=== PATIENT | female | born 1950 | race Caucasian/White ===

== ENCOUNTER 2022-04-09 07:47 | Outpatient (CLI) | payer MEDICARE, SELFPAY | END 2022-04-09 07:48 | disposition home or self-care (01) | LOC: INJ CL 07:48 | PROVIDERS: PCP Physician Assistant; Visit Provider Family Medicine | DX: M51.36 Other intervertebral disc degeneration, lumbar region (principal); M54.16 Radiculopathy, lumbar region | CPT/HCPCS: 62323; J0702; Q9966 ==

== ENCOUNTER 2022-07-03 13:45 | Outpatient (RCR) | payer MEDICARE, SELFPAY | END 2023-01-23 23:59 | disposition home or self-care (01) | PROVIDERS: Visit Provider Family Medicine | DX: M54.50 Low back pain, unspecified (principal); Z51.89 Encounter for other specified aftercare | CPT/HCPCS: 97110; 97162 ==

== ENCOUNTER 2022-10-31 14:45 | Inpatient (IN) | payer MEDICARE, SELFPAY ==
[2022-10-31] VITALS (22 sets, daily range): BP systolic 100–136; BP diastolic 47–78; PULSE 76–90; RESP 14–20; TEMP 36.6–37.2; O2SAT 83–99; BMI 25.8
--- NOTE | 2022-10-31 14:54 | CRLHL7_ITS ---
For Patients: As a result of the Cures Act, medical imaging exams and procedure reports are released immediately into your electronic medical record. You may view this report before your referring provider. If you have questions, please contact your health care provider. INDICATION: Right lower crackles, fever. TECHNIQUE: Chest 2 view(s) COMPARISON: Chest radiograph dated 04/20/2021. FINDINGS: Cardiomediastinal silhouette is within normal limits. Mild prominence of the central interstitial markings, may reflect mild pulmonary edema. No focal consolidation. No layering pleural effusion, no pneumothorax. Multilevel degenerative changes of the visualized spine. IMPRESSION: Mild prominence of the central interstitial markings, may reflect mild pulmonary edema. No focal consolidation. Dictated by Maico Huynh MD @ 10/31/2022 5:07:00 PM (Electronically Signed)
--- NOTE | 2022-10-31 14:57 | ED_ITS ---
HPI - General Adult General Time Seen by Provider: 14:57 Date Seen: 10/31/22 Chief complaint: Shortness of Breath/Dyspnea Stated complaint: Shortness of breath Time Seen by Provider: 10/31/22 14:54 Source: patient and EMS Mode of arrival: EMS Limitations: no limitations History of Present Illness HPI narrative: Sarai is a 72-year-old female past medical history includes COPD not on home oxygen, chronic pain syndrome presents emerged department via EMS with shortness of breath. Patient was recently started on Belbuca for her chronic pain syndrome, she was originally started on 75 mg twice daily, just recently they increased the dose to 150 mg twice daily, the last time she took a dose like that was yesterday morning, she refused to take her medicine this morning and last night, she did go for a walk early in the morning with a walker. Staff noticed her to be more groggy and less responsive this morning, when EMS arrived her O2 sats were in the 80s, even on 2 L, she was given a DuoNeb prior to arrival. She denies any fevers or chills, she does get bronchitis often, she denies any chest pain, orthopnea, she denies any nausea vomiting or diarrhea. No sick contacts. She thinks that she is feeling this way due to the new medication. Related Data Home Medications Medication Instructions Recorded Confirmed acetaminophen 500 mg tablet 1,000 mg PO TID 10/31/22 10/31/22 amlodipine 10 mg tablet 10 mg PO DAILY 10/31/22 10/31/22 atorvastatin 20 mg tablet 20 mg PO DAILY 10/31/22 10/31/22 beclomethasone dipropionate 80 1 inh inhalation BID 10/31/22 10/31/22 mcg/actuation HFA breath activated aerosol (Qvar RediHaler) benzonatate 100 mg capsule 100 mg PO TID 10/31/22 10/31/22 blood sugar diagnostic (OneTouch 10/31/22 10/31/22 Ultra Test strips) blood-glucose meter (OneTouch 10/31/22 10/31/22 Verio Reflect Meter) buprenorphine HCl 150 mcg buccal 150 mcg buccal BID 10/31/22 10/31/22 film (Belbuca) cetirizine 10 mg tablet 10 mg PO HS 10/31/22 10/31/22 cholecalciferol (vitamin D3) 50 50 mcg PO DAILY 10/31/22 10/31/22 mcg (2,000 unit) tablet cyanocobalamin (vitamin B-12) 1,000 mcg PO DAILY 10/31/22 10/31/22 1,000 mcg tablet diclofenac sodium 1 % topical gel 2 g topical BID PRN 10/31/22 10/31/22 docusate sodium 100 mg capsule 100 mg PO BID 10/31/22 10/31/22 ferrous sulfate 325 mg (65 mg 325 mg PO DAILY 10/31/22 10/31/22 iron) tablet,delayed release food supplemt, lactose-reduced ea PO 10/31/22 0.06 gram-1 kcal/mL oral liquid (Boost High Protein) gabapentin 300 mg capsule PO 10/31/22 ibuprofen 800 mg tablet 800 mg PO BID PRN 10/31/22 10/31/22 ipratropium 0.5 mg-albuterol 3 mg 3 ml inhalation Q6H 10/31/22 10/31/22 (2.5 mg base)/3 mL nebulization soln magnesium oxide 400 mg (241.3 mg 400 mg PO DAILY 10/31/22 10/31/22 magnesium) tablet metoprolol tartrate 50 mg tablet 50 mg PO BID 10/31/22 10/31/22 multivitamin with folic acid 400 1 tab PO DAILY 10/31/22 10/31/22 mcg tablet (Tab-A-Myles) naloxone 4 mg/actuation nasal spray spray intranasal 10/31/22 omeprazole 40 mg capsule,delayed 40 mg PO DAILY 10/31/22 10/31/22 release pramipexole 0.75 mg tablet 0.75 mg PO QPM 10/31/22 10/31/22 sertraline 50 mg tablet 50 mg PO DAILY 10/31/22 10/31/22 tizanidine 2 mg tablet 2 mg PO BID 10/31/22 10/31/22 tizanidine 4 mg tablet 4 mg PO 3XD 10/31/22 10/31/22 Allergies Allergy/AdvReac Type Severity Reaction Status Date / Time codeine Allergy Verified 04/09/22 08:21 lactose Allergy Verified 04/09/22 08:21 meperidine Allergy Verified 04/09/22 08:21 Review of Systems Status of ROS: Reports: 10 or more systems reviewed and unremarkable except as noted in History and below [facility] Medical History Chronic obstructive pulmonary disease ?J44.9 - Chronic obstructive pulmonary disease, unspecified (ICD-10) Chronic pain syndrome ?G89.4 - Chronic pain syndrome (ICD-10) Dorsalgia ?M54.9 - Dorsalgia, unspecified (ICD-10) Edentulous ?K08.109 - Complete loss of teeth, unspecified cause, unspecified class (ICD- 10) Essential hypertension ?I10 - Essential (primary) hypertension (ICD-10) Generalized anxiety disorder ?F41.1 - Generalized anxiety disorder (ICD-10) Hyperglycemia ?R73.9 - Hyperglycemia, unspecified (ICD-10) Osteoporosis ?M81.0 - Age-related osteoporosis without current pathological fracture (ICD- 10) Other muscle spasm ?M62.838 - Other muscle spasm (ICD-10) Pure hypercholesterolemia ?E78.00 - Pure hypercholesterolemia, unspecified (ICD-10) Recurrent major depressive disorder ?F33.9 - Major depressive disorder, recurrent, unspecified (ICD-10) Restless leg syndrome ?G25.81 - Restless legs syndrome (ICD-10) Tobacco dependence ?F17.200 - Nicotine dependence, unspecified, uncomplicated (ICD-10) Unsteady gait ?R26.81 - Unsteadiness on feet (ICD-10) Social History Smoking Status: Current every day smoker What tobacco products do you use: ciga rettes Smoking packs per day: 1 Smoking cigarettes per day: 20.0 Do you use any of these nicotine containing products: None Second hand tobacco smoke exposure: No How often do you have a drink containing alcohol: never How many standard drinks containing alcohol do you have on a typical day: 1 or 2 How often do you have six or more drinks on one occasion: Never AUDIT-C Alcohol total score: 0 Non-prescribed substance use: denies use Caffeine: Yes (coffee) service: No Exam Narrative: Exam Narrative: General: No obvious distress, sitting comfortably, normal mentation, nontoxic in appearance HEENT: Pupils equal round reactive to light, extraocular muscles intact Neck: Lungs: diminished breath sounds throughout, crackles in the right lower lobe Heart normal sinus rhythm S1-S2 Abdomen: Soft nontender Muscle skeletal: no lower extremity edema Neuro: Alert awake and oriented x3 Const: Vital Signs, click to edit/add: Vital Signs - 24 hr 10/31/22 14:45 10/31/22 15:54 10/31/22 15:54 Temperature 99.0 F Pulse Rate Pulse Rate [Right Pulse Oximeter] 81 Respiratory Rate 20 Blood Pressure Blood Pressure [Le ft Upper Arm] 107/47 L Pulse Oximetry 99 91 91 Oxygen Delivery Me thod Room Air Nasal Cannula Oxygen Flow Rate 2.5 Fraction of Inspir ed Oxygen 10/31/22 17:24 10/31/22 17:30 10/31/22 15:51 Temperature Pulse Rate 81 Pulse Rate [Right Pulse Oximeter] Respiratory Rate Blood Pressure Blood Pressure [Le ft Upper Arm] Pulse Oximetry 92 84 L 94 Oxygen Delivery Me thod BiPAP BiPAP Oxygen Flow Rate Fraction of Inspir ed Oxygen 25 30 10/31/22 15:53 10/31/22 16:00 10/31/22 16:02 Temperature Pulse Rate 79 84 84 Pulse Rate [Right Pulse Oximeter] Respiratory Rate Blood Pressure 114/53 L 100/78 Blood Pressure [Le ft Upper Arm] Pulse Oximetry 94 93 92 Oxygen Delivery Me thod Oxygen Flow Rate Fraction of Inspir ed Oxygen 10/31/22 16:15 10/31/22 16:30 10/31/22 16:31 Temperature Pulse Rate 86 82 84 Pulse Rate [Right Pulse Oximeter] Respiratory Rate Blood Pressure 117/54 L Blood Pressure [Le ft Upper Arm] Pulse Oximetry 94 93 85 L Oxygen Delivery Me thod Oxygen Flow Rate Fraction of Inspir ed Oxygen 10/31/22 16:45 10/31/22 17:00 10/31/22 17:01 Temperature Pulse Rate 81 79 81 Pulse Rate [Right Pulse Oximeter] Respiratory Rate Blood Pressure 114/54 L Blood Pressure [Le ft Upper Arm] Pulse Oximetry 92 85 L 83 L Oxygen Delivery Me thod Oxygen Flow Rate Fraction of Inspir ed Oxygen 10/31/22 17:15 10/31/22 17:30 10/31/22 17:32 Temperature Pulse Rate 79 82 82 Pulse Rate [Right Pulse Oximeter] Respiratory Rate Blood Pressure 125/58 L Blood Pressure [Le ft Upper Arm] Pulse Oximetry 84 L 84 L 89 Oxygen Delivery Me thod Oxygen Flow Rate Fraction of Inspir ed Oxygen 10/31/22 17:45 10/31/22 18:00 10/31/22 18:01 Temperature Pulse Rate 84 83 85 Pulse Rate [Right Pulse Oximeter] Respiratory Rate Blood Pressure 136/63 Blood Pressure [Le ft Upper Arm] Pulse Oximetry 96 96 96 Oxygen Delivery Me thod Oxygen Flow Rate Fraction of Inspir ed Oxygen Course Course Hospital Course: 3:00 PM: AIDET performed. Vitals show O2 sats greater than 90% on 4 L, temperature 99.0?, blood pressure stable, workup will include IV peripheral, 10 mg IV Decadron, DuoNeb breathing treatment, will obtain COVID/influenza/RSV nasopharyngeal swab, EKG, point of care troponin, BNP, CBC and CMP, XR chest PA and lateral. Patient's last dose of medication was yesterday morning half life is about 28 hours. Differential diagnosis include COPD exasperation, heart failure, medication reaction, viral upper respiratory tract infection, pneumonia, sepsis, metabolic abnormalities, CVA hypoxia, hypoglycemia, as well as other etiologies Reevaluation(s) Reevaluation #1: Patient was updated on her EKG lab results, EKG showed normal sinus rhythm, cannot rule out anterior infarct age indeterminate seen on previous, bpm 82, imaging showed bilateral interstitial opacities, no consolidation or pleural effusion, VBG showed respiratory acidosis, pH is 7.2 5 4, with hypercapnia pCO2 of 69, likely explaining her altered mental status, patient to be placed on BiPAP, will give a dose of Narcan 0.4 see if any improvement, CBC showed no leukocytosis, metabolic panel stable from previous, NT proBNP within normal limits, COVID/influenza/RSV were negative, likely plan to admit to the CCU continuous BiPAP and improvement of her venous blood gas. No changes with giving the Narcan, symptoms possibly related to medication effects, altered mentation due to hypercarbia. spoke with Dr.Guimaraes THOMAS, hospitalist and he accepts care of the patient to CCU. Time: 17:40 Vital Signs Vital signs: Initial Vital Signs Temperature 99.0 F 10/31/22 14:45 Temperature Source Temporal Artery Scan 10/31/22 14:45 Pulse Rate 81 10/31/22 14:45 Respiratory Rate 20 10/31/22 14:45 Blood Pressure 107/47 L 10/31/22 14:45 Blood Pressure Mean 67 L 10/31/22 14:45 Blood Pressure Position Sitting 10/31/22 14:45 Pulse Oximetry 99 10/31/22 14:45 Oxygen Delivery Method Room Air 10/31/22 14:45 Vital Signs Temperature 99.0 F 10/31/22 14:45 Pulse Rate 81 10/31/22 14:45 Respiratory Rate 20 10/31/22 14:45 Blood Pressure 107/47 L 10/31/22 14:45 Pulse Oximetry 99 10/31/22 14:45 Oxygen Delivery Method Room Air 10/31/22 14:45 Temperature 99.0 F 10/31/22 14:45 Pulse Rate 90 10/31/22 18:18 Respiratory Rate 20 10/31/22 18:14 Blood Pressure 118/59 L 10/31/22 18:14 Pulse Oximetry 92 10/31/22 18:14 Oxygen Delivery Method BiPAP 10/31/22 18:14 Oxygen Flow Rate 2.5 10/31/22 15:54 Fraction of Inspired Oxygen 25 10/31/22 18:14 Medical Decision Making Lab Data Labs: Lab Results 10/31/22 10/31/22 10/31/22 Range/Units 15:20 15:20 15:20 WBC 9.89 (4.50-11.00) K/uL RBC 3.54 L (4.00-5.20) m/uL Hgb 11.2 L (12.0-16.0) gm/dL Hct 35.3 (33.0-51.0) % MCV 100 (80-100) fL MCH 32 (26-34) pg MCHC 32 (32-36) gm/dL RDW Coeff of Leanna 12.6 (11.5-15.5) % Plt Count 241 (140-440) K/uL Neut % (Auto) 79.8 H (42.0-72.0) % Lymph % (Auto) 12.0 L (20-44) % [place] % (Auto) 7.2 (0.0-11.0) % Eos % (Auto) 0.7 (0.0-7.0) % Baso % (Auto) 0.1 (0.0-3.0) % Neut # (Auto) 7.90 H (1.7-7.0) K/uL Lymph # (Auto) 1.20 (0.90-2.90) K/uL [place] # (Auto) 0.70 (0.00-0.90) K/UL Eos # (Auto) 0.07 (0.00-0.50) K/uL Baso # (Auto) 0.01 (0.00-0.30) K/uL VBG pH 7.254 L (7.32-7.43) VBG pCO2 69 H* (40-50) mmHG VBG pO2 40.4 (25-47) mmHG VBG HCO3 31 H (21-28) mmol/L Sodium Cancelled 135 Potassium Cancelled 4.8 Chloride Cancelled Carbon Dioxide BUN Creatinine Estimated Creat Clear Estimated GFR Glucose Calcium Total Bilirubin AST ALT Alkaline Phosphatase NT-Pro-B Natriuret Pep pg/mL Total Protein Albumin SARS-CoV-2 (PCR) (Negative) Influenza Type A (PCR) (Negative) Influenza Type B (PCR) (Negative) RSV (PCR) (Negative) POC Troponin I (0.01-0.04) ng/ml 10/31/22 10/31/22 10/31/22 Range/Units 15:20 15:20 15:20 WBC (4.50-11.00) K/uL RBC (4.00-5.20) m/uL Hgb (12.0-16.0) gm/dL Hct (33.0-51.0) % MCV (80-100) fL MCH (26-34) pg MCHC (32-36) gm/dL RDW Coeff of Leanna (11.5-15.5) % Plt Count (140-440) K/uL Neut % (Auto) (42.0-72.0) % Lymph % (Auto) (20-44) % [place] % (Auto) (0.0-11.0) % Eos % (Auto) (0.0-7.0) % Baso % (Auto) (0.0-3.0) % Neut # (Auto) (1.7-7.0) K/uL Lymph # (Auto) (0.90-2.90) K/uL [place] # (Auto) (0.00-0.90) K/UL Eos # (Auto) (0.00-0.50) K/uL Baso # (Auto) (0.00-0.30) K/uL VBG pH (7.32-7.43) VBG pCO2 (40-50) mmHG VBG pO2 (25-47) mmHG VBG HCO3 (21-28) mmol/L Sodium Potassium Chloride 97 Carbon Dioxide Cancelled 29 BUN Cancelled 42 H Creatinine Cancelled Estimated Creat Clear Estimated GFR Glucose Calcium Total Bilirubin AST ALT Alkaline Phosphatase NT-Pro-B Natriuret Pep pg/mL Total Protein Albumin SARS-CoV-2 (PCR) (Negative) Influenza Type A (PCR) (Negative) Influenza Type B (PCR) (Negative) RSV (PCR) (Negative) POC Troponin I (0.01-0.04) ng/ml 10/31/22 10/31/22 10/31/22 Range/Units 15:20 15:20 15:20 WBC (4.50-11.00) K/uL RBC (4.00-5.20) m/uL Hgb (12.0-16.0) gm/dL Hct (33.0-51.0) % MCV (80-100) fL MCH (26-34) pg MCHC (32-36) gm/dL RDW Coeff of Leanna (11.5-15.5) % Plt Count (140-440) K/uL Neut % (Auto) (42.0-72.0) % Lymph % (Auto) (20-44) % [place] % (Auto) (0.0-11.0) % Eos % (Auto) (0.0-7.0) % Baso % (Auto) (0.0-3.0) % Neut # (Auto) (1.7-7.0) K/uL Lymph # (Auto) (0.90-2.90) K/uL [place] # (Auto) (0.00-0.90) K/UL Eos # (Auto) (0.00-0.50) K/uL Baso # (Auto) (0.00-0.30) K/uL VBG pH (7.32-7.43) VBG pCO2 (40-50) mmHG VBG pO2 (25-47) mmHG VBG HCO3 (21-28) mmol/L Sodium Potassium Chloride Carbon Dioxide BUN Creatinine 1.1 Estimated Creat Clear Cancelled Estimated GFR Cancelled 54 Glucose Cancelled 88 Calcium Cancelled Total Bilirubin AST ALT Alkaline Phosphatase NT-Pro-B Natriuret Pep pg/mL Total Protein Albumin SARS-CoV-2 (PCR) (Negative) Influenza Type A (PCR) (Negative) Influenza Type B (PCR) (Negative) RSV (PCR) (Negative) POC Troponin I (0.01-0.04) ng/ml 10/31/22 10/31/22 10/31/22 Range/Units 15:20 15:20 15:20 WBC (4.50-11.00) K/uL RBC (4.00-5.20) m/uL Hgb (12.0-16.0) gm/dL Hct (33.0-51.0) % MCV (80-100) fL MCH (26-34) pg MCHC (32-36) gm/dL RDW Coeff of Leanna (11.5-15.5) % Plt Count (140-440) K/uL Neut % (Auto) (42.0-72.0) % Lymph % (Auto) (20-44) % [place] % (Auto) (0.0-11.0) % Eos % (Auto) (0.0-7.0) % Baso % (Auto) (0.0-3.0) % Neut # (Auto) (1.7-7.0) K/uL Lymph # (Auto) (0.90-2.90) K/uL [place] # (Auto) (0.00-0.90) K/UL Eos # (Auto) (0.00-0.50) K/uL Baso # (Auto) (0.00-0.30) K/uL VBG pH (7.32-7.43) VBG pCO2 (40-50) mmHG VBG pO2 (25-47) mmHG VBG HCO3 (21-28) mmol/L Sodium Potassium Chloride Carbon Dioxide BUN Creatinine Estimated Creat Clear Estimated GFR Glucose Calcium 9.2 Total Bilirubin Cancelled 0.3 AST Cancelled 53 H ALT Cancelled Alkaline Phosphatase NT-Pro-B Natriuret Pep pg/mL Total Protein Albumin SARS-CoV-2 (PCR) (Negative) Influenza Type A (PCR) (Negative) Influenza Type B (PCR) (Negative) RSV (PCR) (Negative) POC Troponin I (0.01-0.04) ng/ml 10/31/22 10/31/22 10/31/22 Range/Units 15:20 15:20 15:20 WBC (4.50-11.00) K/uL RBC (4.00-5.20) m/uL Hgb (12.0-16.0) gm/dL Hct (33.0-51.0) % MCV (80-100) fL MCH (26-34) pg MCHC (32-36) gm/dL RDW Coeff of Leanna (11.5-15.5) % Plt Count (140-440) K/uL Neut % (Auto) (42.0-72.0) % Lymph % (Auto) (20-44) % [place] % (Auto) (0.0-11.0) % Eos % (Auto) (0.0-7.0) % Baso % (Auto) (0.0-3.0) % Neut # (Auto) (1.7-7.0) K/uL Lymph # (Auto) (0.90-2.90) K/uL [place] # (Auto) (0.00-0.90) K/UL Eos # (Auto) (0.00-0.50) K/uL Baso # (Auto) (0.00-0.30) K/uL VBG pH (7.32-7.43) VBG pCO2 (40-50) mmHG VBG pO2 (25-47) mmHG VBG HCO3 (21-28) mmol/L Sodium Potassium Chloride Carbon Dioxide BUN Creatinine Estimated Creat Clear Estimated GFR Glucose Calcium Total Bilirubin AST ALT 28 Alkaline Phosphatase Cancelled 38 L NT-Pro-B Natriuret Pep 1190 pg/mL Total Protein Cancelled 7.1 Albumin Cancelled SARS-CoV-2 (PCR) (Negative) Influenza Type A (PCR) (Negative) Influenza Type B (PCR) (Negative) RSV (PCR) (Negative) POC Troponin I (0.01-0.04) ng/ml 10/31/22 Range/Units 15:20 WBC (4.50-11.00) K/uL RBC (4.00-5.20) m/uL Hgb (12.0-16.0) gm/dL Hct (33.0-51.0) % MCV (80-100) fL MCH (26-34) pg MCHC (32-36) gm/dL RDW Coeff of Leanna (11.5-15.5) % Plt Count (140-440) K/uL Neut % (Auto) (42.0-72.0) % Lymph % (Auto) (20-44) % [place] % (Auto) (0.0-11.0) % Eos % (Auto) (0.0-7.0) % Baso % (Auto) (0.0-3.0) % Neut # (Auto) (1.7-7.0) K/uL Lymph # (Auto) (0.90-2.90) K/uL [place] # (Auto) (0.00-0.90) K/UL Eos # (Auto) (0.00-0.50) K/uL Baso # (Auto) (0.00-0.30) K/uL VBG pH (7.32-7.43) VBG pCO2 (40-50) mmHG VBG pO2 (25-47) mmHG VBG HCO3 (21-28) mmol/L Sodium Potassium Chloride Carbon Dioxide BUN Creatinine Estimated Creat Clear Estimated GFR Glucose Calcium Total Bilirubin AST ALT Alkaline Phosphatase NT-Pro-B Natriuret Pep pg/mL Total Protein Albumin 4.3 SARS-CoV-2 (PCR) Negative SARS-CoV-2 (Negative) Influenza Type A (PCR) Negative PCR FLU A (Negative) Influenza Type B (PCR) Negative PCR FLU B (Negative) RSV (PCR) Negative PCR RSV (Negative) POC Troponin I 0.01 (0.01-0.04) ng/ml Discharge Plan Discharge Clinical Impression: Acute respiratory failure with hypoxia and hypercarbia, Chronic pain syndrome Patient Disposition: Admitted As Inpatient
[2022-10-31 15:27] LABS: HCO3 VBG 31 mmol/L (21-28); PO2 VBG 40.4 mmHG (25-47); pH VBG 7.254 (7.32-7.43)
[2022-10-31 15:31] LABS: PCO2 VBG 69 mmHG (40-50)
[2022-10-31 15:33] LABS: Basophils Absolute Auto 0.01 K/uL (0.00-0.30); Basophils Percent Auto 0.1 % (0.0-3.0); Eosinophils Absolute Auto 0.07 K/uL (0.00-0.50); Eosinophils Percent Auto 0.7 % (0.0-7.0); Hematocrit 35.3 % (33.0-51.0); Hemoglobin* 11.2 gm/dL (12.0-16.0); Immature Granulocytes Abs Auto 0.02 K/uL (0.00-0.30); Immature Granulocytes Pct Auto 0.2 %; Mean Corpuscular HGB Conc 32 gm/dL (32-36); Mean Corpuscular Hemoglobin 32 pg (26-34); Mean Corpuscular Volume 100 fL (80-100); Monocytes Percent Auto 7.2 % (0.0-11.0); Neutrophils Percent Auto 79.8 % (42.0-72.0); Platelet Count* 241 K/uL (140-440); RDW Coefficient of Variation % 12.6 % (11.5-15.5); Red Blood Count 3.54 m/uL (4.00-5.20); White Blood Count* 9.89 K/uL (4.50-11.00)
[2022-10-31 15:40] LABS: Slide Review Reflex No
[2022-10-31 15:41] LABS: Troponin, Point-of-Care* 0.01 ng/ml (0.01-0.04)
[2022-10-31] MEDS: IPRAT-ALBUT 0.5-2.5 MG/3 ML NEB 1 NEB IH ×2 (15:42→20:40)
[2022-10-31] MEDS: dexAMETHasone 10 MG/ML inj IV (15:42)
[2022-10-31 15:47] LABS: Albumin* 4.3 g/dL (3.3-5.0); Chloride* 97 mmol/L (96-114); Potassium* 4.8 mmol/L (3.6-5.1); Sodium* 135 mmol/L (135-149)
[2022-10-31 15:49] LABS: Creatinine* 1.1 mg/dL (0.5-1.5); Estimated Glomerular Filt Rate 54 ml/min
[2022-10-31 15:50] LABS: Alanine Aminotransferase* 28 U/L (4-35); Alkaline Phosphatase* 38 U/L (40-150); Aspartate Amino Transferase* 53 U/L (12-35); Bilirubin Total* 0.3 mg/dL (0.1-1.5); Blood Urea Nitrogen* 42 mg/dL (7-30); Carbon Dioxide* 29 mmol/L (20-32); Glucose* 88 mg/dL (60-115); Total Protein* 7.1 g/dL (6.0-8.3)
[2022-10-31 15:51] LABS: Calcium* 9.2 mg/dL (8.4-10.6)
[2022-10-31 16:03] LABS: NT Pro B Type NatriureticPept* 1190 pg/mL
[2022-10-31 16:26] LABS: PCR FLU A Negative PCR FLU A (Negative); PCR FLU B Negative PCR FLU B (Negative); SARS PCR* Negative SARS-CoV-2 (Negative)
[2022-10-31 16:27] LABS: PCR RSV Negative PCR RSV (Negative)
[2022-10-31] MEDS: NALOXONE 1 MG/ML SYRINGE 0.4 MG IV (17:22)
--- NOTE | 2022-10-31 17:57 | ED.NURSE ---
Report given to med/surg, pt going into room CC3. Pt continues to be lethargic, denies pain. Main compliant is dry mouth with Bipap. Requiring 30% FiO2
--- NOTE | 2022-10-31 18:18 | ED.NURSE ---
Was not able to get jatin of assisted living facility to let know pt was admitted, passed this information onto Med/dermatological surgeon
--- NOTE | 2022-10-31 18:49 | PM.IMHP1 ---
Hospitalist- H&P: HPI History of Present Illness Time Seen by Provider: 17:30 Date Seen: 10/31/22 Chief complaint: Shortness of breath Narrative: Sarai Buckley is a 72 year old woman presents to the emergency department via EMS for further assessment and stabilization hypoxia and grogginess. Patient has longstanding history chronic pain. In the recent past she was started on belbuca (buprenorphine bucal film) sent 5 mg twice daily to help treat her pain. Two days ago on 10/29/2022 the dose was increased to 150 mg twice daily. According to the patient's close friend, Lena Curiel, who visits with Sarai regularly via the telephone, the patient complained of nausea and upset stomach when on lower dose. After the dose was increased, Lena indicates that Sarai was concerned that her balance was off. Evidently yesterday evening the 2 of them decided to stop the medicine until they can talk to healthcare provider about her concerns. Thus the patient did not take a dose today. I also spoke with Sarai ZAMORA, nurse at [facility] who helps Sarai. Sarai ZAMORA notes that since starting the higher dose of the Belbuca she noticed that the patient was slower to move slower to respond. Still able to carry out conversations. Early in the morning today the patient was still able to walk outside to smoker cigarette. However later in the morning today she noticed the patient to be rather groggy falling asleep even during conversation. The patient's lips were blue. She had extremely low saturations which they measured at 35%. Her heart rate was elevated at greater than 100. Sarai RN then summon for EMS who brought her into the emergency department for further assessment. Patient has not had anything like this previously. This is all new. There has been no recent fevers, rigors, diaphoresis. No recent cough, trauma, injury, travel. Patient has not had any unilateral or bilateral lower extremity edema. Has not had any syncope or near-syncope. No palpitations or fluttering. No recent cough or dyspnea at rest. Review of Systems Status of ROS: Reports: 10 or more systems reviewed and unremarkable except as noted in History and below Narrative: Patient lives in a assisted living setting called [facility]. Usually the patient is fairly independent with most of her ADLs and IADLs. Today this rapidly, suddenly changed. Ordinarily the patient is able to walk about. Around noon today this all changed. She can hardly move she so weak and lethargic compared to usual. Does not use oxygen at this time. Historically at 1 time in the past she did use oxygen for short period of time in association with her chronic obstructive pulmonary disease and complications associated there with. Has not been on oxygen for some time. With her transfer medical records we have information indicating that she has a son, Lawrence Lindo,, from [place], [place], with telephone [phone]. We do not have information regarding the patient's resuscitation status. I am unable to reach the patient's son to discuss this with him. The patient is too groggy to be able to have a discussion with me about this. The staff at [facility] do not know the patient's resuscitation status. [facility] Medical History Chronic obstructive pulmonary disease ?J44.9 - Chronic obstructive pulmonary disease, unspecified (ICD-10) Chronic pain syndrome ?G89.4 - Chronic pain syndrome (ICD-10) Dorsalgia ?M54.9 - Dorsalgia, unspecified (ICD-10) Edentulous ?K08.109 - Complete loss of teeth, unspecified cause, unspecified class (ICD-10) Essential hypertension ?I10 - Essential (primary) hypertension (ICD-10) Generalized anxiety disorder ?F41.1 - Generalized anxiety disorder (ICD-10) Hyperglycemia ?R73.9 - Hyperglycemia, unspecified (ICD-10) Osteoporosis ?M81.0 - Age-related osteoporosis without current pathological fracture (ICD-10) Other muscle spasm ?M62.838 - Other muscle spasm (ICD-10) Pure hypercholesterolemia ?E78.00 - Pure hypercholesterolemia, unspecified (ICD-10) Recurrent major depressive disorder ?F33.9 - Major depressive disorder, recurrent, unspecified (ICD-10) Restless leg syndrome ?G25.81 - Restless legs syndrome (ICD-10) Tobacco dependence ?F17.200 - Nicotine dependence, unspecified, uncomplicated (ICD-10) Unsteady gait ?R26.81 - Unsteadiness on feet (ICD-10) Social History Smoking Status: Current every day smoker What tobacco products do you use: cigarettes Smoking packs per day: 1 Smoking cigarettes per day: 20.0 Do you use any of these nicotine containing products: None Second hand tobacco smoke exposure: No How often do you have a drink containing alcohol: never How many standard drinks containing alcohol do you have on a typical day: 1 or 2 How often do you have six or more drinks on one occasion: Never AUDIT-C Alcohol total score: 0 Non-prescribed substance use: denies use Caffeine: Yes (coffee) service: No Meds Home Medications and Allergies Home Medications Medication Instructions Recorded Confirmed Type acetaminophen 500 mg tablet 1,000 mg PO TID 10/31/22 10/31/22 History amlodipine 10 mg tablet 10 mg PO DAILY 10/31/22 10/31/22 History atorvastatin 20 mg tablet 20 mg PO DAILY 10/31/22 10/31/22 History beclomethasone dipropionate 80 1 inh inhalation BID 10/31/22 10/31/22 History mcg/actuation HFA breath activated aerosol (Qvar RediHaler) benzonatate 100 mg capsule 100 mg PO TID 10/31/22 10/31/22 History blood sugar diagnostic (OneTouch 10/31/22 10/31/22 History Ultra Test strips) blood-glucose meter (OneTouch 10/31/22 10/31/22 History Verio Reflect Meter) buprenorphine HCl 150 mcg buccal 150 mcg buccal BID 10/31/22 10/31/22 History film (Belbuca) cetirizine 10 mg tablet 10 mg PO HS 10/31/22 10/31/22 History cholecalciferol (vitamin D3) 50 50 mcg PO DAILY 10/31/22 10/31/22 History mcg (2,000 unit) tablet cyanocobalamin (vitamin B-12) 1,000 mcg PO DAILY 10/31/22 10/31/22 History 1,000 mcg tablet diclofenac sodium 1 % topical gel 2 g topical BID PRN 10/31/22 10/31/22 History docusate sodium 100 mg capsule 100 mg PO BID 10/31/22 10/31/22 History ferrous sulfate 325 mg (65 mg 325 mg PO DAILY 10/31/22 10/31/22 History iron) tablet,delayed release food supplemt, lactose-reduced ea PO 10/31/22 History 0.06 gram-1 kcal/mL oral liquid (Boost High Protein) gabapentin 300 mg capsule PO 10/31/22 History ibuprofen 800 mg tablet 800 mg PO BID PRN 10/31/22 10/31/22 History ipratropium 0.5 mg-albuterol 3 mg 3 ml inhalation Q6H 10/31/22 10/31/22 History (2.5 mg base)/3 mL nebulization soln magnesium oxide 400 mg (241.3 mg 400 mg PO DAILY 10/31/22 10/31/22 History magnesium) tablet metoprolol tartrate 50 mg tablet 50 mg PO BID 10/31/22 10/31/22 History multivitamin with folic acid 400 1 tab PO DAILY 10/31/22 10/31/22 History mcg tablet (Tab-A-Myles) naloxone 4 mg/actuation nasal spray spray intranasal 10/31/22 History omeprazole 40 mg capsule,delayed 40 mg PO DAILY 10/31/22 10/31/22 History release pramipexole 0.75 mg tablet 0.75 mg PO QPM 10/31/22 10/31/22 History sertraline 50 mg tablet 50 mg PO DAILY 10/31/22 10/31/22 History tizanidine 2 mg tablet 2 mg PO BID 10/31/22 10/31/22 History tizanidine 4 mg tablet 4 mg PO 3XD 10/31/22 10/31/22 History Allergies Allergy/AdvReac Type Severity Reaction Status Date / Time codeine Allergy Verified 04/09/22 08:21 lactose Allergy Verified 04/09/22 08:21 meperidine Allergy Verified 04/09/22 08:21 Exam Narrative: Exam Narrative: I examined the patient in the emergency department. She is on BiPAP with IPAP at 16, EPAP at 8, respirations set at 10, FiO2 of 30%, inspiratory time of 1 sec, rise of 2. She has the face mask on. As I examine her she is sleeping the entire time. As I hold her hand and call out her name I am able to arouse her briefly and then she falls asleep again. For the most part she is breathing with the BiPAP machine and not above the respiratory rate set on the BiPAP machine. Is able to move her hands and arms on my command. Tympanic membranes are normal. Seemingly her hearing is preserved. Does open her eyes when I ask her to do so but then falls asleep again readily. Pupils equally round reactive to light and accommodation. Extraocular muscles are intact. Does track my hands when I ask her to do so. Does require lot of prompting. Neck seems supple. Midline trachea. No adenopathy. Lungs seem clear for the most part. No obvious wheezing or rhonchi. Does have end inspiratory rales, minimally on the right and only minimal to moderate on the left, anterior more so than posterior. Heart tones with regular rhythm, normal S1-S2. Abdomen with active bowel sounds, soft, nontender. Trace edema pretibially bilateral lower extremities. Strong pulses upper extremities. Only trace pulses in bilateral lower extremities. Capillary refill less than 3 seconds upper and lower extremities. Hyperpigmentation of bilateral lower extremities seemingly from chronic venous insufficiency. Const: Vital Signs, click to edit/add: Vital Signs - 24 hr 10/31/22 14:45 10/31/22 15:54 10/31/22 15:54 Temperature 99.0 F Pulse Rate Pulse Rate [Pulse Oximeter] Pulse Rate [Right Pulse Oximeter] 81 Respiratory Rate 20 Blood Pressure Blood Pressure [Le ft Upper Arm] 107/47 L Blood Pressure [Ri ght Arm] Pulse Oximetry 99 91 91 Oxygen Delivery Me thod Room Air Nasal Cannula Oxygen [facility] 10/31/22 17:24 10/31/22 17:30 10/31/22 15:51 Temperature Pulse Rate 81 Pulse Rate [Pulse Oximeter] Pulse Rate [Right Pulse Oximeter] Respiratory Rate Blood Pressure Blood Pressure [Le ft Upper Arm] Blood Pressure [Ri ght Arm] Pulse Oximetry 92 84 L 94 Oxygen Delivery Me thod BiPAP BiPAP Oxygen Flow Rate [facility] 30 10/31/22 15:53 10/31/22 16:00 10/31/22 16:02 Temperature Pulse Rate 79 84 84 Pulse Rate [Pulse Oximeter] Pulse Rate [Right Pulse Oximeter] Respiratory Rate Blood Pressure 114/53 L 100/78 Blood Pressure [Le ft Upper Arm] Blood Pressure [Ri ght Arm] Pulse Oximetry 94 93 92 Oxygen Delivery Me thod Oxygen Flow Rate Fraction of Inspir ed Oxygen 10/31/22 16:15 10/31/22 16:30 10/31/22 16:31 Temperature Pulse Rate 86 82 84 Pulse Rate [Pulse Oximeter] Pulse Rate [Right Pulse Oximeter] Respiratory Rate Blood Pressure 117/54 L Blood Pressure [Le ft Upper Arm] Blood Pressure [Ri ght Arm] Pulse Oximetry 94 93 85 L Oxygen Delivery Me thod Oxygen Flow Rate Fraction of Inspir ed Oxygen 10/31/22 16:45 10/31/22 17:00 10/31/22 17:01 Temperature Pulse Rate 81 79 81 Pulse Rate [Pulse Oximeter] Pulse Rate [Right Pulse Oximeter] Respiratory Rate Blood Pressure 114/54 L Blood Pressure [Le ft Upper Arm] Blood Pressure [Ri ght Arm] Pulse Oximetry 92 85 L 83 L Oxygen Delivery Me thod Oxygen Flow Rate Fraction of Inspir ed Oxygen 10/31/22 17:15 10/31/22 17:30 10/31/22 17:32 Temperature Pulse Rate 79 82 82 Pulse Rate [Pulse Oximeter] Pulse Rate [Right Pulse Oximeter] Respiratory Rate Blood Pressure 125/58 L Blood Pressure [Le ft Upper Arm] Blood Pressure [Ri ght Arm] Pulse Oximetry 84 L 84 L 89 Oxygen Delivery Me thod Oxygen Flow Rate Fraction of Inspir ed Oxygen 10/31/22 17:45 10/31/22 18:00 10/31/22 18:01 Temperature Pulse Rate 84 83 85 Pulse Rate [Pulse Oximeter] Pulse Rate [Right Pulse Oximeter] Respiratory Rate Blood Pressure 136/63 Blood Pressure [Le ft Upper Arm] Blood Pressure [Ri ght Arm] Pulse Oximetry 96 96 96 Oxygen Delivery Me thod Oxygen Flow Rate Fraction of Inspir ed Oxygen 10/31/22 18:14 10/31/22 18:14 10/31/22 18:14 Temperature Pulse Rate Pulse Rate [Pulse Oximeter] 88 Pulse Rate [Right Pulse Oximeter] Respiratory Rate 14 20 Blood Pressure Blood Pressure [Le ft Upper Arm] Blood Pressure [Ri ght Arm] 118/59 L Pulse Oximetry 93 92 Oxygen Delivery Me thod BiPAP BiPAP Oxygen Flow Rate Fraction of Inspir ed Oxygen 0.30 25 25 Documenting provider has reviewed patient's vital signs: yes Hospitalist - H&P: Result Labs Labs: Short CBC 10/31/22 Range/Units 15:20 WBC 9.89 (4.50-11.00) K/uL Hgb 11.2 L (12.0-16.0) gm/dL Hct 35.3 (33.0-51.0) % Plt Count 241 (140-440) K/uL BMP 10/31/22 10/31/22 10/31/22 15:20 15:20 15:20 Sodium Cancelled 135 Potassium Cancelled 4.8 Chloride Cancelled Carbon Dioxide BUN Creatinine Glucose Calcium 10/31/22 10/31/22 10/31/22 15:20 15:20 15:20 Sodium Potassium Chloride 97 Carbon Dioxide Cancelled 29 BUN Cancelled 42 H Creatinine Cancelled Glucose Calcium 10/31/22 10/31/22 10/31/22 15:20 15:20 15:20 Sodium Potassium Chloride Carbon Dioxide BUN Creatinine 1.1 Glucose Cancelled 88 Calcium Cancelled 9.2 Liver Function 10/31/22 10/31/22 10/31/22 Range/Units 15:20 15:20 15:20 Total Bilirubin Cancelled 0.3 AST Cancelled 53 H ALT Cancelled Alkaline Phosphatase Albumin 10/31/22 10/31/22 10/31/22 Range/Units 15:20 15:20 15:20 Total Bilirubin AST ALT 28 Alkaline Phosphatase Cancelled 38 L Albumin Cancelled 4.3 Imaging Chest x-ray: Attestation: I have reviewed the pertinent imaging results. Radiologist's impression: Mild prominence of the central interstitial markings, may reflect mild pulmonary edema. No focal consolidation. Assessment and Plan Assessment and plan (1) Lethargy: Status: Acute (2) Acute on chronic respiratory failure with hypoxia and hypercapnia: Status: Acute (3) Adverse effects of medication: Status: Acute (4) Chronic pain syndrome: Status: Acute (5) Acute respiratory acidosis: Status: Acute (6) Tobacco dependence: Status: Acute Plan 1. I was able to speak with Dr. Gillespie, emergency department physician. 2. I was able to speak with Sarai ZAMORA, the nurse at [facility], where the patient resides. 3. I attempted to call the patient's son, Lawrence Lindo, at [phone]. I was not able to reach him. I left a message for him to call back to [facility] so we can speak with him. I asked the health munitions factory worker to try to call him again shortly. We will continue to try to reach him. 4. I attempted to call the patient's director social welfare, case managers, Olga Lidia Heredia, at the number that we have to reach her at, . I am not able to get through to her on this phone number at all, and received a message that I need to try to dial the number again. I try 5 times without success. 5. Patient is in critical condition. In great measure her critical condition is seemingly in consequence of an adverse effect from the Belbuca (buprenorphine) that she has been taking, and the dose of which was doubled from 75 mg twice daily to 150 mg twice daily on the 29 of October. The half life of this medicines extremely long. Patient will warrant continued ventilatory support with the BiPAP until such time as she is more awake and arousable and able to ventilate on her own. Meanwhile I will not be giving her any of this medicine. 6. Will monitor her closely and decide over time whether not she can safely take oral medications. 7. Will add a nicotine patch for her tobacco dependence. 8. Physical therapy, occupational therapy, social media campaign manager support while she is in hospital. 9. We have yet to establish a resuscitation status. This is not clearly delineated in the paperwork that we received from [facility] Pederson. The value staff home I spoke with, Sarai ZAMORA, does not know the patient's resuscitation status. Other staff members home our hospital staff have converse with also are not aware the patient's resuscitation status.
[2022-10-31 18:56] LABS: HCO3 VBG 30 mmol/L (21-28); PO2 VBG 39.8 mmHG (25-47); pH VBG 7.288 (7.32-7.43)
[2022-10-31 19:04] LABS: PCO2 VBG 62 mmHG (40-50)
--- NOTE | 2022-10-31 19:26 | PC.NURSE ---
arrived to unit approx 1814, BiPAP placed, tolerating well. awake and oriented, able to answer admission questions, does fall asleep periodically during admission. BSC used, continent of urine, SBA
[2022-10-31 19:41] LABS: Troponin I* < 0.01 ng/mL (0.01-0.04)
[2022-10-31] MEDS: 0.9 % SODIUM CHLORIDE 1000 ml 1,000 ML 75 ML IV (20:40)
[2022-10-31] MEDS: ENOXAPARIN 30 MG/0.3ML INJ SUBCUT (20:41)
[2022-10-31] MEDS: METOPROLOL TARTRATE 50 MG TABLET PO (20:42)
[2022-10-31] MEDS: TIZANIDINE HCL 4 MG TABLET PO (20:42)
[2022-10-31] MEDS: DOCUSATE SODIUM 100 MG CAPSULE PO (20:42)
[2022-10-31] MEDS: GABAPENTIN 300 MG CAPSULE 900 MG PO (22:20)
[2022-10-31] MEDS: PRAMIPEXOLE 0.25 MG TABLET 0.75 MG PO (22:21)
[2022-10-31] MEDS: ACETAMINOPHEN 325 MG TABLET 650 MG PO (22:22)
[2022-11-01] VITALS (11 sets, daily range): BP systolic 116–133; BP diastolic 50–66; PULSE 70–97; RESP 16–20; TEMP 35.8–37; O2SAT 91–95
[2022-11-01] MEDS: NICOTINE 21 MG PATCH 1 PATCH TRANSDERMA (03:32)
[2022-11-01] MEDS: IPRAT-ALBUT 0.5-2.5 MG/3 ML NEB 1 NEB IH ×2 (03:33→05:56)
[2022-11-01] MEDS: GABAPENTIN 300 MG CAPSULE 600 MG PO ×2 (05:55→12:40)
[2022-11-01] MEDS: ACETAMINOPHEN 325 MG TABLET 650 MG PO ×3 (06:03→21:41)
[2022-11-01 06:56] LABS: HCO3 VBG 30 mmol/L (21-28); Lactate* 1.3 mmol/L (0.5-1.9); PCO2 VBG 50 mmHG (40-50); PO2 VBG 35.7 mmHG (25-47); pH VBG 7.386 (7.32-7.43)
[2022-11-01 07:00] LABS: Basophils Absolute Auto 0.01 K/uL (0.00-0.30); Basophils Percent Auto 0.1 % (0.0-3.0); Hematocrit 33.6 % (33.0-51.0); Hemoglobin* 10.7 gm/dL (12.0-16.0); Immature Granulocytes Abs Auto 0.01 K/uL (0.00-0.30); Immature Granulocytes Pct Auto 0.1 %; Mean Corpuscular HGB Conc 32 gm/dL (32-36); Mean Corpuscular Hemoglobin 32 pg (26-34); Mean Corpuscular Volume 100 fL (80-100); Monocytes Percent Auto 5.4 % (0.0-11.0); Neutrophils Percent Auto 79.4 % (42.0-72.0); Platelet Count* 191 K/uL (140-440); RDW Coefficient of Variation % 12.5 % (11.5-15.5); Red Blood Count 3.37 m/uL (4.00-5.20); White Blood Count* 8.71 K/uL (4.50-11.00)
[2022-11-01 07:03] LABS: Slide Review Reflex No
--- NOTE | 2022-11-01 07:17 | PC.NURSE ---
Pt pleasant and cooperative. VSS afebrile. she was on BIPAP from 19-2300 and then switched to NC at 1.5L . This maintained her at 93% O2 sats. Up with standby assist to BR tolerated this well. Voiding with out difficulty. O2 sats after walking were 70% O2 reapplied at 1.5 L NC. Have weaned her O2 to 1L. Pt states shes going home.
[2022-11-01 07:28] LABS: Chloride* 99 mmol/L (96-114); Sodium* 134 mmol/L (135-149)
[2022-11-01 07:29] LABS: Potassium* 5.4 mmol/L (3.6-5.1)
[2022-11-01 07:31] LABS: Creatinine* 0.6 mg/dL (0.5-1.5); Est. Creatinine Clearance* 45.73; Estimated Glomerular Filt Rate 97 ml/min
[2022-11-01 07:32] LABS: Blood Urea Nitrogen* 26 mg/dL (7-30); Calcium* 8.1 mg/dL (8.4-10.6); Carbon Dioxide* 27 mmol/L (20-32); Glucose* 87 mg/dL (60-115); Phosphorus* 3.4 mg/dL (2.5-4.5)
[2022-11-01 07:35] LABS: C Reactive Protein* 2.1 mg/dL (0.5-1.0)
--- NOTE | 2022-11-01 07:35 | PM.IMPN1 ---
Progress Note: A&P Assessment and plan (1) Acute respiratory failure with hypoxia and hypercarbia: Problem details: - likely iatrogenic from increased dose of Buprenorphine (ddx includes COPD exacerbation, viral URI, EDVIN) - patient is significantly improved on day after BiPAP administration - concern for pulmonary edema on admission chest x-ray - no evidence of pneumonia by exam or imaging - continues to require low-dose supplemental oxygen; would prefer to not go home on this given risk of hypercarbia + smoking status Status: Acute (2) Acute respiratory acidosis: Problem details: - resolved on hospital day 1 after BiPAP administration Status: Acute (3) Tobacco dependence: Problem details: - tolerating patch Status: Acute (4) Chronic pain syndrome: Problem details: - follows with [facility] in [place] - Noted that her somnolence and breathing difficulties began after increasing her Buprenorphine from 75mcg BID --> 150mcg BID - recommend lower dose of respiratory medications given risk of hypercarbia Status: Acute Plan - continue current course of treatment, wean supplemental oxygen as tolerated - appreciate input from respiratory therapy, PT, OT - conservative Rx with sedating medications - back to [place] when medically stable on room air Subjective Date Seen: 11/01/22 Interval history: Sarai is significantly improved today. She tapered from BiPAP to low-dose supplemental oxygen via nasal cannula. No chest pain, no concerns for hospitalist staff. Exam Narrative: Exam Narrative: GEN: Alert and sitting comfortably in bed, wearing supplemental oxygen HEENT: EOMIs bilaterally, no scleral icterus CV: RRR, No concerning murmurs, rubs, or gallops R: No wheezing, decreased breath sounds bilateral bases Ext: wwp, no concerning edema Skin: No concerning skin lesions or rashes on exposed skin Neuro: No focal deficits Psych: Appropriate Const: Vital Signs, click to edit/add: Vital Signs - 24 hr 10/31/22 14:45 10/31/22 15:54 10/31/22 15:54 Temperature 99.0 F Pulse Rate Pulse Rate [Pulse Oximeter] Pulse Rate [Right Pulse Oximeter] 81 Respiratory Rate 20 Blood Pressure Blood Pressure [Le ft Upper Arm] 107/47 L Blood Pressure [Ri ght Arm] Pulse Oximetry 99 91 91 Oxygen Delivery Me thod Room Air Nasal Cannula Oxygen Flow Rate 2.5 Fraction of Inspir ed Oxygen 10/31/22 17:24 10/31/22 17:30 10/31/22 15:51 Temperature Pulse Rate 81 Pulse Rate [Pulse Oximeter] Pulse Rate [Right Pulse Oximeter] Respiratory Rate Blood Pressure Blood Pressure [Le ft Upper Arm] Blood Pressure [Ri ght Arm] Pulse Oximetry 92 84 L 94 Oxygen Delivery Me thod BiPAP BiPAP Oxygen Flow Rate Fraction of Inspir ed Oxygen 25 30 10/31/22 15:53 10/31/22 16:00 10/31/22 16:02 Temperature Pulse Rate 79 84 84 Pulse Rate [Pulse Oximeter] Pulse Rate [Right Pulse Oximeter] Respiratory Rate Blood Pressure 114/53 L 100/78 Blood Pressure [Le ft Upper Arm] Blood Pressure [Ri ght Arm] Pulse Oximetry 94 93 92 Oxygen Delivery Me thod Oxygen Flow Rate Fraction of Inspir ed Oxygen 10/31/22 16:15 10/31/22 16:30 10/31/22 16:31 Temperature Pulse Rate 86 82 84 Pulse Rate [Pulse Oximeter] Pulse Rate [Right Pulse Oximeter] Respiratory Rate Blood Pressure 117/54 L Blood Pressure [Le ft Upper Arm] Blood Pressure [Ri ght Arm] Pulse Oximetry 94 93 85 L Oxygen Delivery Me thod Oxygen Flow Rate Fraction of Inspir ed Oxygen 10/31/22 16:45 10/31/22 17:00 10/31/22 17:01 Temperature Pulse Rate 81 79 81 Pulse Rate [Pulse Oximeter] Pulse Rate [Right Pulse Oximeter] Respiratory Rate Blood Pressure 114/54 L Blood Pressure [Le ft Upper Arm] Blood Pressure [Ri ght Arm] Pulse Oximetry 92 85 L 83 L Oxygen Delivery Me thod Oxygen Flow Rate Fraction of Inspir ed Oxygen 10/31/22 17:15 10/31/22 17:30 10/31/22 17:32 Temperature Pulse Rate 79 82 82 Pulse Rate [Pulse Oximeter] Pulse Rate [Right Pulse Oximeter] Respiratory Rate Blood Pressure 125/58 L Blood Pressure [Le ft Upper Arm] Blood Pressure [Ri ght Arm] Pulse Oximetry 84 L 84 L 89 Oxygen Delivery Me thod Oxygen Flow Rate Fraction of Inspir ed Oxygen 10/31/22 17:45 10/31/22 18:00 10/31/22 18:01 Temperature Pulse Rate 84 83 85 Pulse Rate [Pulse Oximeter] Pulse Rate [Right Pulse Oximeter] Respiratory Rate Blood Pressure 136/63 Blood Pressure [Le ft Upper Arm] Blood Pressure [Ri ght Arm] Pulse Oximetry 96 96 96 Oxygen Delivery Me thod Oxygen Flow Rate Fraction of Inspir ed Oxygen 10/31/22 18:14 10/31/22 18:14 10/31/22 18:14 Temperature Pulse Rate Pulse Rate [Pulse Oximeter] 88 Pulse Rate [Right Pulse Oximeter] Respiratory Rate 14 20 Blood Pressure Blood Pressure [Le ft Upper Arm] Blood Pressure [Ri ght Arm] 118/59 L Pulse Oximetry 93 92 Oxygen Delivery Me thod BiPAP BiPAP Oxygen Flow Rate Fraction of Inspir ed Oxygen 0.30 25 25 10/31/22 18:18 10/31/22 19:00 11/01/22 00:11 Temperature 98 F Pulse Rate 90 70 Pulse Rate [Pulse Oximeter] 76 Pulse Rate [Right Pulse Oximeter] Respiratory Rate 16 Blood Pressure Blood Pressure [Le ft Upper Arm] Blood Pressure [Ri ght Arm] 130/57 L Pulse Oximetry 89 Oxygen Delivery Me thod BiPAP Oxygen Flow Rate Fraction of Inspir ed Oxygen 25 11/01/22 00:13 11/01/22 00:16 11/01/22 00:19 Temperature 98.5 F Pulse Rate Pulse Rate [Pulse Oximeter] 73 73 Pulse Rate [Right Pulse Oximeter] Respiratory Rate 20 16 Blood Pressure Blood Pressure [Le ft Upper Arm] Blood Pressure [Ri ght Arm] 116/51 L Pulse Oximetry 93 92 Oxygen Delivery Me thod Nasal Cannula Nasal Cannula Oxygen Flow Rate 1.5 1.5 Fraction of Inspir ed Oxygen 11/01/22 03:00 Temperature 98.6 F Pulse Rate Pulse Rate [Pulse Oximeter] 72 Pulse Rate [Right Pulse Oximeter] Respiratory Rate 16 Blood Pressure Blood Pressure [Le ft Upper Arm] Blood Pressure [Ri ght Arm] 131/55 L Pulse Oximetry 91 Oxygen Delivery Me thod Nasal Cannula Oxygen Flow Rate 1.5 Fraction of Inspir ed Oxygen Labs Labs: Laboratory Results - last 24 hr 10/31/22 10/31/22 10/31/22 15:20 15:20 15:20 WBC 9.89 RBC 3.54 L Hgb 11.2 L Hct 35.3 MCV 100 MCH 32 MCHC 32 RDW Coeff of Leanna 12.6 Plt Count 241 Neut % (Auto) 79.8 H Lymph % (Auto) 12.0 L [place] % (Auto) 7.2 Eos % (Auto) 0.7 Baso % (Auto) 0.1 Neut # (Auto) 7.90 H Lymph # (Auto) 1.20 [place] # (Auto) 0.70 Eos # (Auto) 0.07 Baso # (Auto) 0.01 VBG pH 7.254 L VBG pCO2 69 H* VBG pO2 40.4 VBG HCO3 31 H Sodium Cancelled 135 Potassium Cancelled 4.8 Chloride Cancelled Carbon Dioxide BUN Creatinine Estimated Creat Clear Estimated GFR Glucose Lactate Calcium Total Bilirubin AST ALT Alkaline Phosphatase Troponin I NT-Pro-B Natriuret Pep Total Protein Albumin SARS-CoV-2 (PCR) Influenza Type A (PCR) Influenza Type B (PCR) RSV (PCR) POC Troponin I 10/31/22 10/31/22 10/31/22 15:20 15:20 15:20 WBC RBC Hgb Hct MCV MCH MCHC RDW Coeff of Leanna Plt Count Neut % (Auto) Lymph % (Auto) [place] % (Auto) Eos % (Auto) Baso % (Auto) Neut # (Auto) Lymph # (Auto) [place] # (Auto) Eos # (Auto) Baso # (Auto) VBG pH VBG pCO2 VBG pO2 VBG HCO3 Sodium Potassium Chloride 97 Carbon Dioxide Cancelled 29 BUN Cancelled 42 H Creatinine Cancelled Estimated Creat Clear Estimated GFR Glucose Lactate Calcium Total Bilirubin AST ALT Alkaline Phosphatase Troponin I NT-Pro-B Natriuret Pep Total Protein Albumin SARS-CoV-2 (PCR) Influenza Type A (PCR) Influenza Type B (PCR) RSV (PCR) POC Troponin I 10/31/22 10/31/22 10/31/22 15:20 15:20 15:20 WBC RBC Hgb Hct MCV MCH MCHC RDW Coeff of Leanna Plt Count Neut % (Auto) Lymph % (Auto) [place] % (Auto) Eos % (Auto) Baso % (Auto) Neut # (Auto) Lymph # (Auto) [place] # (Auto) Eos # (Auto) Baso # (Auto) VBG pH VBG pCO2 VBG pO2 VBG HCO3 Sodium Potassium Chloride Carbon Dioxide BUN Creatinine 1.1 Estimated Creat Clear Cancelled Estimated GFR Cancelled 54 Glucose Cancelled 88 Lactate Calcium Cancelled Total Bilirubin AST ALT Alkaline Phosphatase Troponin I NT-Pro-B Natriuret Pep Total Protein Albumin SARS-CoV-2 (PCR) Influenza Type A (PCR) Influenza Type B (PCR) RSV (PCR) POC Troponin I 10/31/22 10/31/22 10/31/22 15:20 15:20 15:20 WBC RBC Hgb Hct MCV MCH MCHC RDW Coeff of Leanna Plt Count Neut % (Auto) Lymph % (Auto) [place] % (Auto) Eos % (Auto) Baso % (Auto) Neut # (Auto) Lymph # (Auto) [place] # (Auto) Eos # (Auto) Baso # (Auto) VBG pH VBG pCO2 VBG pO2 VBG HCO3 Sodium Potassium Chloride Carbon Dioxide BUN Creatinine Estimated Creat Clear Estimated GFR Glucose Lactate Calcium 9.2 Total Bilirubin Cancelled 0.3 AST Cancelled 53 H ALT Cancelled Alkaline Phosphatase Troponin I NT-Pro-B Natriuret Pep Total Protein Albumin SARS-CoV-2 (PCR) Influenza Type A (PCR) Influenza Type B (PCR) RSV (PCR) POC Troponin I 10/31/22 10/31/22 10/31/22 15:20 15:20 15:20 WBC RBC Hgb Hct MCV MCH MCHC RDW Coeff of Leanna Plt Count Neut % (Auto) Lymph % (Auto) [place] % (Auto) Eos % (Auto) Baso % (Auto) Neut # (Auto) Lymph # (Auto) [place] # (Auto) Eos # (Auto) Baso # (Auto) VBG pH VBG pCO2 VBG pO2 VBG HCO3 Sodium Potassium Chloride Carbon Dioxide BUN Creatinine Estimated Creat Clear Estimated GFR Glucose Lactate Calcium Total Bilirubin AST ALT 28 Alkaline Phosphatase Cancelled 38 L Troponin I NT-Pro-B Natriuret Pep 1190 Total Protein Cancelled 7.1 Albumin Cancelled SARS-CoV-2 (PCR) Influenza Type A (PCR) Influenza Type B (PCR) RSV (PCR) POC Troponin I 10/31/22 10/31/22 11/01/22 15:20 18:51 05:58 WBC 8.71 RBC 3.37 L Hgb 10.7 L Hct 33.6 MCV 100 MCH 32 MCHC 32 RDW Coeff of Leanna 12.5 Plt Count 191 Neut % (Auto) 79.4 H Lymph % (Auto) 15.0 L [place] % (Auto) 5.4 Eos % (Auto) 0.0 Baso % (Auto) 0.1 Neut # (Auto) 6.90 Lymph # (Auto) 1.30 [place] # (Auto) 0.50 Eos # (Auto) 0.00 Baso # (Auto) 0.01 VBG pH 7.288 L 7.386 VBG pCO2 62 H* 50 VBG pO2 39.8 35.7 VBG HCO3 30 H 30 H Sodium Potassium Chloride Carbon Dioxide BUN Creatinine Estimated Creat Clear Estimated GFR Glucose Lactate 1.3 Calcium Total Bilirubin AST ALT Alkaline Phosphatase Troponin I < 0.01 L NT-Pro-B Natriuret Pep Total Protein Albumin 4.3 SARS-CoV-2 (PCR) Negative SARS-CoV-2 Influenza Type A (PCR) Negative PCR FLU A Influenza Type B (PCR) Negative PCR FLU B RSV (PCR) Negative PCR RSV POC Troponin I 0.01
[2022-11-01 07:37] LABS: NT Pro B Type NatriureticPept* 1430 pg/mL
[2022-11-01 07:39] LABS: Troponin I* 0.03 ng/mL (0.01-0.04)
[2022-11-01 07:44] LABS: Procalcitonin* 0.05 ng/mL (<0.50)
--- NOTE | 2022-11-01 08:00 | CRLHL7_ITS ---
For Patients: As a result of the Century Cures Act, medical imaging exams and procedure reports are released immediately into your electronic medical record. You may view this report before your referring provider. If you have questions, please contact your health care provider. INDICATION: Respiratory failure on BiPAP. Followup. TECHNIQUE: AP portable chest x-ray performed with the patient seated. COMPARISON: Two-view chest October 31, 2022. FINDINGS: Both lungs are expanded without pneumothoraces nodules or infiltrates. Normal heart size. The pulmonary vascularity is within normal limits. No definite pleural effusion. IMPRESSION: No convincing evidence for acute cardiopulmonary processes. No evidence for significant pulmonary edema either. Dictated by Johann Wadsworth MD @ 11/01/2022 8:42:11 AM (Electronically Signed)
[2022-11-01] MEDS: TIZANIDINE HCL 4 MG TABLET PO ×3 (08:57→21:41)
[2022-11-01] MEDS: AMLODIPINE 10 MG TABLET PO (08:57)
[2022-11-01] MEDS: SERTRALINE 50 MG TABLET PO (08:57)
[2022-11-01] MEDS: METOPROLOL TARTRATE 50 MG TABLET PO ×2 (08:57→21:41)
[2022-11-01] MEDS: MAGNESIUM OXIDE 400 MG TABLET PO (08:57)
[2022-11-01] MEDS: OMEPRAZOLE 20 MG CAPSULE DR 40 MG PO (08:57)
[2022-11-01] MEDS: DOCUSATE SODIUM 100 MG CAPSULE PO ×2 (08:57→21:40)
[2022-11-01] MEDS: FUROSEMIDE 40 MG TABLET PO (12:40)
[2022-11-01] MEDS: ENOXAPARIN 30 MG/0.3ML INJ SUBCUT (18:46)
[2022-11-01] MEDS: PRAMIPEXOLE 0.25 MG TABLET 0.75 MG PO (18:46)
--- NOTE | 2022-11-01 19:31 | PC.NURSE ---
PATIENT'S O2 SATS ON 1L PER NC THIS AM 93-94%. PATIENT AMBULATED IN ROOM ON RA AND SATS DECREASED TO 83-85%RA. REPLACED O2 AT 1L AND ENCOURAGED TO USE AEROBIKA. O2 WAS REMOVED WHEN PATIENT WAS IN BED BY RT AND SATS 91-94%RA. PATIENT FELL ASLEEP AND O2 DECREASED TO 83%RA. REAPPLIED O2 AT 1L PER NC AND SATS 93-95%. ATTEMPTED TO WALK AFTER SUPPER ON ROOM AIR AND SATS DECREASED TO 85%RA.
[2022-11-01] MEDS: GABAPENTIN 300 MG CAPSULE 900 MG PO (21:40)
[2022-11-02] VITALS (8 sets, daily range): BP systolic 108–157; BP diastolic 47–71; PULSE 64–76; RESP 16–24; TEMP 36.3–37; O2SAT 87–97
[2022-11-02] MEDS: NICOTINE 21 MG PATCH 1 PATCH TRANSDERMA (02:43)
[2022-11-02] MEDS: ACETAMINOPHEN 325 MG TABLET 650 MG PO (03:42)
--- NOTE | 2022-11-02 06:07 | PC.NURSE ---
[id number]: No acute events noted overnight. Patient continues to c/o chronic pain and take prn tylenol for relief. Patient remained on 1 LPM NC. Patient with no distress. Will continue to monitor.
[2022-11-02 06:57] LABS: HCO3 VBG 34 mmol/L (21-28); PCO2 VBG 51 mmHG (40-50); PO2 VBG 57.3 mmHG (25-47); pH VBG 7.433 (7.32-7.43)
[2022-11-02 07:06] LABS: Basophils Absolute Auto 0.02 K/uL (0.00-0.30); Basophils Percent Auto 0.3 % (0.0-3.0); Eosinophils Absolute Auto 0.14 K/uL (0.00-0.50); Eosinophils Percent Auto 1.8 % (0.0-7.0); Hematocrit 33.4 % (33.0-51.0); Hemoglobin* 10.8 gm/dL (12.0-16.0); Immature Granulocytes Abs Auto 0.01 K/uL (0.00-0.30); Immature Granulocytes Pct Auto 0.1 %; Mean Corpuscular HGB Conc 32 gm/dL (32-36); Mean Corpuscular Hemoglobin 32 pg (26-34); Mean Corpuscular Volume 98 fL (80-100); Monocytes Percent Auto 8.9 % (0.0-11.0); Neutrophils Absolute Auto 4.16 K/uL (1.7-7.0); Neutrophils Percent Auto 53.9 % (42.0-72.0); Platelet Count* 213 K/uL (140-440); RDW Coefficient of Variation % 12.6 % (11.5-15.5); Red Blood Count 3.41 m/uL (4.00-5.20); White Blood Count* 7.72 K/uL (4.50-11.00)
[2022-11-02 07:09] LABS: Slide Review Reflex No
[2022-11-02 07:18] LABS: Chloride* 98 mmol/L (96-114); Potassium* 4.4 mmol/L (3.6-5.1); Sodium* 133 mmol/L (135-149)
[2022-11-02 07:21] LABS: Blood Urea Nitrogen* 17 mg/dL (7-30); Calcium* 8.4 mg/dL (8.4-10.6); Carbon Dioxide* 33 mmol/L (20-32); Creatinine* 0.6 mg/dL (0.5-1.5); Est. Creatinine Clearance* 45.84; Estimated Glomerular Filt Rate 97 ml/min; Glucose* 85 mg/dL (60-115); Magnesium* 1.8 mg/dL (1.5-2.6)
[2022-11-02] MEDS: GABAPENTIN 300 MG CAPSULE 600 MG PO ×2 (07:54→13:26)
[2022-11-02] MEDS: SERTRALINE 50 MG TABLET PO (09:29)
[2022-11-02] MEDS: TIZANIDINE HCL 4 MG TABLET PO ×2 (09:29→13:26)
[2022-11-02] MEDS: MAGNESIUM OXIDE 400 MG TABLET PO (09:30)
[2022-11-02] MEDS: DOCUSATE SODIUM 100 MG CAPSULE PO (09:30)
[2022-11-02] MEDS: AMLODIPINE 10 MG TABLET PO (09:30)
[2022-11-02] MEDS: OMEPRAZOLE 20 MG CAPSULE DR 40 MG PO (09:30)
[2022-11-02] MEDS: METOPROLOL TARTRATE 50 MG TABLET PO (09:30)
--- NOTE | 2022-11-02 11:23 | RESP.RT ---
Patient sitting up in chair, resting comfortably, on room air, SaO2 91%. Using Aerobika, has fair-good exhalation effort, with fair to good chest shake. SaO2 increased to 95%. Bilateral breath sounds diminished, with both bases more diminished. Three part walk with patient done; Patient sitting on edge of bed, on 21% SaO2 91-93%, walking 125 feet, with walker, SaO2 decreased 86-89%, Placed on Oxygen, walked back to room 125 feet, at 1 Lpm NC, SaO2 increased to 91% with 2 Lpm SaO2 increased to 93%. Patient stated she feels good no SOB. Patient appears no SOB with walk. Patient has Hx of COPD, and continues to smoke 1 PPD cigarettes. Patient also stated she walks allot in good weather, but has had difficulty this winter finding enough room to walk at a fast pace.
--- NOTE | 2022-11-02 11:45 | P.DS_ITS ---
DS: Providers Provider Time Seen by Provider: 08:01 Date Seen: 11/02/22 Date of admission: 10/31/22 18:03 Primary care physician: LISA Love Admitting Clinician: Aaron Lim MD Consults: 10/31/22 18:41 Consult to Occupational Therapy [CONS] Routine Comment: Reason(s) for OT Consult:: Evaluate and Treat Any Restrictions?:: See Comment Comment: sedate due to medicine Consult to Physical Therapy [CONS] Routine Comment: Reason(s) for PT Consult:: Evaluate and Treat Any Restrictions?:: See Comment Comment: sedate due to medicine Consult to Medical Physics Professor [CONS] Routine Comment: Reason for Consult:: Discharge Planning Needs 11/01/22 07:36 Consult to Respiratory Therapy [CONS] Routine Comment: Reason(s) for RT Consult:: Consult Attending Physician on discharge: Rivka Hicks MD Date of Discharge: 11/02/22 DS: Diagnosis Discharge Diagnosis (1) Chronic obstructive pulmonary disease: Status: Chronic Problem details: Ordinarily does not require oxygen supplementation. There was a brief period of time in the past when she did require oxygen supplementation via nasal cannula. - Ambulatory O2 study done 11/02/22. She is right on the border of needing oxygen at home. I would like to avoid use of home O2 for now for her because I think the risk outweighs the benefit for her at this time. She is at her baseline mental status and functioning and is asymptomatic with mildly low O2. She continues to smoke and does not want to quit, and this would be risky around oxygen. She frequently gets tangled in the O2 cords here and this greatly increases her risk for falls. - Continue vibratory pep use at home which is helpful for her here. - follow-up with primary care provider. (2) Acute respiratory failure with hypoxia and hypercarbia: Status: Acute Problem details: - likely iatrogenic from increased dose of Buprenorphine (ddx includes COPD exacerbation, viral URI, EDVIN) - patient is significantly improved on day after BiPAP administration - concern for pulmonary edema on admission chest x-ray - no evidence of pneumonia by exam or imaging - no longer requiring oxygen at rest and is borderline upon ambulation, see ab ove in COPD. (3) Tobacco dependence: Status: Chronic Problem details: - patient does not want to quit at this time and declines help with it. (4) Acute respiratory acidosis: Status: Acute Problem details: - resolved on hospital day 1 after BiPAP administration (5) Adverse effects of medication: Status: Acute (6) Acute on chronic respiratory failure with hypoxia and hypercapnia: Status: Acute (7) Chronic pain syndrome: Status: Acute Problem details: - follows with [facility] in [place] - Noted that her somnolence and breathing difficulties began after increasing her Buprenorphine from 75mcg BID --> 150mcg BID - recommend lower dose of respiratory medications given risk of hypercarbia DS: Summary Hospital Course Hospital Course: This is a 72-year-old female on buprenorphine for chronic pain who presented to the emergency department via EMS for hypoxia and grogginess. She had been using 75 mg twice a day of the buccal film, but was recently increased to 150 mg twice a day. The patient tells me that her pain was well controlled on the lower dose and she is not sure why they increase the medication, but she thought that since the doctor did so the doctor must have a reason and she started taking the higher dose. She then started having trouble remembering things and felt very sleepy. While at [place], she was noted to have blue lips and oxygen saturations were measured at 35% with a heart rate of greater than 100. She was therefore brought to the emergency room by EMS. She was placed on BiPAP. Medications were held and she improved overnight. She does have chronic COPD and continues to smoke which likely contribute to chronic hypoxia and she has needed oxygen in the past. Please see above in diagnoses for further details. Although she is borderline for requiring oxygen with ambulation, due to the issues I have outlined above, I am holding off for now as I think the risk is greater than the benefit for her. I would like her to follow-up with her primary care provider to discuss this further. I have given her a few doses of buprenorphine 75 mg to get her through until she can be seen in [facility] the pain clinic this week to get it refilled. Time Spent with Patient Time attestation: Total time spent providing and/or coordinating discharge services: Exam Narrative: Exam Narrative: General: No acute distress. Awake, alert, oriented x3. No pallor. No jaundice. Oropharynx: Clear. Mucous membranes moist. Cardiovascular: Regular rate and rhythm. No murmurs, gallops, or rubs. Respiratory: Clear to auscultation bilaterally. No wheezes or crackles. Prolonged expiratory phase present. Abdomen: Bowel sounds present. Soft, nondistended, nontender. Extremities: No pedal edema. Const: Vital Signs, click to edit/add: Vital Signs - 24 hr 11/01/22 15:00 11/01/22 15:00 11/01/22 15:00 Temperature Pulse Rate 97 Pulse Rate [Pulse Oximeter] 82 Respiratory Rate 18 Blood Pressure [Ri ght Arm] Pulse Oximetry 94 Oxygen Delivery Me thod Nasal Cannula Oxygen Flow Rate 1 Fraction of Inspir ed Oxygen 11/01/22 15:00 11/01/22 19:00 11/01/22 23:00 Temperature 96.4 F L 98.1 F Pulse Rate 86 Pulse Rate [Pulse Oximeter] 82 84 Respiratory Rate 18 18 Blood Pressure [Ri ght Arm] 129/55 L 131/55 L Pulse Oximetry 94 95 Oxygen Delivery Me thod Nasal Cannula Nasal Cannula Oxygen Flow Rate 1 1 Fraction of Inspir ed Oxygen 0.25 11/01/22 23:00 11/01/22 23:00 11/01/22 23:00 Temperature 97.7 F Pulse Rate Pulse Rate [Pulse Oximeter] 86 80 Respiratory Rate 18 18 18 Blood Pressure [Ri ght Arm] 133/60 Pulse Oximetry 95 95 Oxygen Delivery Me thod Nasal Cannula Nasal Cannula Oxygen Flow Rate 1 1 Fraction of Inspir ed Oxygen 0.25 0.25 11/02/22 02:45 11/02/22 07:00 11/02/22 07:45 Temperature 98.6 F Pulse Rate 75 Pulse Rate [Pulse Oximeter] 70 76 Respiratory Rate 16 20 Blood Pressure [Ri ght Arm] 128/48 L Pulse Oximetry 94 Oxygen Delivery Me thod Nasal Cannula Oxygen Flow Rate 1 Fraction of Inspir ed Oxygen 11/02/22 07:45 11/02/22 07:45 11/02/22 10:00 Temperature 97.3 F L Pulse Rate Pulse Rate [Pulse Oximeter] 76 Respiratory Rate 20 20 Blood Pressure [Ri ght Arm] 157/71 H Pulse Oximetry 97 97 91 Oxygen Delivery Me thod Nasal Cannula Nasal Cannula Room Air Oxygen Flow Rate 1 1 Fraction of Inspir ed Oxygen Documenting provider has reviewed patient's vital signs: yes DS: Data Data Completed and Pending Completed studies during hospitalization: 10/31/2022 3:11 p.m. EKG: Normal sinus rhythm, 82 beats per minute. Cannot rule out anterior infarct, age undetermined. Ordering Physician: Harrison Gillespie M.D. Date of Service: 10/31/22 Procedure(s): XR chest 2V Accession Number(s): [id number] cc: Harrison Gillespie M.D.; Valeri Butler~ For Patients: As a result of the Cures Act, medical imaging exams and procedure reports are released immediately into your electronic medical record. You may view this report before your referring provider. If you have questions, please contact your health care provider. INDICATION: Right lower crackles, fever. TECHNIQUE: Chest 2 view(s) COMPARISON: Chest radiograph dated 04/20/2021. FINDINGS: Cardiomediastinal silhouette is within normal limits. Mild prominence of the central interstitial markings, may reflect mild pulmonary edema. No focal consolidation. No layering pleural effusion, no pneumothorax. Multilevel degenerative changes of the visualized spine. IMPRESSION: Mild prominence of the central interstitial markings, may reflect mild pulmonary edema. No focal consolidation. Dictated by Maico Huynh MD @ 10/31/2022 5:07:00 PM (Electronically Signed) Ordering Physician: Aaron Lim M.D. Date of Service: 11/01/22 Procedure(s): XR chest 1V portable Accession Number(s): [id number] cc: Aaron Lim M.D.; Valeri Butler~ For Patients: As a result of the Cures Act, medical imaging exams and procedure reports are released immediately into your electronic medical record. You may view this report before your referring provider. If you have questions, please contact your health care provider. INDICATION: Respiratory failure on BiPAP. Followup. TECHNIQUE: AP portable chest x-ray performed with the patient seated. COMPARISON: Two-view chest October 31, 2022. FINDINGS: Both lungs are expanded without pneumothoraces nodules or infiltrates. Normal heart size. The pulmonary vascularity is within normal limits. No definite pleural effusion. IMPRESSION: No convincing evidence for acute cardiopulmonary processes. No evidence for significant pulmonary edema either. Dictated by Johann Wadsworth MD @ 11/01/2022 8:42:11 AM (Electronically Signed) Labs on day of discharge: Labs from last 24 hours 11/02/22 06:13 WBC 7.72 RBC 3.41 L Hgb 10.8 L Hct 33.4 MCV 98 MCH 32 MCHC 32 RDW Coeff of Leanna 12.6 Plt Count 213 Neut % (Auto) 53.9 Lymph % (Auto) 35.0 Reynolds % (Auto) 8.9 Eos % (Auto) 1.8 Baso % (Auto) 0.3 Neut # (Auto) 4.16 Lymph # (Auto) 2.70 Reynolds # (Auto) 0.70 Eos # (Auto) 0.14 Baso # (Auto) 0.02 VBG pH 7.433 H VBG pCO2 51 H VBG pO2 57.3 H VBG HCO3 34 H Sodium 133 L Potassium 4.4 Chloride 98 Carbon Dioxide 33 H BUN 17 Creatinine 0.6 Estimated Creat Clear 45.84 Estimated GFR 97 Glucose 85 Calcium 8.4 Magnesium 1.8 Discharge Plan Discharge Disposition: Home, Self-Care Date of Admission: 10/31/22 18:03 Attending Provider on Discharge: Rivka Hicks Primary Care Provider: Valeri Butler Condition: Improved Anticipated Discharge Date/Time: 11/02/22 11:51 Discharge Medications: New buprenorphine HCl 75 mcg film 75 mcg buccal BID Qty: 10 0RF Continued atorvastatin 20 mg tablet 20 mg PO DAILY ipratropium-albuterol 0.5 mg-3 mg(2.5 mg base)/3 mL solution for nebulization 3 ml INHALATION QID PRN cetirizine 10 mg tablet 10 mg PO HS ibuprofen 800 mg tablet 800 mg PO BID tizanidine 4 mg tablet 4 mg PO TID Patient Comments: 4MG TID AND ONCE DAILY PRN MUSCLE SPASMS cyanocobalamin (vitamin B-12) 1,000 mcg tablet 1,000 mcg PO DAILY omeprazole 40 mg capsule,delayed release(DR/EC) 40 mg PO DAILY acetaminophen 500 mg tablet 1,000 mg PO TID magnesium oxide 400 mg (241.3 mg magnesium) tablet 400 mg PO DAILY amlodipine 10 mg tablet 10 mg PO DAILY benzonatate 100 mg capsule 100 mg PO TID metoprolol tartrate 50 mg tablet 50 mg PO BID docusate sodium 100 mg capsule 100 mg PO BID gabapentin 300 mg capsule 600 mg PO BID Patient Comments: 600MG AT 0500, 1300 AND 900MG HS ferrous sulfate 325 mg (65 mg iron) tablet,delayed release (DR/EC) 325 mg PO DAILY sertraline 50 mg tablet 50 mg PO DAILY pramipexole 0.75 mg tablet 0.75 mg PO QPM diclofenac sodium 1 % gel 2 g topical BID PRN cholecalciferol (vitamin D3) 50 mcg (2,000 unit) tablet 50 mcg PO DAILY multivitamin with folic acid [Tab-A-Myles] 400 mcg tablet 1 tab PO DAILY naloxone 4 mg/actuation spray,non-aerosol 1 spray INTRANASAL .UD PRN Patient Comments: USE DIRECTED FOR ACCIDENTAL OVERDOSE Qvar RediHaler 80 mcg/actuation HFA aerosol breath activated 1 inh inhalation BID gabapentin 300 mg capsule 900 mg PO HS Patient Comments: 600MG AT 0500, 1300 AND 900MG HS albuterol sulfate 90 mcg/actuation HFA aerosol inhaler 2 inh inhalation QID PRN polyethylene glycol 3350 [Gavilax] 17 gram/dose powder 17 g PO DAILY PRN dextromethorphan-guaifenesin [Antitussive DM] 10-100 mg/5 mL syrup 10 ml PO Q4H PRN Patient Comments: UP TO 4 DAYS trazodone 100 mg tablet 100 mg PO QPM Patient Comments: PRN FOR SLEEP No Action (DME) blood-glucose meter [OneTouch Verio Reflect Meter] Misc MISCELLANEOUS DIRECTED (DME) OneTouch Ultra Test Strip MISCELLANEOUS buprenorphine HCl [Belbuca] 150 mcg film 150 mcg BUCCAL BID Discharge Orders: Discharge Order (Routine); Ordered 11/02/22 Ordered By: Rivka Hicks Patient Education: How to Stop Smoking (DC), Cigarette Smoking and Your Health (GEN) Additional Instructions: - Continue previous level of assistance assistance, including for medication management, meals, cleaning and transportation. - Recommend smoking cessation. - See or call pain clinic this week for refills. Activity Level: Activity as Tolerated Discharge Diet: Regular Follow Up Appointments: Provider,Not a Local [Referring] - Valeri Butler PA [Primary Care Provider] - (5-7 days) Forms: [facility] Instructions
--- NOTE | 2022-11-02 13:53 | PC.NURSE ---
Nursing Care Hours: [id number] Pt this shift calm and cooperative, alert and oriented. Stable on RA, VSS. Walking independently in room. No c/o pain. Removed IV for discharge. DC instructions discussed, all questions and concerns addressed. Mason Apprentice spoke with nurse Velez at [facility] for update. Nurse stated she is not comfortable giving the Belbuca d/t short staff issues at [facility] and concerned no one will see any complications if they come about. Discussed concern with charge nurse who relayed that Hospitalist talked to pain clinic directly about the concerns and that the new low dose was safe. Mason Apprentice updated nurse at [facility] with this information, pt states she is comfortable taking it or not taking it at this time and will further discuss with Nurse Velez. Pt also requested information on Advance Directive. Info packet and form provided. Pt wheeled out to [facility] staff vehicle in stable condition
== END 2022-11-02 13:35 | disposition home or self-care (01) | DRG 189 ==
LOC: ED 16:00 → MEDSURG 19:12
PROVIDERS: Family Medicine; Admitting Provider Internal Medicine; Emergency Provider Student in an Organized Health Care Education/Training Program; PCP Physician Assistant; Visit Provider Internal Medicine
DX: J96.21 Acute and chronic respiratory failure with hypoxia (principal); F33.9 Major depressive disorder, recurrent, unspecified; J96.22 Acute and chronic respiratory failure with hypercapnia; J96.02 Acute respiratory failure with hypercapnia; T40.495A Adverse effect of other synthetic narcotics, initial encounter; J44.9 Chronic obstructive pulmonary disease, unspecified; F17.210 Nicotine dependence, cigarettes, uncomplicated; G89.4 Chronic pain syndrome; I10 Essential (primary) hypertension; F41.1 Generalized anxiety disorder; I87.2 Venous insufficiency (chronic) (peripheral); M81.0 Age-related osteoporosis without current pathological fracture; E78.00 Pure hypercholesterolemia, unspecified; G25.81 Restless legs syndrome
CPT/HCPCS: 36415; 71045; 71046; 80048; 80053; 80306; 82803; 83605; 83735; 83880; 84100; 84145; 84484; 85025; 86140; 87631; 93005; 94640; 94660; 94664; 94761; 97110; 97116; 97161; 97165; 97535; 99283; 99285; A9270; J1100; J1650; J2310; J7030; S4990

== ENCOUNTER 2023-01-21 08:24 | Outpatient (CLI) | payer MEDICARE, SELFPAY | END 2023-01-21 08:25 | disposition home or self-care (01) | LOC: INJ CL 08:25 | PROVIDERS: PCP Student in an Organized Health Care Education/Training Program; Visit Provider Family Medicine | DX: M54.16 Radiculopathy, lumbar region (principal); M51.36 Other intervertebral disc degeneration, lumbar region; M48.062 Spinal stenosis, lumbar region with neurogenic claudication | CPT/HCPCS: 62323; J0702; Q9966 ==

== ENCOUNTER 2023-10-01 16:10 | Inpatient (IN) | payer MEDICARE, SELFPAY ==
[2023-10-01] VITALS (29 sets, daily range): BP systolic 140–183; BP diastolic 61–100; PULSE 78–97; RESP 20–28; TEMP 36.5–36.6; O2SAT 63–95; BMI 21.2
--- NOTE | 2023-10-01 16:32 | US_ITS ---
Patient: RUTHIE WICK Facility:?[facility] Patient ID:?[id number] Site Patient ID:?[id number]. Site :?[id number] Study:?US-Extremity LEV LT-10/01/2023 6:02:51 PM Ordering Physician:?BIB COOPER M.D. Final Report: INDICATION: Left lower extremity swelling. TECHNIQUE: Left lower extremity Doppler venous ultrasound examination was performed. Grayscale and color Doppler images were obtained. COMPARISON: None. FINDINGS: RIGHT LOWER EXTREMITY: Common femoral vein: Fully compressible. No deep vein thrombus. Normal flow and response to augmentation on color Doppler imaging. LEFT LOWER EXTREMITY: Common femoral vein: Fully compressible. No deep vein thrombus. Normal flow and response to augmentation on color Doppler imaging. Superficial femoral vein: Fully compressible. No deep vein thrombus. Normal flow on color Doppler imaging. Deep femoral vein: No deep vein thrombus Popliteal femoral vein: Fully compressible. No deep vein thrombus. Normal flow on color Doppler imaging. Lower calf: The visualized posterior tibial and peroneal veins are fully compressible. No deep vein thrombus. Normal flow and response to augmentation on color Doppler imaging. Superficial veins: The superficial veins, including the greater saphenous vein, remain patent and are fully compressible. Soft tissues: No popliteal fossa fluid collection identified. IMPRESSION: No deep vein thrombus. Unremarkable doppler ultrasound examination of the left lower extremity. Dictated by Jose Pabon MD @ 10/01/2023 6:34:17 PM Signed by:?Jose Pabon MD @10/01/2023 6:34:17 PM (Electronic Signature)
[2023-10-01 17:04] LABS: Basophils Percent Auto 0.3 % (0.0-3.0); Eosinophils Absolute Auto 0.23 K/uL (0.00-0.50); Eosinophils Percent Auto 3.1 % (0.0-7.0); Hematocrit 44.4 % (33.0-51.0); Hemoglobin* 14.4 gm/dL (12.0-16.0); Immature Granulocytes Abs Auto 0.02 K/uL (0.00-0.30); Immature Granulocytes Pct Auto 0.3 %; Lymphocytes Percent Auto 17.9 % (20-44); Mean Corpuscular HGB Conc 32 gm/dL (32-36); Mean Corpuscular Hemoglobin 31 pg (26-34); Mean Corpuscular Volume 96 fL (80-100); Monocytes Percent Auto 7.9 % (0.0-11.0); Neutrophils Absolute Auto 5.24 K/uL (1.7-7.0); Neutrophils Percent Auto 70.5 % (42.0-72.0); Platelet Count* 237 K/uL (140-440); RDW Coefficient of Variation % 13.2 % (11.5-15.5); Red Blood Count 4.64 m/uL (4.00-5.20); White Blood Count* 7.43 K/uL (4.50-11.00)
[2023-10-01] MEDS: IPRAT-ALBUT 0.5-2.5 MG/3 ML NEB 1 NEB IH ×3 (17:04→21:25)
[2023-10-01] MEDS: METHYLPREDNISOLONE SOD SUCC 62.5 MG/ML (125) 125 MG IVP (17:04)
[2023-10-01 17:05] LABS: Slide Review Reflex No
--- NOTE | 2023-10-01 17:23 | ED_ITS ---
HPI - SOB/Dyspnea General Chief Complaint: Shortness of Breath/Dyspnea Stated Complaint: Difficulty breathing- 84o2 last taken Time Seen by Provider: 10/01/23 16:15 Source: patient Mode of arrival: ambulatory Limitations: no limitations History of Present Illness HPI Narrative: Patient is a 73-year-old female with history of COPD and is a current smoker presenting to the emergency department for shortness of breath. She states the past few weeks she has been feeling short of breath. States normally her oxygen saturations about 94% but the past few weeks she could not get above 85%. Symptoms were persistent so she was concerned and talked to the nurse at [place] where she lives. For them her oxygen saturation was 84% and she was recommended to come to the emergency department for evaluation. Patient states she has been taking her home inhalers and breathing treatments without improvement in her symptoms. She states she has also noticed she has COPD exasperation about 6 weeks ago. At that time she is put on steroids. She has headache cough now for 3 weeks and up until about 4 days ago she is producing green mucus with it. Has not had any fevers or chills. Does have some chest pressure she notes. This has been going on for over a week now. Has also noticed left lower extremity swelling for the past week also. Is not aware of any previous blood clots. Denies weakness, numbness, headache, vision changes, diarrhea, constipation, abdominal pain. She states this feels like a COPD exacerbation. Related Data Home Medications Medication Instructions Recorded Confirmed acetaminophen 500 mg tablet 1,000 mg PO TID 10/31/22 10/01/23 amlodipine 10 mg tablet 10 mg PO DAILY 10/31/22 10/01/23 atorvastatin 20 mg tablet 20 mg PO DAILY 10/31/22 10/01/23 beclomethasone dipropionate 80 1 inh inhalation BID 10/31/22 10/01/23 mcg/actuation HFA breath activated aerosol (Qvar RediHaler) benzonatate 100 mg capsule 100 mg PO TID PRN 10/31/22 10/01/23 [facility] 10/31/22 10/31/22 Ultra Test strips) blood-glucose meter (OneTouch 10/31/22 10/31/22 Verio Reflect Meter) cetirizine 10 mg tablet 10 mg PO HS 10/31/22 10/01/23 cholecalciferol (vitamin D3) 50 50 mcg PO DAILY 10/31/22 10/01/23 mcg (2,000 unit) tablet cyanocobalamin (vitamin B-12) 1,000 mcg PO DAILY 10/31/22 10/01/23 1,000 mcg tablet diclofenac sodium 1 % topical gel 2 g topical BID PRN 10/31/22 10/01/23 docusate sodium 100 mg capsule 100 mg PO BID 10/31/22 10/01/23 ferrous sulfate 325 mg (65 mg 325 mg PO DAILY 10/31/22 10/01/23 iron) tablet,delayed release ibuprofen 800 mg tablet 800 mg PO BID 10/31/22 10/01/23 ipratropium 0.5 mg-albuterol 3 mg 3 ml inhalation QID PRN 10/31/22 10/01/23 (2.5 mg base)/3 mL nebulization soln magnesium oxide 400 mg (241.3 mg 400 mg PO DAILY 10/31/22 10/01/23 magnesium) tablet metoprolol tartrate 50 mg tablet 50 mg PO BID 10/31/22 10/01/23 multivitamin with folic acid 400 1 tab PO DAILY 10/31/22 10/01/23 mcg tablet (Tab-A-Myles) naloxone 4 mg/actuation nasal spray 1 spray intranasal .UD PRN 10/31/22 10/01/23 omeprazole 40 mg capsule,delayed 40 mg PO DAILY 10/31/22 10/01/23 release pramipexole 0.75 mg tablet 0.75 mg PO QPM 10/31/22 10/01/23 tizanidine 4 mg tablet 4 mg PO TID 10/31/22 10/01/23 albuterol sulfate 90 mcg/actuation 2 inh inhalation QID PRN 11/01/22 10/01/23 aerosol inhaler dextromethorphan-guaifenesin 10 10 ml PO Q4H PRN 11/01/22 10/01/23 mg-100 mg/5 mL oral syrup (Antitussive DM) polyethylene glycol 3350 17 17 g PO DAILY PRN 11/01/22 10/01/23 gram/dose oral powder (Gavilax) trazodone 100 mg tablet 100 mg PO HS PRN 11/01/22 10/01/23 alendronate 10 mg tablet 10 mg PO DAILY 10/01/23 10/01/23 pregabalin 50 mg capsule 100 mg PO TID 10/01/23 10/01/23 sertraline 100 mg tablet 100 mg PO DAILY 10/01/23 10/01/23 umeclidinium 62.5 mcg-vilanterol 1 inh inhalation DAILY 10/01/23 10/01/23 25 mcg/actuation powdr for inhalation (Anoro Ellipta) Previous Rx's Medication Instructions Recorded buprenorphine HCl 75 mcg buccal 75 mcg buccal BID #10 ea 11/02/22 film Allergies Allergy/AdvReac Type Severity Reaction Status Date / Time codeine Allergy Verified 04/09/22 08:21 lactose Allergy Verified 04/09/22 08:21 meperidine Allergy Verified 04/09/22 08:21 Review of Systems Status of ROS: Reports: 10 or more systems reviewed and unremarkable except as noted in History and below [facility] Medical History (Updated 10/01/23 @ 19:20 by Holli Nieves PA-C) Health care directive on file ?Z78.9 - Other specified health status (ICD-10) Hyperglycemia ?R73.9 - Hyperglycemia, unspecified (ICD-10) Generalized anxiety disorder ?F41.1 - Generalized anxiety disorder (ICD-10) Dorsalgia ?M54.9 - Dorsalgia, unspecified (ICD-10) Chronic pain syndrome ?G89.4 - Chronic pain syndrome (ICD-10) Osteoporosis ?M81.0 - Age-related osteoporosis without current pathological fracture (ICD- 10) Pure hypercholesterolemia ?E78.00 - Pure hypercholesterolemia, unspecified (ICD-10) Other muscle spasm ?M62.838 - Other muscle spasm (ICD-10) Tobacco dependence ?F17.200 - Nicotine dependence, unspecified, uncomplicated (ICD-10) Chronic obstructive pulmonary disease ?J44.9 - Chronic obstructive pulmonary disease, unspecified (ICD-10) Recurrent major depressive disorder ?F33.9 - Major depressive disorder, recurrent, unspecified (ICD-10) Restless leg syndrome ?G25.81 - Restless legs syndrome (ICD-10) Unsteady gait ?R26.81 - Unsteadiness on feet (ICD-10) Edentulous ?K08.109 - Complete loss of teeth, unspecified cause, unspecified class (ICD- 10) Essential hypertension ?I10 - Essential (primary) hypertension (ICD-10) Social History Smoking Status: Current every day smoker What tobacco products do you use: cigarettes Smoking packs per day: 1 Smoking cigarettes per day: 20.0 Do you use any of these nicotine containing products: None Second hand tobacco smoke exposure: No How often do you have a drink containing alcohol: never How many standard drinks containing alcohol do you have on a typical day: 1 or 2 How often do you have six or more drinks on one occasion: Never AUDIT-C Alcohol total score: 0 Non-prescribed substance use: denies use Caffeine: Yes (coffee) service: No Exam Narrative: Exam Narrative: Const: Well-nourished, Well-developed, in mild distress Eyes: PERRL, no conjunctival injection, and symmetrical lids HENT: Atraumatic external nose and ears. Moist mucous membranes. Neck: Symmetric, trachea midline, No thyromegaly. CVS: RRR, No murmurs or gallops. Peripheral pulses 2+ and equal in all extremities RESP: Notably decreased breath sounds throughout with a small amount of wheezing also. No increased respiratory effort GI: Nontender/Nondistended, No rebound or guarding. MSK:Extremities w/o deformity, Normal Active ROM Skin: Warm, Dry. No rashes or lesions. Neuro: Normal Muscle tone, No focal neurological deficits. Psych: Awake, Alert, & Oriented x3. Appropriate mood and affect. Const: Vital Signs, click to edit/add: Vital Signs - 24 hr 10/01/23 16:21 10/01/23 16:26 10/01/23 16:30 Temperature 97.9 F Pulse Rate 87 89 Pulse Rate [Pulse Oximeter] 82 Respiratory Rate 28 H Blood Pressure Blood Pressure [Ri ght Upper Arm] 183/80 H Pulse Oximetry 63 L 89 90 Oxygen Delivery Me thod Room Air Nasal Cannula Oxygen Flow Rate 1 10/01/23 16:32 10/01/23 16:33 10/01/23 16:45 Temperature Pulse Rate 84 86 92 Pulse Rate [Pulse Oximeter] Respiratory Rate 20 Blood Pressure 158/86 H Blood Pressure [Ri ght Upper Arm] Pulse Oximetry 90 89 81 L Oxygen Delivery Me thod Nasal Cannula Oxygen Flow Rate 2.5 10/01/23 17:00 10/01/23 17:01 10/01/23 17:15 Temperature Pulse Rate 82 85 85 Pulse Rate [Pulse Oximeter] Respiratory Rate Blood Pressure 154/75 H Blood Pressure [Ri ght Upper Arm] Pulse Oximetry 87 L 83 L 89 Oxygen Delivery Me thod Oxygen Flow Rate 2.5 2.5 2.5 10/01/23 17:30 10/01/23 17:32 10/01/23 17:45 Temperature Pulse Rate 79 78 97 Pulse Rate [Pulse Oximeter] Respiratory Rate Blood Pressure 145/66 H Blood Pressure [Ri ght Upper Arm] Pulse Oximetry 93 93 90 Oxygen Delivery Me thod Nasal Cannula Oxygen Flow Rate 1.5 10/01/23 18:00 10/01/23 18:01 10/01/23 18:26 Temperature Pulse Rate 85 86 90 Pulse Rate [Pulse Oximeter] Respiratory Rate Blood Pressure 153/67 H Blood Pressure [Ri ght Upper Arm] Pulse Oximetry 92 91 89 Oxygen Delivery Me thod Nasal Cannula Oxygen Flow Rate 1.5 10/01/23 18:30 10/01/23 18:35 10/01/23 18:37 Temperature Pulse Rate 88 89 89 Pulse Rate [Pulse Oximeter] Respiratory Rate Blood Pressure 144/61 H Blood Pressure [Ri ght Upper Arm] Pulse Oximetry 95 94 92 Oxygen Delivery Me thod Oxygen Flow Rate 10/01/23 18:38 10/01/23 18:45 10/01/23 19:00 Temperature Pulse Rate 92 86 92 Pulse Rate [Pulse Oximeter] Respiratory Rate Blood Pressure Blood Pressure [Ri ght Upper Arm] Pulse Oximetry 93 94 94 Oxygen Delivery Me thod Oxygen Flow Rate 10/01/23 19:03 10/01/23 19:05 10/01/23 19:08 Temperature Pulse Rate 91 91 Pulse Rate [Pulse Oximeter] Respiratory Rate Blood Pressure 140/100 H Blood Pressure [Ri ght Upper Arm] Pulse Oximetry 82 L 88 89 Oxygen Delivery Me thod Room Air Oxygen Flow Rate 10/01/23 19:15 Temperature Pulse Rate 87 Pulse Rate [Pulse Oximeter] Respiratory Rate Blood Pressure Blood Pressure [Ri ght Upper Arm] Pulse Oximetry 91 Oxygen Delivery Me thod Oxygen Flow Rate Course Vital Signs Vital signs: Initial Vital Signs Temperature 97.9 F 10/01/23 16:21 Temperature Source Temporal Artery Scan 10/01/23 16:21 Pulse Rate 82 10/01/23 16:21 Respiratory Rate 28 H 10/01/23 16:21 Blood Pressure 183/80 H 10/01/23 16:21 Blood Pressure Mean 114 H 10/01/23 16:21 Blood Pressure Position Sitting 10/01/23 16:21 Pulse Oximetry 63 L 10/01/23 16:21 Oxygen Delivery Method Room Air 10/01/23 16:21 Vital Signs Temperature 97.9 F 10/01/23 16:21 Pulse Rate 82 10/01/23 16:21 Respiratory Rate 28 H 10/01/23 16:21 Blood Pressure 183/80 H 10/01/23 16:21 Pulse Oximetry 63 L 10/01/23 16:21 Oxygen Delivery Method Room Air 10/01/23 16:21 Temperature 97.9 F 10/01/23 16:21 Pulse Rate 87 10/01/23 19:15 Respiratory Rate 20 10/01/23 16:45 Blood Pressure 140/100 H 10/01/23 19:08 Pulse Oximetry 91 10/01/23 19:15 Oxygen Delivery Method Room Air 10/01/23 19:03 Oxygen Flow Rate 1.5 10/01/23 18:26 Medications Administered Medications: Discontinued Medications Generic Name Dose Route Start Last Admin Trade Name Freq PRN Reason Stop Dose Admin Albuterol/Ipratropium 1 neb 10/01/23 16:31 10/01/23 17:04 Iprat-Albut 0.5-2.5 Mg/3 Ml [facility] 10/01/23 16:32 1 neb ONCE ONE Administration Albuterol/Ipratropium 1 neb 10/01/23 17:41 10/01/23 18:33 Iprat-Albut 0.5-2.5 Mg/3 Ml [facility] 10/01/23 17:42 1 neb ONCE ONE Administration Methylprednisolone Sodium Succinate 125 mg 10/01/23 16:31 10/01/23 17:04 Methylprednisolone Sod Succ 62.5 Mg/Ml (125) IVP 10/01/23 16:32 125 mg ONCE ONE Administration MDM - SOB/Dyspnea MDM Narrative Medical decision making narrative: Patient is a 73-year-old female presenting for shortness of breath. She has limited air movement so COPD exacerbation seems likely. She was coughing up phlegm earlier but is not currently. We will do chest imaging but muscle concern for PE so I will wait to see if I do a CTA versus a chest CT without contrast to better evaluate her lungs. This will also help look for starts pneumonia or pneumothorax. Will also order troponin, EKG to look for signs of ACS concerned she has have been having chest pressure. Also ordering COVID/flu/RSV, CMP, CBC, magnesium, BNP. Given Solu-Medrol and a DuoNeb treatment. She is satting about 90% on 1 L. since she does have this swollen like I will also do an ultrasound as and elevated D-dimer and a negative CTA still does not rule out the chance of a DVT. Patient's CBC, CMP returned showing no concerning findings. Troponin within normal limits, COVID/flu/RSV is negative. She received a breathing treatment was still symptomatic can another around of the DuoNeb was ordered. D-dimer was elevated at 0.88. Due to this a CTA of the chest was ordered. Ultrasound showed no signs of a DVT. CTA was reviewed and shows no acute concerning abnormalities that need to be addressed at this time. We did do a VBG which shows she is retaining CO2 but is not acidotic. I did trying take her off oxygen she dropped down to about 84%. She was placed back on 1 L of oxygen. Due to the increased oxygen demand we will admit her to the hospitalist. She is agreeable to this plan. Lab Data Labs: Lab Results 10/01/23 10/01/23 10/01/23 Range/Units 16:32 16:54 17:37 WBC 7.43 (4.50-11.00) K/uL RBC 4.64 (4.00-5.20) m/uL Hgb 14.4 (12.0-16.0) gm/dL Hct 44.4 (33.0-51.0) % MCV 96 (80-100) fL MCH 31 (26-34) pg MCHC 32 (32-36) gm/dL RDW Coeff of Leanna 13.2 (11.5-15.5) % Plt Count 237 (140-440) K/uL Neut % (Auto) 70.5 (42.0-72.0) % Lymph % (Auto) 17.9 L (20-44) % Bowie % (Auto) 7.9 (0.0-11.0) % Eos % (Auto) 3.1 (0.0-7.0) % Baso % (Auto) 0.3 (0.0-3.0) % Neut # (Auto) 5.24 (1.7-7.0) K/uL Lymph # (Auto) 1.30 (0.90-2.90) K/uL Bowie # (Auto) 0.60 (0.00-0.90) K/UL Eos # (Auto) 0.23 (0.00-0.50) K/uL Baso # (Auto) 0.00 (0.00-0.30) K/uL Abs Immat Gran (auto) 0.02 (0.00-0.30) K/uL Imm/Tot Granulo (auto) 0.3 % D-Dimer Quant (PE/DVT) 0.88 H (0.00-0.50) ug/ml VBG pH (7.32-7.43) VBG pCO2 (40-50) mmHG VBG pO2 (25-47) mmHG VBG HCO3 (21-28) mmol/L Sodium 134 L (135-149) mmol/L Potassium 4.3 (3.6-5.1) mmol/L Chloride 92 L (96-114) mmol/L Carbon Dioxide 37 H (20-32) mmol/L Anion Gap 5 L (7-15) mEq/L BUN 18 (7-30) mg/dL Creatinine 0.7 (0.5-1.5) mg/dL Estimated GFR 92 ml/min Glucose 92 (60-115) mg/dL Calcium 9.5 (8.4-10.6) mg/dL Magnesium 1.8 (1.5-2.6) mg/dL Total Bilirubin 0.4 (0.1-1.5) mg/dL AST 34 (12-35) U/L ALT 23 (4-35) U/L Alkaline Phosphatase 64 (40-150) U/L NT-Pro-B Natriuret Pep 321 pg/mL Total Protein 8.1 (6.0-8.3) g/dL Albumin 4.6 (3.3-5.0) g/dL SARS-CoV-2 (PCR) Negative SARS-CoV-2 (Negative) Influenza Type A (PCR) Negative PCR FLU A (Negative) Influenza Type B (PCR) Negative PCR FLU B (Negative) RSV (PCR) Negative PCR RSV (Negative) Lab Acknowledgement New Spec Needed POC Troponin I 0.00 L (0.01-0.04) ng/ml 10/01/23 Range/Units 19:04 WBC (4.50-11.00) K/uL RBC (4.00-5.20) m/uL Hgb (12.0-16.0) gm/dL Hct (33.0-51.0) % MCV (80-100) fL MCH (26-34) pg MCHC (32-36) gm/dL RDW Coeff of Leanna (11.5-15.5) % Plt Count (140-440) K/uL Neut % (Auto) (42.0-72.0) % Lymph % (Auto) (20-44) % Bowie % (Auto) (0.0-11.0) % Eos % (Auto) (0.0-7.0) % Baso % (Auto) (0.0-3.0) % Neut # (Auto) (1.7-7.0) K/uL Lymph # (Auto) (0.90-2.90) K/uL Bowie # (Auto) (0.00-0.90) K/UL Eos # (Auto) (0.00-0.50) K/uL Baso # (Auto) (0.00-0.30) K/uL Abs Immat Gran (auto) (0.00-0.30) K/uL Imm/Tot Granulo (auto) % D-Dimer Quant (PE/DVT) (0.00-0.50) ug/ml VBG pH 7.330 (7.32-7.43) VBG pCO2 68 H* (40-50) mmHG VBG pO2 < 30.1 (25-47) mmHG VBG HCO3 36 H (21-28) mmol/L Sodium (135-149) mmol/L Potassium (3.6-5.1) mmol/L Chloride (96-114) mmol/L Carbon Dioxide (20-32) mmol/L Anion Gap (7-15) mEq/L BUN (7-30) mg/dL Creatinine (0.5-1.5) mg/dL Estimated GFR ml/min Glucose (60-115) mg/dL Calcium (8.4-10.6) mg/dL Magnesium (1.5-2.6) mg/dL Total Bilirubin (0.1-1.5) mg/dL AST (12-35) U/L ALT (4-35) U/L Alkaline Phosphatase (40-150) U/L NT-Pro-B Natriuret Pep pg/mL Total Protein (6.0-8.3) g/dL Albumin (3.3-5.0) g/dL SARS-CoV-2 (PCR) (Negative) Influenza Type A (PCR) (Negative) Influenza Type B (PCR) (Negative) RSV (PCR) (Negative) Lab Acknowledgement POC Troponin I (0.01-0.04) ng/ml Imaging Data Venous US: Radiologist's impression: No deep vein thrombus. Unremarkable doppler ultrasound examination of the left lower extremity. Dictated by Jose Pabon MD @ 10/01/2023 6:34:17 PM CTA chest: Radiologist's impression: 1. No pulmonary embolus. No CT evidence of right heart strain. 2. Moderate emphysema. 3. Dense coronary arterial calcifications. Correlation with ASCVD evaluation is advised. 4. Pneumobilia, of uncertain etiology, correlate with procedural history. 5. Ill-defined hypodensity within the interpolar region of left kidney, incompletely characterized on this nondedicated examination. Follow up evaluation with a dedicated, nonemergent, outpatient contrast-enhanced CT abdomen and pelvis is recommended to exclude underlying neoplasm. Please note that all CT scans at this facility use dose modulation, iterative reconstruction, and/or weight-based dosing when appropriate to reduce radiation dose to as low as reasonably achievable. Dictated by Jose Pabon MD @ 10/01/2023 7:03:21 PM ECG Data Attestation: I personally reviewed and interpreted this ECG as follows: Prior ECG tracings: available for review Interpretation: Normal sinus rhythm with a rate of 86 beats per minute, normal intervals, normal axis, no ST or T-wave abnormalities. Appears similar to previous EKG on file Discharge Plan Discharge Clinical Impression: Chronic obstructive pulmonary disease Patient Disposition: Admitted As Observation Condition: Stable
[2023-10-01 17:26] LABS: Albumin* 4.6 g/dL (3.3-5.0); Chloride* 92 mmol/L (96-114); Potassium* 4.3 mmol/L (3.6-5.1); Sodium* 134 mmol/L (135-149)
[2023-10-01 17:28] LABS: Anion Gap 5 mEq/L (7-15); Bilirubin Total* 0.4 mg/dL (0.1-1.5); Carbon Dioxide* 37 mmol/L (20-32); Creatinine* 0.7 mg/dL (0.5-1.5); Estimated Glomerular Filt Rate 92 ml/min
[2023-10-01 17:29] LABS: Alanine Aminotransferase* 23 U/L (4-35); Alkaline Phosphatase* 64 U/L (40-150); Aspartate Amino Transferase* 34 U/L (12-35); Blood Urea Nitrogen* 18 mg/dL (7-30); Calcium* 9.5 mg/dL (8.4-10.6); D Dimer Quantitative* 0.88 ug/ml (0.00-0.50); Glucose* 92 mg/dL (60-115); Magnesium* 1.8 mg/dL (1.5-2.6); Total Protein* 8.1 g/dL (6.0-8.3)
[2023-10-01 17:38] LABS: NT Pro B Type NatriureticPept* 321 pg/mL
[2023-10-01 17:41] LABS: Lab Add On Test New Spec Needed
[2023-10-01 17:41] LABS: PCR FLU A Negative PCR FLU A (Negative); PCR FLU B Negative PCR FLU B (Negative); PCR RSV Negative PCR RSV (Negative); SARS PCR* Negative SARS-CoV-2 (Negative)
--- NOTE | 2023-10-01 17:50 | CT_ITS ---
Patient: RUTHIE WICK Facility:?[facility] Patient ID:?[id number] Site Patient ID:?[id number]. Site :?[id number] Study:?CT-Chest PE W/ISOVUE 370 95CC-10/01/2023 6:21:19 PM Ordering Physician:SAMANTA Final Report: INDICATION: Dyspnea. Chest pain. TECHNIQUE: Multiplanar CT pulmonary angiogram was performed after the administration of 100 mL of Omnipaque 350 intravenous contrast. COMPARISON: None. FINDINGS: Lower neck: The visualized thyroid is unremarkable. Cardiovascular: Contrast opacification of the pulmonary arterial tree is adequate. Heart size is normal. Thoracic aorta and pulmonary artery are normal in caliber. Mild atherosclerotic calcifications of the aortic arch. Coronary arterial calcifications. No pulmonary embolus. Mediastinum and lymph nodes: Unremarkable. No pathologic mediastinal or hilar lymphadenopathy by size criteria. Lungs: [id number] emphysema. Linear bandlike opacification of the lung bases bilaterally, likely subsegmental atelectasis and/or scarring. Airways: The trachea remains patent and midline. Mild diffuse peribronchial wall thickening. Pleura: No pleural effusions or pneumothorax Chest wall: Unremarkable. Bones: No acute osseous abnormalities. Severe degenerative changes of the thoracic spine. Age-indeterminate severe compression fracture of T5, moderate compression fracture of T10 and T11. Upper abdomen: Pneumobilia, correlate with procedural history. Ill-defined left renal hypodensity, incompletely characterized on this examination. No reflux of contrast material into the IVC. Small hiatal hernia. IMPRESSION: 1. No pulmonary embolus. No CT evidence of right heart strain. 2. Moderate emphysema. 3. Dense coronary arterial calcifications. Correlation with ASCVD evaluation is advised. 4. Pneumobilia, of uncertain etiology, correlate with procedural history. 5. Ill-defined hypodensity within the interpolar region of left kidney, incompletely characterized on this nondedicated examination. Follow up evaluation with a dedicated, nonemergent, outpatient contrast-enhanced CT abdomen and pelvis is recommended to exclude underlying neoplasm. Please note that all CT scans at this facility use dose modulation, iterative reconstruction, and/or weight-based dosing when appropriate to reduce radiation dose to as low as reasonably achievable. Dictated by Jose Pabon MD @ 10/01/2023 7:03:21 PM ----- ADDENDUM ----- Findings communicated with Dr. Barron at 19:07 PM on 10/01/2023. Dictated by Jose Pabon MD @ Oct 01 2023 8:05PM Signed by:?Jose Pabon MD @10/01/2023 7:03:21 PM (Electronic Signature)
[2023-10-01 19:09] LABS: HCO3 VBG 36 mmol/L (21-28); PO2 VBG < 30.1 mmHG (25-47)
[2023-10-01 19:13] LABS: PCO2 VBG 68 mmHG (40-50)
--- NOTE | 2023-10-01 19:19 | PM.IMHP1 ---
Hospitalist- H&P: HPI History of Present Illness Date Seen: 10/01/23 Chief complaint: Difficulty breathing- 84o2 last taken Narrative: Sarai Buckley is a 73 year old female past medical history significant for hypertension, hypercholesterolemia, COPD, active current smoker, chronic pain, hyponatremia, GERD is admitted to the medical floor from the ED for further management COPD exacerbation. Patient is a resident at [facility], not oxygen dependent, continues to smoke 10 cigarettes daily. Normally walks 3 miles daily. Has an oximeter at home and reports saturations 85% for the past 2 weeks. Normal for her is 94% on room air. Complains of increasing shortness of breath. Dry cough now, recently productive of green phlegm. Complains of chest tightness. Denies recent fevers or chills. Denies abdominal pain, endorses occasional fleeting nausea, no vomiting. No change in stools or urination. Has been using her inhalers and nebulizers without relief. In the ED, oxygen saturation 84% on room air on arrival. She received methylprednisolone in to DuoNebs. Repeat oxygen saturation 82% on room air. Currently on 1.5 L per nasal cannula. Bilateral lower extremity ultrasound negative for DVT. She had complained of left lower extremity swelling recently, no longer present. CTA chest negative for acute pulmonary emboli. Last hospitalized here for COPD exacerbation October 2022. Review of Systems Narrative: REVIEW OF SYSTEMS: Complete review of systems performed and negative unless otherwise stated in HPI or below. [facility] Medical History Health care directive on file ?Z78.9 - Other specified health status (ICD-10) Hyperglycemia ?R73.9 - Hyperglycemia, unspecified (ICD-10) Generalized anxiety disorder ?F41.1 - Generalized anxiety disorder (ICD-10) Dorsalgia ?M54.9 - Dorsalgia, unspecified (ICD-10) Chronic pain syndrome ?G89.4 - Chronic pain syndrome (ICD-10) Osteoporosis ?M81.0 - Age-related osteoporosis without current pathological fracture (ICD-10) Pure hypercholesterolemia ?E78.00 - Pure hypercholesterolemia, unspecified (ICD-10) Other muscle spasm ?M62.838 - Other muscle spasm (ICD-10) Tobacco dependence ?F17.200 - Nicotine dependence, unspecified, uncomplicated (ICD-10) Chronic obstructive pulmonary disease ?J44.9 - Chronic obstructive pulmonary disease, unspecified (ICD-10) Recurrent major depressive disorder ?F33.9 - Major depressive disorder, recurrent, unspecified (ICD-10) Restless leg syndrome ?G25.81 - Restless legs syndrome (ICD-10) Unsteady gait ?R26.81 - Unsteadiness on feet (ICD-10) Edentulous ?K08.109 - Complete loss of teeth, unspecified cause, unspecified class (ICD-10) Essential hypertension ?I10 - Essential (primary) hypertension (ICD-10) Social History Smoking Status: Current every day smoker What tobacco products do you use: cigarettes Smoking packs per day: 1 Smoking cigarettes per day: 20.0 Do you use any of these nicotine containing products: None Second hand tobacco smoke exposure: No How often do you have a drink containing alcohol: never How many standard drinks containing alcohol do you have on a typical day: 1 or 2 How often do you have six or more drinks on one occasion: Never AUDIT-C Alcohol total score: 0 Non-prescribed substance use: denies use Caffeine: Yes (coffee) service: No Meds Home Medications and Allergies Home Medications Medication Instructions Recorded Confirmed Type acetaminophen 500 mg tablet 1,000 mg PO TID 10/31/22 10/01/23 History amlodipine 10 mg tablet 10 mg PO DAILY 10/31/22 10/01/23 History atorvastatin 20 mg tablet 20 mg PO DAILY 10/31/22 10/01/23 History beclomethasone dipropionate 80 1 inh inhalation BID 10/31/22 10/01/23 History mcg/actuation HFA breath activated aerosol (Qvar RediHaler) benzonatate 100 mg capsule 100 mg PO TID PRN 10/31/22 10/01/23 [facility] 10[facility]31/22 10/31/22 History Ultra Test strips) blood-glucose meter (OneTouch 10/31/22 10/31/22 History Verio Reflect Meter) cetirizine 10 mg tablet 10 mg PO HS 10/31/22 10/01/23 History cholecalciferol (vitamin D3) 50 50 mcg PO DAILY 10/31/22 10/01/23 History mcg (2,000 unit) tablet cyanocobalamin (vitamin B-12) 1,000 mcg PO DAILY 10/31/22 10/01/23 History 1,000 mcg tablet diclofenac sodium 1 % topical gel 2 g topical BID PRN 10/31/22 10/01/23 History docusate sodium 100 mg capsule 100 mg PO BID 10/31/22 10/01/23 History ferrous sulfate 325 mg (65 mg 325 mg PO DAILY 10/31/22 10/01/23 History iron) tablet,delayed release ibuprofen 800 mg tablet 800 mg PO BID 10/31/22 10/01/23 History ipratropium 0.5 mg-albuterol 3 mg 3 ml inhalation QID PRN 10/31/22 10/01/23 History (2.5 mg base)/3 mL nebulization soln magnesium oxide 400 mg (241.3 mg 400 mg PO DAILY 10/31/22 10/01/23 History magnesium) tablet metoprolol tartrate 50 mg tablet 50 mg PO BID 10/31/22 10/01/23 History multivitamin with folic acid 400 1 tab PO DAILY 10/31/22 10/01/23 History mcg tablet (Tab-A-Myles) naloxone 4 mg/actuation nasal spray 1 spray intranasal .UD PRN 10/31/22 10/01/23 History omeprazole 40 mg capsule,delayed 40 mg PO DAILY 10/31/22 10/01/23 History release pramipexole 0.75 mg tablet 0.75 mg PO QPM 10/31/22 10/01/23 History tizanidine 4 mg tablet 4 mg PO TID 10/31/22 10/01/23 History albuterol sulfate 90 mcg/actuation 2 inh inhalation QID PRN 11/01/22 10/01/23 History aerosol inhaler dextromethorphan-guaifenesin 10 10 ml PO Q4H PRN 11/01/22 10/01/23 History mg-100 mg/5 mL oral syrup (Antitussive DM) polyethylene glycol 3350 17 17 g PO DAILY PRN 11/01/22 10/01/23 History gram/dose oral powder (Gavilax) trazodone 100 mg tablet 100 mg PO HS PRN 11/01/22 10/01/23 History alendronate 10 mg tablet 10 mg PO DAILY 10/01/23 10/01/23 History pregabalin 50 mg capsule 100 mg PO TID 10/01/23 10/01/23 History sertraline 100 mg tablet 100 mg PO DAILY 10/01/23 10/01/23 History umeclidinium 62.5 mcg-vilanterol 1 inh inhalation DAILY 10/01/23 10/01/23 History 25 mcg/actuation powdr for inhalation (Anoro Ellipta) Allergies Allergy/AdvReac Type Severity Reaction Status Date / Time codeine Allergy Verified 04/09/22 08:21 lactose Allergy Verified 04/09/22 08:21 meperidine Allergy Verified 04/09/22 08:21 Exam Narrative: Exam Narrative: PHYSICAL EXAM General: Very pleasant, conversant, NAD HEENT: Normocephalic, atraumatic, sclera white, EOMI Cardiovascular: RRR, S1S2. No pitting edema Pulmonary: Diffusely diminished without expiratory wheezes. No dyspnea on 1.5L NC. Conversing normally. Abdominal: Soft, nondistended, NTTP Neurological: Alert, answering questions appropriately, cranial nerves intact, no focal findings Extremities: No gross joint deformity or swelling. AROMI. Neurovascularly intact Skin: Warm, dry. Const: Vital Signs, click to edit/add: Vital Signs - 24 hr 10/01/23 16:21 10/01/23 16:26 10/01/23 16:30 Temperature 97.9 F Pulse Rate 87 89 Pulse Rate [Pulse Oximeter] 82 Respiratory Rate 28 H Blood Pressure Blood Pressure [Ri ght Upper Arm] 183/80 H Pulse Oximetry 63 L 89 90 Oxygen Delivery Me thod Room Air Nasal Cannula Oxygen Flow Rate 1 10/01/23 16:32 10/01/23 16:33 10/01/23 16:45 Temperature Pulse Rate 84 86 92 Pulse Rate [Pulse Oximeter] Respiratory Rate 20 Blood Pressure 158/86 H Blood Pressure [Ri ght Upper Arm] Pulse Oximetry 90 89 81 L Oxygen Delivery Me thod Nasal Cannula Oxygen Flow Rate 2.5 10/01/23 17:00 10/01/23 17:01 10/01/23 17:15 Temperature Pulse Rate 82 85 85 Pulse Rate [Pulse Oximeter] Respiratory Rate Blood Pressure 154/75 H Blood Pressure [Ri ght Upper Arm] Pulse Oximetry 87 L 83 L 89 Oxygen Delivery Me thod Oxygen Flow Rate 2.5 2.5 2.5 10/01/23 17:30 10/01/23 17:32 10/01/23 17:45 Temperature Pulse Rate 79 78 97 Pulse Rate [Pulse Oximeter] Respiratory Rate Blood Pressure 145/66 H Blood Pressure [Ri ght Upper Arm] Pulse Oximetry 93 93 90 Oxygen Delivery Me thod Nasal Cannula Oxygen Flow Rate 1.5 10/01/23 18:00 10/01/23 18:01 10/01/23 18:26 Temperature Pulse Rate 85 86 90 Pulse Rate [Pulse Oximeter] Respiratory Rate Blood Pressure 153/67 H Blood Pressure [Ri ght Upper Arm] Pulse Oximetry 92 91 89 Oxygen Delivery Me thod Nasal Cannula Oxygen Flow Rate 1.5 10/01/23 18:30 10/01/23 18:35 10/01/23 18:37 Temperature Pulse Rate 88 89 89 Pulse Rate [Pulse Oximeter] Respiratory Rate Blood Pressure 144/61 H Blood Pressure [Ri ght Upper Arm] Pulse Oximetry 95 94 92 Oxygen Delivery Me thod Oxygen Flow Rate 10/01/23 18:38 10/01/23 18:45 10/01/23 19:00 Temperature Pulse Rate 92 86 92 Pulse Rate [Pulse Oximeter] Respiratory Rate Blood Pressure Blood Pressure [Ri ght Upper Arm] Pulse Oximetry 93 94 94 Oxygen Delivery Me thod Oxygen Flow Rate 10/01/23 19:03 10/01/23 19:05 10/01/23 19:08 Temperature Pulse Rate 91 91 Pulse Rate [Pulse Oximeter] Respiratory Rate Blood Pressure 140/100 H Blood Pressure [Ri ght Upper Arm] Pulse Oximetry 82 L 88 89 Oxygen Delivery Me thod Room Air Oxygen Flow Rate 10/01/23 19:15 Temperature Pulse Rate 87 Pulse Rate [Pulse Oximeter] Respiratory Rate Blood Pressure Blood Pressure [Ri ght Upper Arm] Pulse Oximetry 91 Oxygen Delivery Me thod Oxygen Flow Rate Hospitalist - H&P: Result Labs Labs: Short CBC 10/01/23 Range/Units 16:54 WBC 7.43 (4.50-11.00) K/uL Hgb 14.4 (12.0-16.0) gm/dL Hct 44.4 (33.0-51.0) % Plt Count 237 (140-440) K/uL BMP 03/27/24 16:54 Sodium 134 L Potassium 4.3 Chloride 92 L Carbon Dioxide 37 H BUN 18 Creatinine 0.7 Glucose 92 Calcium 9.5 Liver Function 10/01/23 Range/Units 16:54 Total Bilirubin 0.4 (0.1-1.5) mg/dL AST 34 (12-35) U/L ALT 23 (4-35) U/L Alkaline Phosphatase 64 (40-150) U/L Albumin 4.6 (3.3-5.0) g/dL Imaging CT scan - chest: Attestation: I have reviewed the pertinent imaging results. Radiologist's impression: Multiplanar CT pulmonary angiogram was performed after the administration of 100 mL of Omnipaque 350 intravenous contrast. COMPARISON: None. FINDINGS: Lower neck: The visualized thyroid is unremarkable. Cardiovascular: Contrast opacification of the pulmonary arterial tree is adequate. Heart size is normal. Thoracic aorta and pulmonary artery are normal in caliber. Mild atherosclerotic calcifications of the aortic arch. Coronary arterial calcifications. No pulmonary embolus. Mediastinum and lymph nodes: Unremarkable. No pathologic mediastinal or hilar lymphadenopathy by size criteria. Lungs: Lxrt-do-wttfhalz emphysema. Linear bandlike opacification of the lung bases bilaterally, likely subsegmental atelectasis and/or scarring. Airways: The trachea remains patent and midline. Mild diffuse peribronchial wall thickening. Pleura: No pleural effusions or pneumothorax Chest wall: Unremarkable. Bones: No acute osseous abnormalities. Severe degenerative changes of the thoracic spine. Age-indeterminate severe compression fracture of T5, moderate compression fracture of T10 and T11. Upper abdomen: Pneumobilia, correlate with procedural history. Ill-defined left renal hypodensity, incompletely characterized on this examination. No reflux of contrast material into the IVC. Small hiatal hernia. IMPRESSION: 1. No pulmonary embolus. No CT evidence of right heart strain. 2. Moderate emphysema. 3. Dense coronary arterial calcifications. Correlation with ASCVD evaluation is advised. 4. Pneumobilia, of uncertain etiology, correlate with procedural history. 5. Ill-defined hypodensity within the interpolar region of left kidney, incompletely characterized on this nondedicated examination. Follow up evaluation with a dedicated, nonemergent, outpatient contrast-enhanced CT abdomen and pelvis is recommended to exclude underlying neoplasm. Venous US: Attestation: I have reviewed the pertinent imaging results. Radiologist's impression: Left lower extremity Doppler venous ultrasound examination was performed. Grayscale and color Doppler images were obtained. COMPARISON: None. FINDINGS: RIGHT LOWER EXTREMITY: Common femoral vein: Fully compressible. No deep vein thrombus. Normal flow and response to augmentation on color Doppler imaging. LEFT LOWER EXTREMITY: Common femoral vein: Fully compressible. No deep vein thrombus. Normal flow and response to augmentation on color Doppler imaging. Superficial femoral vein: Fully compressible. No deep vein thrombus. Normal flow on color Doppler imaging. Deep femoral vein: No deep vein thrombus Popliteal femoral vein: Fully compressible. No deep vein thrombus. Normal flow on color Doppler imaging. Lower calf: The visualized posterior tibial and peroneal veins are fully compressible. No deep vein thrombus. Normal flow and response to augmentation on color Doppler imaging. Superficial veins: The superficial veins, including the greater saphenous vein, remain patent and are fully compressible. Soft tissues: No popliteal fossa fluid collection identified. IMPRESSION: No deep vein thrombus. Unremarkable doppler ultrasound examination of the left lower extremity. Assessment and Plan Assessment and plan (1) Acute respiratory failure with hypoxia and hypercarbia: Problem comment: Acute on chronic, recurrent Most likely COPD exacerbation, active smoker VBG pH 7.33, pCO2 68, PO2 <30, HC03 36 (baseline serum CO2 33-37 in past year) Despite elevated pCO2, patient is not dyspenic, tachypneic. Breathing comfortably on 1.5 L per NC Continue oxygen supplementation, maintaining saturations 88-92%, weaning as able Recheck VBG in a.m.. Could consider CPAP RT for pulmonary support, incentive spirometry I do not see recent echocardiogram, BNP 321, could consider outpatient unless worsening or no resolve Status: Acute (2) Chronic obstructive pulmonary disease: Problem comment: Not oxygen dependent. Normally walks 3 miles daily. Active smoker CTA chest negative for pulmonary embolus. No evidence of right heart strain. Moderate emphysema Doxycycline x5 day course Prednisone x5 day course, received burst dose methylprednisolone in ED DuoNebs q.i.d., albuterol nebs p.r.n., continue home inhalers, Mucinex b.i.d. RT for pulmonary support, incentive spirometry, continue to wean oxygen supplementation as able Status: Chronic (3) Tobacco dependence: Problem comment: Nicotine patch Status: Chronic (4) Pure hypercholesterolemia: Problem comment: Continue statin Status: Chronic (5) Essential hypertension: Problem comment: Continue home medications, monitor Status: Chronic (6) Abnormal finding on diagnostic imaging of left kidney: Problem comment: Per Radiology, Ill-defined hypodensity within the interpolar region of left kidney, incompletely characterized on this nondedicated examination. Follow up evaluation with a dedicated, nonemergent, outpatient contrast-enhanced CT abdomen and pelvis is recommended to exclude underlying neoplasm Status: Acute Total Time Spent Total Time Spent: Total time spent caring for the patient today was 60 minutes. This includes time spent for the visit reviewing the chart, time spent during the visit, time spent after the visit and documentation and planning in coordination of care.
[2023-10-01] MEDS: NICOTINE 21 MG PATCH 1 PATCH TRANSDERMA (21:22)
[2023-10-01] MEDS: ENOXAPARIN 30 MG/0.3ML INJ SUBCUT (21:22)
[2023-10-01] MEDS: TIZANIDINE HCL 4 MG TABLET PO (21:23)
[2023-10-01] MEDS: ACETAMINOPHEN 500 MG TABLET 1000 MG PO (21:23)
[2023-10-01] MEDS: PREGABALIN 50 MG CAPSULE 100 MG PO (21:23)
[2023-10-01] MEDS: DOXYCYCLINE HYCLATE 100 MG PO (21:24)
[2023-10-01] MEDS: METOPROLOL TARTRATE 50 MG TABLET PO (21:24)
[2023-10-01] MEDS: CETIRIZINE HCL 10 MG TABLET PO (21:24)
[2023-10-01] MEDS: DOCUSATE SODIUM 100 MG CAPSULE PO (21:24)
[2023-10-01] MEDS: BENZONATATE 100 MG CAPSULE PO (21:24)
[2023-10-01] MEDS: guaiFENesin 600 MG TAB.ER.12H PO (21:24)
[2023-10-01] MEDS: SODIUM CHLORIDE 0.9 % (FLUSH) 10 ML SYRINGE 5 ML IVF (21:26)
[2023-10-01] MEDS: PRAMIPEXOLE 0.25 MG TABLET 0.75 MG PO (21:32)
[2023-10-02] VITALS (17 sets, daily range): BP systolic 110–146; BP diastolic 51–91; PULSE 64–81; RESP 16–20; TEMP 36.3–36.9; O2SAT 82–93
[2023-10-02] MEDS: ACETAMINOPHEN 325 MG TABLET 650 MG PO (03:57)
[2023-10-02 06:23] LABS: HCO3 VBG 34 mmol/L (21-28); PCO2 VBG 56 mmHG (40-50); PO2 VBG 43.7 mmHG (25-47); pH VBG 7.391 (7.32-7.43)
[2023-10-02 06:32] LABS: Hematocrit 38.6 % (33.0-51.0); Hemoglobin* 12.8 gm/dL (12.0-16.0); Mean Corpuscular HGB Conc 33 gm/dL (32-36); Mean Corpuscular Hemoglobin 31 pg (26-34); Mean Corpuscular Volume 93 fL (80-100); Platelet Count* 236 K/uL (140-440); Red Blood Count 4.14 m/uL (4.00-5.20); White Blood Count* 4.97 K/uL (4.50-11.00)
[2023-10-02 06:41] LABS: Slide Review Reflex No
--- NOTE | 2023-10-02 06:42 | PC.NURSE ---
End of shift [id number]: A&O pleasant and cooperative. On 1L of oxygen w/ sats maintaining in the low 90s. VS otherwise stable. Denies SOB. PRN Tylenol given to help manage back pain. Nicotine patch on right shoulder. SBA w/ walker. Pt was awake most of the night, reading. Pt reports this is normal for her and she doesn't sleep much at home. Uses call light appropriately.?
[2023-10-02 06:47] LABS: Chloride* 93 mmol/L (96-114); Sodium* 131 mmol/L (135-149)
[2023-10-02 06:48] LABS: Potassium* 4.6 mmol/L (3.6-5.1)
[2023-10-02 06:50] LABS: Creatinine* 0.5 mg/dL (0.5-1.5); Est. Creatinine Clearance* 38.13; Estimated Glomerular Filt Rate 100 ml/min
[2023-10-02 06:51] LABS: Anion Gap 4 mEq/L (7-15); Blood Urea Nitrogen* 19 mg/dL (7-30); Calcium* 9.2 mg/dL (8.4-10.6); Carbon Dioxide* 34 mmol/L (20-32); Glucose* 115 mg/dL (60-115)
[2023-10-02] MEDS: OMEPRAZOLE 20 MG CAPSULE DR 40 MG PO (08:57)
[2023-10-02] MEDS: ACETAMINOPHEN 500 MG TABLET 1000 MG PO ×3 (08:58→22:06)
[2023-10-02] MEDS: METOPROLOL TARTRATE 50 MG TABLET PO ×2 (08:59→20:47)
[2023-10-02] MEDS: DOXYCYCLINE HYCLATE 100 MG PO ×2 (08:59→20:50)
[2023-10-02] MEDS: PREGABALIN 50 MG CAPSULE 100 MG PO ×3 (09:00→20:46)
[2023-10-02] MEDS: BENZONATATE 100 MG CAPSULE PO ×3 (09:00→20:46)
[2023-10-02] MEDS: MAGNESIUM OXIDE 400 MG TABLET PO (09:01)
[2023-10-02] MEDS: ATORVASTATIN 10 MG TABLET 20 MG PO (09:02)
[2023-10-02] MEDS: predniSONE 20 MG TABLET 40 MG PO (09:02)
[2023-10-02] MEDS: TIZANIDINE HCL 4 MG TABLET PO ×3 (09:03→20:52)
[2023-10-02] MEDS: guaiFENesin 600 MG TAB.ER.12H PO ×2 (09:04→20:50)
[2023-10-02] MEDS: AMLODIPINE 10 MG TABLET PO (09:04)
[2023-10-02] MEDS: SERTRALINE 100 MG TABLET PO (09:04)
[2023-10-02] MEDS: DOCUSATE SODIUM 100 MG CAPSULE PO ×2 (09:05→20:49)
[2023-10-02] MEDS: IPRAT-ALBUT 0.5-2.5 MG/3 ML NEB 1 NEB IH ×4 (09:05→22:10)
[2023-10-02] MEDS: SODIUM CHLORIDE 0.9 % (FLUSH) 10 ML SYRINGE 5 ML IVF ×2 (09:06→20:53)
--- NOTE | 2023-10-02 11:07 | PC.SOCIAL ---
Discharge planning: structural steel worker helper spoke with Margaret #[phone] ext. [phone], nurse from [facility], and updated her on pt's status. structural steel worker helper explained that pt will not be on oxygen when she discharges and may be able discharge later today or tomorrow with no increased needs. Margaret stated that that was fine and she would just need a nurse to nurse consult before the pt returns. Margaret said that [facility] also has a vehicle that they can come and pick the pt up with. structural steel worker helper relayed all of this information to the charge nurse on duty. Social work to follow-up as needed.
--- NOTE | 2023-10-02 11:36 | PM.IMPN1 ---
Progress Note: A&P Assessment and plan (1) Acute respiratory failure with hypoxia and hypercarbia: Problem details: Acute on chronic, recurrent Most likely COPD exacerbation, active smoker Continue doxycycline, oral prednisone, oxygen support Likely will qualify for home O2. RT to evaluate. I do not see recent echocardiogram, BNP 321, could consider outpatient unless worsening or no resolve Status: Acute (2) Chronic obstructive pulmonary disease: Problem details: Not oxygen dependent. Normally walks 3 miles daily. Active smoker CTA chest negative for pulmonary embolus. No evidence of right heart strain. Moderate emphysema Doxycycline x5 day course Prednisone x5 day course, received burst dose methylprednisolone in ED DuoNebs q.i.d., albuterol nebs p.r.n., continue home inhalers, Mucinex b.i.d. RT for pulmonary support, incentive spirometry, continue to wean oxygen supplementation as able Status: Chronic (3) Tobacco dependence: Problem details: Nicotine patch Status: Chronic (4) Pure hypercholesterolemia: Problem details: Continue statin Status: Chronic (5) Essential hypertension: Problem details: Continue home medications, monitor Status: Chronic (6) Abnormal finding on diagnostic imaging of left kidney: Problem details: Per Radiology, Ill-defined hypodensity within the interpolar region of left kidney, incompletely characterized on this nondedicated examination. Follow up evaluation with a dedicated, nonemergent, outpatient contrast-enhanced CT abdomen and pelvis is recommended to exclude underlying neoplasm Status: Acute Subjective Date Seen: 10/02/23 Interval history: Daily Progress Note - Hospital Medicine Day #: 2 CC: COPD exacerbation OVERNIGHT UPDATES FROM STAFF & MED, LAB, IMAGING UPDATES Feels much better than yesterday. Still short of breath with exertion. oxygen sats drop to 82% on RA with ambulation and sleep. better if sitting up. CBC is unremarkable Her CO2 came down nicely from 60-56 this morning. Normal pH. Sodium dipped to 131. Serum bicarb 34 otherwise normal labs Objective: Small frame. Standing comfortably without assistance. She can speak full sentences without dyspnea. Vitals: see above Lungs: Scattered expiratory wheeze Cardiac: S1S2. Disposition/Potential discharge - Likely to return to previous living situation. Today I spent 50minutes seeing the patient, reviewing Expanse and EPIC notes/diagnostics, discussing the care plan with our care time that includes social work, PT/OT, pharmacy, RT, fci and documenting my impressions and plan in the medical record. Smoking/Tobacco [id number] >10 mins. I went over the clinical stigmata of chronic tobacco use on the body. I explained the effect on the vasculature, lungs, heart, skin. I recommended complete abstinence from tobacco products and instructed on programs available at discharge from acute care. Exam Const: Vital Signs, click to edit/add: Vital Signs - 24 hr 10/01/23 16:15 10/01/23 16:21 10/01/23 16:26 Temperature 97.9 F Pulse Rate 87 Pulse Rate [Pulse Oximeter] 82 Respiratory Rate 28 H Blood Pressure Blood Pressure [Ri ght Arm] Blood Pressure [Ri ght Upper Arm] 183/80 H Pulse Oximetry 63 L 89 Oxygen Delivery Me thod Nasal Cannula Room Air Nasal Cannula Oxygen Flow Rate 2 1 10/01/23 16:30 10/01/23 16:32 10/01/23 16:33 Temperature Pulse Rate 89 84 86 Pulse Rate [Pulse Oximeter] Respiratory Rate Blood Pressure 158/86 H Blood Pressure [Ri ght Arm] Blood Pressure [Ri ght Upper Arm] Pulse Oximetry 90 90 89 Oxygen Delivery Me thod Oxygen Flow Rate 10/01/23 16:45 10/01/23 17:00 10/01/23 17:01 Temperature Pulse Rate 92 82 85 Pulse Rate [Pulse Oximeter] Respiratory Rate 20 Blood Pressure 154/75 H Blood Pressure [Ri ght Arm] Blood Pressure [Ri ght Upper Arm] Pulse Oximetry 81 L 87 L 83 L Oxygen Delivery Me thod Nasal Cannula Oxygen Flow Rate 2.5 2.5 2.5 10/01/23 17:15 10/01/23 17:30 10/01/23 17:32 Temperature Pulse Rate 85 79 78 Pulse Rate [Pulse Oximeter] Respiratory Rate Blood Pressure 145/66 H Blood Pressure [Ri ght Arm] Blood Pressure [Ri ght Upper Arm] Pulse Oximetry 89 93 93 Oxygen Delivery Me thod Nasal Cannula Oxygen Flow Rate 2.5 1.5 10/01/23 17:45 10/01/23 18:00 10/01/23 18:01 Temperature Pulse Rate 97 85 86 Pulse Rate [Pulse Oximeter] Respiratory Rate Blood Pressure 153/67 H Blood Pressure [Ri ght Arm] Blood Pressure [Ri ght Upper Arm] Pulse Oximetry 90 92 91 Oxygen Delivery Me thod Oxygen Flow Rate 10/01/23 18:26 10/01/23 18:30 10/01/23 18:35 Temperature Pulse Rate 90 88 89 Pulse Rate [Pulse Oximeter] Respiratory Rate Blood Pressure Blood Pressure [Ri ght Arm] Blood Pressure [Ri ght Upper Arm] Pulse Oximetry 89 95 94 Oxygen Delivery Me thod Nasal Cannula Oxygen Flow Rate 1.5 10/01/23 18:37 10/01/23 18:38 10/01/23 18:45 Temperature Pulse Rate 89 92 86 Pulse Rate [Pulse Oximeter] Respiratory Rate Blood Pressure 144/61 H Blood Pressure [Ri ght Arm] Blood Pressure [Ri ght Upper Arm] Pulse Oximetry 92 93 94 Oxygen Delivery Me thod Oxygen Flow Rate 10/01/23 19:00 10/01/23 19:03 10/01/23 19:05 Temperature Pulse Rate 92 91 Pulse Rate [Pulse Oximeter] Respiratory Rate Blood Pressure Blood Pressure [Ri ght Arm] Blood Pressure [Ri ght Upper Arm] Pulse Oximetry 94 82 L 88 Oxygen Delivery Me thod Room Air Oxygen Flow Rate 10/01/23 19:08 10/01/23 19:15 10/01/23 19:30 Temperature Pulse Rate 91 87 85 Pulse Rate [Pulse Oximeter] Respiratory Rate Blood Pressure 140/100 H Blood Pressure [Ri ght Arm] Blood Pressure [Ri ght Upper Arm] Pulse Oximetry 89 91 91 Oxygen Delivery Me thod Oxygen Flow Rate 10/01/23 19:31 10/01/23 19:45 10/01/23 21:56 Temperature 97.7 F Pulse Rate 87 89 Pulse Rate [Pulse Oximeter] 86 Respiratory Rate 22 Blood Pressure 146/65 H Blood Pressure [Ri ght Arm] 153/91 H Blood Pressure [Ri ght Upper Arm] Pulse Oximetry 91 93 88 Oxygen Delivery Me thod Nasal Cannula Oxygen Flow Rate 1.5 10/01/23 21:56 10/02/23 00:17 10/02/23 00:29 Temperature 98.0 F Pulse Rate Pulse Rate [Pulse Oximeter] 65 Respiratory Rate 22 18 18 Blood Pressure Blood Pressure [Ri ght Arm] 110/56 L Blood Pressure [Ri ght Upper Arm] Pulse Oximetry 88 91 91 Oxygen Delivery Me thod Nasal Cannula Nasal Cannula Nasal Cannula Oxygen Flow Rate 1.5 1 1 10/02/23 00:49 10/02/23 02:42 10/02/23 08:30 Temperature 97.8 F Pulse Rate 64 Pulse Rate [Pulse Oximeter] 73 77 Respiratory Rate 16 16 Blood Pressure Blood Pressure [Ri ght Arm] 120/51 L Blood Pressure [Ri ght Upper Arm] Pulse Oximetry 93 Oxygen Delivery Me thod Nasal Cannula Oxygen Flow Rate 1 10/02/23 09:09 10/02/23 09:19 10/02/23 10:10 Temperature 97.9 F Pulse Rate Pulse Rate [Pulse Oximeter] 77 Respiratory Rate 16 Blood Pressure Blood Pressure [Ri ght Arm] 113/91 H Blood Pressure [Ri ght Upper Arm] Pulse Oximetry 89 89 86 L Oxygen Delivery Me thod Room Air Room Air Room Air Oxygen Flow Rate 10/02/23 10:16 Temperature Pulse Rate Pulse Rate [Pulse Oximeter] Respiratory Rate Blood Pressure Blood Pressure [Ri ght Arm] Blood Pressure [Ri ght Upper Arm] Pulse Oximetry 88 Oxygen Delivery Me thod Nasal Cannula Oxygen Flow Rate 1 Labs Labs: Laboratory Results - last 24 hr 10/01/23 10/01/23 10/01/23 16:32 16:54 17:37 WBC 7.43 RBC 4.64 Hgb 14.4 Hct 44.4 MCV 96 MCH 31 MCHC 32 RDW Coeff of Leanna 13.2 Plt Count 237 Neut % (Auto) 70.5 Lymph % (Auto) 17.9 L [place] % (Auto) 7.9 Eos % (Auto) 3.1 Baso % (Auto) 0.3 Neut # (Auto) 5.24 Lymph # (Auto) 1.30 [place] # (Auto) 0.60 Eos # (Auto) 0.23 Baso # (Auto) 0.00 Abs Immat Gran (auto) 0.02 Imm/Tot Granulo (auto) 0.3 D-Dimer Quant (PE/DVT) 0.88 H VBG pH VBG pCO2 VBG pO2 VBG HCO3 Sodium 134 L Potassium 4.3 Chloride 92 L Carbon Dioxide 37 H Anion Gap 5 L BUN 18 Creatinine 0.7 Estimated Creat Clear Estimated GFR 92 Glucose 92 Calcium 9.5 Magnesium 1.8 Total Bilirubin 0.4 AST 34 ALT 23 Alkaline Phosphatase 64 NT-Pro-B Natriuret Pep 321 Total Protein 8.1 Albumin 4.6 SARS-CoV-2 (PCR) Negative SARS-CoV-2 Influenza Type A (PCR) Negative PCR FLU A Influenza Type B (PCR) Negative PCR FLU B RSV (PCR) Negative PCR RSV Lab Acknowledgement New Spec Needed POC Troponin I 0.00 L 10/01/23 10/02/23 19:04 05:48 WBC 4.97 RBC 4.14 Hgb 12.8 Hct 38.6 MCV 93 MCH 31 MCHC 33 RDW Coeff of Leanna Plt Count 236 Neut % (Auto) Lymph % (Auto) [place] % (Auto) Eos % (Auto) Baso % (Auto) Neut # (Auto) Lymph # (Auto) [place] # (Auto) Eos # (Auto) Baso # (Auto) Abs Immat Gran (auto) Imm/Tot Granulo (auto) D-Dimer Quant (PE/DVT) VBG pH 7.330 7.391 VBG pCO2 68 H* 56 H VBG pO2 < 30.1 43.7 VBG HCO3 36 H 34 H Sodium 131 L Potassium 4.6 Chloride 93 L Carbon Dioxide 34 H Anion Gap 4 L BUN 19 Creatinine 0.5 Estimated Creat Clear 38.13 Estimated GFR 100 Glucose 115 Calcium 9.2 Magnesium Total Bilirubin AST ALT Alkaline Phosphatase NT-Pro-B Natriuret Pep Total Protein Albumin SARS-CoV-2 (PCR) Influenza Type A (PCR) Influenza Type B (PCR) RSV (PCR) Lab Acknowledgement POC Troponin I
[2023-10-02] MEDS: SODIUM CHLORIDE 1 GM TABLET PO ×2 (12:17→18:19)
[2023-10-02] MEDS: FERROUS SULFATE 325 MG TABLET PO (12:17)
[2023-10-02] MEDS: PRAMIPEXOLE 0.25 MG TABLET 0.75 MG PO (18:19)
--- NOTE | 2023-10-02 19:46 | PC.NURSE ---
1L O2 use with ambulation and while sleeping to maintain sats above 88%. Referral to RT to qualify pt for home O2. See MAR for medication use on pt chronic pain. Aqua-K pad added with success for pt chronic back pain.
[2023-10-02] MEDS: NICOTINE 21 MG PATCH 1 PATCH TRANSDERMA (20:41)
[2023-10-02] MEDS: ENOXAPARIN 30 MG/0.3ML INJ SUBCUT (20:44)
[2023-10-02] MEDS: CETIRIZINE HCL 10 MG TABLET PO (20:50)
[2023-10-03 03:00] VITALS: BP 130/60; PULSE 80; RESP 18; TEMP 36.7; O2SAT 91
--- NOTE | 2023-10-03 05:05 | PC.NURSE ---
Patient pleasant, alert and cooperative. Ambulated with stand by assist. O2 applied at HS. O2 sats were 96% on 1 LPM while sleeping. O2 removed and O2 sats were 88-93% on room air. Patient sleeping on and off during night. Declined Melatonin when offered. Reported back pain rated 5-6/10. Aqua K pad applied and scheduled pain meds given.?
[2023-10-03] MEDS: OMEPRAZOLE 20 MG CAPSULE DR 40 MG PO (06:27)
[2023-10-03 06:44] LABS: Hematocrit 39.6 % (33.0-51.0); Mean Corpuscular HGB Conc 33 gm/dL (32-36); Mean Corpuscular Hemoglobin 31 pg (26-34); Mean Corpuscular Volume 95 fL (80-100); Platelet Count* 216 K/uL (140-440); Red Blood Count 4.18 m/uL (4.00-5.20); White Blood Count* 9.99 K/uL (4.50-11.00)
[2023-10-03 06:51] LABS: Slide Review Reflex No
[2023-10-03 07:00] VITALS: PULSE 80; RESP 16; O2SAT 92
[2023-10-03 07:11] LABS: Chloride* 97 mmol/L (96-114); Potassium* 4.4 mmol/L (3.6-5.1); Sodium* 132 mmol/L (135-149)
[2023-10-03 07:13] LABS: Cholesterol* 138 mg/dL (90-199)
[2023-10-03 07:14] LABS: Anion Gap 7 mEq/L (7-15); Blood Urea Nitrogen* 19 mg/dL (7-30); Carbon Dioxide* 28 mmol/L (20-32); Creatinine* 0.5 mg/dL (0.5-1.5); Est. Creatinine Clearance* 38.54; Estimated Glomerular Filt Rate 100 ml/min; Glucose* 82 mg/dL (60-115); Triglycerides* 77 mg/dL (40-149)
[2023-10-03 07:15] LABS: Calcium* 9.2 mg/dL (8.4-10.6); HDL Cholesterol* 65 mg/dL (>=50); LDL Cholesterol Calculated 58 mg/dL (<100)
[2023-10-03 09:00] VITALS: BP 127/81; PULSE 80; RESP 16; TEMP 36.7; O2SAT 92
[2023-10-03] MEDS: IPRAT-ALBUT 0.5-2.5 MG/3 ML NEB 1 NEB IH (09:01)
[2023-10-03] MEDS: ACETAMINOPHEN 500 MG TABLET 1000 MG PO (09:03)
[2023-10-03] MEDS: ATORVASTATIN 10 MG TABLET 20 MG PO (09:03)
[2023-10-03] MEDS: guaiFENesin 600 MG TAB.ER.12H PO (09:03)
[2023-10-03] MEDS: DOXYCYCLINE HYCLATE 100 MG PO (09:03)
[2023-10-03] MEDS: SERTRALINE 100 MG TABLET PO (09:04)
[2023-10-03] MEDS: predniSONE 20 MG TABLET 40 MG PO (09:04)
[2023-10-03] MEDS: AMLODIPINE 10 MG TABLET PO (09:04)
[2023-10-03] MEDS: SODIUM CHLORIDE 1 GM TABLET PO (09:04)
[2023-10-03] MEDS: MAGNESIUM OXIDE 400 MG TABLET PO (09:04)
[2023-10-03] MEDS: TIZANIDINE HCL 4 MG TABLET PO (09:05)
[2023-10-03] MEDS: DOCUSATE SODIUM 100 MG CAPSULE PO (09:05)
[2023-10-03] MEDS: METOPROLOL TARTRATE 50 MG TABLET PO (09:05)
[2023-10-03] MEDS: BENZONATATE 100 MG CAPSULE PO (09:05)
[2023-10-03] MEDS: PREGABALIN 50 MG CAPSULE 100 MG PO (09:06)
--- NOTE | 2023-10-03 11:31 | PC.NURSE ---
Discharge: Patient pleasant and cooperative. Patient A&O. VSS, O2 maintained >88% on room air. Patient complained of chronic back pain, that appears well managed with tylenol. Per RT, patient to use 2L with activity. Discharged to [facility] via their van at roughly 10:30am. Nurse to nurse report given to Rosie at [facility], all questions answered.
--- NOTE | 2023-10-03 15:01 | P.DS_ITS ---
DS: Providers Provider Date Seen: 10/03/23 Date of admission: 10/01/23 20:23 Primary care physician: Tran Peacock PA-C Admitting Clinician: Holli Nieves PA-C Consults: 10/01/23 20:22 Consult to Respiratory Therapy [CONS] Routine Comment: Reason(s) for RT Consult:: Consult 10/01/23 20:23 Consult to Occupational Therapy [CONS] Routine Comment: Reason(s) for OT Consult:: Evaluate and Treat Any Restrictions?:: No Restrictions Consult to Physical Therapy [CONS] Routine Comment: Reason(s) for PT Consult:: Evaluate and Treat Any Restrictions?:: No Restrictions Consult to [employer] [CONS] Routine Comment: Reason for Consult:: Social Service Consult Attending Physician on discharge: MERE HICKMAN MD [facility] Date of Discharge: 10/03/23 DS: Diagnosis Discharge Diagnosis (1) Acute respiratory failure with hypoxia and hypercarbia: Status: Acute Problem details: Acute on chronic, recurrent Most likely COPD exacerbation, active smoker Continue doxycycline, oral prednisone, oxygen support Discharged on home O2. I do not see recent echocardiogram, BNP 321, could consider outpatient unless worsening or no resolve (2) Abnormal finding on diagnostic imaging of left kidney: Status: Acute Problem details: Per Radiology, Ill-defined hypodensity within the interpolar region of left kidney, incompletely characterized on this nondedicated examination. Follow up evaluation with a dedicated, nonemergent, outpatient contrast-enhanced CT abdomen and pelvis is recommended to exclude underlying neoplasm (3) Chronic obstructive pulmonary disease: Status: Chronic Problem details: Not previous oxygen dependent. Normally walks 3 miles daily. Active smoker CTA chest negative for pulmonary embolus. No evidence of right heart strain. Moderate emphysema Doxycycline x5 day course Prednisone x5 day course, received burst dose methylprednisolone in ED DuoNebs q.i.d., albuterol nebs p.r.n., continue home inhalers, Mucinex b.i.d. RT for pulmonary support, incentive spirometry, continue to wean oxygen supplementation as able (4) Chronic pain syndrome: Status: Acute Problem details: Follows with [facility] in [place] Continue home medications (5) Tobacco dependence: Status: Chronic Problem details: Nicotine patch DS: Summary Hospital Course Hospital Course: FINAL DIAGNOSIS/FOLLOW UP ISSUES: 1. COPD exacerbation - I told patient to stop smoking. I explained that her Anoro Ellipta and her QVAR inhalers were for maintenance and not to be used as rescue. She qualified for home O2. She will be discharged on a few more days of doxycycline and a prednisone taper. 2. Left kidney [id number] hypodensity within the interpolar region of left kidney, incompletely characterized on this nondedicated examination. Follow up evaluation with a dedicated, nonemergent, outpatient contrast-enhanced CT abdomen and pelvis is recommended to exclude underlying neoplasm BRIEF HOSPITAL COURSE: Patient was admitted for two days. Synopsis of acute inpatient issues are outlined above. Chronic medical conditions with notable findings outlined above. Patient did very well. She responded nicely to steroids and nebulizers. She was back to her baseline on the evening of 10/01. When she sleeps hard and or exerts herself we noticed sats would drop below 88%. She qualified for 1 L per nasal cannula oxygen for exertion. I have asked her to stop smoking. She was discharged on doxycycline and prednisone. Incidentally, we noted a left kidney lesion that should have a CT scan as an outpatient. DISCHARGE MEDICATIONS: See Reconciled list - SIGNIFICANT CHANGES: No specific changes other than a short course of doxycycline and a prednisone taper. Specific instructions to the patient and follow-up are outlined below. REVIEW OF SYSTEMS No new chest pain or dyspnea Pain controlled No voiding difficulties Tolerating diet challenge PHYSICAL EXAM: CONSTITUTIONAL: Alert, smiling. Anxious for discharge. VITAL SIGNS: see record. HEENT: Normocephalic, atraumatic. PERRL, EOMI, conjunctivae pink, no scleral icterus. Ears and nose externally normal. Pharynx normal. NECK: No JVD. No carotid bruit, no thyromegaly, no adenopathy. CHEST: Clear to auscultation bilaterally. HEART: S1 and S2 normal. Edema ABDOMEN: Soft, nontender. Normal bowel sounds. MUSCULOSKELETAL: No gross joint deformity or swelling. NEURO: Cranial nerves intact. Grossly intact. No asymmetric findings. SKIN: No rashes, petechiae, concerning changes PSYCHIATRIC: Mood euthymic. DISPOSITION: Assisted living correction Time spent on discharge 37 minutes. Time spent discussing smoking cessation with patient: more than 10 minutes Status at Discharge Functional status at discharge: uses cane/walker Overall status at discharge: patient is progressing back to baseline Time Spent with Patient Time attestation: Total time spent providing and/or coordinating discharge services: Time spent: Greater than 30 minutes Exam Const: Vital Signs, click to edit/add: Vital Signs - 24 hr 10/02/23 15:45 10/02/23 15:45 10/02/23 15:45 Temperature Pulse Rate 75 Pulse Rate [Pulse Oximeter] 81 Respiratory Rate 18 18 Blood Pressure [Ri ght Arm] Pulse Oximetry 88 Oxygen Delivery Me thod Room Air Oxygen Flow Rate 10/02/23 15:45 10/02/23 19:00 10/02/23 22:20 Temperature 97.8 F 98.4 F 97.9 F Pulse Rate Pulse Rate [Pulse Oximeter] 81 78 68 Respiratory Rate 18 19 16 Blood Pressure [Ri ght Arm] 120/55 L 122/54 L 128/53 L Pulse Oximetry 88 89 88 Oxygen Delivery Me thod Room Air Room Air Nasal Cannula Oxygen Flow Rate 1 10/02/23 22:26 10/02/23 23:00 10/03/23 03:00 Temperature 98.0 F Pulse Rate Pulse Rate [Pulse Oximeter] 80 Respiratory Rate 20 20 18 Blood Pressure [Ri ght Arm] 130/60 Pulse Oximetry 90 91 Oxygen Delivery Me thod Nasal Cannula Room Air Oxygen Flow Rate 1 10/03/23 07:00 10/03/23 07:00 10/03/23 09:00 Temperature 98.0 F Pulse Rate Pulse Rate [Pulse Oximeter] 80 80 Respiratory Rate 16 16 Blood Pressure [Ri ght Arm] 127/81 Pulse Oximetry 92 92 Oxygen Delivery Me thod Room Air Room Air Oxygen Flow Rate DS: Data Data Completed and Pending Completed studies during hospitalization: Procedures Assistance with Respiratory Ventilation, 24-96 Consecutive Hours, Continuous Positive Airway Pressure (10/31/22) Labs on day of discharge: Labs from last 24 hours 10/03/23 06:03 WBC 9.99 RBC 4.18 Hgb 13.0 Hct 39.6 MCV 95 MCH 31 MCHC 33 Plt Count 216 Sodium 132 L Potassium 4.4 Chloride 97 Carbon Dioxide 28 Anion Gap 7 BUN 19 Creatinine 0.5 Estimated Creat Clear 38.54 Estimated GFR 100 Glucose 82 Calcium 9.2 Triglycerides 77 Cholesterol 138 LDL Cholesterol, Calc 58 HDL Cholesterol 65 Discharge Plan Discharge Disposition: [facility] Date of Admission: 10/01/23 20:23 Attending Provider on Discharge: Mere Hickman Primary Care Provider: Tran Peacock Condition: Stable Discharge Medications: New prednisone 20 mg Tablet 40 mg PO DAILYWM Qty: 13 0RF Rx Instructions: take three more days of 40mg (2 tabs), then five days of one tab (20mg), then four days of a 1/2 tab (10mg) -then use the other bottle of 5 mg for 4 days of 1 tab. doxycycline hyclate 100 mg Tablet 100 mg PO BID Qty: 10 0RF prednisone 5 mg tablet 5 mg PO DAILY Qty: 4 0RF sodium chloride 1,000 mg tablet,soluble 1,000 mg PO TID PRN (Reason: electrolyte replenishment) Qty: 60 0RF Continued atorvastatin 20 mg tablet 20 mg PO DAILY ipratropium-albuterol 0.5 mg-3 mg(2.5 mg base)/3 mL solution for nebulization 3 ml INHALATION QID PRN (DME) blood-glucose meter [Daixe Verio Reflect Meter] Misc MISCELLANEOUS DIRECTED cetirizine 10 mg tablet 10 mg PO HS ibuprofen 800 mg tablet 800 mg PO BID tizanidine 4 mg tablet 4 mg PO TID Patient Comments: 4MG TID AND ONCE DAILY PRN MUSCLE SPASMS cyanocobalamin (vitamin B-12) 1,000 mcg tablet 1,000 mcg PO DAILY (DME) [employer] GardenTouch Ultra Test Strip MISCELLANEOUS omeprazole 40 mg capsule,delayed release(DR/EC) 40 mg PO DAILY acetaminophen 500 mg tablet 1,000 mg PO TID magnesium oxide 400 mg (241.3 mg magnesium) tablet 400 mg PO DAILY amlodipine 10 mg tablet 10 mg PO DAILY benzonatate 100 mg capsule 100 mg PO TID PRN metoprolol tartrate 50 mg tablet 50 mg PO BID docusate sodium 100 mg capsule 100 mg PO BID ferrous sulfate 325 mg (65 mg iron) tablet,delayed release (DR/EC) 325 mg PO DAILY pramipexole 0.75 mg tablet 0.75 mg PO QPM diclofenac sodium 1 % gel 2 g topical BID PRN cholecalciferol (vitamin D3) 50 mcg (2,000 unit) tablet 50 mcg PO DAILY multivitamin with folic acid [Tab-A-Myles] 400 mcg tablet 1 tab PO DAILY naloxone 4 mg/actuation spray,non-aerosol 1 spray INTRANASAL .UD PRN Patient Comments: USE DIRECTED FOR ACCIDENTAL OVERDOSE Qvar RediHaler 80 mcg/actuation HFA aerosol breath activated 1 inh inhalation BID albuterol sulfate 90 mcg/actuation HFA aerosol inhaler 2 inh inhalation QID PRN polyethylene glycol 3350 [Gavilax] 17 gram/dose powder 17 g PO DAILY PRN dextromethorphan-guaifenesin [Antitussive DM] 10-100 mg/5 mL syrup 10 ml PO Q4H PRN Patient Comments: UP TO 4 DAYS trazodone 100 mg tablet 100 mg PO HS PRN Patient Comments: PRN FOR SLEEP buprenorphine HCl 75 mcg film 75 mcg buccal BID Qty: 10 0RF alendronate 10 mg tablet 10 mg PO DAILY Anoro Ellipta 62.5-25 mcg/actuation blister with device 1 inh inhalation DAILY pregabalin 50 mg capsule 100 mg PO TID sertraline 100 mg tablet 100 mg PO DAILY Discharge Orders: Discharge Order (Routine); Ordered 10/03/23 Ordered By: Mere Hickman Additional Instructions: 1. MOST important medication learning point from this admission: the ANORA ELLIPTA and the QVAR inhalers are used to keep you of the hospital and healthy. They don't make a huge difference day to day. The duonebs, albuterol are your go to when short of breath. 2. Stop smoking. it is never too late. at very least, cut back. 3. Your sodium is a little low, i'm sending sodium tabs. have your blood checked in 2-3 weeks to see if you still need them 4. Don't smoke and use oxygen at the same time. Keep your oxygen levels between 88-93%. Too little oxygen and too much oxygen are harmful to you. Activity Level: Activity as Tolerated Discharge Diet: Regular Follow Up Appointments: Tran Peacock PA-C [Primary Care Provider] - 10/14/23 11:35 am ([facility], [place] for follow-up.) [facility] Admit to: Assisted [facility] Discharge Potential: Fair Length of Stay: >90 days Can use facility standing orders?: Yes Code Status: Full Code Rehab Potential: Fair Oxygen Delivery Method: Nasal Cannula Oxygen Flow Rate: 1-2L as instructed. Sats 88-93%. 98-100% is not better, actually harmful. Orders are good >30 days: Yes
== END 2023-10-03 10:45 | DRG 189 ==
LOC: ED 19:24 → MEDSURG 19:55
PROVIDERS: Family Medicine; Admitting Provider Physician Assistant; Emergency Provider Student in an Organized Health Care Education/Training Program; PCP Student in an Organized Health Care Education/Training Program; Visit Provider Orthopaedic Surgery
DX: J96.21 Acute and chronic respiratory failure with hypoxia (principal); J44.1 Chronic obstructive pulmonary disease with (acute) exacerbation; J96.22 Acute and chronic respiratory failure with hypercapnia; Z72.0 Tobacco use; J44.9 Chronic obstructive pulmonary disease, unspecified; I10 Essential (primary) hypertension; E78.00 Pure hypercholesterolemia, unspecified; F41.1 Generalized anxiety disorder; R93.422 Abnormal radiologic findings on diagnostic imaging of left kidney; G89.4 Chronic pain syndrome; K21.9 Gastro-esophageal reflux disease without esophagitis; R73.9 Hyperglycemia, unspecified; M81.0 Age-related osteoporosis without current pathological fracture
CPT/HCPCS: 36415; 71275; 80048; 80053; 80061; 82803; 83735; 83880; 84484; 85025; 85027; 85379; 87081; 87631; 93005; 93971; 94640; 97162; 97165; 97535; 99283; 99284; 99285; A9270; J1650; J2930; J7512; Q9967; S4990

== ENCOUNTER 2023-11-12 10:26 | Outpatient (CLI) | payer MEDICARE, SELFPAY ==
--- OUTSIDE RECORDS SUMMARY | 2023-11-12 10:34 | XMS_ITS | CCD ---
Author Name Unknown Organization Unknown Care Team Providers Care [facility]p [employer] Development Name Role Phone Wilcox Claudia MARTE Primary Care Provider Yamileth vailable Unavailable Chronic Care Management Unavaila ble Summary Purpose DataExchange Insurance Providers Payer name Policy type / Coverage type Covered green party ID Effective Begin Date Effective End Date [employer] Individual and Family Plans Commercial Insurance [id number] Unknown [place] [id number] Unknown Family history Parents, Siblings, Children Diagnosis Age At Onset No Family Disease Entered N/A Social History Social History Element Codes Description Effec tive Dates Tobacco history SNOMED CT: 53009330 Current every day smoker 08/21/[address]: 670564915 No Alcohol Consum ption 08/21/2023 Allergies, Adverse Reactions, Alerts Substance Reaction Codes Entered Date Inactivated Date Status meperidine RxNorm: 637610 08/20/2023 No Inactive D ate Active codeine Unknown 08/20/2023 No Inactive Date Ac tive Demerol RxNorm: 667180 07/23/2023 No Inactive Da te Active Lactose Unknown 08/20/2023 No Inactive Date Ac tive Other: Unknown 07/23/2023 No Inactive Date Ac tive Tetanus-Diphtheria Toxoids Td Unknown 08/20/2023 No Inactive Date Active Problems Condition Codes Effective Dates Condition St atus Osteoporosis ICD-10: M81.0 ICD-9: 733.00 08/21/2023 Active Chronic bilateral low back p ain without sciatica ICD-10: M54.50 ICD-9: 724.2 08/20/2023 Active COPD (chronic obstructive pu lmonary disease) ICD-10: J44.9 ICD-9: 496 08/20/2023 Active Hypertension ICD-10: I10 ICD-9: 401.9 08/20/2023 Active Other chronic pain ICD-10: G89.29 08/20/2023 Active Medications Medication Codes Instructions Start Date Stop Date Status Fill Instructions Vitamin B-12 1,000 mcg tablet RxNorm: 388402 Take 1 Tablet(s) Oral QD 4 No Stop Date Active Qvar RediHaler 80 mcg/actuation HFA breath activated aerosol RxNorm: 6334089 Inhale 1 Puff(s) Inhalation BID 4 No Stop Date Active loperamide 2 mg tablet RxNorm: 227370 Take 2 Tablet(s) Oral with first loose stool then 1 tab after each additional loose stool. Max 8 tabs in 24 hours 4 No Stop Date Active cetirizine 10 mg tablet RxNorm: 5394073 Take 1 Tablet(s) Oral QHS every night at bedtime 4 No Stop Date Active diclofenac 1 % topical gel RxNorm: 690952 Apply 2 Gram(s) Topical BID as needed 4 No Stop Date Active Tab-A-Myles 400 mcg tablet RxNorm: Take 1 Tablet(s) Oral QD 4 No Stop Date Active naloxone 4 mg/actuation nasal spray RxNorm: 4750247 Use as directed for accidental overdose 4 No Stop Date Active pregabalin 50 mg capsule RxNorm: 914812 Take 2 Capsule(s) Oral TID 4 No Stop Date Active Belbuca 75 mcg buccal film RxNorm: 7302818 Take 1 Unit(s) Buccal BID 4 No Stop Date Active docusate sodium 100 mg capsule RxNorm: 7032780 Take 1 Capsule(s) Oral BID 4 No Stop Date Active omeprazole 40 mg capsule,delayed release RxNorm: 907562 Take 1 Capsule(s) Oral QD 4 No Stop Date Active ipratropium 0.5 mg-albuterol 3 mg (2.5 mg base)/3 mL nebulization soln RxNorm: 4453554 Inhale 1 Vial Inhalation QID as needed 4 No Stop Date Active acetaminophen 500 mg tablet RxNorm: 771249 Take 2 Tablet(s) Oral TID and 2 tabs by mouth daily as needed 4 No Stop Date Active tizanidine 2 mg tablet RxNorm: 732335 Take 2 Tablet(s) Oral QD as needed 4 No Stop Date Active Tums 200 mg calcium (500 mg) chewable tablet RxNorm: 196057 Take 2-4 Tablet(s) Oral between meals and at bed time as needed 4 No Stop Date Active Anoro Ellipta 62.5 mcg-25 mcg/actuation powder for inhalation RxNorm: 6693330 Take 1 Puff(s) Inhalation QD 4 No Stop Date Active albuterol sulfate HFA 90 mcg/actuation aerosol inhaler RxNorm: 7185970 Take 2 Puff(s) Inhalation QID as needed 4 No Stop Date Active alendronate 10 mg tablet RxNorm: 576811 Take 1 Tablet(s) Oral QD 4 09/30/19 24 Inactive tizanidine 4 mg tablet RxNorm: 383588 Take 1 Tablet(s) Oral TID 4 No Stop Date Active amlodipine 10 mg tablet RxNorm: 405490 Take 1 Tablet(s) Oral QD 4 No Stop Date Active atorvastatin 20 mg tablet RxNorm: 768906 Take 1 Tablet(s) Oral QD 4 No Stop Date Active Antacid Anti-Gas 200 mg-200 mg-20 mg/5 mL oral suspension RxNorm: 280508 Take 5-10 Milliliter(s) Oral QD as needed 4 No Stop Date Active Miralax 17 gram/dose oral powder RxNorm: 443590 Take 17 Gram(s) Oral QD as needed 4 No Stop Date Active pramipexole 0.75 mg tablet RxNorm: 228936 Take 1 Tablet(s) Oral QD 4 No Stop Date Active sertraline 100 mg tablet RxNorm: 892081 Take 1 Tablet(s) Oral QAM every morning 4 No Stop Date Active Milk of Magnesia 400 mg/5 mL oral suspension RxNorm: 501964 Take 15-30 Milliliter(s) Oral QD as needed 4 No Stop Date Active magnesium 400 mg (as magnesium oxide) tablet RxNorm: 932519 Take 1 Tablet(s) Oral QD 4 No Stop Date Active ferrous sulfate 325 mg (65 mg iron) tablet RxNorm: 405441 Take 1 Tablet(s) Oral QD 4 No Stop Date Active trazodone 100 mg tablet RxNorm: 668715 Take 1 Tablet(s) Oral QHS every night at bedtime as needed 4 No Stop Date Active alendronate 10 mg tablet RxNorm: 407143 Take 1 Tablet(s) Oral QD 4 08/22/19 24 Inactive metoprolol tartrate 50 mg tablet RxNorm: 053916 Take 1 Tablet(s) Oral BID 4 No Stop Date Active benzonatate 100 mg capsule RxNorm: 690450 Take 1 Capsule(s) Oral TID as needed 4 No Stop Date Active Diphen 25 mg tablet RxNorm: 1112632 Take 1-2 Tablet(s) Oral every 6 hours as needed 4 No Stop Date Active ibuprofen 800 mg tablet RxNorm: 739055 Take 1 Tablet(s) Oral BID 4 No Stop Date Active Vitamin D3 50 mcg (2,000 unit) tablet RxNorm: 254336 Take 1 Tablet(s) Oral QD 4 No Stop Date Active Robafen DM Cough 10 mg-100 mg/5 mL oral liquid RxNorm: 409109 Take 10 Milliliter(s) Oral Q4H every four hours as needed 4 No Stop Date Active Medication Administered No Medication Administered data Reason For Visit No Reason For Visit data Plan of Care Planned Activity Notes Codes Status Date Referral: [facility] WPtel: [address] [place], [place] [id number] [place] Referral Appointment Scheduled 11/12/2023 Referral: Carolyn Lassiter Endo crinology [facility] WPtel: [address] [place], [place] [id number] [place] Referral No Records Received 10/20/2023 Instructions Comment Date 08.20.2023 New [facility] [place] patient visit.??Pet: B ird Baby 10/16/2023
--- OUTSIDE RECORDS SUMMARY | 2023-11-12 10:34 | XMS_ITS | Clinical Summary ---
Author Name Unknown Organization [employer] [facility] Address [place], [place] [address] Care Team Providers Care Industrial Mechanic Name Role Phone Tanna Lindsey CLAIMS EXAMINER Unavailable [phone] Tanna Lindsey CLAIMS EXAMINER Unavailable [phone] Tran Peacock Primary Care Provider [phone] Allergies Active Allergy Reactions Criticality Noted Date Comments Codeine Nausea And Vomiting 03/17/2008 Pill form causes n/v Lactose *Unknown 02/12/2016 Patient has eye issues Meperidine Nausea And Vomiting 11/30/2008 Demerol Tetanus And Diphther. Tox (Pf) Fever,Angioedema 02/11/2008 Medications Medication Sig Dispensed Refills Start Date End Date Status nebulizer accessories kitIndications:C OPD exacerbation (HC) For home use. Length of need: lifelong 1 Kit 9 Active NebulizerIndicat ions:COPD exacerbation (HC) Nebulizer, disposable kit x 4, reuseable kit x 1, mask x 1, filters x 1. To use: daily; Medication: duoneb Length of need: 99 months 1 Device 1 Active Walker - 4 wheelsIndication s:Chronic midline low back pain without sciatica With a seat. For home use. Length of need: 99 1 Each 1 Active Elevated Toilet Seat with ArmsIndications: Chronic midline low back pain without sciatica For home use. 1 Each 1 Active Chair LiftIndications: Chronic midline low back pain without sciatica For home use. 1 Each 1 Active gabapentin (NEURONTIN) 300 mg capsuleIndicatio ns:Restless legs syndrome (RLS),Muscle spasm of both lower legs TAKE 2 CAPSULES BY MOUTH TWICE DAILY;TAKE 3 CAPSULES BY MOUTH AT BEDTIME 630 Capsule 3 2 Active TENS unit and electrodes cmpkIndications: Chronic bilateral low back pain without sciatica As directed. Use TENS unit for 10-20 minutes once to twice daily as needed for back pain. 1 Each 2 Active multivitamin (MVI) tabletIndication s:Age-related osteoporosis without current pathological fracture Take 1 Tablet by mouth once daily. 90 Tablet 3 2 Active Belbuca 150 mcg buccal film 3 Active blood-glucose meterIndications :Hypoglycemia Dispense meter, test strips, lancets covered by pt ins. Pt requests Accu-Check meter 1 Each 3 Active albuterol HFA (PRO-AIR; VENTOLIN; PROVENTIL) 90 mcg/actuation inhalerIndicatio ns:Smoker,COPD exacerbation (HC) INHALE 2 PUFFS BY MOUTH 4 TIMES DAILY IF NEEDED. 54 g 5 3 Active albuterol-ipratr opium (DUONEB) (2.5-0.5 mg) in 3 mL NEBULIZATION solutionIndicati ons:COPD exacerbation (HC) Inhale 3 mL via a nebulizer 4 times daily if needed (wheezing/cough ing/shortness of breath). 270 mL 5 3 Active amLODIPine (NORVASC) 10 mg tabletIndication s:Hypertension Take 1 Tablet (10 mg) by mouth once daily. 90 Tablet 3 3 Active sertraline (ZOLOFT) 100 mg tabletIndication s:Anxiety Take 1 Tablet (100 mg) by mouth every morning. 90 Tablet 3 3 Active atorvastatin (LIPITOR) 20 mg tabletIndication s:Hypercholester olemia Take 1 Tablet (20 mg) by mouth once daily. 90 Tablet 3 3 Active blood sugar diagnostic (Blood Glucose Test) stripIndications :Hypoglycemia Dispense test strips covered by the patient insurance. Test 1 times per day. 100 Each 3 3 Active cetirizine (ZYRTEC) 10 mg tabletIndication s:Seasonal allergies Take 1 Tablet (10 mg) by mouth once daily. 90 Tablet 3 3 Active cholecalciferol, Vitamin D3, 2,000 unit tabletIndication s:Osteoporosis, unspecified osteoporosis type, unspecified pathological fracture presence Take 1 Tablet (2,000 units) by mouth once daily. 90 Tablet 3 3 Active cyanocobalamin (Vitamin B-12) 1,000 mcg tabletIndication s:B12 deficiency Take 1 Tablet (1,000 mcg) by mouth once daily. 90 Tablet 3 3 Active diclofenac topical (Voltaren) 1 % gelIndications:C hronic pain disorder Apply 2 grams topically to affected painful area twice daily as needed for arthritis pain 100 g 2 3 Active docusate (COLACE) 100 mg capsuleIndicatio ns:Chronic constipation Take 1 Capsule (100 mg) by mouth two times daily. 180 Capsule 3 3 Active ferrous sulfate 325 mg delayed release tabletIndication s:Low ferritin,Right foot pain,Foot pain, right Take 1 Tablet (325 mg) by mouth once daily with a meal. 90 Tablet 3 3 Active ibuprofen (ADVIL; MOTRIN) 800 mg tabletIndication s:Neck pain, chronic TAKE 1 TABLET BY MOUTH TWICE DAILY 180 Tablet 3 3 Active metoprolol tartrate (LOPRESSOR) 50 mg tabletIndication s:Hypertension Take 1 Tablet (50 mg) by mouth two times daily. 180 Tablet 3 3 Active omeprazole (PRILOSEC) 40 mg Delayed-Release capsuleIndicatio ns:Chronic GERD Take 1 Capsule (40 mg) by mouth once daily before a meal. 90 Capsule 3 3 Active pramipexole (MIRAPEX) 0.75 mg tabletIndication s:Restless legs syndrome (RLS) TAKE 1 TABLET BY MOUTH DAILY (2-3 HOURS BEFORE BEDTIME) 90 Tablet 3 3 Active traZODone (DESYREL) 100 mg tabletIndication s:Insomnia, idiopathic Take 1 Tablet (100 mg) by mouth at bedtime if needed for Sleep. 90 Tablet 3 3 Active umeclidinium-louis anteroL (Anoro Ellipta) 62.5-25 mcg/actuation inhalerIndicatio ns:COPD exacerbation (HC) Inhale 1 Puff by mouth once daily. 180 Each 3 3 Active lancets (Unistik 3 Comfort Lancet)Indicatio ns:Hypoglycemia USE DIRECTED. 100 Each 3 3 Active Xly-W-KbufIedjnf tions:Nutritiona l deficiency TAKE 1 TABLET BY MOUTH DAILY 90 Tablet 3 3 Active magnesium oxide (MAG-OX 400) 400 mg tabletIndication s:Muscle cramp, nocturnal TAKE 1 TABLET BY MOUTH DAILY 90 Tablet 3 3 Active tiZANidine (ZANAFLEX) 2 mg tabletIndication s:Chronic pain disorder Take 2 Tablets (4 mg) by mouth three times daily. 180 Tablet 11 3 Active tiZANidine (ZANAFLEX) 2 mg tabletIndication s:Chronic pain disorder Take two tablets (4mg) once daily in addition to scheduled doses if needed. 90 Tablet 3 3 Active benzonatate (TESSALON) 100 mg capsuleIndicatio ns:COPD exacerbation (HC),Chronic cough TAKE 1 CAPSULE BY MOUTH 3 TIMES DAILY NEEDED FOR COUGH 30 Capsule 12 3 Active beclomethasone dipropionate (Qvar RediHaler) 80 mcg/actuation HFAb HFA inhalerIndicatio ns:Pulmonary emphysema, unspecified emphysema type (HC) Inhale 1 Puff by mouth two times daily. Doesn't need a spacer or shaking. 3 Each 4 Active Blood Pressure Monitor KitIndications:H ypertension Frequency of testing: daily 1 Each 4 Active pregabalin (LYRICA) 50 mg capsule pregabalin 50 mg capsule 4 Active predniSONE (DELTASONE) 20 mg tablet 4 Active naloxone (NARCAN) 4 mg/actuation nasal spray naloxone 4 mg/actuation nasal spray 4 Active doxycycline (VIBRAMYCIN) 100 mg capsule 4 Active polyethylene glycoL (MIRALAX) 17 gram/scoop powderIndication s:Chronic constipation Mix 1 scoop (17 g) in liquid then take by mouth once daily if needed for Constipation. 1530 g 4 Active acetaminophen (TYLENOL EXTRA STRGTH) 500 mg tabletIndication s:Neck pain, chronic TAKE 2 TABLETS BY MOUTH 3 TIMES DAILY 168 Tablet 12 4 Active acetaminophen (TYLENOL EXTRA STRGTH) 500 mg tabletIndication s:Neck pain, chronic Take 2 Tablets (1,000 mg) by mouth three times daily. 540 Tablet 2 3 11/05/19 24 Discontinued polyethylene glycoL (MIRALAX) 17 gram/scoop powderIndication s:Chronic constipation Mix 1 scoop (17 g) in liquid then take by mouth once daily if needed for Constipation. 510 g 4 10/20/19 24 Discontinued(Reo rder (E-cancel not sent)) Nicoderm CQ 21 mg/24 hr patch Nicoderm CQ 21 mg/24 hr daily transdermal patch 4 11/11/19 24 Hospital, Clinic, or Other Facility Administered Medication Ordered Dose Route Frequency Start Date End Date Status denosumab (PROLIA) injection 60 mgIndications:Age-re lated osteoporosis without current pathological fracture 60 mg SubQ Q 6 MONTHS (24 WEEKS) 01/02/2023 12/04/2023 Active Active Problems Problem Noted Date Diagnosed Date Age-related osteoporosis wit hout current pathological fracture 03/14/2021 Mixed stress and urge urinary incontinence 12/28 Acute hyponatremia 01/12/2020 Hypochloremia 01/12/2020 Constipation 01/12/2020 Systemic inflammatory respon se syndrome (SIRS) due to non-infectious process without acute organ dysfunction 01/12/2020 Pulmonary emphysema 07/13/2018 Moderate major depression 03/21/2016 Anxiety state, unspecified 02/13/2015 Acute hypernatremia 12/12/2014 Acute hypokalemia 12/12/2014 ARF (acute renal failure) 12/09/2014 Rhabdomyolysis 12/09/2014 Smoker 12/09/2014 Left wrist drop 12/09/2014 Hypoglycemia 06/19/2014 Acute nondisplaced intertroc hanteric fracture of right femur 06/13/2014 Orthopedic aftercare 01/25/2014 Low back pain 03/15/2013 Knee pain 12/28/2012 Patella fracture 12/28/2012 Adhesive capsulitis of knee 10/29/2012 Controlled substance agreement signed 01/30/2012 Bipolar affective disorder, depressed, moderate 10/18/2010 PTSD (post-traumatic stress disorder) 10/18/2010 Vitamin D deficiency 08/29/2009 Smoking 02/02/2009 Chronic pain disorder 11/09/2008 Headache(784.0) 09/08/2008 Gastroparesis 11/27/2005 Overview: 05/10 Pure hypercholesterolemia 11/27/2005 Unspecified essential hypertension 11/27/2005 Lumbago 11/27/2005 Overview: Chronic Acute pancreatitis 11/27/2005 Overview: 05/10 Agoraphobia with panic disorder 11/27/2005 Resolved Problems Problem Noted Date Diagnosed Date Resolved Date Fracture of left hip 01/17/2014 020 Encounters Date Type Department Care Team Description 11/04/2023 Refill [facility] [address] [place] [address] Tran Peacock PA Refill Request (Acetaminophen) 10/24/2023 Telephone [facility] [address] [place] [address] Ivan Miller, AuD 10/20/2023 Refill [facility] [address] [place] [address] Tran Peacock PA Refill Request (Polyeth Glyc Pow 3350 nf) 10/10/2023 8:40 AM CDT Office Visit [facility] [address] [place] [address] Italo Carlos MD Musculoskeletal Problem (Follow up bilateral knee pain) 10/10/2023 Travel 10/06/2023 Travel 10/02/2023 Orders Only [facility] Scanner 1 scan: (1-Ord) INCOMING RECORDS-US, [facility], 10/02/2023 10/02/2023 Orders Only [facility] Scanner 1 scan: (1-Ord) INCOMING RECORDS-CT, [facility], 10/02/2023 10/02/2023 Telephone [facility] [address] [place] [address] Italo Carlos MD Error-please disregard 09/28/2023 Travel 08/25/2023 Telephone [facility] [address] [facility] [place] [address] Italo Carlos MD Appointment from Last 3 Months Immunizations Name Administration Dates Next Due COVID-19 vaccine (Moderna 100mcg/0.5mL) RINA MOLINA 12/13/2021,05/14/2021,11/10/2020,2020 Influenza A (H1N1), Inactiva ruba (Age >=3 Years) 08/10/2009 Influenza, IIV3 (Age 6-35 mos) 05/06/2011 Influenza, IIV3 (Age >=3 years) 03/23/20 12,05/06/2011,04/06/2010,2008,04/28/2008,04/12/2004 Influenza, IIV4 04/28/2017, 6,05/01/2015,2013 Influenza, Inactivated AIIV4 (Age 65+ Years) Preserv Free 03/07/2022,03/14/2021 Influenza, Inactivated IIV3 (Age 65+ Years) Preserv Free 03/23/2018 Pneumococcal Poly,23-Valent (Pneumovax) 03/02/2018,07/07/2005 Pneumococcal conj 13-Valent (Prevnar 13) 05/01/2015 Td (Age >=7 Years) 07/07/2001 Zoster (Shingrix-RZV, recombinant) 12/12/2021, Family History Medical History Relation Name Comments Diabetes Brother 1 Rico Heart Disease Brother 2 Lawrence Hypertension Brother 2 Lawrence No Known Problems Brother 3 gisel Aneurysm Daughter thoracic Cancer Father Heart Disease Father Melanoma Father Other Father under age 55 Cancer-breast Maternal Aunt Psychiatric illness Maternal Grandmother Heart Disease Mother Hyperlipidemia Mother Hypertension Mother Psychiatric illness Mother Stroke Mother Psychiatric illness Paternal Grandfather Diabetes Paternal Grandmother Psychiatric illness Paternal Grandmother Aneurysm Son thoracic Cancer-ovarian No Family History Relation Name Status Comments Brother 1 Rico Brother 2 Lawrence Brother 3 gisel Daughter Father Maternal Aunt Maternal Grandmother Mother Paternal Grandfather Paternal Grandmother Son Alive Social History Tobacco Use Types Packs/Day Years Used Date Smoking Tobacco: Every Day Cigarettes 1 50 Smokeless Tobacco: Never Tobacco Cessation:Ready to Q uit: Yes; Counseling Given: Yes Comments:started again 11/30/18 Alcohol Use Standard Drinks/Week Comments No 0 (1 standard drink = 0.6 oz pur e alcohol) PHQ-2 Answer Date Recorded PHQ-2 TOTAL SCORE 2 03/04/2023 Social Connections Answer Date Recorded Frequency of Communication with Friends and Fami ly 4 12/26/2022 Financial Resource Strain Answer Date R ecorded Difficulty of Paying Living Expenses 3 12/26/2022 Difficulty of Paying Living Expenses Not on file 12/26/2022 Food Insecurity Answer Date Recorded Worried About Running Out of Food in the Last Ye ar 1 12/26/2022 Transportation Needs Answer Date Record ed Lack of Transportation (Medical) 2 12/26/2022 Housing Stability Answer Date Recorded Unable to Pay for Housing in the Last Year 1 12/26/2022 Sex and Gender Information Value Date Recorded Sex Assigned at Female 05/29/2021 2:25 AM [employer] Gender Identity Female 05/29/2021 2:25 AM [employer] Sexual Orientation Straight 05/29/2021 2: 25 AM [employer] Obstetrics History Para Term AB IAB SAB Ectopic Multiple Livin g Live Births 5 3 3 0 2 0 2 0 0 2 Date Outcome GA Total Labor Labor/2nd/3rd Weight Sex Delivery Anes PTL Fabi A1 A5 Name Cl in Term Term Term SAB SAB Last Filed Vital Signs Vital Sign Reading Time Taken Comments Blood Pressure 149/68 10/10/2023 8:53 AM CDT Pulse 70 10/10/2023 8:53 AM CDT Temperature 36.4 ??C (97.6 ??F) 10/10/2023 8:53 AM CD T Respiratory Rate 16 01/13/2020 12:27 PM CDT Oxygen Saturation 96% 10/10/2023 8:53 AM CDT Inhaled Oxygen Concentration - - Weight 49.4 kg (109 lb) 10/10/2023 8:53 AM CDT s hoes on Height 147.3 cm (4' 10) 10/19/2021 11:06 AM CDT Body Mass Index 22.78 10/19/2021 11:06 AM CDT Plan of Treatment Upcoming Encounters Date Type Department Care Team (Late st Contact Info) Description 11/12/2023 1:00 PM CDT Office Visit [facility] [address] [place] [address] Candi [place], AuD [address] [place] [address] 05/12/2024 1:40 PM [employer] Office Visit [facility] [address] [place] [address] Italo Carlos MD [address] [place] [address] Health Maintenance Due Date Last Done Comments BMI (ht and wt on same day) for age 18+ 10/19/2022 10/19/2021, 06/05/2021, 06/01/2021, Additional history exists Medicare Wellness for age 65+ 10/20/2022, 01/19/2020, 03/02/2018 Mammogram for age 45-75 07/16/2023 07/16/19 23, 03/06/2021, 03/24/[address] (for lung CA) ag e 50-80 01/09/2024 01/08/2023, 11/06/2021 Depression screening for age 12+ 03/04/2024 03/04/2023, 10/23/2021, 10/19/2021, Additional history exists Influenza for age 65+ 03/07/2024 03/07/2022 , 03/14/2021, 03/23/2018, Additional history exists Fecal testing sDNA-FIT (Indore guard) for age 45-75 03/24/2026 03/24/2023 Lipids for age 45-75 03/04/2028 03/04/2023, 10/19/2021, 02/16/2021, Additional history exists Pneumococcal series for age 65+ Completed 03/02/2018, 05/01/2015, 07/07/2005 Hepatitis C screening for ag e 18-79 Completed 01/19/2020 DEXA/DXA scan for age 65+ Completed 03/06/2021, 05/2008 Zoster (shingles) series for age 50+ Completed 12/12/2021, 03/29/2021 COVID-19 vaccine series Completed 04/21/20, 04/16/2022, 12/13/2021, Additional history exists Medical Devices Implanted Type Area Automatic Brine Mixer Operator Device Identifier Shelf Expiration Date Model / Serial / Lot Screw Sm Joint 4.5x38mm Versanail Jeremiah - [id number] Implanted:Qty: 1 on 01/17/2014 by Justen Chavez MD at [facility] Ortho Imp.,Screw s & Plates Left: Hip BIOMET TRAUMA [id number]# / / Plate 4 Holeacemedical - [id number] Implanted:Qty: 1 on 01/17/2014 by Justen Chavez MD at [facility] Ortho Imp.,Screw s & Plates Left: Hip BIOMET TRAUMA [id number].# / / Screw Fem 100mm 135deg Biomet Captured - [id number] Implanted:Qty: 1 on 01/17/2014 by Justen Chavez MD at [facility] Ortho Imp.,Screw s & Plates Left: Hip BIOMET TRAUMA [id number]# / / Screw Sm Joint 4.5x42mm Versanail Jeremiah - [id number] Implanted:Qty: 1 on 06/15/2014 by Justen Chavez MD at [facility] Ortho Imp.,Screw s & Plates Right: Hip BIOMET TRAUMA [id number]# / / Plate 4 Holeacemedical - [id number] Implanted:Qty: 1 on 06/15/2014 by Justen Chavez MD at [facility] Ortho Imp.,Screw s & Plates Right: Hip BIOMET TRAUMA [id number].# / / Screw Fem 100mm 135deg Biomet Captured - [id number] Implanted:Qty: 1 on 06/15/2014 by Justen Chavez MD at [facility] Ortho Imp.,Screw s & Plates Right: Hip BIOMET TRAUMA [id number]# / / Screw Sm Joint 4.5x40mm Versanail Jeremiah - [id number] Implanted:Qty: 3 on 01/17/2014 by Justen Chavez MD at [facility] Left: Hip BIOMET TRAUMA [id number]# / / Screw Sm Joint 4.5x40mm Versanail Jeremiah - [id number] Implanted:Qty: 2 on 06/15/2014 by Justen Chavez MD at [facility] Right: Hip BIOMET TRAUMA [id number]# / / Pin Guide 3.3ugs0cb Threaded - [id number] Implanted:Qty: 2 on 06/15/2014 at [facility] BIOMET TRAUMA [id number]# / / Explanted Type Area Automatic Brine Mixer Operator Device Identifier Shelf Expiration Date Model / Serial / Lot Screw Sm Joint 4.5x44mm Versanail Jeremiah - [id number] Explanted:Qty: 1 on 01/17/2014 by Justen Chavez MD at [facility] Ortho Imp.,Screws & Plates Left: Hip BIOMET TRAUMA [id number]# / / Screw Sm Joint 4.5x36mm Versanail Jeremiah - [id number] Explanted:Qty: 1 on 06/15/2014 by Justen Chavez MD at [facility] Ortho Imp.,Screws & Plates Right: Hip BIOMET TRAUMA [id number]# / / Procedures Procedure Name Priority Date/Time Associated Diagnosis Comments SCAN CORRESP-IMAGING 10/02/2023 12:00 AM CDT SCAN CORRESP-IMAGING 10/02/2023 12:00 AM CDT SDNA-FIT EXTERNAL (COLOGUARD) Routine 03/24/2023 7:30 AM CDT Screening for colon cancer LIPID PANEL W REFLEX MEASURED LDL Routine 03/04/2023 10:49 AM CDT Hypercholesterolemi a CT CHEST SCREENING LOW DOSE WO CONTRAST Routine 01/08/2023 11:25 AM CDT Encounter for screening for lung cancer Smoker XR MAMMO LEATHA BILAT SCREEN Routine 07/16/2022 1:20 PM [employer] Visit for screening mammogram XR DXA BONE DENSITY 1 SITE AXIAL AND 1 SITE PERIPHERAL Routine 03/06/2021 2:15 PM CDT Menopause ANTI HCV Routine 01/19/2020 11:30 AM CDT Encounter for hepatitis C screening test for low risk patient from Last 3 Months or Most Recently Relevant to Health Maintenance Results * SCAN CORRESP-IMAGING (10/02/2023 12:00 AM CDT) Only the most recent of2 resultswithin the time period is included. Anatomical Region Laterality Modality Other Scanner OTHER * SDNA-FIT EXTERNAL (COLOGUARD) (03/24/2023 7:30 AM CDT) NONINV COLON CA DNA+OCC BLD SCRN STL-IMP Negative Negative 03/28/2023 4:38 PM CDT [facility] (CLIA #:[id number]) Comment: NEGATIVE TEST RESULT. A negative Cologuard result indicates a low likelihood that a colorectal cancer (CRC) or advanced adenoma (adenomatous polyps with more advanced pre-malignant features) ??is present. The chance that a person with a negative Cologuard test has a colorectal cancer is less than 1 in 1500 (negative predictive value >99.9%) or has an ??advanced adenoma is less than ??5.3% (negative predictive value 94.7%). These data are based on a prospective cross-sectional study of 10,000 individuals at average risk for colorectal cancer who were screened with both Cologuard and colonoscopy. (Eduin Thomason. et al, N Engl J Med 2014;370(14):1286- 1297) The normal value (reference range) for this assay is negative. COLOGUARD RE-SCREENING RECOMMENDATION: Periodic colorectal cancer screening is an important part of preventive healthcare for asymptomatic individuals at average risk for colorectal cancer. ??Following a negative Cologuard result, the [employer] and U.S. Multi-Society Task Force screening guidelines recommend a Cologuard re-screening interval of 3 years. References: [employer] Guideline for Colorectal Cancer Screening: https://www.cancer.org/cancer/hphye-niqzmh-oumvgv/eyzqwmsqo-ajvhutovn-srhtbiz/ac s-rec ommendations.html.; Angus BALES, Adria SERNA, Joaquim BOWLING, Colorectal Cancer Screening: Recommendations for Physicians and Patients from the U.S. Multi-Society Task Force on Colorectal Cancer Screening , Am J Gastroenterology 2017; 112:2304-6284. TEST DESCRIPTION: Composite algorithmic analysis of stool DNA-biomarkers with hemoglobin immunoassay. ?? Quantitative values of individual biomarkers are not reportable and are not associated with individual biomarker result reference ranges. Cologuard is intended for colorectal cancer screening of adults of either sex, 45 years or older, who are at average-risk for colorectal cancer (CRC). Cologuard has been approved for use by the U.S. FDA. The performance of Cologuard was established in a cross sectional study of average-risk adults aged 50-84. Cologuard performance in patients ages 45 to 49 years was estimated by sub-group analysis of near-age groups. Colonoscopies performed for a positive result may find as the most clinically significant lesion: colorectal cancer [4.0%], advanced adenoma (including sessile serrated polyps greater than or equal to 1cm diameter) [20%] or non- advanced adenoma [31%]; or no colorectal neoplasia [45%]. These estimates are derived from a prospective cross-sectional screening study of 10,000 individuals at average risk for colorectal cancer who were screened with both Cologuard and colonoscopy. (Eduin Concepcion al, N Engl J Med 2014;370(14):1935-1444.) Cologuard may produce a false negative or false positive result (no colorectal cancer or precancerous polyp present at colonoscopy follow up). A negative Cologuard test result does not guarantee the absence of CRC or advanced adenoma (pre-cancer). The current Cologuard screening interval is every 3 years. ([employer] Society and U.S. Multi-Society Task Force). Cologuard performance data in a 10,000 patient pivotal study using colonoscopy as the reference method can be accessed at the following location: www.NONO.Fangcang/results. Additional description of the Cologuard test process, warnings and precautions can be found at www.[facility].[email or web address]. Stool specimen (specimen) (Rectum) 03/24/2023 7:30 AM CDT 03/25/2023 8:43 PM CDT Tran GONZALEZ URINE [facility] (CLIA #:[id number]) [place] [address], * LIPID PANEL W REFLEX MEASURED LDL (03/04/2023 10:49 AM CDT) CHOLESTEROL,TOTAL 115 100 - 199 mg/dL 03/05/2023 2:32 AM CDT [facility] Comment: Cholesterol, Total Reference Ranges Desirable <200 mg/dL Borderline 200-239 mg/dL High >=240 mg/dL TRIGLYCERIDES 72 <150 mg/dL 03/05/2023 2:32 AM CDT [facility] HDL CHOLESTEROL 47 >40 mg/dL 2:32 AM CDT [facility] NON-HDL CHOLESTEROL 68 <145 mg/dl 03/05/2023 2:32 AM CDT [facility] CHOL/HDL RATIO 2.45 <4.50 03/05/2023 2:32 AM CDT [facility] LDL CHOLESTEROL 54 <=130 mg/dL 03/05/2023 2:32 AM CDT [facility] VLDL CHOLESTEROL 14 <=30 mg/dL 03/05/2023 2:32 AM CDT [facility] PROVIDER ORDERED STATUS RANDOM 03/05/2023 2:32 AM CDT [facility] Blood BLOOD SPECIMEN / Unknown Butterfly / Unknown 03/04/2023 10:49 AM CDT 03/04/2023 10:50 AM CDT Tran GONZALEZ CHEMISTRY [facility] [address] [place] [address], [place] * CT CHEST SCREENING LOW DOSE WO CONTRAST (01/08/2023 11:25 AM CDT) Anatomical Region Laterality Modality Computed Tomogra phy Impressions 01/09/2023 9:22 AM CDT Negative for lung cancer screening purposes. LUNG-RADS CATEGORY: 2: Benign. RADIOLOGIST RECOMMENDATION: Continue annual screening with low-dose CT chest in 12 months. Please note that all CT scans at this facility use dose modulation, iterative reconstruction and/or weight-based dosing when appropriate to reduce radiation dose to as low as reasonably achievable. ?? Dictated by: Jared Toledo MD @01/08/2023 11:47:44 AM/jsb Narrative 01/09/2023 9:22 AM CDT For Patients: As a result of the Cures Act, medical imaging exams and procedure reports are released immediately into your electronic medical record. ??You may view this report before your referring provider. ?? If you have questions, please contact your health care provider. CT CHEST SCREENING LOW-DOSE WITHOUT CONTRAST 01/08/2023 INDICATION: Lung cancer screening. History of smoking. TECHNIQUE: Low-dose lung cancer screening non-contrast CT chest. Dose reduction techniques were used. COMPARISON: 11/06/2021 FINDINGS: NODULES: Calcified nodules within the RIGHT lower lobe again noted. LUNGS AND PLEURA: Emphysema. No infiltrate. MEDIASTINUM: No adenopathy. CORONARY ARTERY CALCIFICATION: Present. LIMITED UPPER ABDOMEN: Dense calcifications in the aorta. MUSCULOSKELETAL: Multiple chronic wedge compression deformities. 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 ??Recommend annual mammograms. MAMMOGRAM ASSESSMENT: ??ACR 1 Negative PATIENTS: You will also receive a letter with your examination results in an easy to read format. ??If you have questions about your results, please contact your referring provider. Narrative 07/17/2022 1:58 PM PROFESSOR OF SPECIAL EDUCATION For Patients: As a result of the Cures Act, medical imaging exams and procedure reports are released immediately into your electronic medical record. You may view this report before your referring provider. If you have questions, please contact your health care provider. XR MAMMO LEATHA BILAT SCREEN [[id number]] CLINICAL HISTORY: ??This is an asymptomatic 71 y.o. patient. INDICATION FOR EXAM: Mammogram Screening. TECHNIQUE: CC & MLO views were obtained. ??This study was evaluated with the assistance of Computer-Aided Detection. Breast Tomosynthesis was used in interpretation. COMPARISON FILM: Yes 03/06/21 [facility] ?? FINDINGS: ??The breasts are almost entirely fatty. There are no dominant masses, suspicious micro calcifications or areas of architectural distortion. Valeri GONZALEZ MAMMO * (ABNORMAL) XR DXA BONE DENSITY 1 SITE AXIAL AND 1 SITE PERIPHERAL (03/06/2021 2:15 PM CDT) Anatomical Region Laterality Modality LUMBAR SPINE Other Impressions 03/08/2021 11:04 AM CDT Osteoporosis. RECOMMENDATIONS: The National Osteoporosis Foundation recommends pharmacologic treatment for patients with T-scores of -2.5 or less, patients with prior history of fragility fractures, or patients with 10-year probability of greater than 3% at hips or greater than 20% of suffering major osteoporotic fractures. Recommend continued optimization of calcium and vitamin D intake through dietary means and/or supplementation and regular exercise. Consider pharmacologic therapy for osteoporosis. Follow-up bone density reading in 2 years if therapy initiated to assess therapeutic efficacy. Alize Abdalla PA-C [facility] 03/08/2021 Narrative 03/08/2021 11:04 AM CDT For Patients: Results are automatically released to your [facility] ([employer]) account once available, in compliance with federal regulations. This means that you may see your results before your provider has had a chance to review them. Please allow 2-3 business days for your provider to comment on the results. XR DXA Bone Mineral Density (BMD) EXAM LOCATION: [address] [address] PATIENT NAME: Sarai Carcamo DATE OF : 1950 EXAM DATE: 03/06/2021 REQUESTING PROVIDER: Ashtyn Smith PA GENDER AT : female HEIGHT: 4' 10 (02/16/2021) WEIGHT: ??149 lb (02/28/2021) MENOPAUSAL STATUS: Postmenopausal RACE/ETHNICITY: White RISK FACTORS: Family History of Hip Fracture (parental) and White Race CURRENT MEDICATION FOR BONE LOSS: NONE INDICATION: Initial scan for screening COMPARISON DATE(S): None DXA scans are compared to prior studies for a patient only when the two (or more) studies were performed on the same scanner. It is not possible to compare data generated on one scanner to data from another because there are not standards in DXA equipment. This applies even if the two scanners are made by the same payroll services analyst. PROCEDURE: Dual-energy x-ray absorptiometry performed with routine technique. Reporting is completed in the form of a T-score. The T-score represents the standard deviation from peak bone mass based on young healthy adult. A Z-score is used for diagnosis in premenopausal women, and for men under the age of 50. FINDINGS: RESULT LUMBAR SPINE L1 - L4 BMD: 1.002 g/cm2 T-Score: - 1.6 Z-Score: + 0.0 RESULT FOREARM Left Forearm BMD: 0.266 g/cm2 T-Score: - 7.0 Z-Score: - 5.3 WHO criteria: Normal: T-score at or above -1 SD Osteopenia: T-score between -1.1 and -2.4 SD Osteoporosis: T-score at or below -2.5 SD Ashtyn GONZALEZ DEXA * ANTI HCV (01/19/2020 11:30 AM CDT) HEPATITIS C ANTIBODY Non-React aris Non-React aris 01/19/2020 8:44 PM CDT [facility] Comment:Antibodies to HCV no t detected; does not exclude the possibility of exposure to HCV. Blood BLOOD SPECIMEN / Unknown Butterfly / Unknown 01/19/2020 11:30 AM CDT 01/19/2020 11:30 AM CDT David Sorto MD SEND OUTS [facility] [email or web address] [facility] [address] [place] [address], [place] from Last 3 Months or Most Recently Relevant to Health Maintenance Advance Directives Documents on File Type Date Recorded Patient Blind Hanger Expl anation Healthcare Directive 11/19/2022 023 * Full Code (Latest Code Status on File) Date Activated Date Inactivated Comments 01/12/2020 3:04 AM 01/13/2020 6:29 PM * Full Code Date Activated Date Inactivated Comments 12/09/2014 7:41 PM 12/13/2014 4:10 PM * Full Code Date Activated Date Inactivated Comments 06/15/2014 2:05 PM 06/19/2014 3:57 PM * Full Code Date Activated Date Inactivated Comments 06/15/2014 11:13 AM 06/15/2014 2:05 PM * Full Code Date Activated Date Inactivated Comments 06/13/2014 11:27 PM 06/15/2014 11:13 AM Care Teams Industrial Mechanic Relationship Specialty Start Date End Date Tran Peacock PA [address] [place] [address] PCP - General Physician Barker Peeler 11/19/22 Tanna Lindsey NP Nurse Practitioner Family Practice 01/20/14 Tanna Lindsey NP [address] [place] [address] Nurse Practitioner Nurse Practitioner 12/13/14
--- OUTSIDE RECORDS SUMMARY | 2023-11-12 10:34 | XMS_ITS | CCD ---
Author Name Unknown Organization Unknown Care Team Providers Care Headmaster/Mistress Name Role Phone [place] Claudia MARTE Primary Care Provider Yamileth vailable Unavailable Chronic Care Management Unavaila ble Summary Purpose DataExchange Insurance Providers Payer name Policy type / Coverage type Covered green party ID Effective Begin Date Effective End Date Ucare Individual and Family Plans Commercial Insurance [id number] Unknown Medicaid [place] Commercial Insurance [id number] Unknown Family history Parents, Siblings, Children Diagnosis Age At Onset No Family Disease Entered N/A Social History Social History Element Codes Description Effec tive Dates Tobacco history SNOMED CT: 57655843 Current every day smoker 08/21/[address]: 779141178 No Alcohol Consum ption 08/21/2023 Allergies, Adverse Reactions, Alerts Substance Reaction Codes Entered Date Inactivated Date Status meperidine RxNorm: 924412 08/20/2023 No Inactive D ate Active codeine Unknown 08/20/2023 No Inactive Date Ac tive Demerol RxNorm: 205904 07/23/2023 No Inactive Da te Active Lactose [...] Start Date Stop Date Status Fill Instructions prednisone 20 mg tablet RxNorm: 951922 Take 2 Tablet(s) Oral QD Take 2 tablets (total 40 mg) in the AM preferred and with food. 4 08/25/19 24 Inactive prednisone 20 mg tablet RxNorm: 812385 Take 2 Tablet(s) Oral QD Take 2 tablets (total 40 mg) in the AM preferred and with food. 4 08/29/19 24 Inactive Vitamin B-12 1,000 mcg tablet RxNorm: 598234 Take 1 Tablet(s) Oral QD 4 No Stop Date Active Qvar RediHaler 80 mcg/actuation HFA breath activated aerosol RxNorm: 2027462 Inhale 1 Puff(s) Inhalation BID 4 No Stop Date Active loperamide 2 mg tablet RxNorm: 784764 Take 2 Tablet(s) Oral with first loose stool then 1 tab after each additional loose stool. Max 8 tabs in 24 hours 4 No Stop Date Active cetirizine 10 mg tablet RxNorm: 2999895 Take 1 Tablet(s) Oral QHS every night at bedtime 4 No Stop Date Active diclofenac 1 % topical gel RxNorm: 724754 Apply 2 Gram(s) Topical BID as needed 4 No Stop Date Active Tab-A-Myles 400 mcg tablet RxNorm: Take 1 Tablet(s) Oral QD 4 No Stop Date Active naloxone 4 mg/actuation nasal spray RxNorm: 8835207 Use as directed for accidental overdose 4 No Stop Date Active pregabalin 50 mg capsule RxNorm: 779014 Take 2 Capsule(s) Oral TID 4 No Stop Date Active Belbuca 75 mcg buccal film RxNorm: 4683393 Take 1 Unit(s) Buccal BID 4 No Stop Date Active docusate sodium 100 mg capsule RxNorm: 9469723 Take 1 Capsule(s) Oral BID 4 No Stop Date Active omeprazole 40 mg capsule,delayed release RxNorm: 506428 Take 1 Capsule(s) Oral QD 4 No Stop Date Active ipratropium 0.5 mg-albuterol 3 mg (2.5 mg base)/3 mL nebulization soln RxNorm: 1739865 Inhale 1 Vial Inhalation QID as needed 4 No Stop Date Active acetaminophen 500 mg tablet RxNorm: 939392 Take 2 Tablet(s) Oral TID and 2 tabs by mouth daily as needed 4 No Stop Date Active tizanidine 2 mg tablet RxNorm: 391187 Take 2 Tablet(s) Oral QD as needed 4 No Stop Date Active Tums 200 mg calcium (500 mg) chewable tablet RxNorm: 572147 Take 2-4 Tablet(s) Oral between meals and at bed time as needed 4 No Stop Date Active Anoro Ellipta 62.5 mcg-25 mcg/actuation powder for inhalation RxNorm: 1637235 Take 1 Puff(s) Inhalation QD 4 No Stop Date Active albuterol sulfate HFA 90 mcg/actuation aerosol inhaler RxNorm: 9871422 Take 2 Puff(s) Inhalation QID as needed 4 No Stop Date Active alendronate 10 mg tablet RxNorm: 490789 Take 1 Tablet(s) Oral QD 4 09/30/19 24 Inactive tizanidine 4 mg tablet RxNorm: 436731 Take 1 Tablet(s) Oral TID 4 No Stop Date Active amlodipine 10 mg tablet RxNorm: 225774 Take 1 Tablet(s) Oral QD 4 No Stop Date Active atorvastatin 20 mg tablet RxNorm: 874863 Take 1 Tablet(s) Oral QD 4 No Stop Date Active Antacid Anti-Gas 200 mg-200 mg-20 mg/5 mL oral suspension RxNorm: 968722 Take 5-10 Milliliter(s) Oral QD as needed 4 No Stop Date Active Miralax 17 gram/dose oral powder RxNorm: 968548 Take 17 Gram(s) Oral QD as needed 4 No Stop Date Active pramipexole 0.75 mg tablet RxNorm: 266696 Take 1 Tablet(s) Oral QD 4 No Stop Date Active sertraline 100 mg tablet RxNorm: 310040 Take 1 Tablet(s) Oral QAM every morning 4 No Stop Date Active Milk of Magnesia 400 mg/5 mL oral suspension RxNorm: 008428 Take 15-30 Milliliter(s) Oral QD as needed 4 No Stop Date Active magnesium 400 mg (as magnesium oxide) tablet RxNorm: 687124 Take 1 Tablet(s) Oral QD 4 No Stop Date Active ferrous sulfate 325 mg (65 mg iron) tablet RxNorm: 622097 Take 1 Tablet(s) Oral QD 4 No Stop Date Active trazodone 100 mg tablet RxNorm: 544032 Take 1 Tablet(s) Oral QHS every night at bedtime as needed 4 No Stop Date Active metoprolol tartrate 50 mg tablet RxNorm: 751384 Take 1 Tablet(s) Oral BID 4 No Stop Date Active benzonatate 100 mg capsule RxNorm: 845385 Take 1 Capsule(s) Oral TID as needed 4 No Stop Date Active Diphen 25 mg tablet RxNorm: 8429294 Take 1-2 Tablet(s) Oral every 6 hours as needed 4 No Stop Date Active ibuprofen 800 mg tablet RxNorm: 645517 Take 1 Tablet(s) Oral BID 4 No Stop Date Active Vitamin D3 50 mcg (2,000 unit) tablet RxNorm: 472712 Take 1 Tablet(s) Oral QD 4 No Stop Date Active Robafen DM Cough 10 mg-100 mg/5 mL oral liquid RxNorm: 553371 Take 10 Milliliter(s) Oral Q4H every four hours as needed 4 No Stop Date Active alendronate 10 mg tablet RxNorm: 495378 Take 1 Tablet(s) Oral QD 4 08/22/19 24 Inactive Medication Administered No Medication Administered data Reason For Visit No Reason For Visit data Plan of Care Planned Activity Notes Codes Status Date Referral: [facility] WPtel: [address] [place], [place] [id number] [place] Referral Appointment Scheduled 11/12/2023 Referral: Carolyn Lassiter Endo crinology [facility]el[facility] [phone] [id number] [place] Referral No Records Received 10/20/2023 Instructions Comment Date 08.20.2023 New [facility] patient visit.??Pet: B ird Baby 10/16/2023
--- OUTSIDE RECORDS SUMMARY | 2023-11-12 10:35 | XMS_ITS | CCD ---
Author Name Unknown Organization Unknown Care Team Providers Care Electromechanical Inspector Name Role Phone [place] Claudia MARTE Primary Care Provider Yamileth vailable Unavailable Chronic Care Management Unavaila ble Summary Purpose DataExchange Insurance Providers Payer name Policy type / Coverage type Covered democrat ID Effective Begin Date Effective End Date Ucare Individual and Family Plans Commercial Insurance [id number] Unknown [place] Commercial [place] [id number] Unknown Family history Parents, Siblings, Children Diagnosis Age At Onset No Family Disease Entered N/A Social History Social History Element Codes Description Effec tive Dates Tobacco history SNOMED CT: 31552504 Current every day smoker 08/21/[address]: 297057479 No Alcohol Consum ption 08/21/2023 Allergies, Adverse Reactions, Alerts Substance Reaction Codes Entered Date Inactivated Date Status meperidine RxNorm: 917823 08/20/2023 No Inactive D ate Active codeine Unknown 08/20/2023 No Inactive Date Ac tive Demerol RxNorm: 727466 07/23/2023 No Inactive Da te Active Lactose Unknown 08/20/2023 No Inactive Date Ac tive Other: Unknown 07/23/2023 No Inactive Date Ac tive Tetanus-Diphtheria Toxoids Td Unknown 08/20/2023 No Inactive Date Active Problems Condition Codes Effective Dates Condition St atus COPD (chronic obstructive pu lmonary disease) ICD-10: J44.9 ICD-9: 496 10/01/2023 Active Dependence on nicotine from cigarettes ICD-10: F17.210 ICD-9: 305.1 10/01/2023 Active Osteoporosis ICD-10: M81.0 ICD-9: 733.00 10/01/2023 Active Chronic bilateral low back p ain without sciatica ICD-10: M54.50 ICD-9: 724.2 08/20/2023 Active Hypertension ICD-10: I10 ICD-9: 401.9 08/20/2023 Active Other chronic pain ICD-10: G89.29 08/20/2023 Active Medications Medication Codes Instructions Start Date Stop Date Status Fill Instructions Nicoderm CQ 7 mg/24 hr daily transdermal patch RxNorm: 028305 Apply 1 Patch Transdermal QD 2 weeks (after first 8 weeks) then discontinue. 4 10/14/19 24 Inactive nicotine (polacrilex) 4 mg buccal lozenge RxNorm: 789030 Take 1 Tablet(s) Buccal UD as directed 4 mg- Take 1 piece buccally Q1 hr PRN for craving x 6 weeks then every 2 hr PRN x 3 weeks then every 4 hr PRN x 3 week. Encourage >9 pieces/day for initial 6 week. Avoid food/drink 15 min before and after use. (Dx: smoking cessation) 4 10/01/19 24 Inactive Nicoderm CQ 7 mg/24 hr daily transdermal patch RxNorm: 589175 Apply 1 Patch Transdermal QD 2 weeks (after first 8 weeks) then discontinue. 4 10/01/19 24 Inactive Nicoderm CQ 21 mg/24 hr daily transdermal patch RxNorm: 401156 Apply 1 Patch Transdermal QD 4 11/11/19 24 Inactive Nicoderm CQ 21 mg/24 hr daily transdermal patch RxNorm: 233956 Apply 1 Patch Transdermal QD 4 10/01/19 24 Inactive Nicoderm CQ 14 mg/24 hr daily transdermal patch RxNorm: 740157 Apply 1 Patch Transdermal QD 2 weeks (after first 6 weeks) 4 10/01/19 24 Inactive Nicoderm CQ 14 mg/24 hr daily transdermal patch RxNorm: 998802 Apply 1 Patch Transdermal QD 2 weeks (after first 6 weeks) 4 10/14/19 24 Inactive nicotine (polacrilex) 4 mg buccal lozenge RxNorm: 636733 Take 1 Tablet(s) Buccal UD as directed 4 mg- Take 1 piece?buccally Q1 hr PRN for craving x 6 weeks then every 2 hr PRN x 3 weeks then every 4 hr PRN x 3 week. Encourage >9 pieces/day for initial 6 week. Avoid food/drink 15 min before and after use. (Dx: smoking cessation) 4 02/03/20 24 Active prednisone 20 mg tablet RxNorm: 232716 Take 2 Tablet(s) Oral QD Take 2 tablets (total 40 mg) in the AM preferred and with food. 4 08/25/19 24 Inactive prednisone 20 mg tablet RxNorm: 124858 Take 2 Tablet(s) Oral QD Take 2 tablets (total 40 mg) in the AM preferred and with food. 4 08/29/19 24 Inactive Vitamin B-12 1,000 mcg tablet RxNorm: 654455 Take 1 Tablet(s) Oral QD 4 No Stop Date Active Qvar RediHaler 80 mcg/actuation HFA breath activated aerosol RxNorm: 3291577 Inhale 1 Puff(s) Inhalation BID 4 No Stop Date Active loperamide 2 mg tablet RxNorm: 807696 Take 2 Tablet(s) Oral with first loose stool then 1 tab after each additional loose stool. Max 8 tabs in 24 hours 4 No Stop Date Active cetirizine 10 mg tablet RxNorm: 7712406 Take 1 Tablet(s) Oral QHS every night at bedtime 4 No Stop Date Active diclofenac 1 % topical gel RxNorm: 391021 Apply 2 Gram(s) Topical BID as needed 4 No Stop Date Active Tab-A-Myles 400 mcg tablet RxNorm: Take 1 Tablet(s) Oral QD 4 No Stop Date Active naloxone 4 mg/actuation nasal spray RxNorm: 2159794 Use as directed for accidental overdose 4 No Stop Date Active pregabalin 50 mg capsule RxNorm: 256936 Take 2 Capsule(s) Oral TID 4 No Stop Date Active Belbuca 75 mcg buccal film RxNorm: 0243898 Take 1 Unit(s) Buccal BID 4 No Stop Date Active docusate sodium 100 mg capsule RxNorm: 5987679 Take 1 Capsule(s) Oral BID 4 No Stop Date Active omeprazole 40 mg capsule,delayed release RxNorm: 785634 Take 1 Capsule(s) Oral QD 4 No Stop Date Active ipratropium 0.5 mg-albuterol 3 mg (2.5 mg base)/3 mL nebulization soln RxNorm: 4178172 Inhale 1 Vial Inhalation QID as needed 4 No Stop Date Active acetaminophen 500 mg tablet RxNorm: 129883 Take 2 Tablet(s) Oral TID and 2 tabs by mouth daily as needed 4 No Stop Date Active tizanidine 2 mg tablet RxNorm: 593693 Take 2 Tablet(s) Oral QD as needed 4 No Stop Date Active Tums 200 mg calcium (500 mg) chewable tablet RxNorm: 985052 Take 2-4 Tablet(s) Oral between meals and at bed time as needed 4 No Stop Date Active Anoro Ellipta 62.5 mcg-25 mcg/actuation powder for inhalation RxNorm: 0689014 Take 1 Puff(s) Inhalation QD 4 No Stop Date Active albuterol sulfate HFA 90 mcg/actuation aerosol inhaler RxNorm: 0348689 Take 2 Puff(s) Inhalation QID as needed 4 No Stop Date Active tizanidine 4 mg tablet RxNorm: 164217 Take 1 Tablet(s) Oral TID 4 No Stop Date Active amlodipine 10 mg tablet RxNorm: 319133 Take 1 Tablet(s) Oral QD 4 No Stop Date Active atorvastatin 20 mg tablet RxNorm: 151009 Take 1 Tablet(s) Oral QD 4 No Stop Date Active Antacid Anti-Gas 200 mg-200 mg-20 mg/5 mL oral suspension RxNorm: 753822 Take 5-10 Milliliter(s) Oral QD as needed 4 No Stop Date Active Miralax 17 gram/dose oral powder RxNorm: 808987 Take 17 Gram(s) Oral QD as needed 4 No Stop Date Active pramipexole 0.75 mg tablet RxNorm: 314981 Take 1 Tablet(s) Oral QD 4 No Stop Date Active sertraline 100 mg tablet RxNorm: 863645 Take 1 Tablet(s) Oral QAM every morning 4 No Stop Date Active Milk of Magnesia 400 mg/5 mL oral suspension RxNorm: 652168 Take 15-30 Milliliter(s) Oral QD as needed 4 No Stop Date Active magnesium 400 mg (as magnesium oxide) tablet RxNorm: 478404 Take 1 Tablet(s) Oral QD 4 No Stop Date Active ferrous sulfate 325 mg (65 mg iron) tablet RxNorm: 491068 Take 1 Tablet(s) Oral QD 4 No Stop Date Active trazodone 100 mg tablet RxNorm: 466542 Take 1 Tablet(s) Oral QHS every night at bedtime as needed 4 No Stop Date Active metoprolol tartrate 50 mg tablet RxNorm: 996859 Take 1 Tablet(s) Oral BID 4 No Stop Date Active benzonatate 100 mg capsule RxNorm: 311828 Take 1 Capsule(s) Oral TID as needed 4 No Stop Date Active Diphen 25 mg tablet RxNorm: 2991277 Take 1-2 Tablet(s) Oral every 6 hours as needed 4 No Stop Date Active ibuprofen 800 mg tablet RxNorm: 984248 Take 1 Tablet(s) Oral BID 4 No Stop Date Active Vitamin D3 50 mcg (2,000 unit) tablet RxNorm: 020890 Take 1 Tablet(s) Oral QD 4 No Stop Date Active Robafen DM Cough 10 mg-100 mg/5 mL oral liquid RxNorm: 156549 Take 10 Milliliter(s) Oral Q4H every four hours as needed 4 No Stop Date Active alendronate 10 mg tablet RxNorm: 229393 Take 1 Tablet(s) Oral QD 4 09/30/19 24 Inactive alendronate 10 mg tablet RxNorm: 561869 Take 1 Tablet(s) Oral QD 4 08/22/19 24 Inactive Medication Administered No Medication Administered data Reason For Visit No Reason For Visit data Plan of Care Planned Activity Notes Codes Status Date Referral: [facility] WPtel: [address] [place], [place] [id number] [place] Referral Appointment Scheduled 11/12/2023 Referral: Carolyn Lassiter Endo crinology [facility]Ptel: [address] [id number] [place] Referral No Records Received 10/20/2023 Instructions Comment Date 08.20.2023 New [facility] patient visit.??Pet: B ird Baby 10/16/2023
--- NOTE | 2023-11-12 10:45 | MM_ITS ---
Patient: RUTHIE WICK Facility:?[facility] Patient ID:?[id number] Site Patient ID:?[id number] Site :?1950 Study:?XRay-Breast Bilateral 3D W/CAD-11/12/2023 2:13:26 PM Ordering Physician:Rakel Final Report: BILATERAL SCREENING MAMMOGRAM WITH COMPUTER-AIDED DETECTION AND TOMOSYNTHESIS TECHNIQUE: CC and MLO views were obtained. These mammographic images have been obtained using full-field digital technique. These mammographic images were interpreted with the benefit of computer-aided detection. Breast Tomosynthesis was used in this interpretation. COMPARISON FILM: 07/16/22, 03/06/21. FINDINGS: There are scattered areas of fibroglandular density. IMPRESSION: There is no radiographic evidence for malignancy. ASSESSMENT: BI-RADS Category 1: Negative RECOMMENDATION: Routine screening mammogram in 1 year. A lay language report of this examination will be provided to the patient. Jared Toledo M.D. Diagnostic Radiologist [email or web address] DSM/sp R& Transcribed: 4:01 p.m. SP/Dictated by: Jared Toledo MD @ 11/17/2023 9:36:00 AM Signed by:?Jared Toledo MD @11/17/2023 5:13:41 PM (Electronic Signature)
== END 2023-11-12 10:27 | disposition home or self-care (01) ==
LOC: MAMMO 10:26
PROVIDERS: PCP Student in an Organized Health Care Education/Training Program; Visit Provider Family Medicine
DX: Z12.31 Encounter for screening mammogram for malignant neoplasm of breast (principal)
CPT/HCPCS: 77063; 77067

== ENCOUNTER 2024-11-19 01:48 | Emergency (ER) | payer MEDICARE, SELFPAY ==
--- NOTE | 2024-11-19 01:52 | ED_ITS ---
HPI - General Adult General Chief complaint: Fall/Minor Trauma Stated complaint: fall, collar bone pain Time Seen by Provider: 11/19/24 01:52 History of Present Illness HPI narrative: Patient is a 74-year-old woman with COPD who stumbled tonight and is concerned that she may have broken her left clavicle. Patient is an oxygen dependent COPD patient and comes in with using her walker. She has not noticed any deformities of the left clavicle but does have swelling over the anterior neck superior to the clavicle head medially. She has no airway issues. She did not hit her head and did not lose consciousness. She appears and she just merely stumbled. No syncopal activity. Patient is otherwise in her usual state of health. Neurovascularly she has no complaints. Related Data Home Medications ?Medication ?Instructions ?Recorded ?Confirmed acetaminophen 500 mg tablet 1,000 mg PO TID 10/31/22 10/01/23 amlodipine 10 mg tablet 10 mg PO DAILY 10/31/22 10/01/23 atorvastatin 20 mg tablet 20 mg PO DAILY 10/31/22 10/01/23 beclomethasone dipropionate 80 1 inh inhalation BID 10/31/22 10/01/23 mcg/actuation HFA breath activated aerosol (Qvar RediHaler) benzonatate 100 mg capsule 100 mg PO TID PRN 10/31/22 10/01/23 [facility] 10/31/22 10/31/22 Ultra Test strips) blood-glucose meter ([employer] 10/31/22 10/31/22 Verio Reflect Meter) cetirizine 10 mg tablet 10 mg PO HS 10/31/22 10/01/23 cholecalciferol (vitamin D3) 50 50 mcg PO DAILY 10/31/22 10/01/23 mcg (2,000 unit) tablet cyanocobalamin (vitamin B-12) 1,000 mcg PO DAILY 10/31/22 10/01/23 1,000 mcg tablet diclofenac sodium 1 % topical gel 2 g topical BID PRN 10/31/22 10/01/23 docusate sodium 100 mg capsule 100 mg PO BID 10/31/22 10/01/23 ferrous sulfate 325 mg (65 mg 325 mg PO DAILY 10/31/22 10/01/23 iron) tablet,delayed release ibuprofen 800 mg tablet 800 mg PO BID 10/31/22 10/01/23 ipratropium 0.5 mg-albuterol 3 mg 3 ml inhalation QID PRN 10/31/22 10/01/23 (2.5 mg base)/3 mL nebulization soln magnesium oxide 400 mg (241.3 mg 400 mg PO DAILY 10/31/22 10/01/23 magnesium) tablet metoprolol tartrate 50 mg tablet 50 mg PO BID 10/31/22 10/01/23 multivitamin with folic acid 400 1 tab PO DAILY 10/31/22 10/01/23 mcg tablet (Tab-A-Myles) naloxone 4 mg/actuation nasal spray 1 spray intranasal .UD PRN 10/31/22 10/01/23 omeprazole 40 mg capsule,delayed 40 mg PO DAILY 10/31/22 10/01/23 release pramipexole 0.75 mg tablet 0.75 mg PO QPM 10/31/22 10/01/23 tizanidine 4 mg tablet 4 mg PO TID 10/31/22 10/01/23 albuterol sulfate 90 mcg/actuation 2 inh inhalation QID PRN 11/01/22 10/01/23 aerosol inhaler dextromethorphan-guaifenesin 10 10 ml PO Q4H PRN 11/01/22 10/01/23 mg-100 mg/5 mL oral syrup (Antitussive DM) polyethylene glycol 3350 17 17 g PO DAILY PRN 11/01/22 10/01/23 gram/dose oral powder (Gavilax) trazodone 100 mg tablet 100 mg PO HS PRN 11/01/22 10/01/23 alendronate 10 mg tablet 10 mg PO DAILY 10/01/23 10/01/23 pregabalin 50 mg capsule 100 mg PO TID 10/01/23 10/01/23 sertraline 100 mg tablet 100 mg PO DAILY 10/01/23 10/01/23 umeclidinium 62.5 mcg-vilanterol 1 inh inhalation DAILY 10/01/23 10/01/23 25 mcg/actuation powdr for inhalation (Anoro Ellipta) Previous Rx's ?Medication ?Instructions ?Recorded buprenorphine HCl 75 mcg buccal 75 mcg buccal BID #10 ea 11/02/22 film doxycycline hyclate 100 mg tablet 100 mg PO BID #10 tabs 10/03/23 prednisone 20 mg tablet 40 mg (2 x 20 mg) PO DAILYWM #13 10/03/23 tabs prednisone 5 mg tablet 5 mg PO DAILY #4 tabs 10/03/23 sodium chloride 1,000 mg soluble 1,000 mg PO TID PRN electrolyte 10/03/23 tablet replenishment #60 tabs Allergies Allergy/AdvReac Type Severity Reaction Status Date / Time codeine Allergy Verified 04/09/22 08:21 lactose Allergy Verified 04/09/22 08:21 meperidine Allergy Verified 04/09/22 08:21 Review of Systems Status of ROS: Reports: 10 or more systems reviewed and unremarkable except as noted in History and below [facility] Medical History Health care directive on file ?Z78.9 - Other specified health status (ICD-10) Hyperglycemia ?R73.9 - Hyperglycemia, unspecified (ICD-10) Generalized anxiety disorder ?F41.1 - Generalized anxiety disorder (ICD-10) Dorsalgia ?M54.9 - Dorsalgia, unspecified (ICD-10) Chronic pain syndrome ?G89.4 - Chronic pain syndrome (ICD-10) Osteoporosis ?M81.0 - Age-related osteoporosis without current pathological fracture (ICD- 10) Pure hypercholesterolemia ?E78.00 - Pure hypercholesterolemia, unspecified (ICD-10) Other muscle spasm ?M62.838 - Other muscle spasm (ICD-10) Tobacco dependence ?F17.200 - Nicotine dependence, unspecified, uncomplicated (ICD-10) Chronic obstructive pulmonary disease ?J44.9 - Chronic obstructive pulmonary disease, unspecified (ICD-10) Recurrent major depressive disorder ?F33.9 - Major depressive disorder, recurrent, unspecified (ICD-10) Restless leg syndrome ?G25.81 - Restless legs syndrome (ICD-10) Unsteady gait ?R26.81 - Unsteadiness on feet (ICD-10) Edentulous ?K08.109 - Complete loss of teeth, unspecified cause, unspecified class (ICD- 10) Essential hypertension ?I10 - Essential (primary) hypertension (ICD-10) Social History What is your current living situation?: I presently have a place to live Problems where you live: no known problems Problems where you live details: n/a In the past 12 months, utilities in danger of being shut off: no In past 12 months, lack of transportation kept you from medical appts, meetings, work, or getting things needed for daily living: no In the past 12 mos, have been you worried that your food would run out before you had money to buy more?: never true In the past 12 mos, the food you bought just didn't last and you didn't have money to buy more?: never true Highest level of school completed/degree received: some college, no degree Smoking Status: Current every day smoker What tobacco products do you use: cigarettes Smoking packs per day: 0.5 Smoking cigarettes per day: 10.0 Do you use any of these nicotine containing products: None Second hand tobacco smoke exposure: No How often do you have a drink containing alcohol: never How many standard drinks containing alcohol do you have on a typical day: 1 or 2 How often do you have six or more drinks on one occasion: Never AUDIT-C Alcohol total score: 0 Non-prescribed substance use: denies use Caffeine: Yes How often does anyone, including family, friends and others, physically hurt you : never How often does anyone, including family, friends and others, insult or talk down to you: never How often does anyone, including family, friends and others, threaten you with harm: never How often does anyone, including family, friends and others, scream or curse at you: never service: No Exam Narrative: Exam Narrative: EXAM GENERAL: Patient appears comfortable and well. EYES: No scleral icterus. ENT: Tympanic membranes and oropharynx normal. THYROID: no thyroid nodules or thyromegaly. LYMPH: No supraclavicular or cervical lymphadenopathy. SKIN: Visible skin seen during exam normal or with benign process only. EXT: No dependent lower extremity pedal edema. HEART: Regular rate and rhythm with no murmurs, rubs, or gallops. LUNGS: Clear to auscultation bilaterally with no crackles or wheezes. ABD: Soft, non tender, non distended. PSYCH: Good eye contact, speech is not pressured. Mild swelling noted anterior neck left side of the midline just superior to the clavicle. No obvious deformities. Const: Vital Signs, click to edit/add: Vital Signs - 24 hr 11/19/24 01:53 11/19/24 01:56 11/19/24 01:56 Temperature 98.1 F Pulse Rate [Pulse Oximeter] 70 Respiratory Rate 20 Blood Pressure [Ri ght Upper Arm] 190/89 H Pulse Oximetry 83 L 94 94 Oxygen Delivery Me thod Room Air Nasal Cannula Oxygen Flow Rate 2 Course Course ED Course: Patient seen and examined. X-ray left clavicle pending. Vital Signs Vital signs: Initial Vital Signs Temperature 98.1 F 11/19/24 01:53 Temperature Source Temporal Artery Scan 11/19/24 01:53 Pulse Rate 70 11/19/24 01:53 Respiratory Rate 20 11/19/24 01:53 Blood Pressure 190/89 H 11/19/24 01:53 Blood Pressure Mean 122 H 11/19/24 01:53 Blood Pressure Position Sitting 11/19/24 01:53 Pulse Oximetry 83 L 11/19/24 01:53 Oxygen Delivery Method Room Air 11/19/24 01:53 Vital Signs Temperature 98.1 F 11/19/24 01:53 Pulse Rate 70 11/19/24 01:53 Respiratory Rate 20 11/19/24 01:53 Blood Pressure 190/89 H 11/19/24 01:53 Pulse Oximetry 83 L 11/19/24 01:53 Oxygen Delivery Method Room Air 11/19/24 01:53 Temperature 98.1 F 11/19/24 01:53 Pulse Rate 70 11/19/24 01:53 Respiratory Rate 20 11/19/24 01:53 Blood Pressure 190/89 H 11/19/24 01:53 Pulse Oximetry 94 11/19/24 01:56 Oxygen Delivery Method Nasal Cannula 11/19/24 01:56 Oxygen Flow Rate 2 11/19/24 01:56 Medical Decision Making MDM Narrative Medical decision making narrative: Patient presents after minor fall at home. He did not hit her head on really complain is the concerned that she may have broken her left clavicle. X-ray series of the left clavicle pawn my review is unremarkable. She does have some swelling over the soft tissues superior to the left clavicle medially. The patient is otherwise uninjured. At this time reassurance is offered. She does have significant COPD will continue current management. I would apply ice and follow-up with her primary physician as needed. Discharge Plan Discharge Clinical Impression: Contusion Patient Disposition: Home, Self-Care Condition: Stable Instructions: Contusion in Adults (ED) Additional Instructions: Ice Tylenol Continue current medications Follow-up with your doctor as needed. Activity Level: No Restrictions Discharge Diet: Regular Prescriptions: No Action atorvastatin 20 mg tablet 20 mg PO DAILY ipratropium-albuterol 0.5 mg-3 mg(2.5 mg base)/3 mL solution for nebulization 3 ml INHALATION QID PRN (DME) blood-glucose meter [Sensor Medical TechnologyTouch Verio Reflect Meter] Misc MISCELLANEOUS DIRECTED cetirizine 10 mg tablet 10 mg PO HS ibuprofen 800 mg tablet 800 mg PO BID tizanidine 4 mg tablet 4 mg PO TID Patient Comments: 4MG TID AND ONCE DAILY PRN MUSCLE SPASMS cyanocobalamin (vitamin B-12) 1,000 mcg tablet 1,000 mcg PO DAILY (DME) OneTouch Ultra Test Strip MISCELLANEOUS omeprazole 40 mg capsule,delayed release(DR/EC) 40 mg PO DAILY acetaminophen 500 mg tablet 1,000 mg PO TID magnesium oxide 400 mg (241.3 mg magnesium) tablet 400 mg PO DAILY amlodipine 10 mg tablet 10 mg PO DAILY benzonatate 100 mg capsule 100 mg PO TID PRN metoprolol tartrate 50 mg tablet 50 mg PO BID docusate sodium 100 mg capsule 100 mg PO BID ferrous sulfate 325 mg (65 mg iron) tablet,delayed release (DR/EC) 325 mg PO DAILY pramipexole 0.75 mg tablet 0.75 mg PO QPM diclofenac sodium 1 % gel 2 g topical BID PRN cholecalciferol (vitamin D3) 50 mcg (2,000 unit) tablet 50 mcg PO DAILY multivitamin with folic acid [Tab-A-Myles] 400 mcg tablet 1 tab PO DAILY naloxone 4 mg/actuation spray,non-aerosol 1 spray INTRANASAL .UD PRN Patient Comments: USE DIRECTED FOR ACCIDENTAL OVERDOSE Qvar RediHaler 80 mcg/actuation HFA aerosol breath activated 1 inh inhalation BID albuterol sulfate 90 mcg/actuation HFA aerosol inhaler 2 inh inhalation QID PRN polyethylene glycol 3350 [Gavilax] 17 gram/dose powder 17 g PO DAILY PRN dextromethorphan-guaifenesin [Antitussive DM] 10-100 mg/5 mL syrup 10 ml PO Q4H PRN Patient Comments: UP TO 4 DAYS trazodone 100 mg tablet 100 mg PO HS PRN Patient Comments: PRN FOR SLEEP buprenorphine HCl 75 mcg film 75 mcg buccal BID Qty: 10 0RF alendronate 10 mg tablet 10 mg PO DAILY Anoro Ellipta 62.5-25 mcg/actuation blister with device 1 inh inhalation DAILY pregabalin 50 mg capsule 100 mg PO TID sertraline 100 mg tablet 100 mg PO DAILY prednisone 20 mg Tablet 40 mg PO DAILYWM Qty: 13 0RF Rx Instructions: take three more days of 40mg (2 tabs), then five days of one tab (20mg), then four days of a 1/2 tab (10mg) -then use the other bottle of 5 mg for 4 days of 1 tab. doxycycline hyclate 100 mg Tablet 100 mg PO BID Qty: 10 0RF prednisone 5 mg tablet 5 mg PO DAILY Qty: 4 0RF sodium chloride 1,000 mg tablet,soluble 1,000 mg PO TID PRN (Reason: electrolyte replenishment) Qty: 60 0RF Follow Up/Referrals: Tran Peacock PA-C [Primary Care Provider] - Stand Alone Forms: [facility] Info Instructions
[2024-11-19 01:53] VITALS: BP 190/89; PULSE 70; RESP 20; TEMP 36.7; O2SAT 83; BMI 19.3
--- NOTE | 2024-11-19 01:54 | CRLHL7_ITS ---
For Patients: As a result of the Century Cures Act, medical imaging exams and procedure reports are released immediately into your electronic medical record. You may view this report before your referring provider. If you have questions, please contact your health care provider. INDICATION: Clavicle injury from Fall TECHNIQUE: Clavicle radiograph 2 views left COMPARISON: None FINDINGS: Bone: No acute fractures or aggressive bone lesions are identified. Severe diffuse osteopenia is noted. Joint: The glenohumeral joint is unremarkable. The acromioclavicular joint has mild osteoarthritis. The sternoclavicular joint is unremarkable but can be better assessed by CT if there is a high clinical index of suspicion for traumatic injury. Soft tissue: Unremarkable. The visualized hemithorax is unremarkable in appearance. No radiopaque foreign bodies are seen. IMPRESSION: 1. No acute osseous injuries or abnormalities are noted. Dictated by: Hebert Flowers MD @ 11/19/2024 02:11:58 (Electronically Signed)
[2024-11-19 01:56] VITALS: O2SAT 94
--- OUTSIDE RECORDS SUMMARY | 2024-11-19 02:11 | XMS_ITS | CCD ---
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 Name Role Phone Jose Alfredo Claudia MARTE Primary Care Provider Yamileth vailable Unavailable Chronic Care Management Unavaila ble Summary Purpose DataExchange Insurance Providers Payer name Policy type / Coverage type Covered democrat ID Effective Begin Date Effective End Date [employer] Commercial Insurance [id number] Unkn own Medicaid [place] Commercial Insurance [id number] Unk nown Family history Parents, Siblings, Children Diagnosis Age At Onset No Family Disease Entered N/A Social History Social History Element Codes Description Effec tive Dates Marital status Unknown Single 10/15/2023 Living arrangements Unknown Assisted Living 10/[address]: 22294348 Current ever y day smoker 10/15/[address]: 862476458 No Alcohol Consum ption 10/15/2023 Sexually Active? Unknown No 10/15/2023 Children Unknown Has Children 10/15/2023 Patient Health Status Self Assessment Unknown Good 10/15/2023 Oral health Unknown Has seen Dentist in the last 12 months 10/15/2023 Do you worry about access to food? Unknown No 10/15/2023 Seatbelt safety Unknown Wears seatbelt 10/15/2023 Illicit Drug History Unknown Has never u sed illegal drugs 10/15/2023 Do you feel safe in your home? Unknown Yes 10/15/[address]: 81900209 Current ever y day smoker 08/21/[address]: 410483039 No Alcohol Consum ption 08/21/2023 Allergies, Adverse Reactions, Alerts Substance Reaction Codes Entered Date Inactivated Date Status meperidine RxNorm: 978737 08/20/2023 No Inactive D ate Active codeine Unknown 08/20/2023 No Inactive Date Ac tive Demerol RxNorm: 838073 07/23/2023 No Inactive Da te Active Lactose Unknown 08/20/2023 No Inactive Date Ac tive Other: Unknown 07/23/2023 No Inactive Date Ac tive Tetanus-Diphtheria Toxoids Td Unknown 08/20/2023 No Inactive Date Active Problems Condition Codes Effective Dates Condition St atus Chronic low back pain with sciatica ICD- 10: M54.40 ICD-9: 724.2 12/10/2023 Active Other chronic pain ICD-10: G89.29 12/10/2023 Active 1+ pitting edema ICD-10: R60.9 ICD-9: 782.3 11/12/2023 Active COPD (chronic obstructive pu lmonary disease) ICD-10: J44.9 ICD-9: 496 10/29/2023 Active Dependence on nicotine from cigarettes ICD-10: F17.210 ICD-9: 305.1 10/29/2023 Active Osteoporosis ICD-10: M81.0 ICD-9: 733.00 10/29/2023 Active Advanced care planning - to document end of life discussions Unknown 10/15/2023 Active ACP (advance care planning) ICD-10: Z71. 89 ICD-9: V65.49 10/15/2023 Active Adult general medical exam ICD-10: Z00.0 0 ICD-9: V70.9 10/15/2023 Active Chronic bilateral low back p ain without sciatica ICD-10: M54.50 ICD-9: 724.2 10/15/2023 Active Encounter for screening exam ination for other mental health and behavioral disorders ICD-10: Z13.39 ICD-9: V79.8 10/15/2023 Active Encounter for screening for depression ICD-10: Z13.31 ICD-9: V79.0 10/15/2023 Active Encounter for screening, unspecified ICD -10: Z13.9 ICD-9: V82.9 10/15/2023 Active Hypertension ICD-10: I10 ICD-9: 401.9 10/15/2023 Active Medications Medication Codes Instructions Start Date Stop Date Status Fill Instructions Belbuca 75 mcg buccal film RxNorm: 7434254 Take 1 Unit(s) Buccal BID Take 1 film buccally twice daily for chronic pain. Do not eat/drink/smoke for 30 minutes after taking.? 01/20/20 24 Inactive nicotine (polacrilex) 4 mg buccal lozenge RxNorm: 825325 Take 1 Tablet(s) Buccal UD as directed 4 mg- Take 1 piece?buccally Q1 hr PRN for craving x 6 weeks then every 2 hr PRN x 3 weeks then every 4 hr PRN x 3 week. Encourage >9 pieces/day for initial 6 week. Avoid food/drink 15 min before and after use. (Dx: smoking cessation) 4 02/03/20 24 Inactive Nicoderm CQ 7 mg/24 hr daily transdermal patch RxNorm: 100683 Apply 1 Patch Transdermal QD 2 weeks (after first 8 weeks) then discontinue. 4 10/14/19 24 Inactive nicotine (polacrilex) 4 mg buccal lozenge RxNorm: 501361 Take 1 Tablet(s) Buccal UD as directed [...] 7 mg/24 hr daily transdermal patch RxNorm: 601065 Apply 1 Patch Transdermal QD 2 weeks (after first 8 weeks) then discontinue. 4 10/01/19 24 Inactive Nicoderm CQ 21 mg/24 hr daily transdermal patch RxNorm: 716693 Apply 1 Patch Transdermal QD 4 11/11/19 24 Inactive Nicoderm CQ 21 mg/24 hr daily transdermal patch RxNorm: 836863 Apply 1 Patch Transdermal QD 4 10/01/19 24 Inactive Nicoderm CQ 14 mg/24 hr daily transdermal patch RxNorm: 230353 Apply 1 Patch Transdermal QD 2 weeks (after first 6 weeks) 4 10/01/19 24 Inactive Nicoderm CQ 14 mg/24 hr daily transdermal patch RxNorm: 075247 Apply 1 Patch Transdermal QD 2 weeks (after first 6 weeks) 4 10/14/19 24 Inactive prednisone 20 mg tablet RxNorm: 235793 Take 2 Tablet(s) Oral QD Take 2 tablets (total 40 mg) in the AM preferred and with food. 4 08/25/19 24 Inactive prednisone 20 mg tablet RxNorm: 683316 Take 2 Tablet(s) Oral QD Take 2 tablets (total 40 mg) in the AM preferred and with food. 4 08/29/19 24 Inactive Vitamin B-12 1,000 mcg tablet RxNorm: 637920 Take 1 Tablet(s) Oral QD 4 No Stop Date Active Qvar RediHaler 80 mcg/actuation HFA breath activated aerosol RxNorm: 8406239 Inhale 1 Puff(s) Inhalation BID 4 No Stop Date Active loperamide 2 mg tablet RxNorm: 203196 Take 2 Tablet(s) Oral with first loose stool then 1 tab after each additional loose stool. Max 8 tabs in 24 hours 4 No Stop Date Active cetirizine 10 mg tablet RxNorm: 8990796 Take 1 Tablet(s) Oral QHS every night at bedtime 4 01/27/20 24 Inactive diclofenac 1 % topical gel RxNorm: 876353 Apply 2 Gram(s) Topical BID as needed 4 No Stop Date Active Tab-A-Myles 400 mcg tablet RxNorm: Take 1 Tablet(s) Oral QD 4 05/19/20 24 Inactive naloxone 4 mg/actuation nasal spray RxNorm: 9646409 Use as directed for accidental overdose 4 No Stop Date Active pregabalin 50 mg capsule RxNorm: 802302 Take 2 Capsule(s) Oral TID 4 03/09/20 24 Inactive Belbuca 75 mcg buccal film RxNorm: 0094009 Take 1 Unit(s) Buccal BID 4 12/22/19 24 Inactive docusate sodium 100 mg capsule RxNorm: 0143043 Take 1 Capsule(s) Oral BID 4 01/27/20 24 Inactive omeprazole 40 mg capsule,delayed release RxNorm: 020099 Take 1 Capsule(s) Oral QD 4 01/27/20 24 Inactive ipratropium 0.5 mg-albuterol 3 mg (2.5 mg base)/3 mL nebulization soln RxNorm: 1265380 Inhale 1 Vial Inhalation QID as needed 4 No Stop Date Active acetaminophen 500 mg tablet RxNorm: 330399 Take 2 Tablet(s) Oral TID and 2 tabs by mouth daily as needed 4 No Stop Date Active tizanidine 2 mg tablet RxNorm: 250351 Take 2 Tablet(s) Oral QD as needed 4 No Stop Date Active Tums 200 mg calcium (500 mg) chewable tablet RxNorm: 744734 Take 2-4 Tablet(s) Oral between meals and at bed time as needed 4 No Stop Date Active Anoro Ellipta 62.5 mcg-25 mcg/actuation powder for inhalation RxNorm: 2569621 Take 1 Puff(s) Inhalation QD 4 No Stop Date Active albuterol sulfate HFA 90 mcg/actuation aerosol inhaler RxNorm: 1997170 Take 2 Puff(s) Inhalation QID as needed 4 05/31/20 24 Inactive tizanidine 4 mg tablet RxNorm: 403066 Take 1 Tablet(s) Oral TID 4 05/19/20 24 Inactive amlodipine 10 mg tablet RxNorm: 074327 Take 1 Tablet(s) Oral QD 4 01/27/20 24 Inactive atorvastatin 20 mg tablet RxNorm: 291536 Take 1 Tablet(s) Oral QD 4 01/27/20 24 Inactive Antacid Anti-Gas 200 mg-200 mg-20 mg/5 mL oral suspension RxNorm: 630967 Take 5-10 Milliliter(s) Oral QD as needed 4 No Stop Date Active Miralax 17 gram/dose oral powder RxNorm: 235278 Take 17 Gram(s) Oral QD as needed 4 No Stop Date Active pramipexole 0.75 mg tablet RxNorm: 144591 Take 1 Tablet(s) Oral QD 4 01/27/20 24 Inactive sertraline 100 mg tablet RxNorm: 338564 Take 1 Tablet(s) Oral QAM every morning 4 01/27/20 24 Inactive Milk of Magnesia 400 mg/5 mL oral suspension RxNorm: 560315 Take 15-30 Milliliter(s) Oral QD as needed 4 No Stop Date Active magnesium 400 mg (as magnesium oxide) tablet RxNorm: 636124 Take 1 Tablet(s) Oral QD 4 No Stop Date Active ferrous sulfate 325 mg (65 mg iron) tablet RxNorm: 795427 Take 1 Tablet(s) Oral QD 4 No Stop Date Active trazodone 100 mg tablet RxNorm: 567838 Take 1 Tablet(s) Oral QHS every night at bedtime as needed 4 No Stop Date Active metoprolol tartrate 50 mg tablet RxNorm: 389783 Take 1 Tablet(s) Oral BID 4 01/27/20 24 Inactive benzonatate 100 mg capsule RxNorm: 847942 Take 1 Capsule(s) Oral TID as needed 4 01/21/20 24 Inactive Diphen 25 mg tablet RxNorm: 5279890 Take 1-2 Tablet(s) Oral every 6 hours as needed 4 No Stop Date Active ibuprofen 800 mg tablet RxNorm: 980245 Take 1 Tablet(s) Oral BID 4 01/27/20 24 Inactive Vitamin D3 50 mcg (2,000 unit) tablet RxNorm: 808437 Take 1 Tablet(s) Oral QD 4 01/27/20 24 Inactive Robafen DM Cough 10 mg-100 mg/5 mL oral liquid RxNorm: 671664 Take 10 Milliliter(s) Oral Q4H every four hours as needed 4 No Stop Date Active alendronate 10 mg tablet RxNorm: 792769 Take 1 Tablet(s) Oral QD 4 09/30/19 24 Inactive alendronate 10 mg tablet RxNorm: 845775 Take 1 Tablet(s) Oral QD 4 08/22/19 24 Inactive Medication Administered No Medication Administered data Immunizations Vaccine Codes Dose Date Status Covid-19 (Adult) CVX: 312 1.0 04/21/2023 Influenza CVX: 197 1.0 04/01/2023 Covid-19 (Adult) CVX: 229 1.0 04/16/2022 Covid-19 (Adult) CVX: 207 1.0 12/13/2021 Zostavax CVX: 187 1.0 12/12/2021 Zoster CVX: 187 1.0 12/12/2021 Covid-19 (Adult) CVX: 207 1.0 05/14/2021 Zostavax CVX: 187 1.0 03/29/2021 Zoster CVX: 187 1.0 03/29/2021 Covid-19 (Adult) CVX: 207 1.0 11/10/2020 Covid-19 (Adult) CVX: 207 1.0 10/13/2020 Pneumococcal CVX: 33 1.0 03/02/2018 Pneumococcal CVX: 133 1.0 05/01/2015 Functional Status Functional / Cognitive Codes Status Result Ef fective Dates Functional Assessment Unknown ADL - Dressing Independen t 10/15/2023 Functional Assessment Unknown ADL - Feeding Independent 10/15/2023 Functional Assessment Unknown ADL - Toileting Independe nt 10/15/2023 Functional Assessment Unknown ADL - Bathing Independent 10/15/2023 Functional Assessment Unknown ADL - Grooming Independen t 10/15/2023 Functional Assessment Unknown ADL - Physical Ambulation Independent 10/15/2023 Functional Assessment Unknown iADL - Mod e of Transportation Dependent 10/15/2023 Functional Assessment Unknown iADL - Managing Medicatio n Dependent 10/15/2023 Functional Assessment Unknown Other: Deborah pping, Finances, Housekeeping, Independent 10/15/2023 Reason For Visit No Reason For Visit data Plan of Care Planned Activity Notes Codes Status Date Referral: [facility] WPtel: [address] [place], [place] [id number] [place] Referral No Records Received 11/12/2023 Referral: [facility] WPtel: [address] [place], [place] [id number] [place] Referral No Records Received 10/20/2023 Instructions Comment Date 08.20.2023 New BPS patient vi sit. Pet: Bird BabyAWV: 10.15.2023Labs: (October labs: CMP, CBC, VitD, VitB12, Mg)(April labs: BMP, CBC, lipid panel) 08/16/2024
--- OUTSIDE RECORDS SUMMARY | 2024-11-19 02:11 | XMS_ITS | CCD ---
Author Organization Unknown Care Team Providers Care Internal Sales Engineer Name Role Phone Jose Alfredo Claudia MARTE Primary Care Provider Yamileth vailable Unavailable Chronic Care Management Unavaila ble Summary Purpose DataExchange Insurance Providers Payer name Policy type / Coverage type Covered democrat ID Effective Begin Date Effective End Date [employer] Commercial Insurance [id number] Unkn own [place] [id number] Unk nown Family history Parents, Siblings, Children Diagnosis Age At Onset No Family Disease Entered N/A Social History Social History Element Codes Description Effec tive Dates Marital status Unknown Single 10/15/2023 Living arrangements Unknown Assisted Living 10/[address]: 04981340 Current ever y day smoker 10/15/[address]: 167254099 No Alcohol Consum ption 10/15/2023 Sexually Active? [...] Unknown Yes 10/15/[address]: 50961288 Current ever y day smoker 08/21/[address]: 982340619 No Alcohol Consum ption 08/21/2023 Allergies, Adverse Reactions, Alerts Substance Reaction Codes Entered Date Inactivated Date Status meperidine RxNorm: 941306 08/20/2023 No Inactive D ate Active codeine Unknown 08/20/2023 No Inactive Date Ac tive Demerol RxNorm: 663742 07/23/2023 No Inactive Da te Active Lactose Unknown 08/20/2023 No Inactive Date Ac tive Other: Unknown 07/23/2023 No Inactive Date Ac tive Tetanus-Diphtheria Toxoids Td Unknown 08/20/2023 No Inactive Date Active Problems Condition Codes Effective Dates Condition St atus 1+ pitting edema ICD-10: R60.9 ICD-9: 782.3 06/16/2024 Active Chronic low back pain with sciatica ICD- 10: M54.40 ICD-9: 724.2 06/16/2024 Active Hypertension ICD-10: I10 ICD-9: 401.9 06/16/2024 Active Compression fracture ICD-10: APC7532 ICD-9: 829.0 05/19/2024 Active Rib pain on left side ICD-10: R07.81 ICD-9: 786.50 05/19/2024 Active Back pain ICD-10: M54.9 ICD-9: 724.5 05/12/2024 Active SOB (shortness of breath) ICD-10: R06.02 ICD-9: 786.05 05/12/2024 Active Thoracic back pain ICD-10: M54.6 ICD-9: 724.1 05/12/2024 Active COPD (chronic obstructive pu lmonary disease) ICD-10: J44.9 ICD-9: 496 04/14/2024 Active Dependence on nicotine from cigarettes ICD-10: F17.210 ICD-9: 305.1 04/14/2024 Active Non-recurrent acute suppurat aris otitis media of both ears without spontaneous rupture of tympanic membranes ICD-10: H66.003 ICD-9: 382.00 03/03/2024 Resolved Chest congestion ICD-10: R09.89 ICD-9: 786.9 02/26/2024 Active Hypoxia ICD-10: R09.02 ICD-9: 799.02 02/26/2024 Active COPD with acute exacerbation ICD-10: J44 .1 ICD-9: 491.21 01/21/2024 Active Encounter for screening exam ination for other mental health and behavioral disorders ICD-10: Z13.39 ICD-9: V79.8 12/31/2023 Resolved Encounter for screening for depression ICD-10: Z13.31 ICD-9: V79.0 12/31/2023 Resolved Encounter for screening, unspecified ICD -10: Z13.9 ICD-9: V82.9 12/31/2023 Resolved Other chronic pain ICD-10: G89.29 12/10/2023 Active Osteoporosis ICD-10: M81.0 ICD-9: 733.00 10/29/2023 Active Advanced care planning - to document end of life discussions Unknown 10/15/2023 Active ACP (advance care planning) ICD-10: Z71. 89 ICD-9: V65.49 10/15/2023 Active Adult general medical exam ICD-10: Z00.0 0 ICD-9: V70.9 10/15/2023 Active Chronic bilateral low back p ain without sciatica ICD-10: M54.50 ICD-9: 724.2 10/15/2023 Active Medications Medication Codes Instructions Start Date Stop Date Status Fill Instructions Belbuca 75 mcg buccal film RxNorm: 5976345 Take 1 Unit(s) Buccal BID for chronic pain. Do not eat/drink/smoke for 30 minutes after taking 06/21/20 24 024 Inactive pregabalin 50 mg capsule RxNorm: 221980 Take 2 Capsule(s) Oral TID 06/08/20 24 025 Inactive pregabalin 50 mg capsule RxNorm: 145239 Take 2 Capsule(s) Oral TID 06/08/20 24 024 Inactive albuterol sulfate HFA 90 mcg/actuation aerosol inhaler RxNorm: 7812519 Take 2 Puff(s) Inhalation QID as needed 05/31/20 24 024 Inactive Tab-A-Myles 400 mcg tablet RxNorm: Take 1 Tablet(s) Oral QD 05/19/20 24 025 Active 05/19/2024 PROACTIVE REFILL REQUEST FOR NEXT CYCLE PLEASE THANK YOU RX has/will before cycle date magnesium oxide 400 mg (241.3 mg magnesium) tablet RxNorm: 410626 Take 1 Tablet(s) Oral QD 05/19/20 24 025 Active 05/19/2024 PROACTIVE REFILL REQUEST FOR NEXT CYCLE PLEASE THANK YOU RX has/will before cycle date tizanidine 4 mg tablet RxNorm: 531742 Take 1 Tablet(s) Oral TID 05/19/20 24 025 Active 05/19/2024 PROACTIVE REFILL REQUEST FOR NEXT CYCLE PLEASE THANK YOU Belbuca 75 mcg buccal film RxNorm: 4465672 Take 1 Unit(s) Buccal BID Take 1 film buccally twice daily for chronic pain. Do not eat/drink/smoke for 30 minutes after taking 05/17/20 24 024 Inactive lidocaine 4 % topical patch RxNorm: 4159456 Topical Apply one patch topically to affected area of body Q12H PRN (apply PM/HS for night and early AM pain). Keep patch on for 12 hours and then off for 12 hours. (compression fracture, pain) 05/14/20 24 025 Inactive lidocaine 4 % topical patch RxNorm: 5731077 Topical Apply one patch topically to affected area of body Q12H PRN (apply PM/HS for night and early AM pain). Keep patch on for 12 hours and then off for 12 hours. 05/14/20 24 024 Inactive Icy Hot 30 %-10 % topical cream RxNorm: 864909 Topical Apply a thin layer topically to affected area (left side/ribs) BID PRN.?(compressio n fracture, pain) 05/12/20 24 025 Inactive calcitonin (salmon) 200 unit/actuation nasal spray RxNorm: 678360 [place] Nasal Administer one spray into one nostril once daily for 14 days (alternate nostrils daily) (compression fracture) 05/12/20 24 024 Inactive calcitonin (salmon) 200 unit/actuation nasal spray RxNorm: 579682 [place] Nasal Administer one spray into one nostril once daily for 14 days (alternate nostrils daily) (compression fracture) 05/12/20 24 024 Inactive Icy Hot 30 %-10 % topical cream RxNorm: 947622 Topical Apply a thin layer topically to affected area (left side/ribs) BID PRN. (compression fracture, pain) 05/12/20 24 024 Inactive Belbuca 75 mcg buccal film RxNorm: 3326001 Take 1 Unit(s) Buccal BID Take 1 film buccally twice daily for chronic pain. Do not eat/drink/smoke for 30 minutes after taking 04/14/20 24 024 Inactive Belbuca 75 mcg buccal film RxNorm: 9670385 Take 1 Unit(s) Buccal BID Take 1 film buccally twice daily for chronic pain. Do not eat/drink/smoke for 30 minutes after taking 03/10/20 24 024 Inactive pregabalin 50 mg capsule RxNorm: 124373 Take 2 Capsule(s) Oral TID 03/09/20 24 024 Inactive Mucinex 600 mg tablet, extended release RxNorm: 160034 Take 1 Tablet(s) Oral BID as needed for cough/congestion increase hydration with water when taking 03/03/20 24 024 Inactive Mucinex 600 mg tablet, extended release RxNorm: 115450 Take 1 Tablet(s) Oral BID as needed 03/03/20 24 024 Inactive cetirizine 10 mg tablet RxNorm: 4763570 Take 1 Tablet(s) Oral QHS every night at bedtime 01/27/20 24 025 Active 01/27/2024 PROACTIVE REFILL REQUEST FOR NEXT CYCLE PLEASE THANK YOU sertraline 100 mg tablet RxNorm: 101051 Take 1 Tablet(s) Oral QAM every morning 01/27/20 24 025 Active 01/27/2024 PROACTIVE REFILL REQUEST FOR NEXT CYCLE PLEASE THANK YOU docusate sodium 100 mg capsule RxNorm: 3116131 Take 1 Capsule(s) Oral BID 01/27/20 24 025 Active 01/27/2024 PROACTIVE REFILL REQUEST FOR NEXT CYCLE PLEASE THANK YOU ibuprofen 800 mg tablet RxNorm: 727913 Take 1 Tablet(s) Oral BID 01/27/20 24 025 Active 01/27/2024 PROACTIVE REFILL REQUEST FOR NEXT CYCLE PLEASE THANK YOU amlodipine 10 mg tablet RxNorm: 656341 Take 1 Tablet(s) Oral QD 01/27/20 24 025 Active 01/27/2024 PROACTIVE REFILL REQUEST FOR NEXT CYCLE PLEASE THANK YOU omeprazole 40 mg capsule,delayed release RxNorm: 624449 Take 1 Capsule(s) Oral QD BEFORE A MEAL 01/27/20 24 025 Active 01/27/2024 PROACTIVE REFILL REQUEST FOR NEXT CYCLE PLEASE THANK YOU cholecalciferol (vitamin D3) 50 mcg (2,000 unit) tablet RxNorm: 766320 Take 1 Tablet(s) Oral QD 01/27/20 24 025 Active 01/27/2024 PROACTIVE REFILL REQUEST FOR NEXT CYCLE PLEASE THANK YOU ferrous sulfate 325 mg (65 mg iron) tablet,delayed release RxNorm: 055103 Take 1 Tablet(s) Oral QD WITH A MEAL 01/27/20 24 025 Active 01/27/2024 PROACTIVE REFILL REQUEST FOR NEXT CYCLE PLEASE THANK YOU atorvastatin 20 mg tablet RxNorm: 984483 Take 1 Tablet(s) Oral QD 01/27/20 24 025 Active 01/27/2024 PROACTIVE REFILL REQUEST FOR NEXT CYCLE PLEASE THANK YOU pramipexole 0.75 mg tablet RxNorm: 113575 TAKE 1 TABLET BY MOUTH DAILY (2-3 HOURS BEFORE BEDTIME) 01/27/20 24 025 Active 01/27/2024 PROACTIVE REFILL REQUEST FOR NEXT CYCLE PLEASE THANK YOU metoprolol tartrate 50 mg tablet RxNorm: 865059 Take 1 Tablet(s) Oral BID 01/27/20 24 025 Active 01/27/2024 PROACTIVE REFILL REQUEST FOR NEXT CYCLE PLEASE THANK YOU Belbuca 75 mcg buccal film RxNorm: 2277922 Take 1 Unit(s) Buccal BID Take 1 film buccally twice daily for chronic pain. Do not eat/drink/smoke for 30 minutes after taking 01/26/20 24 Inactive doxycycline hyclate 100 mg capsule RxNorm: 9844882 Take 1 Capsule(s) Oral BID 01/21/20 24 024 Inactive benzonatate 100 mg capsule RxNorm: 739541 Take 1 Capsule(s) Oral TID as needed 01/21/20 24 Inactive prednisone 20 mg tablet RxNorm: 909514 Take 2 Tablet(s) Oral QD 01/21/20 24 024 Inactive doxycycline hyclate 100 mg capsule RxNorm: 0098224 Take 1 Capsule(s) Oral BID 01/14/20 24 024 Inactive doxycycline hyclate 100 mg capsule RxNorm: 3252912 Take 1 Capsule(s) Oral BID 01/14/20 24 024 Inactive prednisone 20 mg tablet RxNorm: 818267 Take 2 Tablet(s) Oral QD 01/14/20 24 024 Inactive prednisone 20 mg tablet RxNorm: 134222 Take 2 Tablet(s) Oral QD 01/14/20 24 024 Inactive amoxicillin 875 mg-potassium clavulanate 125 mg tablet RxNorm: 669469 Take 1 Tablet(s) Oral BID 12/31/19 24 024 Inactive amoxicillin 875 mg-potassium clavulanate 125 mg tablet RxNorm: 101802 Take 1 Tablet(s) Oral BID 12/31/19 24 024 Inactive Belbuca 75 mcg buccal film RxNorm: 4245540 Take 1 Unit(s) Buccal BID Take 1 film buccally twice daily for chronic pain. Do not eat/drink/smoke for 30 minutes after taking.? 12/22/19 24 024 Inactive Nicoderm CQ 7 mg/24 hr daily transdermal patch RxNorm: 340829 Apply 1 Patch Transdermal QD 2 weeks (after first 8 weeks) then discontinue. 10/01/19 024 Inactive nicotine (polacrilex) 4 mg buccal lozenge RxNorm: 156269 Take 1 Tablet(s) Buccal UD as directed 4 mg- Take 1 piece buccally Q1 hr PRN for craving x 6 weeks then every 2 hr PRN x 3 weeks then every 4 hr PRN x 3 week. Encourage >9 pieces/day for initial 6 week. Avoid food/drink 15 min before and after use. (Dx: smoking cessation) 10/01/19 24 024 Inactive Nicoderm CQ 7 mg/24 hr daily transdermal patch RxNorm: 466732 Apply 1 Patch Transdermal QD 2 weeks (after first 8 weeks) then discontinue. 10/01/19 24 024 Inactive Nicoderm CQ 21 mg/24 hr daily transdermal patch RxNorm: 786189 Apply 1 Patch Transdermal QD 10/01/19 24 024 Inactive Nicoderm CQ 21 mg/24 hr daily transdermal patch RxNorm: 046454 Apply 1 Patch Transdermal QD 10/01/19 24 024 Inactive Nicoderm CQ 14 mg/24 hr daily transdermal patch RxNorm: 475141 Apply 1 Patch Transdermal QD 2 weeks (after first 6 weeks) 10/01/19 24 024 Inactive Nicoderm CQ 14 mg/24 hr daily transdermal patch RxNorm: 367903 Apply 1 Patch Transdermal QD 2 weeks (after first 6 weeks) 10/01/19 24 Inactive nicotine (polacrilex) 4 mg buccal lozenge RxNorm: 021527 Take 1 Tablet(s) Buccal UD as directed 4 mg- Take 1 piece?buccally Q1 hr PRN for craving x 6 weeks then every 2 hr PRN x 3 weeks then every 4 hr PRN x 3 week. Encourage >9 pieces/day for initial 6 week. Avoid food/drink 15 min before and after use. (Dx: smoking cessation) 10/01/19 24 Inactive prednisone 20 mg tablet RxNorm: 056983 Take 2 Tablet(s) Oral QD Take 2 tablets (total 40 mg) in the AM preferred and with food. 08/25/19 Inactive prednisone 20 mg tablet RxNorm: 462170 Take 2 Tablet(s) Oral QD Take 2 tablets (total 40 mg) in the AM preferred and with food. 08/25/19 24 024 Inactive Vitamin B-12 1,000 mcg tablet RxNorm: 754770 Take 1 Tablet(s) Oral QD 08/21/19 No Stop Date Active Qvar RediHaler 80 mcg/actuation HFA breath activated aerosol RxNorm: 9048249 Inhale 1 Puff(s) Inhalation BID 08/21/19 No Stop Date Active loperamide 2 mg tablet RxNorm: 657923 Take 2 Tablet(s) Oral with first loose stool then 1 tab after each additional loose stool. Max 8 tabs in 24 hours 08/21/19 No Stop Date Active diclofenac 1 % topical gel RxNorm: 136417 Apply 2 Gram(s) Topical BID as needed 08/21/19 No Stop Date Active naloxone 4 mg/actuation nasal spray RxNorm: 4307961 Use as directed for accidental overdose 02/15/20 24 No Stop Date Active ipratropium 0.5 mg-albuterol 3 mg (2.5 mg base)/3 mL nebulization soln RxNorm: 9944521 Inhale 1 Vial Inhalation QID as needed 08/21/19 24 No Stop Date Active acetaminophen 500 mg tablet RxNorm: 001832 Take 2 Tablet(s) Oral TID and 2 tabs by mouth daily as needed 08/21/19 24 No Stop Date Active tizanidine 2 mg tablet RxNorm: 679681 Take 2 Tablet(s) Oral QD as needed 08/21/19 24 No Stop Date Active Tums 200 mg calcium (500 mg) chewable tablet RxNorm: 696735 Take 2-4 Tablet(s) Oral between meals and at bed time as needed 08/21/19 24 No Stop Date Active Anoro Ellipta 62.5 mcg-25 mcg/actuation powder for inhalation RxNorm: 2962202 Take 1 Puff(s) Inhalation QD 08/21/19 24 No Stop Date Active Antacid Anti-Gas 200 mg-200 mg-20 mg/5 mL oral suspension RxNorm: 108781 Take 5-10 Milliliter(s) Oral QD as needed 08/21/19 24 No Stop Date Active Miralax 17 gram/dose oral powder RxNorm: 524206 Take 17 Gram(s) Oral QD as needed 08/21/19 24 No Stop Date Active Milk of Magnesia 400 mg/5 mL oral suspension RxNorm: 034976 Take 15-30 Milliliter(s) Oral QD as needed 08/21/19 24 No Stop Date Active magnesium 400 mg (as magnesium oxide) tablet RxNorm: 786914 Take 1 Tablet(s) Oral QD 08/21/19 24 No Stop Date Active ferrous sulfate 325 mg (65 mg iron) tablet RxNorm: 524553 Take 1 Tablet(s) Oral QD 08/21/19 24 No Stop Date Active trazodone 100 mg tablet RxNorm: 467107 Take 1 Tablet(s) Oral QHS every night at bedtime as needed 08/21/19 24 No Stop Date Active Diphen 25 mg tablet RxNorm: 7724215 Take 1-2 Tablet(s) Oral every 6 hours as needed 08/21/19 24 No Stop Date Active Robafen DM Cough 10 mg-100 mg/5 mL oral liquid RxNorm: 649141 Take 10 Milliliter(s) Oral Q4H every four hours as needed 08/21/19 No Stop Date Active cetirizine 10 mg tablet RxNorm: 1901464 Take 1 Tablet(s) Oral QHS every night at bedtime 08/21/19 Inactive Tab-A-Myles 400 mcg tablet RxNorm: Take 1 Tablet(s) Oral QD 08/21/19 Inactive pregabalin 50 mg capsule RxNorm: 855397 Take 2 Capsule(s) Oral TID 08/21/19 Inactive Belbuca 75 mcg buccal film RxNorm: 9749715 Take 1 Unit(s) Buccal BID 08/21/19 Inactive docusate sodium 100 mg capsule RxNorm: 3319934 Take 1 Capsule(s) Oral BID 08/21/19 Inactive omeprazole 40 mg capsule,delayed release RxNorm: 436057 Take 1 Capsule(s) Oral QD 08/21/19 Inactive albuterol sulfate HFA 90 mcg/actuation aerosol inhaler RxNorm: 0444773 Take 2 Puff(s) Inhalation QID as needed 08/21/19 Inactive alendronate 10 mg tablet RxNorm: 276235 Take 1 Tablet(s) Oral QD 08/21/19 024 Inactive tizanidine 4 mg tablet RxNorm: 324829 Take 1 Tablet(s) Oral TID 08/21/19 Inactive amlodipine 10 mg tablet RxNorm: 438128 Take 1 Tablet(s) Oral QD 08/21/19 Inactive atorvastatin 20 mg tablet RxNorm: 354405 Take 1 Tablet(s) Oral QD 08/21/19 Inactive pramipexole 0.75 mg tablet RxNorm: 465820 Take 1 Tablet(s) Oral QD 08/21/19 024 Inactive sertraline 100 mg tablet RxNorm: 919001 Take 1 Tablet(s) Oral QAM every morning 08/21/19 Inactive alendronate 10 mg tablet RxNorm: 508590 Take 1 Tablet(s) Oral QD 08/21/19 Inactive metoprolol tartrate 50 mg tablet RxNorm: 763848 Take 1 Tablet(s) Oral BID 08/21/19 24 Inactive benzonatate 100 mg capsule RxNorm: 155019 Take 1 Capsule(s) Oral TID as needed 08/21/19 Inactive ibuprofen 800 mg tablet RxNorm: 981958 Take 1 Tablet(s) Oral BID 08/21/19 Inactive Vitamin D3 50 mcg (2,000 unit) tablet RxNorm: 448833 Take 1 Tablet(s) Oral QD 08/21/19 Inactive Medication Administered No Medication Administered data [...] Planned Activity Notes Codes Status Date Referral: [facility] WPtel: [address] [place], [place] [id number] Referral No Records Received 11/12/2023 Referral: Carolyn Lassiter Endo crinology [facility] WPtel: [address] [place], [place] [id number] Referral No Records Received 10/20/2023 Instructions Comment Date 08.20.2023 New BPS patient vi sit. Pet: Bird BabyAWV: 10.15.2023Labs: (October labs: CMP, CBC, VitD, VitB12, Mg)(April labs: BMP, CBC, lipid panel) 08/16/2024
--- OUTSIDE RECORDS SUMMARY | 2024-11-19 02:12 | XMS_ITS | CCD ---
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 Name Role Phone Jose Alfredo Claudia MARTE Primary Care Provider Yamileth vailable Unavailable Chronic Care Management Unavaila ble Summary Purpose DataExchange Insurance Providers Payer name Policy type / Coverage type Covered democrat ID Effective Begin Date Effective End Date [employer] Commercial Insurance [id number] Unkn own Medicaid [place] Commercial Insurance [id number] Unk nown Family history Parents, Siblings, Children Diagnosis Age At Onset No Family Disease Entered N/A Social History Social History Element Codes Description Effec tive Dates Marital status Unknown Single 10/15/2023 Living arrangements Unknown Assisted Living 10/[address]: 52448720 Current ever y day smoker 10/15/[address]: 688359863 No Alcohol Consum ption 10/15/2023 Sexually Active? [...] Unknown Yes 10/15/[address]: 65182879 Current ever y day smoker 08/21/[address]: 695799408 No Alcohol Consum ption 08/21/2023 Allergies, Adverse Reactions, Alerts Substance Reaction Codes Entered Date Inactivated Date Status meperidine RxNorm: 977135 08/20/2023 No Inactive D ate Active codeine Unknown 08/20/2023 No Inactive Date Ac tive Demerol RxNorm: 444335 07/23/2023 No Inactive Da te Active Lactose Unknown 08/20/2023 No Inactive Date Ac tive Other: Unknown 07/23/2023 No Inactive Date Ac tive Tetanus-Diphtheria Toxoids Td Unknown 08/20/2023 No Inactive Date Active Problems Condition Codes Effective Dates Condition St atus COPD (chronic obstructive pu lmonary disease) ICD-10: J44.9 ICD-9: 496 01/21/2024 Active COPD with acute exacerbation ICD-10: J44 .1 ICD-9: 491.21 01/21/2024 Active Hypoxia ICD-10: R09.02 ICD-9: 799.02 01/14/2024 Active Shortness of breath ICD-10: R06.02 ICD-9: 786.05 01/14/2024 Active Chronic low back pain with sciatica ICD- 10: M54.40 ICD-9: 724.2 12/31/2023 Active Non-recurrent acute suppurat aris otitis media of both ears without spontaneous rupture of tympanic membranes ICD-10: H66.003 ICD-9: 382.00 12/31/2023 Active Encounter for screening exam ination for other mental health and behavioral disorders ICD-10: Z13.39 ICD-9: V79.8 12/31/2023 Resolved Encounter for screening for depression ICD-10: Z13.31 ICD-9: V79.0 12/31/2023 Resolved Encounter for screening, unspecified ICD -10: Z13.9 ICD-9: V82.9 12/31/2023 Resolved Other chronic pain ICD-10: G89.29 12/10/2023 Active 1+ pitting edema ICD-10: R60.9 ICD-9: 782.3 11/12/2023 Active Dependence on nicotine from cigarettes ICD-10: [...] sciatica ICD-10: M54.50 ICD-9: 724.2 10/15/2023 Active Hypertension ICD-10: I10 ICD-9: 401.9 10/15/2023 Active Medications Medication Codes Instructions Start Date Stop Date Status Fill Instructions doxycycline hyclate 100 mg capsule RxNorm: 7379492 Take 1 Capsule(s) Oral BID 4 01/27/20 24 Inactive benzonatate 100 mg capsule RxNorm: 166191 Take 1 Capsule(s) Oral TID as needed 4 01/21/20 24 Inactive prednisone 20 mg tablet RxNorm: 656781 Take 2 Tablet(s) Oral QD 4 01/27/20 24 Inactive doxycycline hyclate 100 mg capsule RxNorm: 8181240 Take 1 Capsule(s) Oral BID 4 01/14/20 24 Inactive doxycycline hyclate 100 mg capsule RxNorm: 6363618 Take 1 Capsule(s) Oral BID 4 01/20/20 24 Inactive prednisone 20 mg tablet RxNorm: 553854 Take 2 Tablet(s) Oral QD 4 01/14/20 24 Inactive prednisone 20 mg tablet RxNorm: 492256 Take 2 Tablet(s) Oral QD 4 01/18/20 24 Inactive amoxicillin 875 mg-potassium clavulanate 125 mg tablet RxNorm: 767286 Take 1 Tablet(s) Oral BID 4 12/31/19 24 Inactive amoxicillin 875 mg-potassium clavulanate 125 mg tablet RxNorm: 494689 Take 1 Tablet(s) Oral BID 4 01/04/20 24 Inactive Belbuca 75 mcg buccal film RxNorm: 0623469 Take 1 Unit(s) Buccal BID Take 1 film buccally twice daily for chronic pain. Do not eat/drink/smoke for 30 minutes after taking.? 4 01/20/20 24 Inactive nicotine (polacrilex) 4 mg buccal lozenge RxNorm: 135527 Take 1 Tablet(s) Buccal UD as directed [...] 7 mg/24 hr daily transdermal patch RxNorm: 209790 Apply 1 Patch Transdermal QD 2 weeks (after first 8 weeks) then discontinue. 4 10/14/19 24 Inactive nicotine (polacrilex) 4 mg buccal lozenge RxNorm: 470815 Take 1 Tablet(s) Buccal UD as directed [...] 7 mg/24 hr daily transdermal patch RxNorm: 124541 Apply 1 Patch Transdermal QD 2 weeks (after first 8 weeks) then discontinue. 4 10/01/19 24 Inactive Nicoderm CQ 21 mg/24 hr daily transdermal patch RxNorm: 714389 Apply 1 Patch Transdermal QD 4 11/11/19 24 Inactive Nicoderm CQ 21 mg/24 hr daily transdermal patch RxNorm: 155506 Apply 1 Patch Transdermal QD 4 10/01/19 24 Inactive Nicoderm CQ 14 mg/24 hr daily transdermal patch RxNorm: 698878 Apply 1 Patch Transdermal QD 2 weeks (after first 6 weeks) 4 10/01/19 24 Inactive Nicoderm CQ 14 mg/24 hr daily transdermal patch RxNorm: 378624 Apply 1 Patch Transdermal QD 2 weeks (after first 6 weeks) 4 10/14/19 24 Inactive prednisone 20 mg tablet RxNorm: 316082 Take 2 Tablet(s) Oral QD Take 2 tablets (total 40 mg) in the AM preferred and with food. 4 08/25/19 24 Inactive prednisone 20 mg tablet RxNorm: 669798 Take 2 Tablet(s) Oral QD Take 2 tablets (total 40 mg) in the AM preferred and with food. 4 08/29/19 24 Inactive Vitamin B-12 1,000 mcg tablet RxNorm: 149078 Take 1 Tablet(s) Oral QD 4 No Stop Date Active Qvar RediHaler 80 mcg/actuation HFA breath activated aerosol RxNorm: 4153532 Inhale 1 Puff(s) Inhalation BID 4 No Stop Date Active loperamide 2 mg tablet RxNorm: 377335 Take 2 Tablet(s) Oral with first loose stool then 1 tab after each additional loose stool. Max 8 tabs in 24 hours 4 No Stop Date Active cetirizine 10 mg tablet RxNorm: 7542700 Take 1 Tablet(s) Oral QHS every night at bedtime 4 01/27/20 24 Inactive diclofenac 1 % topical gel RxNorm: 072899 Apply 2 Gram(s) Topical BID as needed 4 No Stop Date Active Tab-A-Myles 400 mcg tablet RxNorm: Take 1 Tablet(s) Oral QD 4 05/19/20 24 Inactive naloxone 4 mg/actuation nasal spray RxNorm: 8893284 Use as directed for accidental overdose 4 No Stop Date Active pregabalin 50 mg capsule RxNorm: 324587 Take 2 Capsule(s) Oral TID 4 03/09/20 24 Inactive docusate sodium 100 mg capsule RxNorm: 9206157 Take 1 Capsule(s) Oral BID 4 01/27/20 24 Inactive omeprazole 40 mg capsule,delayed release RxNorm: 293254 Take 1 Capsule(s) Oral QD 4 01/27/20 24 Inactive ipratropium 0.5 mg-albuterol 3 mg (2.5 mg base)/3 mL nebulization soln RxNorm: 4979400 Inhale 1 Vial Inhalation QID as needed 4 No Stop Date Active acetaminophen 500 mg tablet RxNorm: 640915 Take 2 Tablet(s) Oral TID and 2 tabs by mouth daily as needed 4 No Stop Date Active tizanidine 2 mg tablet RxNorm: 945506 Take 2 Tablet(s) Oral QD as needed 4 No Stop Date Active Tums 200 mg calcium (500 mg) chewable tablet RxNorm: 244338 Take 2-4 Tablet(s) Oral between meals and at bed time as needed 4 No Stop Date Active Anoro Ellipta 62.5 mcg-25 mcg/actuation powder for inhalation RxNorm: 8043427 Take 1 Puff(s) Inhalation QD 4 No Stop Date Active albuterol sulfate HFA 90 mcg/actuation aerosol inhaler RxNorm: 5275688 Take 2 Puff(s) Inhalation QID as needed 4 05/31/20 24 Inactive tizanidine 4 mg tablet RxNorm: 803817 Take 1 Tablet(s) Oral TID 4 05/19/20 24 Inactive amlodipine 10 mg tablet RxNorm: 263182 Take 1 Tablet(s) Oral QD 4 01/27/20 24 Inactive atorvastatin 20 mg tablet RxNorm: 166905 Take 1 Tablet(s) Oral QD 4 01/27/20 24 Inactive Antacid Anti-Gas 200 mg-200 mg-20 mg/5 mL oral suspension RxNorm: 176682 Take 5-10 Milliliter(s) Oral QD as needed 4 No Stop Date Active Miralax 17 gram/dose oral powder RxNorm: 100119 Take 17 Gram(s) Oral QD as needed 4 No Stop Date Active pramipexole 0.75 mg tablet RxNorm: 411726 Take 1 Tablet(s) Oral QD 4 01/27/20 24 Inactive sertraline 100 mg tablet RxNorm: 451056 Take 1 Tablet(s) Oral QAM every morning 4 01/27/20 24 Inactive Milk of Magnesia 400 mg/5 mL oral suspension RxNorm: 364744 Take 15-30 Milliliter(s) Oral QD as needed 4 No Stop Date Active magnesium 400 mg (as magnesium oxide) tablet RxNorm: 718708 Take 1 Tablet(s) Oral QD 4 No Stop Date Active ferrous sulfate 325 mg (65 mg iron) tablet RxNorm: 170644 Take 1 Tablet(s) Oral QD 4 No Stop Date Active trazodone 100 mg tablet RxNorm: 413631 Take 1 Tablet(s) Oral QHS every night at bedtime as needed 4 No Stop Date Active metoprolol tartrate 50 mg tablet RxNorm: 437536 Take 1 Tablet(s) Oral BID 4 01/27/20 24 Inactive benzonatate 100 mg capsule RxNorm: 795919 Take 1 Capsule(s) Oral TID as needed 4 01/21/20 24 Inactive Diphen 25 mg tablet RxNorm: 8577014 Take 1-2 Tablet(s) Oral every 6 hours as needed 4 No Stop Date Active ibuprofen 800 mg tablet RxNorm: 809471 Take 1 Tablet(s) Oral BID 4 01/27/20 24 Inactive Vitamin D3 50 mcg (2,000 unit) tablet RxNorm: 777496 Take 1 Tablet(s) Oral QD 4 01/27/20 24 Inactive Robafen DM Cough 10 mg-100 mg/5 mL oral liquid RxNorm: 368914 Take 10 Milliliter(s) Oral Q4H every four hours as needed 4 No Stop Date Active Belbuca 75 mcg buccal film RxNorm: 3689651 Take 1 Unit(s) Buccal BID 4 12/22/19 24 Inactive alendronate 10 mg tablet RxNorm: 860759 Take 1 Tablet(s) Oral QD 4 09/30/19 24 Inactive alendronate 10 mg tablet RxNorm: 567768 Take 1 Tablet(s) Oral QD 4 08/22/19 [...] Planned Activity Notes Codes Status Date Referral: [facility] WPtel: [address] [place], [place] [id number] Referral No Records Received 11/12/2023 Referral: Carolyn Lassiter Endo crinology [facility] WPtel: [address] [place], [place] [id number] [place] Referral No Records Received 10/20/2023 Instructions Comment Date 08.20.2023 New BPS patient vi sit. Pet: Bird BabyAWV: 10.15.2023Labs: (October labs: CMP, CBC, VitD, VitB12, Mg)(April labs: BMP, CBC, lipid panel) 08/16/2024
--- OUTSIDE RECORDS SUMMARY | 2024-11-19 02:12 | XMS_ITS | CCD ---
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 Name Role Phone Jose Alfredo Claudia MARTE Primary Care Provider Yamileth vailable Unavailable Chronic Care Management Unavaila ble Summary Purpose DataExchange Insurance Providers Payer name Policy type / Coverage type Covered libertarian ID Effective Begin Date Effective End Date [employer] Commercial Insurance [id number] Unkn own Medicaid [place] Commercial Insurance [id number] Unk nown Family history Parents, Siblings, Children Diagnosis Age At Onset No Family Disease Entered N/A Social History Social History Element Codes Description Effec tive Dates Marital status Unknown Single 10/15/2023 Living arrangements Unknown Assisted Living 10/[address]: 07790126 Current ever y day smoker 10/15/[address]: 578280902 No Alcohol Consum ption 10/15/2023 Sexually Active? [...] Unknown Yes 10/15/[address]: 55903338 Current ever y day smoker 08/21/[address]: 033110672 No Alcohol Consum ption 08/21/2023 Allergies, Adverse Reactions, Alerts Substance Reaction Codes Entered Date Inactivated Date Status meperidine RxNorm: 056306 08/20/2023 No Inactive D ate Active codeine Unknown 08/20/2023 No Inactive Date Ac tive Demerol RxNorm: 642385 07/23/2023 No Inactive Da te Active Lactose Unknown 08/20/2023 No Inactive Date Ac tive Other: Unknown 07/23/2023 No Inactive Date Ac tive Tetanus-Diphtheria Toxoids Td Unknown 08/20/2023 No Inactive Date Active Problems Condition Codes Effective Dates Condition St [facility] Hypoxia ICD-10: R09.02 ICD-9: 799.02 01/14/2024 Active Shortness of breath ICD-10: R06.02 ICD-9: 786.05 01/14/2024 Active Chronic low back pain with sciatica ICD- 10: M54.40 ICD-9: 724.2 12/31/2023 Active COPD (chronic obstructive pu lmonary disease) ICD-10: J44.9 ICD-9: 496 12/31/2023 Active Non-recurrent acute suppurat aris otitis [...] Instructions doxycycline hyclate 100 mg capsule RxNorm: 8682056 Take 1 Capsule(s) Oral BID 4 01/14/20 24 Inactive doxycycline hyclate 100 mg capsule RxNorm: 7335040 Take 1 Capsule(s) Oral BID 4 01/20/20 24 Inactive prednisone 20 mg tablet RxNorm: 179942 Take 2 Tablet(s) Oral QD 4 01/14/20 24 Inactive prednisone 20 mg tablet RxNorm: 631355 Take 2 Tablet(s) Oral QD 4 01/18/20 24 Inactive amoxicillin 875 mg-potassium clavulanate 125 mg tablet RxNorm: 896539 Take 1 Tablet(s) Oral BID 4 12/31/19 24 Inactive amoxicillin 875 mg-potassium clavulanate 125 mg tablet RxNorm: 774232 Take 1 Tablet(s) Oral BID 4 01/04/20 24 Inactive Belbuca 75 mcg buccal film RxNorm: 5747227 Take 1 Unit(s) Buccal BID Take 1 film buccally twice daily for chronic pain. Do not eat/drink/smoke for 30 minutes after taking.? 4 01/20/20 24 Inactive nicotine (polacrilex) 4 mg buccal lozenge RxNorm: 006168 Take 1 Tablet(s) Buccal UD as directed [...] 7 mg/24 hr daily transdermal patch RxNorm: 196132 Apply 1 Patch Transdermal QD 2 weeks (after first 8 weeks) then discontinue. 4 10/14/19 24 Inactive nicotine (polacrilex) 4 mg buccal lozenge RxNorm: 993472 Take 1 Tablet(s) Buccal UD as directed [...] 7 mg/24 hr daily transdermal patch RxNorm: 419861 Apply 1 Patch Transdermal QD 2 weeks (after first 8 weeks) then discontinue. 4 10/01/19 24 Inactive Nicoderm CQ 21 mg/24 hr daily transdermal patch RxNorm: 929095 Apply 1 Patch Transdermal QD 4 11/11/19 24 Inactive Nicoderm CQ 21 mg/24 hr daily transdermal patch RxNorm: 627323 Apply 1 Patch Transdermal QD 4 10/01/19 24 Inactive Nicoderm CQ 14 mg/24 hr daily transdermal patch RxNorm: 614127 Apply 1 Patch Transdermal QD 2 weeks (after first 6 weeks) 4 10/01/19 24 Inactive Nicoderm CQ 14 mg/24 hr daily transdermal patch RxNorm: 752803 Apply 1 Patch Transdermal QD 2 weeks (after first 6 weeks) 4 10/14/19 24 Inactive prednisone 20 mg tablet RxNorm: 025444 Take 2 Tablet(s) Oral QD Take 2 tablets (total 40 mg) in the AM preferred and with food. 4 08/25/19 24 Inactive prednisone 20 mg tablet RxNorm: 702043 Take 2 Tablet(s) Oral QD Take 2 tablets (total 40 mg) in the AM preferred and with food. 4 08/29/19 24 Inactive Vitamin B-12 1,000 mcg tablet RxNorm: 732379 Take 1 Tablet(s) Oral QD 4 No Stop Date Active Qvar RediHaler 80 mcg/actuation HFA breath activated aerosol RxNorm: 1305655 Inhale 1 Puff(s) Inhalation BID 4 No Stop Date Active loperamide 2 mg tablet RxNorm: 292978 Take 2 Tablet(s) Oral with first loose stool then 1 tab after each additional loose stool. Max 8 tabs in 24 hours 4 No Stop Date Active cetirizine 10 mg tablet RxNorm: 7422963 Take 1 Tablet(s) Oral QHS every night at bedtime 4 01/27/20 24 Inactive diclofenac 1 % topical gel RxNorm: 476339 Apply 2 Gram(s) Topical BID as needed 4 No Stop Date Active Tab-A-Myles 400 mcg tablet RxNorm: Take 1 Tablet(s) Oral QD 4 05/19/20 24 Inactive naloxone 4 mg/actuation nasal spray RxNorm: 6715400 Use as directed for accidental overdose 4 No Stop Date Active pregabalin 50 mg capsule RxNorm: 035181 Take 2 Capsule(s) Oral TID 4 03/09/20 24 Inactive docusate sodium 100 mg capsule RxNorm: 6040069 Take 1 Capsule(s) Oral BID 4 01/27/20 24 Inactive omeprazole 40 mg capsule,delayed release RxNorm: 289744 Take 1 Capsule(s) Oral QD 4 01/27/20 24 Inactive ipratropium 0.5 mg-albuterol 3 mg (2.5 mg base)/3 mL nebulization soln RxNorm: 5955458 Inhale 1 Vial Inhalation QID as needed 4 No Stop Date Active acetaminophen 500 mg tablet RxNorm: 645793 Take 2 Tablet(s) Oral TID and 2 tabs by mouth daily as needed 4 No Stop Date Active tizanidine 2 mg tablet RxNorm: 821414 Take 2 Tablet(s) Oral QD as needed 4 No Stop Date Active Tums 200 mg calcium (500 mg) chewable tablet RxNorm: 583813 Take 2-4 Tablet(s) Oral between meals and at bed time as needed 4 No Stop Date Active Anoro Ellipta 62.5 mcg-25 mcg/actuation powder for inhalation RxNorm: 7703425 Take 1 Puff(s) Inhalation QD 4 No Stop Date Active albuterol sulfate HFA 90 mcg/actuation aerosol inhaler RxNorm: 9146033 Take 2 Puff(s) Inhalation QID as needed 4 05/31/20 24 Inactive tizanidine 4 mg tablet RxNorm: 814563 Take 1 Tablet(s) Oral TID 4 05/19/20 24 Inactive amlodipine 10 mg tablet RxNorm: 966807 Take 1 Tablet(s) Oral QD 4 01/27/20 24 Inactive atorvastatin 20 mg tablet RxNorm: 428769 Take 1 Tablet(s) Oral QD 4 01/27/20 24 Inactive Antacid Anti-Gas 200 mg-200 mg-20 mg/5 mL oral suspension RxNorm: 725685 Take 5-10 Milliliter(s) Oral QD as needed 4 No Stop Date Active Miralax 17 gram/dose oral powder RxNorm: 581946 Take 17 Gram(s) Oral QD as needed 4 No Stop Date Active pramipexole 0.75 mg tablet RxNorm: 640947 Take 1 Tablet(s) Oral QD 4 01/27/20 24 Inactive sertraline 100 mg tablet RxNorm: 970937 Take 1 Tablet(s) Oral QAM every morning 4 01/27/20 24 Inactive Milk of Magnesia 400 mg/5 mL oral suspension RxNorm: 495498 Take 15-30 Milliliter(s) Oral QD as needed 4 No Stop Date Active magnesium 400 mg (as magnesium oxide) tablet RxNorm: 548620 Take 1 Tablet(s) Oral QD 4 No Stop Date Active ferrous sulfate 325 mg (65 mg iron) tablet RxNorm: 801181 Take 1 Tablet(s) Oral QD 4 No Stop Date Active trazodone 100 mg tablet RxNorm: 524783 Take 1 Tablet(s) Oral QHS every night at bedtime as needed 4 No Stop Date Active metoprolol tartrate 50 mg tablet RxNorm: 859020 Take 1 Tablet(s) Oral BID 4 01/27/20 24 Inactive benzonatate 100 mg capsule RxNorm: 368000 Take 1 Capsule(s) Oral TID as needed 4 01/21/20 24 Inactive Diphen 25 mg tablet RxNorm: 2109483 Take 1-2 Tablet(s) Oral every 6 hours as needed 4 No Stop Date Active ibuprofen 800 mg tablet RxNorm: 471827 Take 1 Tablet(s) Oral BID 4 01/27/20 24 Inactive Vitamin D3 50 mcg (2,000 unit) tablet RxNorm: 561171 Take 1 Tablet(s) Oral QD 4 01/27/20 24 Inactive Robafen DM Cough 10 mg-100 mg/5 mL oral liquid RxNorm: 418330 Take 10 Milliliter(s) Oral Q4H every four hours as needed 4 No Stop Date Active Belbuca 75 mcg buccal film RxNorm: 2993464 Take 1 Unit(s) Buccal BID 4 12/22/19 24 Inactive alendronate 10 mg tablet RxNorm: 564567 Take 1 Tablet(s) Oral QD 4 09/30/19 24 Inactive alendronate 10 mg tablet RxNorm: 768522 Take 1 Tablet(s) Oral QD 4 08/22/19 [...] Planned Activity Notes Codes Status Date Referral: [facility] WPtel: [address] [place], [place] [id number] [place] Referral No Records Received 11/12/2023 Referral: Carolyn Lassiter Endo crinology [facility] WPtel: [address] [place], [place] [phone] [place] Referral No Records Received 10/20/2023 Instructions Comment Date 08.20.2023 New BPS patient vi sit. Pet: Bird BabyAWV: 10.15.2023Labs: (October labs: CMP, CBC, VitD, VitB12, Mg)(April labs: BMP, CBC, lipid panel) 08/16/2024
--- OUTSIDE RECORDS SUMMARY | 2024-11-19 02:12 | XMS_ITS | CCD ---
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 Name Role Phone Jose Alfredo Claudia MARTE Primary Care Provider Yamileth vailable Unavailable Chronic Care Management Unavaila ble Summary Purpose DataExchange Insurance Providers Payer name Policy type / Coverage type Covered democrat ID Effective Begin Date Effective End Date U[employer] Commercial Insurance [id number] Unkn own Medicaid [place] Commercial Insurance [id number] Unk nown Family history Parents, Siblings, Children Diagnosis Age At Onset No Family Disease Entered N/A Social History Social History Element Codes Description Effec tive Dates Marital status Unknown Single 10/15/2023 Living arrangements Unknown Assisted Living 10/[address]: 68801203 Current ever y day smoker 10/15/[address]: 978337007 No Alcohol Consum ption 10/15/2023 Sexually Active? [...] Unknown Yes 10/15/[address]: 47364786 Current ever y day smoker 08/21/[address]: 013505569 No Alcohol Consum ption 08/21/2023 Allergies, Adverse Reactions, Alerts Substance Reaction Codes Entered Date Inactivated Date Status meperidine RxNorm: 367686 08/20/2023 No Inactive D ate Active codeine Unknown 08/20/2023 No Inactive Date Ac tive Demerol RxNorm: 205219 07/23/2023 No Inactive Da te Active Lactose [...] Instructions doxycycline hyclate 100 mg capsule RxNorm: 9374867 Take 1 Capsule(s) Oral BID 4 01/27/20 24 Inactive benzonatate 100 mg capsule RxNorm: 532210 Take 1 Capsule(s) Oral TID as needed 4 01/21/20 24 Inactive prednisone 20 mg tablet RxNorm: 441204 Take 2 Tablet(s) Oral QD 4 01/27/20 24 Inactive doxycycline hyclate 100 mg capsule RxNorm: 1779459 Take 1 Capsule(s) Oral BID 4 01/14/20 24 Inactive doxycycline hyclate 100 mg capsule RxNorm: 7182010 Take 1 Capsule(s) Oral BID 4 01/20/20 24 Inactive prednisone 20 mg tablet RxNorm: 838126 Take 2 Tablet(s) Oral QD 4 01/14/20 24 Inactive prednisone 20 mg tablet RxNorm: 210570 Take 2 Tablet(s) Oral QD 4 01/18/20 24 Inactive amoxicillin 875 mg-potassium clavulanate 125 mg tablet RxNorm: 303387 Take 1 Tablet(s) Oral BID 4 12/31/19 24 Inactive amoxicillin 875 mg-potassium clavulanate 125 mg tablet RxNorm: 406740 Take 1 Tablet(s) Oral BID 4 01/04/20 24 Inactive Belbuca 75 mcg buccal film RxNorm: 0283340 Take 1 Unit(s) Buccal BID Take 1 film buccally twice daily for chronic pain. Do not eat/drink/smoke for 30 minutes after taking.? 4 01/20/20 24 Inactive nicotine (polacrilex) 4 mg buccal lozenge RxNorm: 750856 Take 1 Tablet(s) Buccal UD as directed [...] 7 mg/24 hr daily transdermal patch RxNorm: 713940 Apply 1 Patch Transdermal QD 2 weeks (after first 8 weeks) then discontinue. 4 10/14/19 24 Inactive nicotine (polacrilex) 4 mg buccal lozenge RxNorm: 739360 Take 1 Tablet(s) Buccal UD as directed [...] 7 mg/24 hr daily transdermal patch RxNorm: 614973 Apply 1 Patch Transdermal QD 2 weeks (after first 8 weeks) then discontinue. 4 10/01/19 24 Inactive Nicoderm CQ 21 mg/24 hr daily transdermal patch RxNorm: 536882 Apply 1 Patch Transdermal QD 4 11/11/19 24 Inactive Nicoderm CQ 21 mg/24 hr daily transdermal patch RxNorm: 791255 Apply 1 Patch Transdermal QD 4 10/01/19 24 Inactive Nicoderm CQ 14 mg/24 hr daily transdermal patch RxNorm: 293898 Apply 1 Patch Transdermal QD 2 weeks (after first 6 weeks) 4 10/01/19 24 Inactive Nicoderm CQ 14 mg/24 hr daily transdermal patch RxNorm: 418050 Apply 1 Patch Transdermal QD 2 weeks (after first 6 weeks) 4 10/14/19 24 Inactive prednisone 20 mg tablet RxNorm: 080863 Take 2 Tablet(s) Oral QD Take 2 tablets (total 40 mg) in the AM preferred and with food. 4 08/25/19 24 Inactive prednisone 20 mg tablet RxNorm: 330405 Take 2 Tablet(s) Oral QD Take 2 tablets (total 40 mg) in the AM preferred and with food. 4 08/29/19 24 Inactive Vitamin B-12 1,000 mcg tablet RxNorm: 956136 Take 1 Tablet(s) Oral QD 4 No Stop Date Active Qvar RediHaler 80 mcg/actuation HFA breath activated aerosol RxNorm: 6084266 Inhale 1 Puff(s) Inhalation BID 4 No Stop Date Active loperamide 2 mg tablet RxNorm: 958411 Take 2 Tablet(s) Oral with first loose stool then 1 tab after each additional loose stool. Max 8 tabs in 24 hours 4 No Stop Date Active cetirizine 10 mg tablet RxNorm: 7022762 Take 1 Tablet(s) Oral QHS every night at bedtime 4 01/27/20 24 Inactive diclofenac 1 % topical gel RxNorm: 598278 Apply 2 Gram(s) Topical BID as needed 4 No Stop Date Active Tab-A-Myles 400 mcg tablet RxNorm: Take 1 Tablet(s) Oral QD 4 05/19/20 24 Inactive naloxone 4 mg/actuation nasal spray RxNorm: 5189718 Use as directed for accidental overdose 4 No Stop Date Active pregabalin 50 mg capsule RxNorm: 100365 Take 2 Capsule(s) Oral TID 4 03/09/20 24 Inactive docusate sodium 100 mg capsule RxNorm: 1029398 Take 1 Capsule(s) Oral BID 4 01/27/20 24 Inactive omeprazole 40 mg capsule,delayed release RxNorm: 865762 Take 1 Capsule(s) Oral QD 4 01/27/20 24 Inactive ipratropium 0.5 mg-albuterol 3 mg (2.5 mg base)/3 mL nebulization soln RxNorm: 9076028 Inhale 1 Vial Inhalation QID as needed 4 No Stop Date Active acetaminophen 500 mg tablet RxNorm: 800287 Take 2 Tablet(s) Oral TID and 2 tabs by mouth daily as needed 4 No Stop Date Active tizanidine 2 mg tablet RxNorm: 740000 Take 2 Tablet(s) Oral QD as needed 4 No Stop Date Active Tums 200 mg calcium (500 mg) chewable tablet RxNorm: 458257 Take 2-4 Tablet(s) Oral between meals and at bed time as needed 4 No Stop Date Active Anoro Ellipta 62.5 mcg-25 mcg/actuation powder for inhalation RxNorm: 0856878 Take 1 Puff(s) Inhalation QD 4 No Stop Date Active albuterol sulfate HFA 90 mcg/actuation aerosol inhaler RxNorm: 5629954 Take 2 Puff(s) Inhalation QID as needed 4 05/31/20 24 Inactive tizanidine 4 mg tablet RxNorm: 468144 Take 1 Tablet(s) Oral TID 4 05/19/20 24 Inactive amlodipine 10 mg tablet RxNorm: 286354 Take 1 Tablet(s) Oral QD 4 01/27/20 24 Inactive atorvastatin 20 mg tablet RxNorm: 917939 Take 1 Tablet(s) Oral QD 4 01/27/20 24 Inactive Antacid Anti-Gas 200 mg-200 mg-20 mg/5 mL oral suspension RxNorm: 667510 Take 5-10 Milliliter(s) Oral QD as needed 4 No Stop Date Active Miralax 17 gram/dose oral powder RxNorm: 185258 Take 17 Gram(s) Oral QD as needed 4 No Stop Date Active pramipexole 0.75 mg tablet RxNorm: 837312 Take 1 Tablet(s) Oral QD 4 01/27/20 24 Inactive sertraline 100 mg tablet RxNorm: 088081 Take 1 Tablet(s) Oral QAM every morning 4 01/27/20 24 Inactive Milk of Magnesia 400 mg/5 mL oral suspension RxNorm: 739975 Take 15-30 Milliliter(s) Oral QD as needed 4 No Stop Date Active magnesium 400 mg (as magnesium oxide) tablet RxNorm: 325053 Take 1 Tablet(s) Oral QD 4 No Stop Date Active ferrous sulfate 325 mg (65 mg iron) tablet RxNorm: 403508 Take 1 Tablet(s) Oral QD 4 No Stop Date Active trazodone 100 mg tablet RxNorm: 295373 Take 1 Tablet(s) Oral QHS every night at bedtime as needed 4 No Stop Date Active metoprolol tartrate 50 mg tablet RxNorm: 901045 Take 1 Tablet(s) Oral BID 4 01/27/20 24 Inactive benzonatate 100 mg capsule RxNorm: 223707 Take 1 Capsule(s) Oral TID as needed 4 01/21/20 24 Inactive Diphen 25 mg tablet RxNorm: 2237317 Take 1-2 Tablet(s) Oral every 6 hours as needed 4 No Stop Date Active ibuprofen 800 mg tablet RxNorm: 537583 Take 1 Tablet(s) Oral BID 4 01/27/20 24 Inactive Vitamin D3 50 mcg (2,000 unit) tablet RxNorm: 206978 Take 1 Tablet(s) Oral QD 4 01/27/20 24 Inactive Robafen DM Cough 10 mg-100 mg/5 mL oral liquid RxNorm: 625725 Take 10 Milliliter(s) Oral Q4H every four hours as needed 4 No Stop Date Active Belbuca 75 mcg buccal film RxNorm: 7435070 Take 1 Unit(s) Buccal BID 4 12/22/19 24 Inactive alendronate 10 mg tablet RxNorm: 942446 Take 1 Tablet(s) Oral QD 4 09/30/19 24 Inactive alendronate 10 mg tablet RxNorm: 897186 Take 1 Tablet(s) Oral QD 4 08/22/19 [...] Planned Activity Notes Codes Status Date Referral: [facility] WPtel: [address] [place], [place] [id number] Referral No Records Received 11/12/2023 Referral: Carolyn Lassiter Endo crinology [facility] WPtel: [address] [place], [place] [id number] [place] Referral No Records Received 10/20/2023 Instructions Comment Date 08.20.2023 New BPS patient vi sit. Pet: Bird BabyAWV: 10.15.2023Labs: (October labs: CMP, CBC, VitD, VitB12, Mg)(April labs: BMP, CBC, lipid panel) 08/16/2024
--- OUTSIDE RECORDS SUMMARY | 2024-11-19 02:13 | XMS_ITS | CCD ---
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 Name Role Phone Jose Alfredo Claudia MARTE Primary Care Provider Yamileth vailable Unavailable Chronic Care Management Unavaila ble Summary Purpose DataExchange Insurance Providers Payer name Policy type / Coverage type Covered republican ID Effective Begin Date Effective End Date Ucare Commercial Insurance [id number] Unkn own Medicaid [place] Commercial Insurance [id number] Unk nown Family history Parents, Siblings, Children Diagnosis Age At Onset No Family Disease Entered N/A Social History Social History Element Codes Description Effec tive Dates Marital status Unknown Single 10/15/2023 Living arrangements Unknown Assisted Living 10/[address]: 62750758 Current ever y day smoker 10/15/[address]: 617559904 No Alcohol Consum ption 10/15/2023 Sexually Active? [...] Unknown Yes 10/15/[address]: 65854177 Current ever y day smoker 08/21/[address]: 917346953 No Alcohol Consum ption 08/21/2023 Allergies, Adverse Reactions, Alerts Substance Reaction Codes Entered Date Inactivated Date Status meperidine RxNorm: 768744 08/20/2023 No Inactive D ate Active codeine Unknown 08/20/2023 No Inactive Date Ac tive Demerol RxNorm: 959333 07/23/2023 No Inactive Da te Active Lactose Unknown 08/20/2023 No Inactive Date Ac tive Other: Unknown 07/23/2023 No Inactive Date Ac tive Tetanus-Diphtheria Toxoids Td Unknown 08/20/2023 No Inactive Date Active Problems Condition Codes Effective Dates Condition St atus Back pain ICD-10: M54.9 ICD-9: 724.5 05/12/2024 Active Rib pain on left side ICD-10: R07.81 ICD-9: 786.50 05/12/2024 Active SOB (shortness of breath) ICD-10: R06.02 ICD-9: 786.05 05/12/2024 Active Thoracic back pain ICD-10: M54.6 ICD-9: 724.1 05/12/2024 Active 1+ pitting edema ICD-10: R60.9 ICD-9: 782.3 04/14/2024 Active Chronic low back pain with sciatica ICD- 10: M54.40 ICD-9: 724.2 04/14/2024 Active COPD (chronic obstructive pu lmonary disease) ICD-10: J44.9 ICD-9: 496 04/14/2024 Active Dependence on nicotine from cigarettes ICD-10: F17.210 ICD-9: 305.1 04/14/2024 Active Hypertension ICD-10: I10 ICD-9: 401.9 04/14/2024 Active Non-recurrent acute suppurat aris otitis [...] Instructions Belbuca 75 mcg buccal film RxNorm: 1417787 Take 1 Unit(s) Buccal BID Take 1 film buccally twice daily for chronic pain. Do not eat/drink/smoke for 30 minutes after taking 05/17/20 024 Inactive lidocaine 4 % topical patch RxNorm: 2651082 Topical Apply one patch topically to affected area of body Q12H PRN (apply PM/HS for night and early AM pain). Keep patch on for 12 hours and then off for 12 hours. (compression fracture, pain) 05/14/20 24 025 Inactive lidocaine 4 % topical patch RxNorm: 2665678 Topical Apply one patch topically to affected area of body Q12H PRN (apply PM/HS for night and early AM pain). Keep patch on for 12 hours and then off for 12 hours. 05/14/20 24 024 Inactive calcitonin (salmon) 200 unit/actuation nasal spray RxNorm: 133938 [place] Nasal Administer one spray into one nostril once daily for 14 days (alternate nostrils daily) (compression fracture) 05/12/20 24 024 Inactive Icy Hot 30 %-10 % topical cream RxNorm: 488131 Topical Apply a thin layer topically to affected area (left side/ribs) BID PRN.?(compressio n fracture, pain) 05/12/20 24 025 Inactive calcitonin (salmon) 200 unit/actuation nasal spray RxNorm: 995577 [place] Nasal Administer one spray into one nostril once daily for 14 days (alternate nostrils daily) (compression fracture) 05/12/20 24 024 Inactive Icy Hot 30 %-10 % topical cream RxNorm: 152813 Topical Apply a thin layer topically to affected area (left side/ribs) BID PRN. (compression fracture, pain) 05/12/20 24 024 Inactive Belbuca 75 mcg buccal film RxNorm: 6194728 Take 1 Unit(s) Buccal BID Take 1 film buccally twice daily for chronic pain. Do not eat/drink/smoke for 30 minutes after taking 04/14/20 24 024 Inactive Belbuca 75 mcg buccal film RxNorm: 1171468 Take 1 Unit(s) Buccal BID Take 1 film buccally twice daily for chronic pain. Do not eat/drink/smoke for 30 minutes after taking 03/10/20 24 024 Inactive pregabalin 50 mg capsule RxNorm: 999419 Take 2 Capsule(s) Oral TID 03/09/20 24 024 Inactive Mucinex 600 mg tablet, extended release RxNorm: 259619 Take 1 Tablet(s) Oral BID as needed for cough/congestion increase hydration with water when taking 03/03/20 24 024 Inactive Mucinex 600 mg tablet, extended release RxNorm: 534334 Take 1 Tablet(s) Oral BID as needed 03/03/20 24 Inactive cetirizine 10 mg tablet RxNorm: 7991307 Take 1 Tablet(s) Oral QHS every night at bedtime 01/27/20 24 025 Active 01/27/2024 PROACTIVE REFILL REQUEST FOR NEXT CYCLE PLEASE THANK YOU sertraline 100 mg tablet RxNorm: 823173 Take 1 Tablet(s) Oral QAM every morning 01/27/20 24 025 Active 01/27/2024 PROACTIVE REFILL REQUEST FOR NEXT CYCLE PLEASE THANK YOU docusate sodium 100 mg capsule RxNorm: 6545006 Take 1 Capsule(s) Oral BID 01/27/20 24 025 Active 01/27/2024 PROACTIVE REFILL REQUEST FOR NEXT CYCLE PLEASE THANK YOU ibuprofen 800 mg tablet RxNorm: 772277 Take 1 Tablet(s) Oral BID 01/27/20 24 025 Active 01/27/2024 PROACTIVE REFILL REQUEST FOR NEXT CYCLE PLEASE THANK YOU amlodipine 10 mg tablet RxNorm: 134338 Take 1 Tablet(s) Oral QD 01/27/20 24 025 Active 01/27/2024 PROACTIVE REFILL REQUEST FOR NEXT CYCLE PLEASE THANK YOU omeprazole 40 mg capsule,delayed release RxNorm: 434595 Take 1 Capsule(s) Oral QD BEFORE A MEAL 01/27/20 24 025 Active 01/27/2024 PROACTIVE REFILL REQUEST FOR NEXT CYCLE PLEASE THANK YOU cholecalciferol (vitamin D3) 50 mcg (2,000 unit) tablet RxNorm: 179414 Take 1 Tablet(s) Oral QD 01/27/20 24 025 Active 01/27/2024 PROACTIVE REFILL REQUEST FOR NEXT CYCLE PLEASE THANK YOU ferrous sulfate 325 mg (65 mg iron) tablet,delayed release RxNorm: 225152 Take 1 Tablet(s) Oral QD WITH A MEAL 01/27/20 24 025 Active 01/27/2024 PROACTIVE REFILL REQUEST FOR NEXT CYCLE PLEASE THANK YOU atorvastatin 20 mg tablet RxNorm: 228229 Take 1 Tablet(s) Oral QD 01/27/20 24 025 Active 01/27/2024 PROACTIVE REFILL REQUEST FOR NEXT CYCLE PLEASE THANK YOU pramipexole 0.75 mg tablet RxNorm: 731060 TAKE 1 TABLET BY MOUTH DAILY (2-3 HOURS BEFORE BEDTIME) 01/27/20 24 025 Active 01/27/2024 PROACTIVE REFILL REQUEST FOR NEXT CYCLE PLEASE THANK YOU metoprolol tartrate 50 mg tablet RxNorm: 177146 Take 1 Tablet(s) Oral BID 01/27/20 24 025 Active 01/27/2024 PROACTIVE REFILL REQUEST FOR NEXT CYCLE PLEASE THANK YOU Belbuca 75 mcg buccal film RxNorm: 2655429 Take 1 Unit(s) Buccal BID Take 1 film buccally twice daily for chronic pain. Do not eat/drink/smoke for 30 minutes after taking 01/26/20 24 024 Inactive doxycycline hyclate 100 mg capsule RxNorm: 0197790 Take 1 Capsule(s) Oral BID 01/21/20 24 Inactive benzonatate 100 mg capsule RxNorm: 505027 Take 1 Capsule(s) Oral TID as needed 01/21/20 24 Inactive prednisone 20 mg tablet RxNorm: 373892 Take 2 Tablet(s) Oral QD 01/21/20 24 Inactive doxycycline hyclate 100 mg capsule RxNorm: 4139918 Take 1 Capsule(s) Oral BID 01/14/20 24 Inactive doxycycline hyclate 100 mg capsule RxNorm: 0959758 Take 1 Capsule(s) Oral BID 01/14/20 24 Inactive prednisone 20 mg tablet RxNorm: 958014 Take 2 Tablet(s) Oral QD 01/14/20 24 Inactive prednisone 20 mg tablet RxNorm: 252514 Take 2 Tablet(s) Oral QD 01/14/20 24 Inactive amoxicillin 875 mg-potassium clavulanate 125 mg tablet RxNorm: 351518 Take 1 Tablet(s) Oral BID 12/31/19 24 024 Inactive amoxicillin 875 mg-potassium clavulanate 125 mg tablet RxNorm: 115863 Take 1 Tablet(s) Oral BID 12/31/19 24 024 Inactive Belbuca 75 mcg buccal film RxNorm: 5560634 Take 1 Unit(s) Buccal BID Take 1 film buccally twice daily for chronic pain. Do not eat/drink/smoke for 30 minutes after taking.? 12/22/19 24 024 Inactive Nicoderm CQ 7 mg/24 hr daily transdermal patch RxNorm: 312962 Apply 1 Patch Transdermal QD 2 weeks (after first 8 weeks) then discontinue. 10/01/19 24 024 Inactive nicotine (polacrilex) 4 mg buccal lozenge RxNorm: 465930 Take 1 Tablet(s) Buccal UD as directed [...] 7 mg/24 hr daily transdermal patch RxNorm: 182975 Apply 1 Patch Transdermal QD 2 weeks (after first 8 weeks) then discontinue. 10/01/19 24 024 Inactive Nicoderm CQ 21 mg/24 hr daily transdermal patch RxNorm: 257299 Apply 1 Patch Transdermal QD 10/01/19 024 Inactive Nicoderm CQ 21 mg/24 hr daily transdermal patch RxNorm: 171973 Apply 1 Patch Transdermal QD 10/01/19 24 024 Inactive Nicoderm CQ 14 mg/24 hr daily transdermal patch RxNorm: 542101 Apply 1 Patch Transdermal QD 2 weeks (after first 6 weeks) 10/01/19 24 024 Inactive Nicoderm CQ 14 mg/24 hr daily transdermal patch RxNorm: 442712 Apply 1 Patch Transdermal QD 2 weeks (after first 6 weeks) 10/01/19 024 Inactive nicotine (polacrilex) 4 mg buccal lozenge RxNorm: 402761 Take 1 Tablet(s) Buccal UD as directed 4 mg- Take 1 piece?buccally Q1 hr PRN for craving x 6 weeks then every 2 hr PRN x 3 weeks then every 4 hr PRN x 3 week. Encourage >9 pieces/day for initial 6 week. Avoid food/drink 15 min before and after use. (Dx: smoking cessation) 10/01/19 024 Inactive prednisone 20 mg tablet RxNorm: 725602 Take 2 Tablet(s) Oral QD Take 2 tablets (total 40 mg) in the AM preferred and with food. 08/25/19 24 024 Inactive prednisone 20 mg tablet RxNorm: 000887 Take 2 Tablet(s) Oral QD Take 2 tablets (total 40 mg) in the AM preferred and with food. 08/25/19 24 024 Inactive Vitamin B-12 1,000 mcg tablet RxNorm: 528354 Take 1 Tablet(s) Oral QD 08/21/19 No Stop Date Active Qvar RediHaler 80 mcg/actuation HFA breath activated aerosol RxNorm: 3027539 Inhale 1 Puff(s) Inhalation BID 08/21/19 No Stop Date Active loperamide 2 mg tablet RxNorm: 477652 Take 2 Tablet(s) Oral with first loose stool then 1 tab after each additional loose stool. Max 8 tabs in 24 hours 08/21/19 No Stop Date Active diclofenac 1 % topical gel RxNorm: 541689 Apply 2 Gram(s) Topical BID as needed 08/21/19 No Stop Date Active Tab-A-Myles 400 mcg tablet RxNorm: Take 1 Tablet(s) Oral QD 08/21/19 Inactive naloxone 4 mg/actuation nasal spray RxNorm: 5812235 Use as directed for accidental overdose 08/21/19 No Stop Date Active ipratropium 0.5 mg-albuterol 3 mg (2.5 mg base)/3 mL nebulization soln RxNorm: 7241262 Inhale 1 Vial Inhalation QID as needed 08/21/19 No Stop Date Active acetaminophen 500 mg tablet RxNorm: 120152 Take 2 Tablet(s) Oral TID and 2 tabs by mouth daily as needed 08/21/19 No Stop Date Active tizanidine 2 mg tablet RxNorm: 642659 Take 2 Tablet(s) Oral QD as needed 08/21/19 No Stop Date Active Tums 200 mg calcium (500 mg) chewable tablet RxNorm: 286060 Take 2-4 Tablet(s) Oral between meals and at bed time as needed 08/21/19 No Stop Date Active Anoro Ellipta 62.5 mcg-25 mcg/actuation powder for inhalation RxNorm: 2143229 Take 1 Puff(s) Inhalation QD 08/21/19 No Stop Date Active albuterol sulfate HFA 90 mcg/actuation aerosol inhaler RxNorm: 6119859 Take 2 Puff(s) Inhalation QID as needed 08/21/19 Inactive tizanidine 4 mg tablet RxNorm: 111490 Take 1 Tablet(s) Oral TID 08/21/19 024 Inactive Antacid Anti-Gas 200 mg-200 mg-20 mg/5 mL oral suspension RxNorm: 056934 Take 5-10 Milliliter(s) Oral QD as needed 08/21/19 24 No Stop Date Active Miralax 17 gram/dose oral powder RxNorm: 792872 Take 17 Gram(s) Oral QD as needed 08/21/19 24 No Stop Date Active Milk of Magnesia 400 mg/5 mL oral suspension RxNorm: 736125 Take 15-30 Milliliter(s) Oral QD as needed 08/21/19 24 No Stop Date Active magnesium 400 mg (as magnesium oxide) tablet RxNorm: 866577 Take 1 Tablet(s) Oral QD 08/21/19 24 No Stop Date Active ferrous sulfate 325 mg (65 mg iron) tablet RxNorm: 153203 Take 1 Tablet(s) Oral QD 08/21/19 24 No Stop Date Active trazodone 100 mg tablet RxNorm: 167389 Take 1 Tablet(s) Oral QHS every night at bedtime as needed 08/21/19 24 No Stop Date Active Diphen 25 mg tablet RxNorm: 2772416 Take 1-2 Tablet(s) Oral every 6 hours as needed 08/21/19 24 No Stop Date Active Robafen DM Cough 10 mg-100 mg/5 mL oral liquid RxNorm: 429110 Take 10 Milliliter(s) Oral Q4H every four hours as needed 08/21/19 24 No Stop Date Active cetirizine 10 mg tablet RxNorm: 4340817 Take 1 Tablet(s) Oral QHS every night at bedtime 08/21/19 24 024 Inactive pregabalin 50 mg capsule RxNorm: 800864 Take 2 Capsule(s) Oral TID 08/21/19 24 024 Inactive Belbuca 75 mcg buccal film RxNorm: 8683380 Take 1 Unit(s) Buccal BID 08/21/19 24 024 Inactive docusate sodium 100 mg capsule RxNorm: 6884414 Take 1 Capsule(s) Oral BID 08/21/19 24 024 Inactive omeprazole 40 mg capsule,delayed release RxNorm: 160398 Take 1 Capsule(s) Oral QD 08/21/19 24 024 Inactive alendronate 10 mg tablet RxNorm: 504257 Take 1 Tablet(s) Oral QD 08/21/19 24 024 Inactive amlodipine 10 mg tablet RxNorm: 327477 Take 1 Tablet(s) Oral QD 08/21/19 24 Inactive atorvastatin 20 mg tablet RxNorm: 498116 Take 1 Tablet(s) Oral QD 08/21/19 Inactive pramipexole 0.75 mg tablet RxNorm: 241849 Take 1 Tablet(s) Oral QD 08/21/19 Inactive sertraline 100 mg tablet RxNorm: 481575 Take 1 Tablet(s) Oral QAM every morning 08/21/19 Inactive alendronate 10 mg tablet RxNorm: 748755 Take 1 Tablet(s) Oral QD 08/21/19 Inactive metoprolol tartrate 50 mg tablet RxNorm: 744379 Take 1 Tablet(s) Oral BID 08/21/19 Inactive benzonatate 100 mg capsule RxNorm: 365210 Take 1 Capsule(s) Oral TID as needed 08/21/19 Inactive ibuprofen 800 mg tablet RxNorm: 201087 Take 1 Tablet(s) Oral BID 08/21/19 Inactive Vitamin D3 50 mcg (2,000 unit) tablet RxNorm: 510223 Take 1 Tablet(s) Oral QD 08/21/19 Inactive [...] Notes Codes Status Date Referral: [facility] WPtel: [address] [place], [place] [id number] Referral No Records Received 11/12/2023 Referral: Carolyn Lassiter Endo crinology [facility] WPtel: [address] [place], [place] [id number] Referral No Records Received 10/20/2023 Instructions Comment Date 08.20.2023 New BPS patient vi sit. Pet: Bird BabyAWV: 10.15.2023Labs: (October labs: CMP, CBC, VitD, VitB12, Mg)(April labs: BMP, CBC, lipid panel) 08/16/2024
--- OUTSIDE RECORDS SUMMARY | 2024-11-19 02:13 | XMS_ITS | CCD ---
Author Organization Unknown Care Team Providers Care Inspector Returned Materials Name Role Phone Jose Alfredo Claudia MARTE Primary Care Provider Yamileth vailable Unavailable Chronic Care Management Unavaila ble Summary Purpose DataExchange Insurance Providers Payer name Policy type / Coverage type Covered libertarian ID Effective Begin Date Effective End Date Ucare Commercial Insurance [id number] Unkn own Medicaid [place] Commercial Insurance [id number] Unk nown Family history Parents, Siblings, Children Diagnosis Age At Onset No Family Disease Entered N/A Social History Social History Element Codes Description Effec tive Dates Marital status Unknown Single 10/15/2023 Living arrangements Unknown Assisted Living 10/[address]: 62365604 Current ever y day smoker 10/15/[address]: 828208524 No Alcohol Consum ption 10/15/2023 Sexually Active? [...] Unknown Yes 10/15/[address]: 86753064 Current ever y day smoker 08/21/[address]: 372296099 No Alcohol Consum ption 08/21/2023 Allergies, Adverse Reactions, Alerts Substance Reaction Codes Entered Date Inactivated Date Status meperidine RxNorm: 583830 08/20/2023 No Inactive D ate Active codeine Unknown 08/20/2023 No Inactive Date Ac tive Demerol RxNorm: 430826 07/23/2023 No Inactive Da te Active Lactose Unknown 08/20/2023 No Inactive Date Ac tive Other: Unknown 07/23/2023 No Inactive Date Ac tive Tetanus-Diphtheria Toxoids Td Unknown 08/20/2023 No Inactive Date Active Problems Condition Codes Effective Dates Condition St atus Cough ICD-10: R05.9 ICD-9: 786.2 07/14/2024 Active SOB (shortness of breath) ICD-10: R06.02 ICD-9: 786.05 07/14/2024 Active 1+ pitting edema ICD-10: R60.9 ICD-9: 782.3 06/16/2024 Active Compression fracture ICD-10: [id number] ICD-9: 829.0 05/19/2024 Active Rib pain on left side ICD-10: R07.81 ICD-9: 786.50 05/19/2024 Active Back pain ICD-10: M54.9 ICD-9: 724.5 05/12/2024 Active Thoracic back pain ICD-10: M54.6 [...] Instructions Belbuca 75 mcg buccal film RxNorm: 1773936 Take 1 Unit(s) Buccal BID for chronic pain. Do not eat/drink/smoke for 30 minutes after taking 07/15/19 25 025 Inactive prednisone 20 mg tablet RxNorm: 771200 Take 2 Tablet(s) Oral QD 07/14/19 25 025 Inactive prednisone 20 mg tablet RxNorm: 299931 Take 2 Tablet(s) Oral QD 07/14/19 25 025 Inactive Belbuca 75 mcg buccal film RxNorm: 6271569 Take 1 Unit(s) Buccal BID for chronic pain. Do not eat/drink/smoke for 30 minutes after taking 06/21/20 24 024 Inactive pregabalin 50 mg capsule RxNorm: 670683 Take 2 Capsule(s) Oral TID 06/08/20 24 025 Inactive pregabalin 50 mg capsule RxNorm: 467078 Take 2 Capsule(s) Oral TID 06/08/20 24 024 Inactive albuterol sulfate HFA 90 mcg/actuation aerosol inhaler RxNorm: 9082974 Take 2 Puff(s) Inhalation QID as needed 05/31/20 24 024 Inactive Tab-A-Myles 400 mcg tablet RxNorm: Take 1 Tablet(s) Oral QD 05/19/20 24 025 Active 05/19/2024 PROACTIVE REFILL REQUEST FOR NEXT CYCLE PLEASE THANK YOU RX has/will before cycle date magnesium oxide 400 mg (241.3 mg magnesium) tablet RxNorm: 742638 Take 1 Tablet(s) Oral QD 05/19/20 24 025 Active 05/19/2024 PROACTIVE REFILL REQUEST FOR NEXT CYCLE PLEASE THANK YOU RX has/will before cycle date tizanidine 4 mg tablet RxNorm: 158518 Take 1 Tablet(s) Oral TID 05/19/20 24 025 Active 05/19/2024 PROACTIVE REFILL REQUEST FOR NEXT CYCLE PLEASE THANK YOU Belbuca 75 mcg buccal film RxNorm: 3825377 Take 1 Unit(s) Buccal BID Take 1 film buccally twice daily for chronic pain. Do not eat/drink/smoke for 30 minutes after taking 05/17/20 24 024 Inactive lidocaine 4 % topical patch RxNorm: 5385113 Topical Apply one patch topically to affected area of body Q12H PRN (apply PM/HS for night and early AM pain). Keep patch on for 12 hours and then off for 12 hours. (compression fracture, pain) 05/14/20 24 025 Inactive lidocaine 4 % topical patch RxNorm: 3858611 Topical Apply one patch topically to affected area of body Q12H PRN (apply PM/HS for night and early AM pain). Keep patch on for 12 hours and then off for 12 hours. 05/14/20 24 024 Inactive Icy Hot 30 %-10 % topical cream RxNorm: 016557 Topical Apply a thin layer topically to affected area (left side/ribs) BID PRN.?(compressio n fracture, pain) 05/12/20 24 025 Inactive calcitonin (salmon) 200 unit/actuation nasal spray RxNorm: 440558 Emerson Nasal Administer one spray into one nostril once daily for 14 days (alternate nostrils daily) (compression fracture) 05/12/20 24 024 Inactive calcitonin (salmon) 200 unit/actuation nasal spray RxNorm: 673480 Emerson Nasal Administer one spray into one nostril once daily for 14 days (alternate nostrils daily) (compression fracture) 05/12/20 24 024 Inactive Icy Hot 30 %-10 % topical cream RxNorm: 258299 Topical Apply a thin layer topically to affected area (left side/ribs) BID PRN. (compression fracture, pain) 05/12/20 24 024 Inactive Belbuca 75 mcg buccal film RxNorm: 7449990 Take 1 Unit(s) Buccal BID Take 1 film buccally twice daily for chronic pain. Do not eat/drink/smoke for 30 minutes after taking 04/14/20 24 024 Inactive Belbuca 75 mcg buccal film RxNorm: 8789006 Take 1 Unit(s) Buccal BID Take 1 film buccally twice daily for chronic pain. Do not eat/drink/smoke for 30 minutes after taking 03/10/20 24 Inactive pregabalin 50 mg capsule RxNorm: 450857 Take 2 Capsule(s) Oral TID 03/09/20 24 024 Inactive Mucinex 600 mg tablet, extended release RxNorm: 426764 Take 1 Tablet(s) Oral BID as needed for cough/congestion increase hydration with water when taking 03/03/20 24 024 Inactive Mucinex 600 mg tablet, extended release RxNorm: 657271 Take 1 Tablet(s) Oral BID as needed 03/03/20 24 024 Inactive cetirizine 10 mg tablet RxNorm: 3984340 Take 1 Tablet(s) Oral QHS every night at bedtime 01/27/20 24 025 Active 01/27/2024 PROACTIVE REFILL REQUEST FOR NEXT CYCLE PLEASE THANK YOU sertraline 100 mg tablet RxNorm: 146330 Take 1 Tablet(s) Oral QAM every morning 01/27/20 24 025 Active 01/27/2024 PROACTIVE REFILL REQUEST FOR NEXT CYCLE PLEASE THANK YOU docusate sodium 100 mg capsule RxNorm: 1783407 Take 1 Capsule(s) Oral BID 01/27/20 24 025 Active 01/27/2024 PROACTIVE REFILL REQUEST FOR NEXT CYCLE PLEASE THANK YOU ibuprofen 800 mg tablet RxNorm: 091511 Take 1 Tablet(s) Oral BID 01/27/20 24 025 Active 01/27/2024 PROACTIVE REFILL REQUEST FOR NEXT CYCLE PLEASE THANK YOU amlodipine 10 mg tablet RxNorm: 384375 Take 1 Tablet(s) Oral QD 01/27/20 24 025 Active 01/27/2024 PROACTIVE REFILL REQUEST FOR NEXT CYCLE PLEASE THANK YOU omeprazole 40 mg capsule,delayed release RxNorm: 374335 Take 1 Capsule(s) Oral QD BEFORE A MEAL 01/27/20 24 025 Active 01/27/2024 PROACTIVE REFILL REQUEST FOR NEXT CYCLE PLEASE THANK YOU cholecalciferol (vitamin D3) 50 mcg (2,000 unit) tablet RxNorm: 129276 Take 1 Tablet(s) Oral QD 01/27/20 24 025 Active 01/27/2024 PROACTIVE REFILL REQUEST FOR NEXT CYCLE PLEASE THANK YOU ferrous sulfate 325 mg (65 mg iron) tablet,delayed release RxNorm: 365982 Take 1 Tablet(s) Oral QD WITH A MEAL 01/27/20 24 025 Active 01/27/2024 PROACTIVE REFILL REQUEST FOR NEXT CYCLE PLEASE THANK YOU atorvastatin 20 mg tablet RxNorm: 114324 Take 1 Tablet(s) Oral QD 01/27/20 24 025 Active 01/27/2024 PROACTIVE REFILL REQUEST FOR NEXT CYCLE PLEASE THANK YOU pramipexole 0.75 mg tablet RxNorm: 267815 TAKE 1 TABLET BY MOUTH DAILY (2-3 HOURS BEFORE BEDTIME) 01/27/20 24 025 Active 01/27/2024 PROACTIVE REFILL REQUEST FOR NEXT CYCLE PLEASE THANK YOU metoprolol tartrate 50 mg tablet RxNorm: 162777 Take 1 Tablet(s) Oral BID 01/27/20 24 025 Active 01/27/2024 PROACTIVE REFILL REQUEST FOR NEXT CYCLE PLEASE THANK YOU Belbuca 75 mcg buccal film RxNorm: 1526939 Take 1 Unit(s) Buccal BID Take 1 film buccally twice daily for chronic pain. Do not eat/drink/smoke for 30 minutes after taking 01/26/20 24 024 Inactive doxycycline hyclate 100 mg capsule RxNorm: 8691547 Take 1 Capsule(s) Oral BID 01/21/20 24 024 Inactive benzonatate 100 mg capsule RxNorm: 225519 Take 1 Capsule(s) Oral TID as needed 01/21/20 24 Inactive prednisone 20 mg tablet RxNorm: 079605 Take 2 Tablet(s) Oral QD 01/21/20 24 Inactive doxycycline hyclate 100 mg capsule RxNorm: 6921386 Take 1 Capsule(s) Oral BID 01/14/20 24 024 Inactive doxycycline hyclate 100 mg capsule RxNorm: 5786295 Take 1 Capsule(s) Oral BID 01/14/20 24 024 Inactive prednisone 20 mg tablet RxNorm: 261192 Take 2 Tablet(s) Oral QD 01/14/20 24 Inactive prednisone 20 mg tablet RxNorm: 590105 Take 2 Tablet(s) Oral QD 01/14/20 24 024 Inactive amoxicillin 875 mg-potassium clavulanate 125 mg tablet RxNorm: 220574 Take 1 Tablet(s) Oral BID 12/31/19 24 024 Inactive amoxicillin 875 mg-potassium clavulanate 125 mg tablet RxNorm: 136491 Take 1 Tablet(s) Oral BID 12/31/19 24 024 Inactive Belbuca 75 mcg buccal film RxNorm: 8525367 Take 1 Unit(s) Buccal BID Take 1 film buccally twice daily for chronic pain. Do not eat/drink/smoke for 30 minutes after taking.? 12/22/19 24 024 Inactive Nicoderm CQ 7 mg/24 hr daily transdermal patch RxNorm: 024253 Apply 1 Patch Transdermal QD 2 weeks (after first 8 weeks) then discontinue. 10/01/19 24 024 Inactive nicotine (polacrilex) 4 mg buccal lozenge RxNorm: 897344 Take 1 Tablet(s) Buccal UD as directed [...] 7 mg/24 hr daily transdermal patch RxNorm: 461497 Apply 1 Patch Transdermal QD 2 weeks (after first 8 weeks) then discontinue. 10/01/19 24 024 Inactive Nicoderm CQ 21 mg/24 hr daily transdermal patch RxNorm: 824090 Apply 1 Patch Transdermal QD 10/01/19 24 024 Inactive Nicoderm CQ 21 mg/24 hr daily transdermal patch RxNorm: 099103 Apply 1 Patch Transdermal QD 10/01/19 24 024 Inactive Nicoderm CQ 14 mg/24 hr daily transdermal patch RxNorm: 778394 Apply 1 Patch Transdermal QD 2 weeks (after first 6 weeks) 10/01/19 24 024 Inactive Nicoderm CQ 14 mg/24 hr daily transdermal patch RxNorm: 556210 Apply 1 Patch Transdermal QD 2 weeks (after first 6 weeks) 10/01/19 24 024 Inactive nicotine (polacrilex) 4 mg buccal lozenge RxNorm: 102981 Take 1 Tablet(s) Buccal UD as directed 4 mg- Take 1 piece?buccally Q1 hr PRN for craving x 6 weeks then every 2 hr PRN x 3 weeks then every 4 hr PRN x 3 week. Encourage >9 pieces/day for initial 6 week. Avoid food/drink 15 min before and after use. (Dx: smoking cessation) 10/01/19 24 024 Inactive prednisone 20 mg tablet RxNorm: 263913 Take 2 Tablet(s) Oral QD Take 2 tablets (total 40 mg) in the AM preferred and with food. 08/25/19 24 024 Inactive prednisone 20 mg tablet RxNorm: 005576 Take 2 Tablet(s) Oral QD Take 2 tablets (total 40 mg) in the AM preferred and with food. 08/25/19 24 024 Inactive Vitamin B-12 1,000 mcg tablet RxNorm: 581181 Take 1 Tablet(s) Oral QD 08/21/19 No Stop Date Active Qvar RediHaler 80 mcg/actuation HFA breath activated aerosol RxNorm: 5928220 Inhale 1 Puff(s) Inhalation BID 08/21/19 No Stop Date Active loperamide 2 mg tablet RxNorm: 519755 Take 2 Tablet(s) Oral with first loose stool then 1 tab after each additional loose stool. Max 8 tabs in 24 hours 08/21/19 24 No Stop Date Active diclofenac 1 % topical gel RxNorm: 765140 Apply 2 Gram(s) Topical BID as needed 08/21/19 24 No Stop Date Active naloxone 4 mg/actuation nasal spray RxNorm: 7848689 Use as directed for accidental overdose 08/21/19 24 No Stop Date Active ipratropium 0.5 mg-albuterol 3 mg (2.5 mg base)/3 mL nebulization soln RxNorm: 3766413 Inhale 1 Vial Inhalation QID as needed 08/21/19 24 No Stop Date Active acetaminophen 500 mg tablet RxNorm: 905871 Take 2 Tablet(s) Oral TID and 2 tabs by mouth daily as needed 08/21/19 No Stop Date Active tizanidine 2 mg tablet RxNorm: 911322 Take 2 Tablet(s) Oral QD as needed 08/21/19 24 No Stop Date Active Tums 200 mg calcium (500 mg) chewable tablet RxNorm: 828246 Take 2-4 Tablet(s) Oral between meals and at bed time as needed 08/21/19 24 No Stop Date Active Anoro Ellipta 62.5 mcg-25 mcg/actuation powder for inhalation RxNorm: 6052362 Take 1 Puff(s) Inhalation QD 08/21/19 24 No Stop Date Active Antacid Anti-Gas 200 mg-200 mg-20 mg/5 mL oral suspension RxNorm: 243595 Take 5-10 Milliliter(s) Oral QD as needed 08/21/19 24 No Stop Date Active Miralax 17 gram/dose oral powder RxNorm: 394924 Take 17 Gram(s) Oral QD as needed 08/21/19 24 No Stop Date Active Milk of Magnesia 400 mg/5 mL oral suspension RxNorm: 572277 Take 15-30 Milliliter(s) Oral QD as needed 08/21/19 24 No Stop Date Active magnesium 400 mg (as magnesium oxide) tablet RxNorm: 495573 Take 1 Tablet(s) Oral QD 08/21/19 24 No Stop Date Active ferrous sulfate 325 mg (65 mg iron) tablet RxNorm: 931044 Take 1 Tablet(s) Oral QD 08/21/19 24 No Stop Date Active trazodone 100 mg tablet RxNorm: 244772 Take 1 Tablet(s) Oral QHS every night at bedtime as needed 08/21/19 No Stop Date Active Diphen 25 mg tablet RxNorm: 7204723 Take 1-2 Tablet(s) Oral every 6 hours as needed 08/21/19 No Stop Date Active Robafen DM Cough 10 mg-100 mg/5 mL oral liquid RxNorm: 130096 Take 10 Milliliter(s) Oral Q4H every four hours as needed 08/21/19 No Stop Date Active cetirizine 10 mg tablet RxNorm: 4727136 Take 1 Tablet(s) Oral QHS every night at bedtime 08/21/19 24 024 Inactive Tab-A-Myles 400 mcg tablet RxNorm: Take 1 Tablet(s) Oral QD 08/21/19 024 Inactive pregabalin 50 mg capsule RxNorm: 678157 Take 2 Capsule(s) Oral TID 08/21/19 024 Inactive Belbuca 75 mcg buccal film RxNorm: 8682219 Take 1 Unit(s) Buccal BID 08/21/19 24 024 Inactive docusate sodium 100 mg capsule RxNorm: 4116106 Take 1 Capsule(s) Oral BID 08/21/19 024 Inactive omeprazole 40 mg capsule,delayed release RxNorm: 019562 Take 1 Capsule(s) Oral QD 08/21/19 24 024 Inactive albuterol sulfate HFA 90 mcg/actuation aerosol inhaler RxNorm: 3941146 Take 2 Puff(s) Inhalation QID as needed 08/21/19 24 024 Inactive alendronate 10 mg tablet RxNorm: 114998 Take 1 Tablet(s) Oral QD 08/21/19 24 024 Inactive tizanidine 4 mg tablet RxNorm: 990888 Take 1 Tablet(s) Oral TID 08/21/19 24 024 Inactive amlodipine 10 mg tablet RxNorm: 891520 Take 1 Tablet(s) Oral QD 08/21/19 24 024 Inactive atorvastatin 20 mg tablet RxNorm: 871070 Take 1 Tablet(s) Oral QD 08/21/19 Inactive pramipexole 0.75 mg tablet RxNorm: 905420 Take 1 Tablet(s) Oral QD 08/21/19 24 Inactive sertraline 100 mg tablet RxNorm: 328841 Take 1 Tablet(s) Oral QAM every morning 08/21/19 24 Inactive alendronate 10 mg tablet RxNorm: 161088 Take 1 Tablet(s) Oral QD 08/21/19 Inactive metoprolol tartrate 50 mg tablet RxNorm: 611027 Take 1 Tablet(s) Oral BID 08/21/19 Inactive benzonatate 100 mg capsule RxNorm: 970760 Take 1 Capsule(s) Oral TID as needed 08/21/19 Inactive ibuprofen 800 mg tablet RxNorm: 602294 Take 1 Tablet(s) Oral BID 08/21/19 Inactive Vitamin D3 50 mcg (2,000 unit) tablet RxNorm: 829621 Take 1 Tablet(s) Oral QD 08/21/19 Inactive [...] Planned Activity Notes Codes Status Date Referral: [facility] WPtel: [address] [place], [place] [id number] [place] Referral No Records Received 11/12/2023 Referral: Carolyn Lassiter Endo crinology [facility] WPtel: [address] [place], [place] [id number] [place] Referral No Records Received 10/20/2023 Instructions Comment Date 08.20.2023 New BPS patient vi sit. Pet: Bird BabyAWV: 10.15.2023Labs: (October labs: CMP, CBC, VitD, VitB12, Mg)(April labs: BMP, CBC, lipid panel) 08/16/2024
--- OUTSIDE RECORDS SUMMARY | 2024-11-19 02:13 | XMS_ITS | CCD ---
Author Organization Unknown Care Team Providers Care License Issuer Name Role Phone Jose Alfredo Claudia MARTE Primary Care Provider Yamileth vailable Unavailable Chronic Care Management Unavaila ble Summary Purpose DataExchange Insurance Providers Payer name Policy type / Coverage type Covered republican ID Effective Begin Date Effective End Date Ucare Commercial Insurance [id number] Unkn own Medicaid [place] Commercial Insurance [id number] Unk nown Family history Parents, Siblings, Children Diagnosis Age At Onset No Family Disease Entered N/A Social History Social History Element Codes Description Effec tive Dates Marital status Unknown Single 10/15/2023 Living arrangements Unknown Assisted Living 10/[address]: 72873259 Current ever y day smoker 10/15/[address]: 465541937 No Alcohol Consum ption 10/15/2023 Sexually Active? [...] Unknown Yes 10/15/[address]: 14017060 Current ever y day smoker 08/21/[address]: 479688196 No Alcohol Consum ption 08/21/2023 Allergies, Adverse Reactions, Alerts Substance Reaction Codes Entered Date Inactivated Date Status meperidine RxNorm: 812835 08/20/2023 No Inactive D ate Active codeine Unknown 08/20/2023 No Inactive Date Ac tive Demerol RxNorm: 273935 07/23/2023 No Inactive Da te Active Lactose [...] Instructions doxycycline hyclate 100 mg capsule RxNorm: 9467544 Take 1 Capsule(s) Oral BID 4 01/27/20 24 Inactive benzonatate 100 mg capsule RxNorm: 227494 Take 1 Capsule(s) Oral TID as needed 4 01/21/20 24 Inactive prednisone 20 mg tablet RxNorm: 578249 Take 2 Tablet(s) Oral QD 4 01/27/20 24 Inactive doxycycline hyclate 100 mg capsule RxNorm: 2752993 Take 1 Capsule(s) Oral BID 4 01/14/20 24 Inactive doxycycline hyclate 100 mg capsule RxNorm: 3728964 Take 1 Capsule(s) Oral BID 4 01/20/20 24 Inactive prednisone 20 mg tablet RxNorm: 182152 Take 2 Tablet(s) Oral QD 4 01/14/20 24 Inactive prednisone 20 mg tablet RxNorm: 155366 Take 2 Tablet(s) Oral QD 4 01/18/20 24 Inactive amoxicillin 875 mg-potassium clavulanate 125 mg tablet RxNorm: 776603 Take 1 Tablet(s) Oral BID 4 12/31/19 24 Inactive amoxicillin 875 mg-potassium clavulanate 125 mg tablet RxNorm: 042177 Take 1 Tablet(s) Oral BID 4 01/04/20 24 Inactive Belbuca 75 mcg buccal film RxNorm: 5506888 Take 1 Unit(s) Buccal BID Take 1 film buccally twice daily for chronic pain. Do not eat/drink/smoke for 30 minutes after taking.? 4 01/20/20 24 Inactive nicotine (polacrilex) 4 mg buccal lozenge RxNorm: 503191 Take 1 Tablet(s) Buccal UD as directed [...] 7 mg/24 hr daily transdermal patch RxNorm: 793332 Apply 1 Patch Transdermal QD 2 weeks (after first 8 weeks) then discontinue. 4 10/14/19 24 Inactive nicotine (polacrilex) 4 mg buccal lozenge RxNorm: 612291 Take 1 Tablet(s) Buccal UD as directed [...] 7 mg/24 hr daily transdermal patch RxNorm: 790668 Apply 1 Patch Transdermal QD 2 weeks (after first 8 weeks) then discontinue. 4 10/01/19 24 Inactive Nicoderm CQ 21 mg/24 hr daily transdermal patch RxNorm: 301746 Apply 1 Patch Transdermal QD 4 11/11/19 24 Inactive Nicoderm CQ 21 mg/24 hr daily transdermal patch RxNorm: 959783 Apply 1 Patch Transdermal QD 4 10/01/19 24 Inactive Nicoderm CQ 14 mg/24 hr daily transdermal patch RxNorm: 715571 Apply 1 Patch Transdermal QD 2 weeks (after first 6 weeks) 4 10/01/19 24 Inactive Nicoderm CQ 14 mg/24 hr daily transdermal patch RxNorm: 734852 Apply 1 Patch Transdermal QD 2 weeks (after first 6 weeks) 4 10/14/19 24 Inactive prednisone 20 mg tablet RxNorm: 064888 Take 2 Tablet(s) Oral QD Take 2 tablets (total 40 mg) in the AM preferred and with food. 4 08/25/19 24 Inactive prednisone 20 mg tablet RxNorm: 484400 Take 2 Tablet(s) Oral QD Take 2 tablets (total 40 mg) in the AM preferred and with food. 4 08/29/19 24 Inactive Vitamin B-12 1,000 mcg tablet RxNorm: 167853 Take 1 Tablet(s) Oral QD 4 No Stop Date Active Qvar RediHaler 80 mcg/actuation HFA breath activated aerosol RxNorm: 6546913 Inhale 1 Puff(s) Inhalation BID 4 No Stop Date Active loperamide 2 mg tablet RxNorm: 573469 Take 2 Tablet(s) Oral with first loose stool then 1 tab after each additional loose stool. Max 8 tabs in 24 hours 4 No Stop Date Active cetirizine 10 mg tablet RxNorm: 2269578 Take 1 Tablet(s) Oral QHS every night at bedtime 4 01/27/20 24 Inactive diclofenac 1 % topical gel RxNorm: 858182 Apply 2 Gram(s) Topical BID as needed 4 No Stop Date Active Tab-A-Myles 400 mcg tablet RxNorm: Take 1 Tablet(s) Oral QD 4 05/19/20 24 Inactive naloxone 4 mg/actuation nasal spray RxNorm: 4630032 Use as directed for accidental overdose 4 No Stop Date Active pregabalin 50 mg capsule RxNorm: 995712 Take 2 Capsule(s) Oral TID 4 03/09/20 24 Inactive docusate sodium 100 mg capsule RxNorm: 6614100 Take 1 Capsule(s) Oral BID 4 01/27/20 24 Inactive omeprazole 40 mg capsule,delayed release RxNorm: 089877 Take 1 Capsule(s) Oral QD 4 01/27/20 24 Inactive ipratropium 0.5 mg-albuterol 3 mg (2.5 mg base)/3 mL nebulization soln RxNorm: 1794913 Inhale 1 Vial Inhalation QID as needed 4 No Stop Date Active acetaminophen 500 mg tablet RxNorm: 857946 Take 2 Tablet(s) Oral TID and 2 tabs by mouth daily as needed 4 No Stop Date Active tizanidine 2 mg tablet RxNorm: 534966 Take 2 Tablet(s) Oral QD as needed 4 No Stop Date Active Tums 200 mg calcium (500 mg) chewable tablet RxNorm: 181162 Take 2-4 Tablet(s) Oral between meals and at bed time as needed 4 No Stop Date Active Anoro Ellipta 62.5 mcg-25 mcg/actuation powder for inhalation RxNorm: 5528671 Take 1 Puff(s) Inhalation QD 4 No Stop Date Active albuterol sulfate HFA 90 mcg/actuation aerosol inhaler RxNorm: 2589284 Take 2 Puff(s) Inhalation QID as needed 4 05/31/20 24 Inactive tizanidine 4 mg tablet RxNorm: 256523 Take 1 Tablet(s) Oral TID 4 05/19/20 24 Inactive amlodipine 10 mg tablet RxNorm: 616953 Take 1 Tablet(s) Oral QD 4 01/27/20 24 Inactive atorvastatin 20 mg tablet RxNorm: 589990 Take 1 Tablet(s) Oral QD 4 01/27/20 24 Inactive Antacid Anti-Gas 200 mg-200 mg-20 mg/5 mL oral suspension RxNorm: 926468 Take 5-10 Milliliter(s) Oral QD as needed 4 No Stop Date Active Miralax 17 gram/dose oral powder RxNorm: 619776 Take 17 Gram(s) Oral QD as needed 4 No Stop Date Active pramipexole 0.75 mg tablet RxNorm: 609541 Take 1 Tablet(s) Oral QD 4 01/27/20 24 Inactive sertraline 100 mg tablet RxNorm: 275124 Take 1 Tablet(s) Oral QAM every morning 4 01/27/20 24 Inactive Milk of Magnesia 400 mg/5 mL oral suspension RxNorm: 846312 Take 15-30 Milliliter(s) Oral QD as needed 4 No Stop Date Active magnesium 400 mg (as magnesium oxide) tablet RxNorm: 461138 Take 1 Tablet(s) Oral QD 4 No Stop Date Active ferrous sulfate 325 mg (65 mg iron) tablet RxNorm: 973954 Take 1 Tablet(s) Oral QD 4 No Stop Date Active trazodone 100 mg tablet RxNorm: 776131 Take 1 Tablet(s) Oral QHS every night at bedtime as needed 4 No Stop Date Active metoprolol tartrate 50 mg tablet RxNorm: 532448 Take 1 Tablet(s) Oral BID 4 01/27/20 24 Inactive benzonatate 100 mg capsule RxNorm: 526942 Take 1 Capsule(s) Oral TID as needed 4 01/21/20 24 Inactive Diphen 25 mg tablet RxNorm: 8213278 Take 1-2 Tablet(s) Oral every 6 hours as needed 4 No Stop Date Active ibuprofen 800 mg tablet RxNorm: 293148 Take 1 Tablet(s) Oral BID 4 01/27/20 24 Inactive Vitamin D3 50 mcg (2,000 unit) tablet RxNorm: 410963 Take 1 Tablet(s) Oral QD 4 01/27/20 24 Inactive Robafen DM Cough 10 mg-100 mg/5 mL oral liquid RxNorm: 838628 Take 10 Milliliter(s) Oral Q4H every four hours as needed 4 No Stop Date Active Belbuca 75 mcg buccal film RxNorm: 1992735 Take 1 Unit(s) Buccal BID 4 12/22/19 24 Inactive alendronate 10 mg tablet RxNorm: 214211 Take 1 Tablet(s) Oral QD 4 09/30/19 24 Inactive alendronate 10 mg tablet RxNorm: 172746 Take 1 Tablet(s) Oral QD 4 08/22/19 [...] Planned Activity Notes Codes Status Date Referral: [facility] WPtel: [address] [place], [place] [id number] Referral No Records Received 11/12/2023 Referral: Carolyn Lassiter Endo crinology [facility] WPtel: [address] [place], [place] [id number] [place] Referral No Records Received 10/20/2023 Instructions Comment Date 08.20.2023 New BPS patient vi sit. Pet: Bird BabyAWV: 10.15.2023Labs: (October labs: CMP, CBC, VitD, VitB12, Mg)(April labs: BMP, CBC, lipid panel) 08/16/2024
--- OUTSIDE RECORDS SUMMARY | 2024-11-19 02:14 | XMS_ITS | Clinical Summary ---
Author Organization [facility] Address [address] [place] [address] Care Team Providers Care Conference Interpreter Name Role Phone Tanna Lindsey DRIVER SUPERVISOR Unavailable [phone] Tanna Lindsey DRIVER SUPERVISOR Unavailable Tran Peacock Primary Care Provider [phone] Allergies Active Allergy Reactions Criticality Noted Date Comments Codeine Nausea And Vomiting 03/17/2008 Pill form causes n/v Lactose *Unknown 02/12/2016 Patient has eye issues Meperidine Nausea And Vomiting 11/30/2008 Demerol Tetanus And Diphther. Tox (Pf) Fever,Angioedema 02/11/2008 Medications nebulizer accessories kitIndications:AUTOGRAPHER D exacerbation (HC) For home use. Length of need: lifelong 1 Kit 12/08/19 19 Active NebulizerIndicatio ns:COPD exacerbation (HC) Nebulizer, disposable kit x 4, reuseable kit x 1, mask x 1, filters x 1. To use: daily; Medication: duoneb Length of need: 99 months 1 Device 12/19/19 21 Active Walker - 4 wheelsIndications: Chronic midline low back pain without sciatica With a seat. For home use. Length of need: 99 1 Each 02/29/20 21 Active Elevated Toilet Seat with ArmsIndications:Ch ronic midline low back pain without sciatica For home use. 1 Each 02/29/20 21 Active Chair LiftIndications:Ch ronic midline low back pain without sciatica For home use. 1 Each 02/29/20 21 Active TENS unit and electrodes cmpkIndications:Ch ronic bilateral low back pain without sciatica As directed. Use TENS unit for 10-20 minutes once to twice daily as needed for back pain. 1 Each 03/21/20 22 Active cyanocobalamin (Vitamin B-12) 1,000 mcg tabletIndications: B12 deficiency Take 1 Tablet (1,000 mcg) by mouth once daily. 90 Tablet 3 03/04/20 23 Active diclofenac topical (Voltaren) 1 % gelIndications:Chr onic pain disorder Apply 2 grams topically to affected painful area twice daily as needed for arthritis pain 100 g 2 03/04/20 23 Active ferrous sulfate 325 mg delayed release tabletIndications: Low ferritin,Right foot pain,Foot pain, right Take 1 Tablet (325 mg) by mouth once daily with a meal. 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 07/26/19 25 Active acetaminophen (TYLENOL EXTRA STRGTH) 500 mg tabletIndications: Neck pain, chronic Take 2 Tablets (1,000 mg) by mouth three times daily. 168 Tablet 11 07/26/19 25 Active albuterol-ipratrop ium (DUONEB) (2.5-0.5 mg) in 3 mL NEBULIZATION solutionIndication s:COPD exacerbation (HC) Inhale 3 mL via a nebulizer 4 times daily if needed (wheezing/coug pedrito/shortness of breath). 270 mL 5 07/26/19 25 Active amLODIPine (NORVASC) 10 mg tabletIndications: Hypertension Take 1 Tablet (10 mg) by mouth once daily. 90 Tablet 07/26/19 25 Active atorvastatin (LIPITOR) 20 mg tabletIndications: Hypercholesterolem ia Take 1 Tablet (20 mg) by mouth once daily. 90 Tablet 07/26/19 25 Active beclomethasone dipropionate (Qvar RediHaler) 80 mcg/actuation HFAb HFA inhalerIndications :Pulmonary emphysema, unspecified emphysema type (HC) Inhale 1 Puff by mouth two times daily. Doesn't need a spacer or shaking. 2 Each 07/26/19 25 Active docusate (COLACE) 100 mg capsuleIndications :Chronic constipation Take 1 Capsule (100 mg) by mouth two times daily. 180 Capsule 07/26/19 25 Active metoprolol tartrate (LOPRESSOR) 50 mg tabletIndications: Hypertension Take 1 Tablet (50 mg) by mouth two times daily. 180 Tablet 07/26/19 25 Active multivitamin (MVI) tabletIndications: Age-related osteoporosis without current pathological fracture Take 1 Tablet by mouth once daily. 90 Tablet 07/26/19 25 Active omeprazole (PRILOSEC) 40 mg Delayed-Release capsuleIndications :Chronic GERD Take 1 Capsule (40 mg) by mouth once daily before a meal. 90 Capsule 07/26/19 25 Active polyethylene glycoL (MIRALAX) 17 gram/scoop powderIndications: Chronic constipation Mix 1 scoop (17 g) in liquid then take by mouth once daily if needed for Constipation. 1530 g 07/26/19 25 Active pramipexole (MIRAPEX) 0.75 mg tabletIndications: Restless legs syndrome (RLS) TAKE 1 TABLET BY MOUTH DAILY (2-3 HOURS BEFORE BEDTIME) 90 Tablet 07/26/19 25 Active sertraline (ZOLOFT) 100 mg tabletIndications: Anxiety Take 1 Tablet (100 mg) by mouth once daily in the morning. 90 Tablet 07/26/19 25 Active tiZANidine (ZANAFLEX) 2 mg tabletIndications: Chronic pain disorder Take 2 Tablets (4 mg) by mouth three times daily. 180 Tablet 07/26/19 25 Active tiZANidine (ZANAFLEX) 2 mg tabletIndications: Chronic pain disorder Take two tablets (4mg) once daily in addition to scheduled doses if needed. 90 Tablet 3 07/26/19 25 Active traZODone (DESYREL) 100 mg tabletIndications: Insomnia, idiopathic Take 1 Tablet (100 mg) by mouth at bedtime if needed for Sleep. 90 Tablet 3 07/26/19 25 Active umeclidinium-vilan teroL (Anoro Ellipta) 62.5-25 mcg/actuation inhalerIndications :COPD exacerbation (HC) Inhale 1 Puff by mouth once daily. 180 Each 07/26/19 25 Active magnesium oxide (MAG-OX 400) 400 mg tabletIndications: Muscle cramp, nocturnal Take 1 Tablet (400 mg) by mouth once daily. 90 Tablet 3 07/26/19 25 Active food supplemt, lactose-reduced (Boost Women) 0.06 gram- 0.8 kcal/mL liqdIndications:Mi ld malnutrition (HC) Take by mouth once daily. 43946 mL 3 08/23/19 25 Active albuterol HFA 90 mcg/actuation inhalerIndications :Panlobular emphysema (HC) INHALE 2 PUFFS BY MOUTH 4 TIMES DAILY NEEDED. Please provide 2 inhalers at each fill. 36 g 11 10/12/19 25 Active buprenorphine 10 mcg/hr 10 mcg/hour transdermal patch 07/29/19 25 Active Tab-A-Myles 10/22/19 25 Active cholecalciferol (Vitamin D3) 2,000 unit tablet 10/22/19 25 Active Lidocaine Pain Relief 4 % topical patch 05/14/20 24 Active Icy Hot 30-10 % topical cream 05/13/20 24 Active Mucus Relief ER 600 mg Extended-Release tablet 09/17/19 25 Active benzonatate 100 mg capsule 10/07/19 25 Active nebulizer and compressorIndicati ons:Panlobular emphysema (HC) For home use. Length of need: 12 months 1 Each 11/13/19 25 Active fexofenadine 180 mg tabletIndications: Environmental allergies Take 180 mg by mouth once daily. Do not crush or chew. 90 Tablet 3 11/13/19 25 Active miscellaneous medical supply miscIndications:Pa nlobular emphysema (HC) As directed. Face mask for nebulizer and oxygen 2 Each 11/13/19 25 Active predniSONE 20 mg tabletIndications: COPD exacerbation (HC) Take 2 Tablets (40 mg) by mouth once daily with a meal. 10 Tablet 11/13/19 25 Active cetirizine (ZYRTEC) 10 mg tabletIndications: Seasonal allergies Take 1 Tablet (10 mg) by mouth once daily. 90 Tablet 3 07/26/19 25 025 Discontin ued(*Med complete/ Regimen complete/ Level of care change) Active Problems Problem Noted Date Diagnosed Date [...] pain disorder 11/09/2008 Headache(784.0) 09/08/2008 Gastroparesis 11/27/2005 Overview (11/27/2005): 05/10 Pure hypercholesterolemia 11/27/2005 Unspecified essential hypertension 11/27/2005 Lumbago 11/27/2005 Overview (11/27/2005): Chronic Acute pancreatitis 11/27/2005 Overview (11/27/2005): 05/10 Agoraphobia with panic disorder 11/27/2005 Resolved Problems Problem Noted Date Diagnosed Date Resolved Date Fracture of left hip 01/17/2014 020 Encounters Date Type Department Care Team Description 11/12/2024 11:35 AM CDT Office Visit [address] [address] Tran Peacock PA Shortness Of Breath (When lifting arms above head gets short of Breath. When walking having O2 sats drop. Currently on 3 liters nasal canula when out. ) 11/12/2024 Travel 11/09/2024 Travel 10/27/2024 Travel 10/21/2024 Travel 10/14/2024 11:20 AM CDT Office Visit [address] [address] Italo Carlos MD Musculoskeletal Problem (Follow up bilateral knee pain wanting Synvisc one injections today) 10/13/2024 Travel 10/11/2024 11:30 AM CDT Ancillary Procedure [address] [address] 10/11/2024 10:45 AM CDT Office Visit [address] [address] Tran Peacock PA Follow Up (Concerns about Breathing. Needs O2 Sensors) 10/11/[address] [address] Tran Peacock PA Screening (TB/Cough) 10/11/2024 Travel 10/08/2024 Travel 10/01/[address] [address] Italo Carlos MD Referral 09/27/[address] [address] Armando Sheridan MD Refill Request 09/24/[address] [address] Armando Sheridan MD Refill Request (Calcitonin [place] (200 Units Per Actuation) Nasal) 09/07/2024 Refill [facility] [address] [place] [address] Tran Peacock PA Refill Request (ALBUTEROL AER HFA) 2024 Refill [facility] [address] [place] [address] Tran Peacock PA Refill Request (CALCITONIN SPR 200/ACT) 08/24/2024 Telephone [facility] [address] [place] [address] Tran Peacock PA verbal orders from Last 3 Months Immunizations Immunization Administration Dates Next Due COVID-19 vaccine (Moderna 100mcg/0.5mL) RINA MOLINA 12/13/2021,05/14/2021,11/10/2020,10/13 Influenza A (H1N1), Inactiva ruba (Age >=3 Years) 08/10/2009 Influenza, High-dose Inactivated 04/13/2024 Influenza, High-dose Quadriv alent Inactivated 04/01/2023 Influenza, IIV3 (Age 6-35 mos) 05/06/2011 Influenza, IIV3 (Age >=3 years) 03/23/20 12,05/06/2011,04/06/2010,03/30,04/28/2008,04/12/2004 Influenza, IIV4 04/28/2017, 6,05/01/2015,05/09 Influenza, Inactivated AIIV4 (Age 65+ Years) Preserv Free 03/07/2022,03/14/2021 Influenza, Inactivated IIV3 (Age 65+ Years) Preserv Free 03/23/2018 Pneumococcal Conj 20-valent (Prevnar 20) 10/16/2023 Pneumococcal Poly,23-Valent (Pneumovax) 03/02/2018,07/07/2005 Pneumococcal conj 13-Valent (Prevnar 13) 05/01/2015 RSV, Recombinant ADJ Reconst ituted (Arexvy 120MCG/0.5mL) 04/01/2023 Td (Age >=7 Years) 07/07/2001 Zoster (Shingrix-RZV, [...] Answer Date Recorded PHQ-2 TOTAL SCORE 2 07/26/2024 Social Connections Answer Date Recorded Do you often feel lonely or isolated from those around you? 0 07/26/2024 Financial Resource Strain Answer Date R ecorded Difficulty of Paying Living Expenses 3 07/26/2024 Difficulty of Paying Living Expenses Not on file 07/26/2024 Food Insecurity Answer Date Recorded Do you worry your food will run out before you are able to buy more? 1 07/26/2024 Transportation Needs Answer Date Record ed Does lack of transportation keep you from medica l appointments? 1 07/26/2024 Does lack of transportation keep you from work, meetings or getting things that you need? 1 07/26/2024 Housing Stability Answer Date Recorded What is your housing situation today? 1 07/26/2024 Utilities Answer Date Recorded Do you have trouble paying f or utilities (for example, heat, electricity, water, phone)? 1 07/26/2024 Comments No Sex and Gender Information Value Date Recorded Sex Assigned at Female 05/29/2021 2:25 AM SET DESIGNER Legal Sex Female 5:21 AM SET DESIGNER Gender Identity Female 05/29/2021 2:25 AM SET DESIGNER Sexual Orientation Straight 05/29/2021 2: 25 AM SET DESIGNER Occupation Industry Job Start Date Job End Date disabled Not on file Not on file Not on file Obstetrics History Para Term AB IAB SAB Ectopic Multiple Livin g Live Births 5 3 3 0 2 0 2 0 0 2 Date Outcome GA Total Labor Labor/2nd/3rd Weight Sex Type Anes PTL Fabi A1 A5 Name Clin Term Term Term SAB SAB Last Filed Vital Signs Vital Sign Reading Time Taken Comments Blood Pressure 128/78 11/12/2024 11:31 AM CDT Pulse 72 11/12/2024 11:31 AM CDT Temperature 36.4 C (97.5 F) 10/14/2024 11:20 AM CDT Respiratory Rate 16 01/13/2020 12:27 PM CDT Oxygen Saturation 97% 11/12/2024 11:31 AM CDT 3 liters Inhaled Oxygen Concentration - - Weight 44.9 kg (99 lb) 11/12/2024 11:31 AM CDT Height 147.3 cm (4' 10) 10/19/2021 11:06 AM CDT Body Mass Index 20.69 10/19/2021 11:06 AM CDT Plan of Treatment Upcoming Encounters Date Type Department Care Team (Late st Contact Info) Description 12/01/2024 12:00 PM CDT Appointment [facility] [address] [place] [address] 12/01/2024 1:00 PM CDT Appointment [facility] [address] [place] [address] 12/01/2024 1:30 PM CDT Appointment [facility] [address] [place] [address] 04/18/2025 11:00 AM CDT Office Visit [facility] [address] [place] [address] Italo Carlos MD [address] [place] [address] Health Maintenance Due Date Last Done Comments BMI (ht and wt on same day) for age 18+ 10/19/2022 10/19/2021, 06/05/2021, 06/01/2021, Additional history exists Mammogram for age 45-75 07/16/2023 07/16/19, 03/06/2021, 03/24/[address] (for lung CA) ag e 50-80 01/09/2024 01/08/2023, 11/06/2021 COVID-19 vaccine series (2023- season) 2024 04/13/2024, 10/16/2023, 04/21/2023, Additional history exists Depression screening for age 12+ 07/26/2025 07/26/19 Medicare Wellness for age 65+ 07/27/2025, 10/19/2021, 01/19/2020, Additional history exists Fecal testing sDNA-FIT ([place] guard) for age 45-75 03/24/2026 03/24/2023 Lipids for age 45-75 07/26/2029 07/26/2024, 03/04/2023, 10/19/2021, Additional history exists Hepatitis C screening for ag e 18-79 Completed 01/19/2020 Zoster (shingles) series for age 50+ Completed 12/12/2021, 03/29/2021 RSV vaccine for adults or Completed 04/01/2023 Pneumococcal series for age 50+ Completed 10/16/2023, 03/02/2018, 05/01/2015, Additional history exists Influenza Vaccine Completed 04/13/2024, , 03/14/2021, Additional history exists DEXA/DXA scan for age 65+ Completed 2024, 03/06/2021, 03/17/2008 Medical Devices Implanted Type Area Hand Welt Butter Device Identifier Shelf Expiration Date Model / Serial / Lot Screw Sm Joint 4.5x38mm Versanail Jeremiah - [id number] Implanted:Qty: 1 on 01/17/2014 by Justen Chavez MD at [facility] Ortho Imp.,Screw s & Plates Left: Hip BIOMET TRAUMA [id number]# / / Plate 4 Holeacemedical - [id number] Implanted:Qty: 1 on 01/17/2014 by Justen Chavez MD at [facility] Ortho Imp.,Screw s & Plates Left: Hip BIOMET TRAUMA [id number].# / / Screw Fem 100mm 135deg Biomet Captured - [id number] Implanted:Qty: 1 on 01/17/2014 by Justen Chavez MD at [facility] Ortho Imp.,Screw s & Plates Left: Hip BIOMET TRAUMA [id number]# / / Screw Sm Joint 4.5x42mm Versanail Jeremiah - [id number] Implanted:Qty: 1 on 06/15/2014 by Justen Chavez MD at [facility] Ortho Imp.,Screw s & Plates Right: Hip BIOMET TRAUMA [id number]# / / Plate 4 Holeacemedical - [id number] Implanted:Qty: 1 on 06/15/2014 by Justen Chavez MD at [facility] Ortho Imp.,Screw s & Plates Right: Hip BIOMET TRAUMA 57743.# / / Screw Fem 100mm 135deg Biomet Captured - [id number] Implanted:Qty: 1 on 06/15/2014 by Justen Chavez MD at [facility] Ortho Imp.,Screw s & Plates Right: Hip BIOMET TRAUMA [id number]# / / Screw Sm Joint 4.5x40mm Versanail Jeremiah - [id number] Implanted:Qty: 3 on 01/17/2014 by Justen Chavez MD at [facility] Left: Hip BIOMET TRAUMA [id number]# / / Screw Sm Joint 4.5x40mm Versanail Jeremiah - [id number] Implanted:Qty: 2 on 06/15/2014 by Justen Chavez MD at [facility] Right: Hip BIOMET TRAUMA [id number]# / / Pin Guide [id number] Threaded - [id number] Implanted:Qty: 2 on 06/15/2014 at [facility] BIOMET TRAUMA [id number]# / / Explanted Type Area Hand Welt Butter Device Identifier Shelf Expiration Date Model / Serial / Lot Screw Sm Joint 4.5x44mm Versanail Jeremiah - [id number] Explanted:Qty: 1 on 01/17/2014 by Justen Chavez MD at [facility] Ortho Imp.,Screws & Plates Left: Hip BIOMET TRAUMA [id number]# / / Screw Sm Joint 4.5x36mm Versanail Jeremiah - [id number] Explanted:Qty: 1 on 06/15/2014 by Justen Chavez MD at [facility] Ortho Imp.,Screws & Plates Right: Hip BIOMET TRAUMA [id number]# / / Procedures Procedure Name Priority Date/Time Associated Diagnosis Comments [place] ECG ROUTINE ECG W/LEAST 12 LDS W/I&R Routine 11/12/2024 2:23 PM CDT Exertional dyspnea [place] READING EKG - NO CHARGE, COMP ONLY Routine 11/12/2024 2:22 PM CDT Exertional dyspnea XR SPINE THORACIC 2 VIEWS Routine 10/11/2024 11:46 AM CDT Compression fracture of thoracic vertebra with routine healing, unspecified thoracic vertebral level, subsequent encounter XR DXA BONE DENSITY 1 SITE AXIAL AND 1 SITE PERIPHERAL Routine 08/03/2024 2:14 PM SET DESIGNER Age-related osteoporosis without current pathological fracture LIPID PANEL W REFLEX MEASURED LDL Routine 07/26/2024 2:09 PM SET DESIGNER Hypercholesterolemia SDNA-FIT EXTERNAL (COLOGUARD) Routine 03/24/2023 7:30 AM CDT Screening for colon cancer CT CHEST SCREENING LOW DOSE WO CONTRAST Routine 01/08/2023 11:25 AM CDT Encounter for screening for lung cancer Smoker XR MAMMO LEATHA BILAT SCREEN Routine 07/16/2022 1:20 PM SET DESIGNER Visit for screening mammogram ANTI HCV Routine 01/19/2020 11:30 AM CDT Encounter for hepatitis C screening test for low risk patient from Last 3 Months or Most Recently Relevant to Health Maintenance Results * [place] ECG ROUTINE ECG W/LEAST 12 LDS W/I&R (11/12/2024 2:23 PM CDT) Tran GONZALEZ PB - CARDIOVASCULAR SYSTE M SERVICES Final Result * [place] READING EKG - NO CHARGE, COMP ONLY (11/12/2024 2:22 PM CDT) us Tran GONZALEZ PB - PROVIDER READINGS Fi nal Result * XR SPINE THORACIC 2 VIEWS (10/11/2024 11:46 AM CDT) Anatomical Region Laterality Modality Spine, THORACIC SPINE Computed R adiography 10/11/2024 2:19 PM CDT Impressions 10/11/2024 2:19 PM CDT Healing thoracic vertebral body fractures. Right 7th rib fracture. Dictated by Jared Toledo MD @ 10/11/2024 2:19:32 PM (Electronically Signed) Narrative 10/11/2024 2:19 PM CDT For Patients: As a result of the Cures Act, medical imaging exams and procedure reports are released immediately into your electronic medical record. You may view this report before your referring provider. If you have questions, please contact your health care provider. INDICATION: Compression fracture of thoracic vertebra with routine healing TECHNIQUE: 2-view thoracic spine. COMPARISON: 08/13/2024 FINDINGS: Interval healing sclerosis regarding 2 of the midthoracic spine vertebral body compression fractures. Additional chronic compression deformities noted elsewhere. No pleural effusion. Right 7th rib fracture is present. Procedure Note Jared Toledo MD - 10/11/2024 For Patients: As a result of the Cures Act, medical imagingexams and procedure reports are released immediately into your electronicmedical record. You may view this report before your referring provider.If you have questions, please contact your health care provider. INDICATION: Compression fracture of thoracic vertebra with routine healing TECHNIQUE: 2-view thoracic spine. COMPARISON: 08/13/2024 FINDINGS: Interval healing sclerosis regarding 2 of the midthoracic spine vertebralbody compression fractures. Additional chronic compression deformitiesnoted elsewhere. No pleural effusion. Right 7th rib fracture is present. IMPRESSION: Healing thoracic vertebral body fractures. Right 7th rib fracture. Dictated by Jared Toledo MD @ 10/11/2024 2:19:32 PM (Electronically Signed) us Tran [facility] Final Res ult * (ABNORMAL) XR DXA BONE DENSITY 1 SITE AXIAL AND 1 SITE PERIPHERAL (08/03/2024 2:14 PM SET DESIGNER) Anatomical Region Laterality Modality LUMBAR SPINE Other Impressions 08/10/2024 1:46 PM SET DESIGNER Osteoporosis. RECOMMENDATIONS: The National Osteoporosis Foundation recommends [...] to assess therapeutic efficacy. Alize Abdalla PA-C [facility] 08/10/2024 Narrative 08/10/2024 1:46 PM SET DESIGNER For Patients: Results are automatically released to your [facility] account once available, in compliance with federal regulations. This means that you may see your results before your provider has had a chance to review them. Please allow 2-3 business days for your provider to comment on the results. XR DXA Bone Mineral Density (BMD) EXAM LOCATION: [address] [address] PATIENT NAME: Sarai Carcamo DATE OF : 1950 EXAM DATE: 08/03/2024 REQUESTING PROVIDER: Tran Peacock PA GENDER AT : female HEIGHT: 4' 10 (10/19/2021) WEIGHT: 105 lb (07/26/2024) MENOPAUSAL STATUS: Postmenopausal RACE/ETHNICITY: White RISK FACTORS: Alcohol > 3 drinks/day (prior), Family History of Osteoporosis, Family History of Hip Fracture (parental), History of Fragility Fracture (at a major site), Menopause < Age 40, Smoking (prior), Steroid Medication (non-topical), Weight < 127 lbs., White Race, and Hx of Gastroparesis - extended length CURRENT MEDICATION FOR BONE LOSS: NONE INDICATION: Follow-up of existing osteoporosis COMPARISON DATE(S): 2020 DXA scans are compared to prior studies for a patient only when the two (or more) studies were performed on the same scanner. It is not possible to compare data generated on one scanner to data from another because there are not standards in DXA equipment. This applies even if the two scanners are made by the same marine oiler. PROCEDURE: Dual-energy x-ray absorptiometry performed with routine technique. Reporting is completed in the form of a T-score. The T-score represents the standard deviation from peak bone mass based on young healthy adult. A Z-score is used for diagnosis in premenopausal women, and for men under the age of 50. FINDINGS: RESULT LUMBAR SPINE L1 - L4 BMD: 1.071 g/cm2 T-Score: - 1.0 Z-Score: + 1.3 Change from prior in 2020: Increase 6.9%. RESULT FOREARM Left Forearm distal radius BMD: 0.430 g/cm2 T-Score: - 5.1 Z-Score: - 3.1 Change from prior in 2020: Increase 61.7%. WHO criteria: Normal: T-score at or above -1 SD Osteopenia: T-score between -1.1 and -2.4 SD Osteoporosis: T-score at or below -2.5 SD us Tran GONZALEZ DEXA Final Res ult * LIPID PANEL W REFLEX MEASURED LDL (07/26/2024 2:09 PM SET DESIGNER) [facility] CHOLESTEROL, TOTAL 168 <200 mg/dL [facility] HDL CHOLESTEROL 87 > OR = 50 mg/dL [facility] TRIGLYCERIDES 111 <150 mg/dL [facility] LDL-CHOLESTEROL 62 mg/dL (calc) [facility] Comment: Reference range: <100 Desirable range <100 mg/dL for primary prevention; <70 mg/dL for patients with CHD or diabetic patients with > or = 2 CHD risk factors. LDL-C is now calculated using the Radha calculation, which is a validated novel method providing better accuracy than the Friedewald equation in the estimation of LDL-C. Clement BRO et al. JERI. 2013;310(19): 6464-6471 (http://education.Reasult.Twitt2go/faq/BAY970) CHOL/HDLC RATIO 1.9 <5.0 (calc) [facility] NON HDL CHOLESTEROL 81 <130 mg/dL (calc) [facility] Comment: For patients with diabetes plus 1 major ASCVD risk factor, treating to a non-HDL-C goal of <100 mg/dL (LDL-C of <70 mg/dL) is considered a therapeutic option. Blood BLOOD SPECIMEN / Unknown 07/26/2024 2:09 PM SET DESIGNER 07/26/2024 2:10 PM SET DESIGNER Tran GONZALEZ CHEMISTRY Final Res ult [facility] [address] [place] [address], [facility] [address] [place] [address] * SDNA-FIT EXTERNAL (COLOGUARD) (03/24/2023 7:30 AM CDT) NONINV COLON CA DNA+OCC BLD SCRN STL-IMP Negative Negative 03/28/2023 4:38 PM CDT [facility] (CLIA #:[id number]) Comment: NEGATIVE TEST RESULT. A negative Cologuard result indicates a low likelihood that a colorectal cancer (CRC) or advanced adenoma (adenomatous polyps with more advanced pre-malignant features) is present. The chance that a person with a negative Cologuard test has a colorectal cancer is less than 1 in 1500 (negative predictive value >99.9%) or has an advanced adenoma is less than 5.3% (negative predictive value 94.7%). These data are based on a prospective cross-sectional study of 10,000 individuals at average risk for colorectal cancer who were screened with both Cologuard and colonoscopy. (Eduin Concepcion al, N Engl J Med 2014;370(14):8489-4077) The normal value (reference range) for this assay is negative. COLOGUARD RE-SCREENING RECOMMENDATION: Periodic colorectal cancer screening is an important part of preventive healthcare for asymptomatic individuals at average risk for colorectal cancer. Following a negative Cologuard result, the [place] [employer] and U.S. Multi-Society Task Force screening guidelines recommend a Cologuard re-screening interval of 3 years. References: [place] [employer] Guideline for Colorectal Cancer Screening: https://www.cancer.org/cancer/ymxub-hgfqcw-nldccw/nsbsclqzy-hddjhiifu-xpdtans/ac s-rec ommendations.html.; Angus BALES, Adria SERNA, Joaquim BOWLING, Colorectal Cancer Screening: Recommendations for Physicians and Patients from the U.S. Multi-Society Task Force on Colorectal Cancer Screening , Am J Gastroenterology 2017; 112:0732-8549. TEST DESCRIPTION: Composite algorithmic analysis of stool DNA-biomarkers with hemoglobin immunoassay. Quantitative values of individual biomarkers are not [...] (Eduin Concepcion al, N Engl J Med 2014;370(14):4863-8185.) Cologuard may produce a false negative or false positive result (no colorectal cancer or precancerous polyp present at colonoscopy follow up). A negative Cologuard test result does not guarantee the absence of CRC or advanced adenoma (pre-cancer). The current Cologuard screening interval is every 3 years. ([place] [employer] and U.S. Multi-Society Task Force). Cologuard performance data in a 10,000 patient pivotal study using colonoscopy as the reference method can be accessed at the following location: www.exactlabs.com/results. Additional description of the Cologuard test process, warnings and precautions can be found at www.cologuard.com. Stool specimen (specimen) (Rectum) 03/24/2023 7:30 AM CDT 03/25/2023 8:43 PM CDT Tran GONZALEZ URINE Final Res ult [facility] (CLIA #:[id number]) [place] [address], [place] [phone] * CT CHEST SCREENING LOW DOSE WO [...] dose to as low as reasonably achievable. Dictated by: Jared Toledo MD @01/08/2023 11:47:44 AM/jayde Narrative 01/09/2023 9:22 AM CDT For Patients: As a result of the Century Cures Act, medical imaging exams and procedure [...] chronic wedge compression deformities. Valeri GONZALEZ CT Final Resu lt * XR MAMMO LEATHA BILAT SCREEN (07/16/2022 1:20 PM SET DESIGNER) Anatomical Region Laterality Modality BREASTS, Breast Left, Breast Right Bilateral Mammography Impressions 07/17/2022 1:58 PM SET DESIGNER There is no radiographic evidence for malignancy. Recommend annual mammograms. MAMMOGRAM ASSESSMENT: ACR 1 Negative PATIENTS: You will also receive a letter with your examination results in an easy to read format. If you have questions about your results, please contact your referring provider. Narrative 07/17/2022 1:58 PM SET DESIGNER For Patients: As a result of the Century Cures Act, medical imaging exams and procedure reports are released immediately into your electronic medical record. You may view this report before your referring provider. If you have questions, please contact your health care provider. XR MAMMO LEATHA BILAT SCREEN [[id number]] CLINICAL HISTORY: This is an asymptomatic 71 y.o. patient. INDICATION FOR EXAM: Mammogram Screening. TECHNIQUE: CC & MLO views were obtained. This study was evaluated with the assistance of Computer-Aided Detection. Breast Tomosynthesis was used in interpretation. COMPARISON FILM: Yes 03/06/21 [employer] FINDINGS: The breasts are almost entirely fatty. There are no dominant masses, suspicious micro calcifications or areas of architectural distortion. us Valeri Butler PA MAMMO Final Resu lt * ANTI HCV (01/19/2020 11:30 AM CDT) HEPATITIS C ANTIBODY Non-React aris Non-React aris 01/19/2020 8:44 PM CDT [facility] Comment:Antibodies to HCV no t detected; does not exclude the possibility of exposure to HCV. Blood BLOOD SPECIMEN / Unknown Butterfly / Unknown 01/19/2020 11:30 AM CDT 01/19/2020 11:30 AM CDT us David Sorto MD SEND OUTS Final R esult [facility] [address] [place] [address], [place] from Last 3 Months or Most Recently Relevant to Health Maintenance Insurance MEDICARE PART A HB ONLY [facility] Advance Directives Documents on File Type Date Recorded Patient Instrument Technologist Expl anation Healthcare Directive 11/19/2022 023 * [...] 11:27 PM 06/15/2014 11:13 AM Care Teams Conference Interpreter Relationship Specialty Start Date End Date Tran Peacock PA [address] [place] [address] PCP - General Physician Head Trimmer 11/19/22 Tanna Lindsey NP Nurse Practitioner Family Practice 01/20/14 Tanna Lindsey NP [address] [place] [address] Nurse Practitioner Nurse Practitioner 12/13/14
--- OUTSIDE RECORDS SUMMARY | 2024-11-19 02:14 | XMS_ITS | CCD ---
Author Organization Unknown Care Team Providers Care Day Care Supervisor Name Role Phone Jose Alfredo Claudia MARTE Primary Care Provider Yamileth vailable Unavailable Chronic Care Management Unavaila ble Summary Purpose DataExchange Insurance Providers Payer name Policy type / Coverage type Covered libertarian ID Effective Begin Date Effective End Date [employer] Commercial Insurance [id number] [place]kn own [place] [id number] Unk nown Family history Parents, Siblings, Children Diagnosis Age At Onset No Family Disease Entered N/A Social History Social History Element Codes Description Effec tive Dates Marital status Unknown Single 10/15/2023 Living arrangements Unknown Assisted Living 10/[address]: 29060481 Current ever y day smoker 10/15/[address]: 084647871 No Alcohol Consum ption 10/15/2023 Sexually Active? [...] Unknown Yes 10/15/[address]: 79166839 Current ever y day smoker 08/21/[address]: 281090793 No Alcohol Consum ption 08/21/2023 Allergies, Adverse Reactions, Alerts Substance Reaction Codes Entered Date Inactivated Date Status meperidine RxNorm: 001317 08/20/2023 No Inactive D ate Active codeine Unknown 08/20/2023 No Inactive Date Ac tive Demerol RxNorm: 981427 07/23/2023 No Inactive Da te Active Lactose Unknown 08/20/2023 No Inactive Date Ac tive Other: Unknown 07/23/2023 No Inactive Date Ac tive Tetanus-Diphtheria Toxoids Td Unknown 08/20/2023 No Inactive Date Active Problems Condition Codes Effective Dates Condition St atus Chronic low back pain with sciatica ICD- 10: M54.40 ICD-9: 724.2 03/03/2024 Active COPD (chronic obstructive pu lmonary disease) ICD-10: J44.9 ICD-9: 496 03/03/2024 Active Dependence on nicotine from cigarettes ICD-10: F17.210 ICD-9: 305.1 03/03/2024 Active Hypertension ICD-10: I10 ICD-9: 401.9 03/03/2024 Active Non-recurrent acute suppurat aris otitis media of both ears without spontaneous rupture of tympanic membranes ICD-10: H66.003 ICD-9: 382.00 03/03/2024 Resolved Chest congestion ICD-10: R09.89 ICD-9: 786.9 02/26/2024 Active Hypoxia ICD-10: R09.02 ICD-9: 799.02 02/26/2024 Active COPD with acute exacerbation ICD-10: J44 .1 ICD-9: 491.21 01/21/2024 Active Shortness of breath ICD-10: R06.02 ICD-9: 786.05 01/14/2024 Active Encounter for screening exam ination for other mental health and behavioral disorders ICD-10: Z13.39 ICD-9: V79.8 12/31/2023 Resolved Encounter for screening for depression ICD-10: Z13.31 ICD-9: V79.0 12/31/2023 Resolved Encounter for screening, unspecified ICD -10: Z13.9 ICD-9: V82.9 12/31/2023 Resolved Other chronic pain ICD-10: G89.29 12/10/2023 Active 1+ pitting edema ICD-10: R60.9 ICD-9: 782.3 11/12/2023 Active Osteoporosis ICD-10: M81.0 ICD-9: 733.00 10/29/2023 [...] Start Date Stop Date Status Fill Instructions Mucinex 600 mg tablet, extended release RxNorm: 060496 Take 1 Tablet(s) Oral BID as needed for cough/congestion increase hydration with water when taking 03/03/20 24 024 Inactive Mucinex 600 mg tablet, extended release RxNorm: 578313 Take 1 Tablet(s) Oral BID as needed 03/03/20 24 024 Inactive cetirizine 10 mg tablet RxNorm: 5827365 Take 1 Tablet(s) Oral QHS every night at bedtime 01/27/20 24 025 Active 01/27/2024 PROACTIVE REFILL REQUEST FOR NEXT CYCLE PLEASE THANK YOU sertraline 100 mg tablet RxNorm: 445970 Take 1 Tablet(s) Oral QAM every morning 01/27/20 24 025 Active 01/27/2024 PROACTIVE REFILL REQUEST FOR NEXT CYCLE PLEASE THANK YOU docusate sodium 100 mg capsule RxNorm: 5538897 Take 1 Capsule(s) Oral BID 01/27/20 24 025 Active 01/27/2024 PROACTIVE REFILL REQUEST FOR NEXT CYCLE PLEASE THANK YOU ibuprofen 800 mg tablet RxNorm: 453000 Take 1 Tablet(s) Oral BID 01/27/20 24 025 Active 01/27/2024 PROACTIVE REFILL REQUEST FOR NEXT CYCLE PLEASE THANK YOU amlodipine 10 mg tablet RxNorm: 671733 Take 1 Tablet(s) Oral QD 01/27/20 24 025 Active 01/27/2024 PROACTIVE REFILL REQUEST FOR NEXT CYCLE PLEASE THANK YOU omeprazole 40 mg capsule,delayed release RxNorm: 884951 Take 1 Capsule(s) Oral QD BEFORE A MEAL 01/27/20 24 025 Active 01/27/2024 PROACTIVE REFILL REQUEST FOR NEXT CYCLE PLEASE THANK YOU cholecalciferol (vitamin D3) 50 mcg (2,000 unit) tablet RxNorm: 147351 Take 1 Tablet(s) Oral QD 01/27/20 24 025 Active 01/27/2024 PROACTIVE REFILL REQUEST FOR NEXT CYCLE PLEASE THANK YOU ferrous sulfate 325 mg (65 mg iron) tablet,delayed release RxNorm: 838039 Take 1 Tablet(s) Oral QD WITH A MEAL 01/27/20 24 Active 01/27/2024 PROACTIVE REFILL REQUEST FOR NEXT CYCLE PLEASE THANK YOU atorvastatin 20 mg tablet RxNorm: 641598 Take 1 Tablet(s) Oral QD 01/27/20 24 025 Active 01/27/2024 PROACTIVE REFILL REQUEST FOR NEXT CYCLE PLEASE THANK YOU pramipexole 0.75 mg tablet RxNorm: 274132 TAKE 1 TABLET BY MOUTH DAILY (2-3 HOURS BEFORE BEDTIME) 01/27/20 24 025 Active 01/27/2024 PROACTIVE REFILL REQUEST FOR NEXT CYCLE PLEASE THANK YOU metoprolol tartrate 50 mg tablet RxNorm: 796776 Take 1 Tablet(s) Oral BID 01/27/20 24 025 Active 01/27/2024 PROACTIVE REFILL REQUEST FOR NEXT CYCLE PLEASE THANK YOU Belbuca 75 mcg buccal film RxNorm: 7152860 Take 1 Unit(s) Buccal BID Take 1 film buccally twice daily for chronic pain. Do not eat/drink/smoke for 30 minutes after taking 01/26/20 24 Inactive doxycycline hyclate 100 mg capsule RxNorm: 0488512 Take 1 Capsule(s) Oral BID 01/21/20 24 024 Inactive benzonatate 100 mg capsule RxNorm: 964468 Take 1 Capsule(s) Oral TID as needed 01/21/20 24 024 Inactive prednisone 20 mg tablet RxNorm: 622795 Take 2 Tablet(s) Oral QD 01/21/20 24 Inactive doxycycline hyclate 100 mg capsule RxNorm: 5808861 Take 1 Capsule(s) Oral BID 01/14/20 24 024 Inactive doxycycline hyclate 100 mg capsule RxNorm: 5530055 Take 1 Capsule(s) Oral BID 01/14/20 24 024 Inactive prednisone 20 mg tablet RxNorm: 965454 Take 2 Tablet(s) Oral QD 01/14/20 24 Inactive prednisone 20 mg tablet RxNorm: 245899 Take 2 Tablet(s) Oral QD 01/14/20 24 Inactive amoxicillin 875 mg-potassium clavulanate 125 mg tablet RxNorm: 750477 Take 1 Tablet(s) Oral BID 12/31/19 24 024 Inactive amoxicillin 875 mg-potassium clavulanate 125 mg tablet RxNorm: 525840 Take 1 Tablet(s) Oral BID 12/31/19 24 024 Inactive Belbuca 75 mcg buccal film RxNorm: 2266352 Take 1 Unit(s) Buccal BID Take 1 film buccally twice daily for chronic pain. Do not eat/drink/smoke for 30 minutes after taking.? 12/22/19 24 024 Inactive Nicoderm CQ 7 mg/24 hr daily transdermal patch RxNorm: 987390 Apply 1 Patch Transdermal QD 2 weeks (after first 8 weeks) then discontinue. 10/01/19 024 Inactive nicotine (polacrilex) 4 mg buccal lozenge RxNorm: 498837 Take 1 Tablet(s) Buccal UD as directed [...] 7 mg/24 hr daily transdermal patch RxNorm: 488933 Apply 1 Patch Transdermal QD 2 weeks (after first 8 weeks) then discontinue. 10/01/19 024 Inactive Nicoderm CQ 21 mg/24 hr daily transdermal patch RxNorm: 266877 Apply 1 Patch Transdermal QD 10/01/19 24 024 Inactive Nicoderm CQ 21 mg/24 hr daily transdermal patch RxNorm: 879900 Apply 1 Patch Transdermal QD 10/01/19 24 024 Inactive Nicoderm CQ 14 mg/24 hr daily transdermal patch RxNorm: 504215 Apply 1 Patch Transdermal QD 2 weeks (after first 6 weeks) 10/01/19 24 024 Inactive Nicoderm CQ 14 mg/24 hr daily transdermal patch RxNorm: 424044 Apply 1 Patch Transdermal QD 2 weeks (after first 6 weeks) 10/01/19 24 024 Inactive nicotine (polacrilex) 4 mg buccal lozenge RxNorm: 476093 Take 1 Tablet(s) Buccal UD as directed 4 mg- Take 1 piece?buccally Q1 hr PRN for craving x 6 weeks then every 2 hr PRN x 3 weeks then every 4 hr PRN x 3 week. Encourage >9 pieces/day for initial 6 week. Avoid food/drink 15 min before and after use. (Dx: smoking cessation) 10/01/19 24 024 Inactive prednisone 20 mg tablet RxNorm: 929791 Take 2 Tablet(s) Oral QD Take 2 tablets (total 40 mg) in the AM preferred and with food. 08/25/19 24 024 Inactive prednisone 20 mg tablet RxNorm: 788527 Take 2 Tablet(s) Oral QD Take 2 tablets (total 40 mg) in the AM preferred and with food. 08/25/19 24 024 Inactive Vitamin B-12 1,000 mcg tablet RxNorm: 128807 Take 1 Tablet(s) Oral QD 08/21/19 24 No Stop Date Active Qvar RediHaler 80 mcg/actuation HFA breath activated aerosol RxNorm: 5627060 Inhale 1 Puff(s) Inhalation BID 08/21/19 24 No Stop Date Active loperamide 2 mg tablet RxNorm: 049913 Take 2 Tablet(s) Oral with first loose stool then 1 tab after each additional loose stool. Max 8 tabs in 24 hours 08/21/19 No Stop Date Active diclofenac 1 % topical gel RxNorm: 823012 Apply 2 Gram(s) Topical BID as needed 08/21/19 24 No Stop Date Active Tab-A-Myles 400 mcg tablet RxNorm: Take 1 Tablet(s) Oral QD 08/21/19 24 024 Inactive naloxone 4 mg/actuation nasal spray RxNorm: 4450771 Use as directed for accidental overdose 08/21/19 No Stop Date Active pregabalin 50 mg capsule RxNorm: 460175 Take 2 Capsule(s) Oral TID 08/21/19 24 024 Inactive ipratropium 0.5 mg-albuterol 3 mg (2.5 mg base)/3 mL nebulization soln RxNorm: 4938725 Inhale 1 Vial Inhalation QID as needed 08/21/19 No Stop Date Active acetaminophen 500 mg tablet RxNorm: 078056 Take 2 Tablet(s) Oral TID and 2 tabs by mouth daily as needed 08/21/19 No Stop Date Active tizanidine 2 mg tablet RxNorm: 851895 Take 2 Tablet(s) Oral QD as needed 08/21/19 No Stop Date Active Tums 200 mg calcium (500 mg) chewable tablet RxNorm: 412501 Take 2-4 Tablet(s) Oral between meals and at bed time as needed 08/21/19 No Stop Date Active Anoro Ellipta 62.5 mcg-25 mcg/actuation powder for inhalation RxNorm: 9715459 Take 1 Puff(s) Inhalation QD 08/21/19 No Stop Date Active albuterol sulfate HFA 90 mcg/actuation aerosol inhaler RxNorm: 6159818 Take 2 Puff(s) Inhalation QID as needed 08/21/19 024 Inactive tizanidine 4 mg tablet RxNorm: 642245 Take 1 Tablet(s) Oral TID 08/21/19 24 024 Inactive Antacid Anti-Gas 200 mg-200 mg-20 mg/5 mL oral suspension RxNorm: 114389 Take 5-10 Milliliter(s) Oral QD as needed 08/21/19 24 No Stop Date Active Miralax 17 gram/dose oral powder RxNorm: 618133 Take 17 Gram(s) Oral QD as needed 08/21/19 24 No Stop Date Active Milk of Magnesia 400 mg/5 mL oral suspension RxNorm: 386685 Take 15-30 Milliliter(s) Oral QD as needed 08/21/19 24 No Stop Date Active magnesium 400 mg (as magnesium oxide) tablet RxNorm: 836430 Take 1 Tablet(s) Oral QD 08/21/19 24 No Stop Date Active ferrous sulfate 325 mg (65 mg iron) tablet RxNorm: 999417 Take 1 Tablet(s) Oral QD 08/21/19 24 No Stop Date Active trazodone 100 mg tablet RxNorm: 721824 Take 1 Tablet(s) Oral QHS every night at bedtime as needed 08/21/19 24 No Stop Date Active Diphen 25 mg tablet RxNorm: 3090737 Take 1-2 Tablet(s) Oral every 6 hours as needed 08/21/19 24 No Stop Date Active Robafen DM Cough 10 mg-100 mg/5 mL oral liquid RxNorm: 027672 Take 10 Milliliter(s) Oral Q4H every four hours as needed 08/21/19 No Stop Date Active cetirizine 10 mg tablet RxNorm: 8688292 Take 1 Tablet(s) Oral QHS every night at bedtime 08/21/19 24 024 Inactive Belbuca 75 mcg buccal film RxNorm: 6956659 Take 1 Unit(s) Buccal BID 08/21/19 24 024 Inactive docusate sodium 100 mg capsule RxNorm: 1600359 Take 1 Capsule(s) Oral BID 08/21/19 24 024 Inactive omeprazole 40 mg capsule,delayed release RxNorm: 909893 Take 1 Capsule(s) Oral QD 08/21/19 24 024 Inactive alendronate 10 mg tablet RxNorm: 404350 Take 1 Tablet(s) Oral QD 08/21/19 24 024 Inactive amlodipine 10 mg tablet RxNorm: 674780 Take 1 Tablet(s) Oral QD 08/21/19 24 024 Inactive atorvastatin 20 mg tablet RxNorm: 476525 Take 1 Tablet(s) Oral QD 08/21/19 24 024 Inactive pramipexole 0.75 mg tablet RxNorm: 417101 Take 1 Tablet(s) Oral QD 08/21/19 24 024 Inactive sertraline 100 mg tablet RxNorm: 177745 Take 1 Tablet(s) Oral QAM every morning 08/21/19 24 024 Inactive alendronate 10 mg tablet RxNorm: 042601 Take 1 Tablet(s) Oral QD 08/21/19 24 Inactive metoprolol tartrate 50 mg tablet RxNorm: 082141 Take 1 Tablet(s) Oral BID 08/21/19 24 Inactive benzonatate 100 mg capsule RxNorm: 587885 Take 1 Capsule(s) Oral TID as needed 08/21/19 24 Inactive ibuprofen 800 mg tablet RxNorm: 490796 Take 1 Tablet(s) Oral BID 08/21/19 24 Inactive Vitamin D3 50 mcg (2,000 unit) tablet RxNorm: 892258 Take 1 Tablet(s) Oral QD 08/21/19 Inactive [...] Planned Activity Notes Codes Status Date Referral: [facility] WPtel: [address] [place], [place] [id number] [place] Referral No Records Received 11/12/2023 Referral: Carolyn Lassiter Endo crinology [facility] WPtel: [phone] [place], [place] [id number] Referral No Records Received 10/20/2023 Instructions Comment Date 08.20.2023 New [facility] patient vi sit. Pet: Bird BabyAWV: 10.15.2023Labs: (October labs: CMP, CBC, VitD, VitB12, Mg)(April labs: BMP, CBC, lipid panel) 08/16/2024
--- OUTSIDE RECORDS SUMMARY | 2024-11-19 02:15 | XMS_ITS | CCD ---
Author Organization Unknown Care Team Providers Care Therapy Technician Name Role Phone Jose Alfredo Claudia MARTE Primary Care Provider Yamileth vailable Unavailable Chronic Care Management Unavaila ble Summary Purpose DataExchange Insurance Providers Payer name Policy type / Coverage type Covered constitution party ID Effective Begin Date Effective End Date [employer] Commercial Insurance [id number] Unkn own Medicaid [place] Commercial Insurance [id number] Unk nown Family history Parents, Siblings, Children Diagnosis Age At Onset No Family Disease Entered N/A Social History Social History Element Codes Description Effec tive Dates Marital status Unknown Single 10/15/2023 Living arrangements Unknown Assisted Living 10/[address]: 63020736 Current ever y day smoker 10/15/[address]: 776994806 No Alcohol Consum ption 10/15/2023 Sexually Active? [...] Unknown Yes 10/15/[address]: 41304644 Current ever y day smoker 08/21/[address]: 040201556 No Alcohol Consum ption 08/21/2023 Allergies, Adverse Reactions, Alerts Substance Reaction Codes Entered Date Inactivated Date Status meperidine RxNorm: 348330 08/20/2023 No Inactive D ate Active codeine Unknown 08/20/2023 No Inactive Date Ac tive Demerol RxNorm: 690743 07/23/2023 No Inactive Da te Active Lactose Unknown 08/20/2023 No Inactive Date Ac tive Other: Unknown 07/23/2023 No Inactive Date Ac tive Tetanus-Diphtheria Toxoids Td Unknown 08/20/2023 No Inactive Date Active Problems Condition Codes Effective Dates Condition St atus Chronic low back pain with sciatica ICD- 10: M54.40 ICD-9: 724.2 05/19/2024 Active Compression fracture ICD-10: TGT2450 ICD-9: 829.0 05/19/2024 Active Rib pain on left side ICD-10: R07.81 ICD-9: 786.50 05/19/2024 Active Back pain ICD-10: M54.9 ICD-9: 724.5 05/12/2024 Active SOB (shortness of breath) ICD-10: R06.02 ICD-9: 786.05 05/12/2024 Active Thoracic back pain ICD-10: M54.6 ICD-9: 724.1 05/12/2024 Active 1+ pitting edema ICD-10: R60.9 ICD-9: 782.3 04/14/2024 Active COPD (chronic obstructive pu lmonary [...] Start Date Stop Date Status Fill Instructions Tab-A-Myles 400 mcg tablet RxNorm: Take 1 Tablet(s) Oral QD 05/19/20 24 025 Active 05/19/2024 PROACTIVE REFILL REQUEST FOR NEXT CYCLE PLEASE THANK YOU RX has/will before cycle date magnesium oxide 400 mg (241.3 mg magnesium) tablet RxNorm: 855638 Take 1 Tablet(s) Oral QD 05/19/20 24 025 Active 05/19/2024 PROACTIVE REFILL REQUEST FOR NEXT CYCLE PLEASE THANK YOU RX has/will before cycle date tizanidine 4 mg tablet RxNorm: 601036 Take 1 Tablet(s) Oral TID 05/19/20 24 025 Active 05/19/2024 PROACTIVE REFILL REQUEST FOR NEXT CYCLE PLEASE THANK YOU Belbuca 75 mcg buccal film RxNorm: 0488951 Take 1 Unit(s) Buccal BID Take 1 film buccally twice daily for chronic pain. Do not eat/drink/smoke for 30 minutes after taking 05/17/20 24 024 Inactive lidocaine 4 % topical patch RxNorm: 7146021 Topical Apply one patch topically to affected area of body Q12H PRN (apply PM/HS for night and early AM pain). Keep patch on for 12 hours and then off for 12 hours. (compression fracture, pain) 05/14/20 24 025 Inactive lidocaine 4 % topical patch RxNorm: 5002212 Topical Apply one patch topically to affected area of body Q12H PRN (apply PM/HS for night and early AM pain). Keep patch on for 12 hours and then off for 12 hours. 05/14/20 24 Inactive calcitonin (salmon) 200 unit/actuation nasal spray RxNorm: 156596 Mccammon Nasal Administer one spray into one nostril once daily for 14 days (alternate nostrils daily) (compression fracture) 05/12/20 24 024 Inactive Icy Hot 30 %-10 % topical cream RxNorm: 419633 Topical Apply a thin layer topically to affected area (left side/ribs) BID PRN.?(compressio n fracture, pain) 05/12/20 24 025 Inactive calcitonin (salmon) 200 unit/actuation nasal spray RxNorm: 146858 Mccammon Nasal Administer one spray into one nostril once daily for 14 days (alternate nostrils daily) (compression fracture) 05/12/20 24 Inactive Icy Hot 30 %-10 % topical cream RxNorm: 053970 Topical Apply a thin layer topically to affected area (left side/ribs) BID PRN. (compression fracture, pain) 05/12/20 24 024 Inactive Belbuca 75 mcg buccal film RxNorm: 1160199 Take 1 Unit(s) Buccal BID Take 1 film buccally twice daily for chronic pain. Do not eat/drink/smoke for 30 minutes after taking 04/14/20 24 024 Inactive Belbuca 75 mcg buccal film RxNorm: 6652916 Take 1 Unit(s) Buccal BID Take 1 film buccally twice daily for chronic pain. Do not eat/drink/smoke for 30 minutes after taking 03/10/20 24 024 Inactive pregabalin 50 mg capsule RxNorm: 244874 Take 2 Capsule(s) Oral TID 03/09/20 24 024 Inactive Mucinex 600 mg tablet, extended release RxNorm: 366891 Take 1 Tablet(s) Oral BID as needed for cough/congestion increase hydration with water when taking 03/03/20 24 024 Inactive Mucinex 600 mg tablet, extended release RxNorm: 340680 Take 1 Tablet(s) Oral BID as needed 03/03/20 24 Inactive cetirizine 10 mg tablet RxNorm: 9378763 Take 1 Tablet(s) Oral QHS every night at bedtime 01/27/20 24 025 Active 01/27/2024 PROACTIVE REFILL REQUEST FOR NEXT CYCLE PLEASE THANK YOU sertraline 100 mg tablet RxNorm: 235438 Take 1 Tablet(s) Oral QAM every morning 01/27/20 24 025 Active 01/27/2024 PROACTIVE REFILL REQUEST FOR NEXT CYCLE PLEASE THANK YOU docusate sodium 100 mg capsule RxNorm: 2350496 Take 1 Capsule(s) Oral BID 01/27/20 24 025 Active 01/27/2024 PROACTIVE REFILL REQUEST FOR NEXT CYCLE PLEASE THANK YOU ibuprofen 800 mg tablet RxNorm: 239610 Take 1 Tablet(s) Oral BID 01/27/20 24 025 Active 01/27/2024 PROACTIVE REFILL REQUEST FOR NEXT CYCLE PLEASE THANK YOU amlodipine 10 mg tablet RxNorm: 474110 Take 1 Tablet(s) Oral QD 01/27/20 24 025 Active 01/27/2024 PROACTIVE REFILL REQUEST FOR NEXT CYCLE PLEASE THANK YOU omeprazole 40 mg capsule,delayed release RxNorm: 341482 Take 1 Capsule(s) Oral QD BEFORE A MEAL 01/27/20 24 025 Active 01/27/2024 PROACTIVE REFILL REQUEST FOR NEXT CYCLE PLEASE THANK YOU cholecalciferol (vitamin D3) 50 mcg (2,000 unit) tablet RxNorm: 858626 Take 1 Tablet(s) Oral QD 01/27/20 24 025 Active 01/27/2024 PROACTIVE REFILL REQUEST FOR NEXT CYCLE PLEASE THANK YOU ferrous sulfate 325 mg (65 mg iron) tablet,delayed release RxNorm: 306674 Take 1 Tablet(s) Oral QD WITH A MEAL 01/27/20 24 025 Active 01/27/2024 PROACTIVE REFILL REQUEST FOR NEXT CYCLE PLEASE THANK YOU atorvastatin 20 mg tablet RxNorm: 593672 Take 1 Tablet(s) Oral QD 01/27/20 24 025 Active 01/27/2024 PROACTIVE REFILL REQUEST FOR NEXT CYCLE PLEASE THANK YOU pramipexole 0.75 mg tablet RxNorm: 925555 TAKE 1 TABLET BY MOUTH DAILY (2-3 HOURS BEFORE BEDTIME) 01/27/20 24 025 Active 01/27/2024 PROACTIVE REFILL REQUEST FOR NEXT CYCLE PLEASE THANK YOU metoprolol tartrate 50 mg tablet RxNorm: 896883 Take 1 Tablet(s) Oral BID 01/27/20 24 025 Active 01/27/2024 PROACTIVE REFILL REQUEST FOR NEXT CYCLE PLEASE THANK YOU Belbuca 75 mcg buccal film RxNorm: 7881262 Take 1 Unit(s) Buccal BID Take 1 film buccally twice daily for chronic pain. Do not eat/drink/smoke for 30 minutes after taking 01/26/20 24 024 Inactive doxycycline hyclate 100 mg capsule RxNorm: 9875383 Take 1 Capsule(s) Oral BID 01/21/20 24 024 Inactive benzonatate 100 mg capsule RxNorm: 605575 Take 1 Capsule(s) Oral TID as needed 01/21/20 24 024 Inactive prednisone 20 mg tablet RxNorm: 312845 Take 2 Tablet(s) Oral QD 01/21/20 24 024 Inactive doxycycline hyclate 100 mg capsule RxNorm: 3209170 Take 1 Capsule(s) Oral BID 01/14/20 24 024 Inactive doxycycline hyclate 100 mg capsule RxNorm: 9997550 Take 1 Capsule(s) Oral BID 01/14/20 24 024 Inactive prednisone 20 mg tablet RxNorm: 102979 Take 2 Tablet(s) Oral QD 01/14/20 24 024 Inactive prednisone 20 mg tablet RxNorm: 744450 Take 2 Tablet(s) Oral QD 01/14/20 24 024 Inactive amoxicillin 875 mg-potassium clavulanate 125 mg tablet RxNorm: 766096 Take 1 Tablet(s) Oral BID 12/31/19 24 024 Inactive amoxicillin 875 mg-potassium clavulanate 125 mg tablet RxNorm: 691972 Take 1 Tablet(s) Oral BID 12/31/19 24 024 Inactive Belbuca 75 mcg buccal film RxNorm: 6104587 Take 1 Unit(s) Buccal BID Take 1 film buccally twice daily for chronic pain. Do not eat/drink/smoke for 30 minutes after taking.? 12/22/19 24 024 Inactive Nicoderm CQ 7 mg/24 hr daily transdermal patch RxNorm: 421797 Apply 1 Patch Transdermal QD 2 weeks (after first 8 weeks) then discontinue. 10/01/19 024 Inactive nicotine (polacrilex) 4 mg buccal lozenge RxNorm: 620005 Take 1 Tablet(s) Buccal UD as directed [...] 7 mg/24 hr daily transdermal patch RxNorm: 439964 Apply 1 Patch Transdermal QD 2 weeks (after first 8 weeks) then discontinue. 10/01/19 24 024 Inactive Nicoderm CQ 21 mg/24 hr daily transdermal patch RxNorm: 929273 Apply 1 Patch Transdermal QD 10/01/19 24 024 Inactive Nicoderm CQ 21 mg/24 hr daily transdermal patch RxNorm: 714574 Apply 1 Patch Transdermal QD 10/01/19 24 024 Inactive Nicoderm CQ 14 mg/24 hr daily transdermal patch RxNorm: 172620 Apply 1 Patch Transdermal QD 2 weeks (after first 6 weeks) 10/01/19 24 024 Inactive Nicoderm CQ 14 mg/24 hr daily transdermal patch RxNorm: 065088 Apply 1 Patch Transdermal QD 2 weeks (after first 6 weeks) 10/01/19 24 024 Inactive nicotine (polacrilex) 4 mg buccal lozenge RxNorm: 934182 Take 1 Tablet(s) Buccal UD as directed 4 mg- Take 1 piece?buccally Q1 hr PRN for craving x 6 weeks then every 2 hr PRN x 3 weeks then every 4 hr PRN x 3 week. Encourage >9 pieces/day for initial 6 week. Avoid food/drink 15 min before and after use. (Dx: smoking cessation) 10/01/19 24 024 Inactive prednisone 20 mg tablet RxNorm: 991893 Take 2 Tablet(s) Oral QD Take 2 tablets (total 40 mg) in the AM preferred and with food. 08/25/19 24 024 Inactive prednisone 20 mg tablet RxNorm: 661571 Take 2 Tablet(s) Oral QD Take 2 tablets (total 40 mg) in the AM preferred and with food. 08/25/19 24 024 Inactive Vitamin B-12 1,000 mcg tablet RxNorm: 203923 Take 1 Tablet(s) Oral QD 08/21/19 24 No Stop Date Active Qvar RediHaler 80 mcg/actuation HFA breath activated aerosol RxNorm: 6697458 Inhale 1 Puff(s) Inhalation BID 08/21/19 24 No Stop Date Active loperamide 2 mg tablet RxNorm: 080372 Take 2 Tablet(s) Oral with first loose stool then 1 tab after each additional loose stool. Max 8 tabs in 24 hours 08/21/19 24 No Stop Date Active diclofenac 1 % topical gel RxNorm: 397005 Apply 2 Gram(s) Topical BID as needed 08/21/19 24 No Stop Date Active Tab-A-Myles 400 mcg tablet RxNorm: Take 1 Tablet(s) Oral QD 08/21/19 24 024 Inactive naloxone 4 mg/actuation nasal spray RxNorm: 6189506 Use as directed for accidental overdose 08/21/19 24 No Stop Date Active ipratropium 0.5 mg-albuterol 3 mg (2.5 mg base)/3 mL nebulization soln RxNorm: 1760486 Inhale 1 Vial Inhalation QID as needed 08/21/19 24 No Stop Date Active acetaminophen 500 mg tablet RxNorm: 320905 Take 2 Tablet(s) Oral TID and 2 tabs by mouth daily as needed 08/21/19 24 No Stop Date Active tizanidine 2 mg tablet RxNorm: 919323 Take 2 Tablet(s) Oral QD as needed 08/21/19 24 No Stop Date Active Tums 200 mg calcium (500 mg) chewable tablet RxNorm: 623955 Take 2-4 Tablet(s) Oral between meals and at bed time as needed 08/21/19 No Stop Date Active Anoro Ellipta 62.5 mcg-25 mcg/actuation powder for inhalation RxNorm: 6352315 Take 1 Puff(s) Inhalation QD 08/21/19 24 No Stop Date Active albuterol sulfate HFA 90 mcg/actuation aerosol inhaler RxNorm: 5109760 Take 2 Puff(s) Inhalation QID as needed 08/21/19 24 Inactive tizanidine 4 mg tablet RxNorm: 107941 Take 1 Tablet(s) Oral TID 08/21/19 024 Inactive Antacid Anti-Gas 200 mg-200 mg-20 mg/5 mL oral suspension RxNorm: 494948 Take 5-10 Milliliter(s) Oral QD as needed 08/21/19 No Stop Date Active Miralax 17 gram/dose oral powder RxNorm: 551468 Take 17 Gram(s) Oral QD as needed 08/21/19 24 No Stop Date Active Milk of Magnesia 400 mg/5 mL oral suspension RxNorm: 787399 Take 15-30 Milliliter(s) Oral QD as needed 08/21/19 24 No Stop Date Active magnesium 400 mg (as magnesium oxide) tablet RxNorm: 480665 Take 1 Tablet(s) Oral QD 08/21/19 24 No Stop Date Active ferrous sulfate 325 mg (65 mg iron) tablet RxNorm: 162379 Take 1 Tablet(s) Oral QD 08/21/19 24 No Stop Date Active trazodone 100 mg tablet RxNorm: 733421 Take 1 Tablet(s) Oral QHS every night at bedtime as needed 08/21/19 24 No Stop Date Active Diphen 25 mg tablet RxNorm: 3122575 Take 1-2 Tablet(s) Oral every 6 hours as needed 08/21/19 24 No Stop Date Active Robafen DM Cough 10 mg-100 mg/5 mL oral liquid RxNorm: 457163 Take 10 Milliliter(s) Oral Q4H every four hours as needed 08/21/19 24 No Stop Date Active cetirizine 10 mg tablet RxNorm: 6819718 Take 1 Tablet(s) Oral QHS every night at bedtime 08/21/19 24 Inactive pregabalin 50 mg capsule RxNorm: 374126 Take 2 Capsule(s) Oral TID 08/21/19 24 Inactive Belbuca 75 mcg buccal film RxNorm: 7005466 Take 1 Unit(s) Buccal BID 08/21/19 024 Inactive docusate sodium 100 mg capsule RxNorm: 6340644 Take 1 Capsule(s) Oral BID 08/21/19 024 Inactive omeprazole 40 mg capsule,delayed release RxNorm: 458851 Take 1 Capsule(s) Oral QD 08/21/19 024 Inactive alendronate 10 mg tablet RxNorm: 302360 Take 1 Tablet(s) Oral QD 08/21/19 024 Inactive amlodipine 10 mg tablet RxNorm: 053461 Take 1 Tablet(s) Oral QD 08/21/19 024 Inactive atorvastatin 20 mg tablet RxNorm: 198923 Take 1 Tablet(s) Oral QD 08/21/19 024 Inactive pramipexole 0.75 mg tablet RxNorm: 863707 Take 1 Tablet(s) Oral QD 08/21/19 024 Inactive sertraline 100 mg tablet RxNorm: 060110 Take 1 Tablet(s) Oral QAM every morning 08/21/19 024 Inactive alendronate 10 mg tablet RxNorm: 696506 Take 1 Tablet(s) Oral QD 08/21/19 024 Inactive metoprolol tartrate 50 mg tablet RxNorm: 201793 Take 1 Tablet(s) Oral BID 08/21/19 24 024 Inactive benzonatate 100 mg capsule RxNorm: 348688 Take 1 Capsule(s) Oral TID as needed 08/21/19 024 Inactive ibuprofen 800 mg tablet RxNorm: 054777 Take 1 Tablet(s) Oral BID 08/21/19 24 024 Inactive Vitamin D3 50 mcg (2,000 unit) tablet RxNorm: 024194 Take 1 Tablet(s) Oral QD 08/21/19 24 024 Inactive Medication Administered No Medication Administered data [...] Planned Activity Notes Codes Status Date Referral: [facility] WPtel: [address] [place], [place] [id number] Referral No Records Received 11/12/2023 Referral: Carolyn Lassiter Endo crinology [facility] WPtel: [address] [place], [place] [id number] Referral No Records Received 10/20/2023 Instructions Comment Date 08.20.2023 New [facility] patient vi sit. Pet: Bird BabyAWV: 10.15.2023Labs: (October labs: CMP, CBC, VitD, VitB12, Mg)(April labs: BMP, CBC, lipid panel) 08/16/2024
--- OUTSIDE RECORDS SUMMARY | 2024-11-19 02:15 | XMS_ITS | CCD ---
Author Organization Unknown Care Team Providers Care Stove Tender Name Role Phone Jose Alfredo Claudia MARTE Primary Care Provider Yamileth vailable Unavailable Chronic Care Management Unavaila ble Summary Purpose DataExchange Insurance Providers Payer name Policy type / Coverage type Covered libertarian ID Effective Begin Date Effective End Date Ucare Commercial Insurance [id number] Unkn own Medicaid [place] Commercial Insurance [id number] Unk nown Family history Parents, Siblings, Children Diagnosis Age At Onset No Family Disease Entered N/A Social History Social History Element Codes Description Effec tive Dates Marital status Unknown Single 10/15/2023 Living arrangements Unknown Assisted Living 10/[address]: 74688408 Current ever y day smoker 10/15/[address]: 307052047 No Alcohol Consum ption 10/15/2023 Sexually Active? [...] Unknown Yes 10/15/[address]: 42156497 Current ever y day smoker 08/21/[address]: 923872068 No Alcohol Consum ption 08/21/2023 Allergies, Adverse Reactions, Alerts Substance Reaction Codes Entered Date Inactivated Date Status meperidine RxNorm: 834736 08/20/2023 No Inactive D ate Active codeine Unknown 08/20/2023 No Inactive Date Ac tive Demerol RxNorm: 318930 07/23/2023 No Inactive Da te Active Lactose [...] ICD-9: 401.9 06/16/2024 Active Compression fracture ICD-10: [id number] ICD-9: 829.0 05/19/2024 Active Rib pain on [...] Instructions Belbuca 75 mcg buccal film RxNorm: 8004944 Take 1 Unit(s) Buccal BID for chronic pain. Do not eat/drink/smoke for 30 minutes after taking 07/15/19 25 025 Inactive prednisone 20 mg tablet RxNorm: 380817 Take 2 Tablet(s) Oral QD 07/14/19 25 025 Inactive prednisone 20 mg tablet RxNorm: 935189 Take 2 Tablet(s) Oral QD 07/14/19 25 025 Inactive Belbuca 75 mcg buccal film RxNorm: 6902594 Take 1 Unit(s) Buccal BID for chronic pain. Do not eat/drink/smoke for 30 minutes after taking 06/21/20 24 024 Inactive pregabalin 50 mg capsule RxNorm: 005313 Take 2 Capsule(s) Oral TID 06/08/20 24 025 Inactive pregabalin 50 mg capsule RxNorm: 006167 Take 2 Capsule(s) Oral TID 06/08/20 24 024 Inactive albuterol sulfate HFA 90 mcg/actuation aerosol inhaler RxNorm: 8080297 Take 2 Puff(s) Inhalation QID as needed 05/31/20 24 024 Inactive Tab-A-Myles 400 mcg tablet RxNorm: Take 1 Tablet(s) Oral QD 05/19/20 24 025 Active 05/19/2024 PROACTIVE REFILL REQUEST FOR NEXT CYCLE PLEASE THANK YOU RX has/will before cycle date magnesium oxide 400 mg (241.3 mg magnesium) tablet RxNorm: 972284 Take 1 Tablet(s) Oral QD 05/19/20 24 025 Active 05/19/2024 PROACTIVE REFILL REQUEST FOR NEXT CYCLE PLEASE THANK YOU RX has/will before cycle date tizanidine 4 mg tablet RxNorm: 137715 Take 1 Tablet(s) Oral TID 05/19/20 24 Active 05/19/2024 PROACTIVE REFILL REQUEST FOR NEXT CYCLE PLEASE THANK YOU Belbuca 75 mcg buccal film RxNorm: 2270807 Take 1 Unit(s) Buccal BID Take 1 film buccally twice daily for chronic pain. Do not eat/drink/smoke for 30 minutes after taking 05/17/20 24 Inactive lidocaine 4 % topical patch RxNorm: 2227387 Topical Apply one patch topically to affected area of body Q12H PRN (apply PM/HS for night and early AM pain). Keep patch on for 12 hours and then off for 12 hours. (compression fracture, pain) 05/14/20 24 025 Inactive lidocaine 4 % topical patch RxNorm: 6953710 Topical Apply one patch topically to affected area of body Q12H PRN (apply PM/HS for night and early AM pain). Keep patch on for 12 hours and then off for 12 hours. 05/14/20 24 024 Inactive Icy Hot 30 %-10 % topical cream RxNorm: 972583 Topical Apply a thin layer topically to affected area (left side/ribs) BID PRN.?(compressio n fracture, pain) 05/12/20 24 025 Inactive calcitonin (salmon) 200 unit/actuation nasal spray RxNorm: 599573 [place] Nasal Administer one spray into one nostril once daily for 14 days (alternate nostrils daily) (compression fracture) 05/12/20 24 024 Inactive calcitonin (salmon) 200 unit/actuation nasal spray RxNorm: 231144 [place] Nasal Administer one spray into one nostril once daily for 14 days (alternate nostrils daily) (compression fracture) 05/12/20 24 Inactive Icy Hot 30 %-10 % topical cream RxNorm: 859655 Topical Apply a thin layer topically to affected area (left side/ribs) BID PRN. (compression fracture, pain) 05/12/20 24 024 Inactive Belbuca 75 mcg buccal film RxNorm: 2052876 Take 1 Unit(s) Buccal BID Take 1 film buccally twice daily for chronic pain. Do not eat/drink/smoke for 30 minutes after taking 04/14/20 24 Inactive Belbuca 75 mcg buccal film RxNorm: 3047480 Take 1 Unit(s) Buccal BID Take 1 film buccally twice daily for chronic pain. Do not eat/drink/smoke for 30 minutes after taking 03/10/20 24 Inactive pregabalin 50 mg capsule RxNorm: 044250 Take 2 Capsule(s) Oral TID 03/09/20 24 024 Inactive Mucinex 600 mg tablet, extended release RxNorm: 039162 Take 1 Tablet(s) Oral BID as needed for cough/congestion increase hydration with water when taking 03/03/20 24 024 Inactive Mucinex 600 mg tablet, extended release RxNorm: 523907 Take 1 Tablet(s) Oral BID as needed 03/03/20 24 Inactive cetirizine 10 mg tablet RxNorm: 4506073 Take 1 Tablet(s) Oral QHS every night at bedtime 01/27/20 24 025 Active 01/27/2024 PROACTIVE REFILL REQUEST FOR NEXT CYCLE PLEASE THANK YOU sertraline 100 mg tablet RxNorm: 751588 Take 1 Tablet(s) Oral QAM every morning 01/27/20 24 025 Active 01/27/2024 PROACTIVE REFILL REQUEST FOR NEXT CYCLE PLEASE THANK YOU docusate sodium 100 mg capsule RxNorm: 7955635 Take 1 Capsule(s) Oral BID 01/27/20 24 025 Active 01/27/2024 PROACTIVE REFILL REQUEST FOR NEXT CYCLE PLEASE THANK YOU ibuprofen 800 mg tablet RxNorm: 822291 Take 1 Tablet(s) Oral BID 01/27/20 24 025 Active 01/27/2024 PROACTIVE REFILL REQUEST FOR NEXT CYCLE PLEASE THANK YOU amlodipine 10 mg tablet RxNorm: 254294 Take 1 Tablet(s) Oral QD 01/27/20 24 025 Active 01/27/2024 PROACTIVE REFILL REQUEST FOR NEXT CYCLE PLEASE THANK YOU omeprazole 40 mg capsule,delayed release RxNorm: 724237 Take 1 Capsule(s) Oral QD BEFORE A MEAL 01/27/20 24 025 Active 01/27/2024 PROACTIVE REFILL REQUEST FOR NEXT CYCLE PLEASE THANK YOU cholecalciferol (vitamin D3) 50 mcg (2,000 unit) tablet RxNorm: 435552 Take 1 Tablet(s) Oral QD 01/27/20 24 025 Active 01/27/2024 PROACTIVE REFILL REQUEST FOR NEXT CYCLE PLEASE THANK YOU ferrous sulfate 325 mg (65 mg iron) tablet,delayed release RxNorm: 150379 Take 1 Tablet(s) Oral QD WITH A MEAL 01/27/20 24 025 Active 01/27/2024 PROACTIVE REFILL REQUEST FOR NEXT CYCLE PLEASE THANK YOU atorvastatin 20 mg tablet RxNorm: 983198 Take 1 Tablet(s) Oral QD 01/27/20 24 025 Active 01/27/2024 PROACTIVE REFILL REQUEST FOR NEXT CYCLE PLEASE THANK YOU pramipexole 0.75 mg tablet RxNorm: 141604 TAKE 1 TABLET BY MOUTH DAILY (2-3 HOURS BEFORE BEDTIME) 01/27/20 24 025 Active 01/27/2024 PROACTIVE REFILL REQUEST FOR NEXT CYCLE PLEASE THANK YOU metoprolol tartrate 50 mg tablet RxNorm: 713437 Take 1 Tablet(s) Oral BID 01/27/20 24 025 Active 01/27/2024 PROACTIVE REFILL REQUEST FOR NEXT CYCLE PLEASE THANK YOU Belbuca 75 mcg buccal film RxNorm: 8306825 Take 1 Unit(s) Buccal BID Take 1 film buccally twice daily for chronic pain. Do not eat/drink/smoke for 30 minutes after taking 01/26/20 24 024 Inactive doxycycline hyclate 100 mg capsule RxNorm: 6868669 Take 1 Capsule(s) Oral BID 01/21/20 24 Inactive benzonatate 100 mg capsule RxNorm: 835754 Take 1 Capsule(s) Oral TID as needed 01/21/20 24 Inactive prednisone 20 mg tablet RxNorm: 555116 Take 2 Tablet(s) Oral QD 01/21/20 24 Inactive doxycycline hyclate 100 mg capsule RxNorm: 7767768 Take 1 Capsule(s) Oral BID 01/14/20 24 Inactive doxycycline hyclate 100 mg capsule RxNorm: 8816325 Take 1 Capsule(s) Oral BID 01/14/20 24 Inactive prednisone 20 mg tablet RxNorm: 909934 Take 2 Tablet(s) Oral QD 01/14/20 24 Inactive prednisone 20 mg tablet RxNorm: 226090 Take 2 Tablet(s) Oral QD 01/14/20 24 Inactive amoxicillin 875 mg-potassium clavulanate 125 mg tablet RxNorm: 165407 Take 1 Tablet(s) Oral BID 12/31/19 24 024 Inactive amoxicillin 875 mg-potassium clavulanate 125 mg tablet RxNorm: 055198 Take 1 Tablet(s) Oral BID 12/31/19 24 024 Inactive Belbuca 75 mcg buccal film RxNorm: 0130657 Take 1 Unit(s) Buccal BID Take 1 film buccally twice daily for chronic pain. Do not eat/drink/smoke for 30 minutes after taking.? 12/22/19 24 024 Inactive Nicoderm CQ 7 mg/24 hr daily transdermal patch RxNorm: 859809 Apply 1 Patch Transdermal QD 2 weeks (after first 8 weeks) then discontinue. 10/01/19 24 024 Inactive nicotine (polacrilex) 4 mg buccal lozenge RxNorm: 781781 Take 1 Tablet(s) Buccal UD as directed [...] 7 mg/24 hr daily transdermal patch RxNorm: 819502 Apply 1 Patch Transdermal QD 2 weeks (after first 8 weeks) then discontinue. 10/01/19 024 Inactive Nicoderm CQ 21 mg/24 hr daily transdermal patch RxNorm: 577697 Apply 1 Patch Transdermal QD 10/01/19 024 Inactive Nicoderm CQ 21 mg/24 hr daily transdermal patch RxNorm: 038323 Apply 1 Patch Transdermal QD 10/01/19 024 Inactive Nicoderm CQ 14 mg/24 hr daily transdermal patch RxNorm: 455324 Apply 1 Patch Transdermal QD 2 weeks (after first 6 weeks) 10/01/19 024 Inactive Nicoderm CQ 14 mg/24 hr daily transdermal patch RxNorm: 809087 Apply 1 Patch Transdermal QD 2 weeks (after first 6 weeks) 10/01/19 024 Inactive nicotine (polacrilex) 4 mg buccal lozenge RxNorm: 034701 Take 1 Tablet(s) Buccal UD as directed 4 mg- Take 1 piece?buccally Q1 hr PRN for craving x 6 weeks then every 2 hr PRN x 3 weeks then every 4 hr PRN x 3 week. Encourage >9 pieces/day for initial 6 week. Avoid food/drink 15 min before and after use. (Dx: smoking cessation) 10/01/19 024 Inactive prednisone 20 mg tablet RxNorm: 854111 Take 2 Tablet(s) Oral QD Take 2 tablets (total 40 mg) in the AM preferred and with food. 08/25/19 24 024 Inactive prednisone 20 mg tablet RxNorm: 838012 Take 2 Tablet(s) Oral QD Take 2 tablets (total 40 mg) in the AM preferred and with food. 08/25/19 24 024 Inactive Vitamin B-12 1,000 mcg tablet RxNorm: 047897 Take 1 Tablet(s) Oral QD 08/21/19 No Stop Date Active Qvar RediHaler 80 mcg/actuation HFA breath activated aerosol RxNorm: 3768334 Inhale 1 Puff(s) Inhalation BID 08/21/19 24 No Stop Date Active loperamide 2 mg tablet RxNorm: 283192 Take 2 Tablet(s) Oral with first loose stool then 1 tab after each additional loose stool. Max 8 tabs in 24 hours 08/21/19 24 No Stop Date Active diclofenac 1 % topical gel RxNorm: 762468 Apply 2 Gram(s) Topical BID as needed 08/21/19 24 No Stop Date Active naloxone 4 mg/actuation nasal spray RxNorm: 4517067 Use as directed for accidental overdose 08/21/19 24 No Stop Date Active ipratropium 0.5 mg-albuterol 3 mg (2.5 mg base)/3 mL nebulization soln RxNorm: 3467093 Inhale 1 Vial Inhalation QID as needed 08/21/19 24 No Stop Date Active acetaminophen 500 mg tablet RxNorm: 869806 Take 2 Tablet(s) Oral TID and 2 tabs by mouth daily as needed 08/21/19 24 No Stop Date Active tizanidine 2 mg tablet RxNorm: 769475 Take 2 Tablet(s) Oral QD as needed 08/21/19 24 No Stop Date Active Tums 200 mg calcium (500 mg) chewable tablet RxNorm: 835179 Take 2-4 Tablet(s) Oral between meals and at bed time as needed 08/21/19 24 No Stop Date Active Anoro Ellipta 62.5 mcg-25 mcg/actuation powder for inhalation RxNorm: 3894635 Take 1 Puff(s) Inhalation QD 08/21/19 24 No Stop Date Active Antacid Anti-Gas 200 mg-200 mg-20 mg/5 mL oral suspension RxNorm: 709102 Take 5-10 Milliliter(s) Oral QD as needed 08/21/19 24 No Stop Date Active Miralax 17 gram/dose oral powder RxNorm: 616656 Take 17 Gram(s) Oral QD as needed 08/21/19 24 No Stop Date Active Milk of Magnesia 400 mg/5 mL oral suspension RxNorm: 914009 Take 15-30 Milliliter(s) Oral QD as needed 08/21/19 24 No Stop Date Active magnesium 400 mg (as magnesium oxide) tablet RxNorm: 752052 Take 1 Tablet(s) Oral QD 08/21/19 24 No Stop Date Active ferrous sulfate 325 mg (65 mg iron) tablet RxNorm: 153957 Take 1 Tablet(s) Oral QD 08/21/19 24 No Stop Date Active trazodone 100 mg tablet RxNorm: 342479 Take 1 Tablet(s) Oral QHS every night at bedtime as needed 08/21/19 No Stop Date Active Diphen 25 mg tablet RxNorm: 3026673 Take 1-2 Tablet(s) Oral every 6 hours as needed 08/21/19 No Stop Date Active Robafen DM Cough 10 mg-100 mg/5 mL oral liquid RxNorm: 893696 Take 10 Milliliter(s) Oral Q4H every four hours as needed 08/21/19 No Stop Date Active cetirizine 10 mg tablet RxNorm: 2985130 Take 1 Tablet(s) Oral QHS every night at bedtime 08/21/19 024 Inactive Tab-A-Myles 400 mcg tablet RxNorm: Take 1 Tablet(s) Oral QD 08/21/19 024 Inactive pregabalin 50 mg capsule RxNorm: 850375 Take 2 Capsule(s) Oral TID 08/21/19 24 Inactive Belbuca 75 mcg buccal film RxNorm: 6270943 Take 1 Unit(s) Buccal BID 08/21/19 24 024 Inactive docusate sodium 100 mg capsule RxNorm: 9922708 Take 1 Capsule(s) Oral BID 08/21/19 24 024 Inactive omeprazole 40 mg capsule,delayed release RxNorm: 822036 Take 1 Capsule(s) Oral QD 08/21/19 24 024 Inactive albuterol sulfate HFA 90 mcg/actuation aerosol inhaler RxNorm: 0816067 Take 2 Puff(s) Inhalation QID as needed 08/21/19 024 Inactive alendronate 10 mg tablet RxNorm: 553106 Take 1 Tablet(s) Oral QD 08/21/19 24 024 Inactive tizanidine 4 mg tablet RxNorm: 243646 Take 1 Tablet(s) Oral TID 08/21/19 24 024 Inactive amlodipine 10 mg tablet RxNorm: 169990 Take 1 Tablet(s) Oral QD 08/21/19 24 Inactive atorvastatin 20 mg tablet RxNorm: 467723 Take 1 Tablet(s) Oral QD 08/21/19 Inactive pramipexole 0.75 mg tablet RxNorm: 967245 Take 1 Tablet(s) Oral QD 08/21/19 Inactive sertraline 100 mg tablet RxNorm: 065579 Take 1 Tablet(s) Oral QAM every morning 08/21/19 Inactive alendronate 10 mg tablet RxNorm: 177795 Take 1 Tablet(s) Oral QD 08/21/19 Inactive metoprolol tartrate 50 mg tablet RxNorm: 294023 Take 1 Tablet(s) Oral BID 08/21/19 Inactive benzonatate 100 mg capsule RxNorm: 661278 Take 1 Capsule(s) Oral TID as needed 08/21/19 Inactive ibuprofen 800 mg tablet RxNorm: 667545 Take 1 Tablet(s) Oral BID 08/21/19 Inactive Vitamin D3 50 mcg (2,000 unit) tablet RxNorm: 851565 Take 1 Tablet(s) Oral QD 08/21/19 Inactive [...] Planned Activity Notes Codes Status Date Referral: [facility] WPtel: [address] [place], [place] [id number] Referral No Records Received 11/12/2023 Referral: Carolyn Lassiter Endo crinology [facility] WPtel: [address] [place], [place] [id number] Referral No Records Received 10/20/2023 Instructions Comment Date 08.20.2023 New BPS patient vi sit. Pet: Bird BabyAWV: 10.15.2023Labs: (October labs: CMP, CBC, VitD, VitB12, Mg)(April labs: BMP, CBC, lipid panel) 08/16/2024
--- OUTSIDE RECORDS SUMMARY | 2024-11-19 02:15 | XMS_ITS | CCD ---
Author Organization Unknown Care Team Providers Care Sustainability Project Manager Name Role Phone Jose Alfredo Claudia MARTE Primary Care Provider Yamileth vailable Unavailable Chronic Care Management Unavaila ble Summary Purpose DataExchange Insurance Providers Payer name Policy type / Coverage type Covered alliance party ID Effective Begin Date Effective End Date Ucare Commercial Insurance [id number] Unkn own Medicaid [place] Commercial Insurance [id number] Unk nown Family history Parents, Siblings, Children Diagnosis Age At Onset No Family Disease Entered N/A Social History Social History Element Codes Description Effec tive Dates Marital status Unknown Single 10/15/2023 Living arrangements Unknown Assisted Living 10/[address]: 75614837 Current ever y day smoker 10/15/[address]: 350244443 No Alcohol Consum ption 10/15/2023 Sexually Active? [...] Unknown Yes 10/15/[address]: 46721486 Current ever y day smoker 08/21/[address]: 744200407 No Alcohol Consum ption 08/21/2023 Allergies, Adverse Reactions, Alerts Substance Reaction Codes Entered Date Inactivated Date Status meperidine RxNorm: 508695 08/20/2023 No Inactive D ate Active codeine Unknown 08/20/2023 No Inactive Date Ac tive Demerol RxNorm: 454417 07/23/2023 No Inactive Da te Active Lactose [...] Instructions doxycycline hyclate 100 mg capsule RxNorm: 0135102 Take 1 Capsule(s) Oral BID 4 01/14/20 24 Inactive doxycycline hyclate 100 mg capsule RxNorm: 1368141 Take 1 Capsule(s) Oral BID 4 01/20/20 24 Inactive prednisone 20 mg tablet RxNorm: 523794 Take 2 Tablet(s) Oral QD 4 01/14/20 24 Inactive prednisone 20 mg tablet RxNorm: 334900 Take 2 Tablet(s) Oral QD 4 01/18/20 24 Inactive amoxicillin 875 mg-potassium clavulanate 125 mg tablet RxNorm: 796123 Take 1 Tablet(s) Oral BID 4 12/31/19 24 Inactive amoxicillin 875 mg-potassium clavulanate 125 mg tablet RxNorm: 486260 Take 1 Tablet(s) Oral BID 4 01/04/20 24 Inactive Belbuca 75 mcg buccal film RxNorm: 2269174 Take 1 Unit(s) Buccal BID Take 1 film buccally twice daily for chronic pain. Do not eat/drink/smoke for 30 minutes after taking.? 4 01/20/20 24 Inactive nicotine (polacrilex) 4 mg buccal lozenge RxNorm: 426775 Take 1 Tablet(s) Buccal UD as directed [...] 7 mg/24 hr daily transdermal patch RxNorm: 991469 Apply 1 Patch Transdermal QD 2 weeks (after first 8 weeks) then discontinue. 4 10/14/19 24 Inactive nicotine (polacrilex) 4 mg buccal lozenge RxNorm: 546438 Take 1 Tablet(s) Buccal UD as directed [...] 7 mg/24 hr daily transdermal patch RxNorm: 439194 Apply 1 Patch Transdermal QD 2 weeks (after first 8 weeks) then discontinue. 4 10/01/19 24 Inactive Nicoderm CQ 21 mg/24 hr daily transdermal patch RxNorm: 358020 Apply 1 Patch Transdermal QD 4 11/11/19 24 Inactive Nicoderm CQ 21 mg/24 hr daily transdermal patch RxNorm: 206494 Apply 1 Patch Transdermal QD 4 10/01/19 24 Inactive Nicoderm CQ 14 mg/24 hr daily transdermal patch RxNorm: 675092 Apply 1 Patch Transdermal QD 2 weeks (after first 6 weeks) 4 10/01/19 24 Inactive Nicoderm CQ 14 mg/24 hr daily transdermal patch RxNorm: 223268 Apply 1 Patch Transdermal QD 2 weeks (after first 6 weeks) 4 10/14/19 24 Inactive prednisone 20 mg tablet RxNorm: 888875 Take 2 Tablet(s) Oral QD Take 2 tablets (total 40 mg) in the AM preferred and with food. 4 08/25/19 24 Inactive prednisone 20 mg tablet RxNorm: 959522 Take 2 Tablet(s) Oral QD Take 2 tablets (total 40 mg) in the AM preferred and with food. 4 08/29/19 24 Inactive Vitamin B-12 1,000 mcg tablet RxNorm: 702954 Take 1 Tablet(s) Oral QD 4 No Stop Date Active Qvar RediHaler 80 mcg/actuation HFA breath activated aerosol RxNorm: 9987415 Inhale 1 Puff(s) Inhalation BID 4 No Stop Date Active loperamide 2 mg tablet RxNorm: 011444 Take 2 Tablet(s) Oral with first loose stool then 1 tab after each additional loose stool. Max 8 tabs in 24 hours 4 No Stop Date Active cetirizine 10 mg tablet RxNorm: 7068469 Take 1 Tablet(s) Oral QHS every night at bedtime 4 01/27/20 24 Inactive diclofenac 1 % topical gel RxNorm: 319591 Apply 2 Gram(s) Topical BID as needed 4 No Stop Date Active Tab-A-Myles 400 mcg tablet RxNorm: Take 1 Tablet(s) Oral QD 4 05/19/20 24 Inactive naloxone 4 mg/actuation nasal spray RxNorm: 9532784 Use as directed for accidental overdose 4 No Stop Date Active pregabalin 50 mg capsule RxNorm: 976411 Take 2 Capsule(s) Oral TID 4 03/09/20 24 Inactive docusate sodium 100 mg capsule RxNorm: 9863256 Take 1 Capsule(s) Oral BID 4 01/27/20 24 Inactive omeprazole 40 mg capsule,delayed release RxNorm: 203393 Take 1 Capsule(s) Oral QD 4 01/27/20 24 Inactive ipratropium 0.5 mg-albuterol 3 mg (2.5 mg base)/3 mL nebulization soln RxNorm: 0806136 Inhale 1 Vial Inhalation QID as needed 4 No Stop Date Active acetaminophen 500 mg tablet RxNorm: 177086 Take 2 Tablet(s) Oral TID and 2 tabs by mouth daily as needed 4 No Stop Date Active tizanidine 2 mg tablet RxNorm: 361608 Take 2 Tablet(s) Oral QD as needed 4 No Stop Date Active Tums 200 mg calcium (500 mg) chewable tablet RxNorm: 221665 Take 2-4 Tablet(s) Oral between meals and at bed time as needed 4 No Stop Date Active Anoro Ellipta 62.5 mcg-25 mcg/actuation powder for inhalation RxNorm: 7057525 Take 1 Puff(s) Inhalation QD 4 No Stop Date Active albuterol sulfate HFA 90 mcg/actuation aerosol inhaler RxNorm: 6296109 Take 2 Puff(s) Inhalation QID as needed 4 05/31/20 24 Inactive tizanidine 4 mg tablet RxNorm: 673293 Take 1 Tablet(s) Oral TID 4 05/19/20 24 Inactive amlodipine 10 mg tablet RxNorm: 484833 Take 1 Tablet(s) Oral QD 4 01/27/20 24 Inactive atorvastatin 20 mg tablet RxNorm: 234857 Take 1 Tablet(s) Oral QD 4 01/27/20 24 Inactive Antacid Anti-Gas 200 mg-200 mg-20 mg/5 mL oral suspension RxNorm: 400374 Take 5-10 Milliliter(s) Oral QD as needed 4 No Stop Date Active Miralax 17 gram/dose oral powder RxNorm: 059605 Take 17 Gram(s) Oral QD as needed 4 No Stop Date Active pramipexole 0.75 mg tablet RxNorm: 602820 Take 1 Tablet(s) Oral QD 4 01/27/20 24 Inactive sertraline 100 mg tablet RxNorm: 910746 Take 1 Tablet(s) Oral QAM every morning 4 01/27/20 24 Inactive Milk of Magnesia 400 mg/5 mL oral suspension RxNorm: 039541 Take 15-30 Milliliter(s) Oral QD as needed 4 No Stop Date Active magnesium 400 mg (as magnesium oxide) tablet RxNorm: 864718 Take 1 Tablet(s) Oral QD 4 No Stop Date Active ferrous sulfate 325 mg (65 mg iron) tablet RxNorm: 025348 Take 1 Tablet(s) Oral QD 4 No Stop Date Active trazodone 100 mg tablet RxNorm: 015654 Take 1 Tablet(s) Oral QHS every night at bedtime as needed 4 No Stop Date Active metoprolol tartrate 50 mg tablet RxNorm: 918116 Take 1 Tablet(s) Oral BID 4 01/27/20 24 Inactive benzonatate 100 mg capsule RxNorm: 693039 Take 1 Capsule(s) Oral TID as needed 4 01/21/20 24 Inactive Diphen 25 mg tablet RxNorm: 4363348 Take 1-2 Tablet(s) Oral every 6 hours as needed 4 No Stop Date Active ibuprofen 800 mg tablet RxNorm: 442543 Take 1 Tablet(s) Oral BID 4 01/27/20 24 Inactive Vitamin D3 50 mcg (2,000 unit) tablet RxNorm: 092487 Take 1 Tablet(s) Oral QD 4 01/27/20 24 Inactive Robafen DM Cough 10 mg-100 mg/5 mL oral liquid RxNorm: 390083 Take 10 Milliliter(s) Oral Q4H every four hours as needed 4 No Stop Date Active Belbuca 75 mcg buccal film RxNorm: 1483426 Take 1 Unit(s) Buccal BID 4 12/22/19 24 Inactive alendronate 10 mg tablet RxNorm: 596851 Take 1 Tablet(s) Oral QD 4 09/30/19 24 Inactive alendronate 10 mg tablet RxNorm: 522682 Take 1 Tablet(s) Oral QD 4 08/22/19 [...] Planned Activity Notes Codes Status Date Referral: [facility] WPtel: [address] [place], [place] [id number] [place] Referral No Records Received 11/12/2023 Referral: Carolyn Lassiter Endo crinology [facility] WPtel: [address] [place], [place] [id number] [place] Referral No Records Received 10/20/2023 Instructions Comment Date 08.20.2023 New BPS patient vi sit. Pet: Bird BabyAWV: 10.15.2023Labs: (October labs: CMP, CBC, VitD, VitB12, Mg)(April labs: BMP, CBC, lipid panel) 08/16/2024
--- OUTSIDE RECORDS SUMMARY | 2024-11-19 02:16 | XMS_ITS | CCD ---
Author Organization Unknown Care Team Providers Care Regional Sales Director Name Role Phone Jose Alfredo Claudia MARTE Primary Care Provider Yamileth vailable Unavailable Chronic Care Management Unavaila ble Summary Purpose DataExchange Insurance Providers Payer name Policy type / Coverage type Covered libertarian ID Effective Begin Date Effective End Date U[employer] Commercial Insurance [id number] Unkn own [place] [id number] Unk nown Family history Parents, Siblings, Children Diagnosis Age At Onset No Family Disease Entered N/A Social History Social History Element Codes Description Effec tive Dates Marital status Unknown Single 10/15/2023 Living arrangements Unknown Assisted Living 10/[address]: 91687254 Current ever y day smoker 10/15/[address]: 779967879 No Alcohol Consum ption 10/15/2023 Sexually Active? [...] Unknown Yes 10/15/[address]: 10532636 Current ever y day smoker 08/21/[address]: 126106766 No Alcohol Consum ption 08/21/2023 Allergies, Adverse Reactions, Alerts Substance Reaction Codes Entered Date Inactivated Date Status meperidine RxNorm: 694005 08/20/2023 No Inactive D ate Active codeine Unknown 08/20/2023 No Inactive Date Ac tive Demerol RxNorm: 610733 07/23/2023 No Inactive Da te Active Lactose [...] Start Date Stop Date Status Fill Instructions amoxicillin 875 mg-potassium clavulanate 125 mg tablet RxNorm: 198877 Take 1 Tablet(s) Oral BID 4 12/31/19 24 Inactive amoxicillin 875 mg-potassium clavulanate 125 mg tablet RxNorm: 301944 Take 1 Tablet(s) Oral BID 4 01/04/20 24 Inactive Belbuca 75 mcg buccal film RxNorm: 2614162 Take 1 Unit(s) Buccal BID Take 1 film buccally twice daily for chronic pain. Do not eat/drink/smoke for 30 minutes after taking.? 4 01/20/20 24 Inactive nicotine (polacrilex) 4 mg buccal lozenge RxNorm: 479324 Take 1 Tablet(s) Buccal UD as directed [...] 7 mg/24 hr daily transdermal patch RxNorm: 352729 Apply 1 Patch Transdermal QD 2 weeks (after first 8 weeks) then discontinue. 4 10/14/19 24 Inactive nicotine (polacrilex) 4 mg buccal lozenge RxNorm: 228045 Take 1 Tablet(s) Buccal UD as directed [...] 7 mg/24 hr daily transdermal patch RxNorm: 994707 Apply 1 Patch Transdermal QD 2 weeks (after first 8 weeks) then discontinue. 4 10/01/19 24 Inactive Nicoderm CQ 21 mg/24 hr daily transdermal patch RxNorm: 557127 Apply 1 Patch Transdermal QD 4 11/11/19 24 Inactive Nicoderm CQ 21 mg/24 hr daily transdermal patch RxNorm: 048444 Apply 1 Patch Transdermal QD 4 10/01/19 24 Inactive Nicoderm CQ 14 mg/24 hr daily transdermal patch RxNorm: 202170 Apply 1 Patch Transdermal QD 2 weeks (after first 6 weeks) 4 10/01/19 24 Inactive Nicoderm CQ 14 mg/24 hr daily transdermal patch RxNorm: 557928 Apply 1 Patch Transdermal QD 2 weeks (after first 6 weeks) 4 10/14/19 24 Inactive prednisone 20 mg tablet RxNorm: 918984 Take 2 Tablet(s) Oral QD Take 2 tablets (total 40 mg) in the AM preferred and with food. 4 08/25/19 24 Inactive prednisone 20 mg tablet RxNorm: 153897 Take 2 Tablet(s) Oral QD Take 2 tablets (total 40 mg) in the AM preferred and with food. 4 08/29/19 24 Inactive Vitamin B-12 1,000 mcg tablet RxNorm: 516991 Take 1 Tablet(s) Oral QD 4 No Stop Date Active Qvar RediHaler 80 mcg/actuation HFA breath activated aerosol RxNorm: 3755218 Inhale 1 Puff(s) Inhalation BID 4 No Stop Date Active loperamide 2 mg tablet RxNorm: 172903 Take 2 Tablet(s) Oral with first loose stool then 1 tab after each additional loose stool. Max 8 tabs in 24 hours 4 No Stop Date Active cetirizine 10 mg tablet RxNorm: 9805110 Take 1 Tablet(s) Oral QHS every night at bedtime 4 01/27/20 24 Inactive diclofenac 1 % topical gel RxNorm: 562870 Apply 2 Gram(s) Topical BID as needed 4 No Stop Date Active Tab-A-Myles 400 mcg tablet RxNorm: Take 1 Tablet(s) Oral QD 4 05/19/20 24 Inactive naloxone 4 mg/actuation nasal spray RxNorm: 1933652 Use as directed for accidental overdose 4 No Stop Date Active pregabalin 50 mg capsule RxNorm: 919559 Take 2 Capsule(s) Oral TID 4 03/09/20 24 Inactive docusate sodium 100 mg capsule RxNorm: 3490307 Take 1 Capsule(s) Oral BID 4 01/27/20 24 Inactive omeprazole 40 mg capsule,delayed release RxNorm: 800213 Take 1 Capsule(s) Oral QD 4 01/27/20 24 Inactive ipratropium 0.5 mg-albuterol 3 mg (2.5 mg base)/3 mL nebulization soln RxNorm: 8365874 Inhale 1 Vial Inhalation QID as needed 4 No Stop Date Active acetaminophen 500 mg tablet RxNorm: 257099 Take 2 Tablet(s) Oral TID and 2 tabs by mouth daily as needed 4 No Stop Date Active tizanidine 2 mg tablet RxNorm: 585276 Take 2 Tablet(s) Oral QD as needed 4 No Stop Date Active Tums 200 mg calcium (500 mg) chewable tablet RxNorm: 470007 Take 2-4 Tablet(s) Oral between meals and at bed time as needed 4 No Stop Date Active Anoro Ellipta 62.5 mcg-25 mcg/actuation powder for inhalation RxNorm: 2855471 Take 1 Puff(s) Inhalation QD 4 No Stop Date Active albuterol sulfate HFA 90 mcg/actuation aerosol inhaler RxNorm: 5185479 Take 2 Puff(s) Inhalation QID as needed 4 05/31/20 24 Inactive tizanidine 4 mg tablet RxNorm: 112978 Take 1 Tablet(s) Oral TID 4 05/19/20 24 Inactive amlodipine 10 mg tablet RxNorm: 495761 Take 1 Tablet(s) Oral QD 4 01/27/20 24 Inactive atorvastatin 20 mg tablet RxNorm: 576252 Take 1 Tablet(s) Oral QD 4 01/27/20 24 Inactive Antacid Anti-Gas 200 mg-200 mg-20 mg/5 mL oral suspension RxNorm: 190139 Take 5-10 Milliliter(s) Oral QD as needed 4 No Stop Date Active Miralax 17 gram/dose oral powder RxNorm: 404032 Take 17 Gram(s) Oral QD as needed 4 No Stop Date Active pramipexole 0.75 mg tablet RxNorm: 384072 Take 1 Tablet(s) Oral QD 4 01/27/20 24 Inactive sertraline 100 mg tablet RxNorm: 451703 Take 1 Tablet(s) Oral QAM every morning 4 01/27/20 24 Inactive Milk of Magnesia 400 mg/5 mL oral suspension RxNorm: 363536 Take 15-30 Milliliter(s) Oral QD as needed 4 No Stop Date Active magnesium 400 mg (as magnesium oxide) tablet RxNorm: 509198 Take 1 Tablet(s) Oral QD 4 No Stop Date Active ferrous sulfate 325 mg (65 mg iron) tablet RxNorm: 498743 Take 1 Tablet(s) Oral QD 4 No Stop Date Active trazodone 100 mg tablet RxNorm: 942327 Take 1 Tablet(s) Oral QHS every night at bedtime as needed 4 No Stop Date Active metoprolol tartrate 50 mg tablet RxNorm: 182818 Take 1 Tablet(s) Oral BID 4 01/27/20 24 Inactive benzonatate 100 mg capsule RxNorm: 723291 Take 1 Capsule(s) Oral TID as needed 4 01/21/20 24 Inactive Diphen 25 mg tablet RxNorm: 0024786 Take 1-2 Tablet(s) Oral every 6 hours as needed 4 No Stop Date Active ibuprofen 800 mg tablet RxNorm: 276727 Take 1 Tablet(s) Oral BID 4 01/27/20 24 Inactive Vitamin D3 50 mcg (2,000 unit) tablet RxNorm: 176125 Take 1 Tablet(s) Oral QD 4 01/27/20 24 Inactive Robafen DM Cough 10 mg-100 mg/5 mL oral liquid RxNorm: 549488 Take 10 Milliliter(s) Oral Q4H every four hours as needed 4 No Stop Date Active Belbuca 75 mcg buccal film RxNorm: 4514267 Take 1 Unit(s) Buccal BID 4 12/22/19 24 Inactive alendronate 10 mg tablet RxNorm: 761158 Take 1 Tablet(s) Oral QD 4 09/30/19 24 Inactive alendronate 10 mg tablet RxNorm: 926539 Take 1 Tablet(s) Oral QD 4 08/22/19 [...] Planned Activity Notes Codes Status Date Referral: [facility] WPtel: [address] [place], [place] [id number] [place] Referral No Records Received 11/12/2023 Referral: Carolyn Lassiter Endo crinology [facility] WPtel: [address] [place], [place] [id number] [place] Referral No Records Received 10/20/2023 Instructions Comment Date 08.20.2023 New [facility] patient vi sit. Pet: Bird BabyAWV: 10.15.2023Labs: (October labs: CMP, CBC, VitD, VitB12, Mg)(April labs: BMP, CBC, lipid panel) 08/16/2024
--- OUTSIDE RECORDS SUMMARY | 2024-11-19 02:16 | XMS_ITS | CCD ---
Author Organization Unknown Care Team Providers Care Psychiatric Security Nurse Name Role Phone Jose Alfredo Claudia MARTE Primary Care Provider Yamileth vailable Unavailable Chronic Care Management Unavaila ble Summary Purpose DataExchange Insurance Providers Payer name Policy type / Coverage type Covered alliance party ID Effective Begin Date Effective End Date U[employer] Commercial Insurance [id number] Unkn own [place] [id number] Unk nown Family history Parents, Siblings, Children Diagnosis Age At Onset No Family Disease Entered N/A Social History Social History Element Codes Description Effec tive Dates Marital status Unknown Single 10/15/2023 Living arrangements Unknown Assisted Living 10/[address]: 50532599 Current ever y day smoker 10/15/[address]: 944622423 No Alcohol Consum ption 10/15/2023 Sexually Active? [...] Unknown Yes 10/15/[address]: 63226586 Current ever y day smoker 08/21/[address]: 582666592 No Alcohol Consum ption 08/21/2023 Allergies, Adverse Reactions, Alerts Substance Reaction Codes Entered Date Inactivated Date Status meperidine RxNorm: 694013 08/20/2023 No Inactive D ate Active codeine Unknown 08/20/2023 No Inactive Date Ac tive Demerol RxNorm: 710895 07/23/2023 No Inactive Da te Active Lactose [...] Start Date Stop Date Status Fill Instructions lidocaine 4 % topical patch RxNorm: 7963166 Topical Apply one patch topically to affected area of body Q12H PRN (apply PM/HS for night and early AM pain). Keep patch on for 12 hours and then off for 12 hours. 05/14/20 024 Inactive lidocaine 4 % topical patch RxNorm: 9098177 Topical Apply one patch topically to affected area of body Q12H PRN (apply PM/HS for night and early AM pain). Keep patch on for 12 hours and then off for 12 hours. (compression fracture, pain) 05/14/20 24 025 Inactive calcitonin (salmon) 200 unit/actuation nasal spray RxNorm: 771251 [place] Nasal Administer one spray into one nostril once daily for 14 days (alternate nostrils daily) (compression fracture) 05/12/20 24 024 Inactive Icy Hot 30 %-10 % topical cream RxNorm: 024605 Topical Apply a thin layer topically to affected area (left side/ribs) BID PRN.?(compressio n fracture, pain) 05/12/20 24 025 Inactive calcitonin (salmon) 200 unit/actuation nasal spray RxNorm: 576849 [place] Nasal Administer one spray into one nostril once daily for 14 days (alternate nostrils daily) (compression fracture) 05/12/20 24 024 Inactive Icy Hot 30 %-10 % topical cream RxNorm: 689795 Topical Apply a thin layer topically to affected area (left side/ribs) BID PRN. (compression fracture, pain) 05/12/20 24 Inactive Belbuca 75 mcg buccal film RxNorm: 6385492 Take 1 Unit(s) Buccal BID Take 1 film buccally twice daily for chronic pain. Do not eat/drink/smoke for 30 minutes after taking 04/14/20 24 024 Inactive Belbuca 75 mcg buccal film RxNorm: 1480558 Take 1 Unit(s) Buccal BID Take 1 film buccally twice daily for chronic pain. Do not eat/drink/smoke for 30 minutes after taking 03/10/20 24 024 Inactive pregabalin 50 mg capsule RxNorm: 858873 Take 2 Capsule(s) Oral TID 03/09/20 24 024 Inactive Mucinex 600 mg tablet, extended release RxNorm: 540246 Take 1 Tablet(s) Oral BID as needed for cough/congestion increase hydration with water when taking 03/03/20 24 024 Inactive Mucinex 600 mg tablet, extended release RxNorm: 425333 Take 1 Tablet(s) Oral BID as needed 03/03/20 24 024 Inactive cetirizine 10 mg tablet RxNorm: 7724150 Take 1 Tablet(s) Oral QHS every night at bedtime 01/27/20 24 025 Active 01/27/2024 PROACTIVE REFILL REQUEST FOR NEXT CYCLE PLEASE THANK YOU sertraline 100 mg tablet RxNorm: 726404 Take 1 Tablet(s) Oral QAM every morning 01/27/20 24 025 Active 01/27/2024 PROACTIVE REFILL REQUEST FOR NEXT CYCLE PLEASE THANK YOU docusate sodium 100 mg capsule RxNorm: 0118674 Take 1 Capsule(s) Oral BID 01/27/20 24 025 Active 01/27/2024 PROACTIVE REFILL REQUEST FOR NEXT CYCLE PLEASE THANK YOU ibuprofen 800 mg tablet RxNorm: 027230 Take 1 Tablet(s) Oral BID 01/27/20 24 025 Active 01/27/2024 PROACTIVE REFILL REQUEST FOR NEXT CYCLE PLEASE THANK YOU amlodipine 10 mg tablet RxNorm: 091080 Take 1 Tablet(s) Oral QD 01/27/20 24 025 Active 01/27/2024 PROACTIVE REFILL REQUEST FOR NEXT CYCLE PLEASE THANK YOU omeprazole 40 mg capsule,delayed release RxNorm: 829461 Take 1 Capsule(s) Oral QD BEFORE A MEAL 01/27/20 24 025 Active 01/27/2024 PROACTIVE REFILL REQUEST FOR NEXT CYCLE PLEASE THANK YOU cholecalciferol (vitamin D3) 50 mcg (2,000 unit) tablet RxNorm: 812138 Take 1 Tablet(s) Oral QD 01/27/20 24 025 Active 01/27/2024 PROACTIVE REFILL REQUEST FOR NEXT CYCLE PLEASE THANK YOU ferrous sulfate 325 mg (65 mg iron) tablet,delayed release RxNorm: 663708 Take 1 Tablet(s) Oral QD WITH A MEAL 01/27/20 24 025 Active 01/27/2024 PROACTIVE REFILL REQUEST FOR NEXT CYCLE PLEASE THANK YOU atorvastatin 20 mg tablet RxNorm: 822723 Take 1 Tablet(s) Oral QD 01/27/20 24 025 Active 01/27/2024 PROACTIVE REFILL REQUEST FOR NEXT CYCLE PLEASE THANK YOU pramipexole 0.75 mg tablet RxNorm: 332284 TAKE 1 TABLET BY MOUTH DAILY (2-3 HOURS BEFORE BEDTIME) 01/27/20 24 025 Active 01/27/2024 PROACTIVE REFILL REQUEST FOR NEXT CYCLE PLEASE THANK YOU metoprolol tartrate 50 mg tablet RxNorm: 855498 Take 1 Tablet(s) Oral BID 01/27/20 24 025 Active 01/27/2024 PROACTIVE REFILL REQUEST FOR NEXT CYCLE PLEASE THANK YOU Belbuca 75 mcg buccal film RxNorm: 7432874 Take 1 Unit(s) Buccal BID Take 1 film buccally twice daily for chronic pain. Do not eat/drink/smoke for 30 minutes after taking 01/26/20 24 024 Inactive doxycycline hyclate 100 mg capsule RxNorm: 4073520 Take 1 Capsule(s) Oral BID 01/21/20 24 024 Inactive benzonatate 100 mg capsule RxNorm: 386502 Take 1 Capsule(s) Oral TID as needed 07/17/20 24 07/17/2 024 Inactive prednisone 20 mg tablet RxNorm: 354065 Take 2 Tablet(s) Oral QD 01/21/20 24 Inactive doxycycline hyclate 100 mg capsule RxNorm: 6764377 Take 1 Capsule(s) Oral BID 01/14/20 24 Inactive doxycycline hyclate 100 mg capsule RxNorm: 4744843 Take 1 Capsule(s) Oral BID 01/14/20 24 024 Inactive prednisone 20 mg tablet RxNorm: 682730 Take 2 Tablet(s) Oral QD 01/14/20 24 Inactive prednisone 20 mg tablet RxNorm: 732015 Take 2 Tablet(s) Oral QD 01/14/20 24 Inactive amoxicillin 875 mg-potassium clavulanate 125 mg tablet RxNorm: 238691 Take 1 Tablet(s) Oral BID 12/31/19 24 024 Inactive amoxicillin 875 mg-potassium clavulanate 125 mg tablet RxNorm: 164410 Take 1 Tablet(s) Oral BID 12/31/19 24 024 Inactive Belbuca 75 mcg buccal film RxNorm: 5587352 Take 1 Unit(s) Buccal BID Take 1 film buccally twice daily for chronic pain. Do not eat/drink/smoke for 30 minutes after taking.? 12/22/19 24 024 Inactive Nicoderm CQ 7 mg/24 hr daily transdermal patch RxNorm: 489609 Apply 1 Patch Transdermal QD 2 weeks (after first 8 weeks) then discontinue. 10/01/19 24 024 Inactive nicotine (polacrilex) 4 mg buccal lozenge RxNorm: 783263 Take 1 Tablet(s) Buccal UD as directed [...] 7 mg/24 hr daily transdermal patch RxNorm: 755251 Apply 1 Patch Transdermal QD 2 weeks (after first 8 weeks) then discontinue. 10/01/19 24 024 Inactive Nicoderm CQ 21 mg/24 hr daily transdermal patch RxNorm: 094512 Apply 1 Patch Transdermal QD 10/01/19 24 024 Inactive Nicoderm CQ 21 mg/24 hr daily transdermal patch RxNorm: 074339 Apply 1 Patch Transdermal QD 10/01/19 24 024 Inactive Nicoderm CQ 14 mg/24 hr daily transdermal patch RxNorm: 274780 Apply 1 Patch Transdermal QD 2 weeks (after first 6 weeks) 10/01/19 24 024 Inactive Nicoderm CQ 14 mg/24 hr daily transdermal patch RxNorm: 510783 Apply 1 Patch Transdermal QD 2 weeks (after first 6 weeks) 10/01/19 24 024 Inactive nicotine (polacrilex) 4 mg buccal lozenge RxNorm: 495705 Take 1 Tablet(s) Buccal UD as directed 4 mg- Take 1 piece?buccally Q1 hr PRN for craving x 6 weeks then every 2 hr PRN x 3 weeks then every 4 hr PRN x 3 week. Encourage >9 pieces/day for initial 6 week. Avoid food/drink 15 min before and after use. (Dx: smoking cessation) 10/01/19 24 024 Inactive prednisone 20 mg tablet RxNorm: 851921 Take 2 Tablet(s) Oral QD Take 2 tablets (total 40 mg) in the AM preferred and with food. 08/25/19 24 024 Inactive prednisone 20 mg tablet RxNorm: 975570 Take 2 Tablet(s) Oral QD Take 2 tablets (total 40 mg) in the AM preferred and with food. 08/25/19 24 024 Inactive Vitamin B-12 1,000 mcg tablet RxNorm: 307430 Take 1 Tablet(s) Oral QD 08/21/19 No Stop Date Active Qvar RediHaler 80 mcg/actuation HFA breath activated aerosol RxNorm: 6560150 Inhale 1 Puff(s) Inhalation BID 08/21/19 No Stop Date Active loperamide 2 mg tablet RxNorm: 384887 Take 2 Tablet(s) Oral with first loose stool then 1 tab after each additional loose stool. Max 8 tabs in 24 hours 08/21/19 24 No Stop Date Active diclofenac 1 % topical gel RxNorm: 073763 Apply 2 Gram(s) Topical BID as needed 08/21/19 No Stop Date Active Tab-A-Myles 400 mcg tablet RxNorm: Take 1 Tablet(s) Oral QD 08/21/19 Inactive naloxone 4 mg/actuation nasal spray RxNorm: 0574342 Use as directed for accidental overdose 08/21/19 No Stop Date Active ipratropium 0.5 mg-albuterol 3 mg (2.5 mg base)/3 mL nebulization soln RxNorm: 1122609 Inhale 1 Vial Inhalation QID as needed 08/21/19 No Stop Date Active acetaminophen 500 mg tablet RxNorm: 422839 Take 2 Tablet(s) Oral TID and 2 tabs by mouth daily as needed 08/21/19 No Stop Date Active tizanidine 2 mg tablet RxNorm: 788565 Take 2 Tablet(s) Oral QD as needed 08/21/19 No Stop Date Active Tums 200 mg calcium (500 mg) chewable tablet RxNorm: 669208 Take 2-4 Tablet(s) Oral between meals and at bed time as needed 08/21/19 No Stop Date Active Anoro Ellipta 62.5 mcg-25 mcg/actuation powder for inhalation RxNorm: 7864187 Take 1 Puff(s) Inhalation QD 08/21/19 No Stop Date Active albuterol sulfate HFA 90 mcg/actuation aerosol inhaler RxNorm: 5987724 Take 2 Puff(s) Inhalation QID as needed 08/21/19 Inactive tizanidine 4 mg tablet RxNorm: 236894 Take 1 Tablet(s) Oral TID 08/21/19 Inactive Antacid Anti-Gas 200 mg-200 mg-20 mg/5 mL oral suspension RxNorm: 696264 Take 5-10 Milliliter(s) Oral QD as needed 08/21/19 No Stop Date Active Miralax 17 gram/dose oral powder RxNorm: 842736 Take 17 Gram(s) Oral QD as needed 08/21/19 24 No Stop Date Active Milk of Magnesia 400 mg/5 mL oral suspension RxNorm: 972710 Take 15-30 Milliliter(s) Oral QD as needed 08/21/19 24 No Stop Date Active magnesium 400 mg (as magnesium oxide) tablet RxNorm: 378362 Take 1 Tablet(s) Oral QD 08/21/19 24 No Stop Date Active ferrous sulfate 325 mg (65 mg iron) tablet RxNorm: 734876 Take 1 Tablet(s) Oral QD 08/21/19 24 No Stop Date Active trazodone 100 mg tablet RxNorm: 116774 Take 1 Tablet(s) Oral QHS every night at bedtime as needed 08/21/19 24 No Stop Date Active Diphen 25 mg tablet RxNorm: 2366432 Take 1-2 Tablet(s) Oral every 6 hours as needed 08/21/19 24 No Stop Date Active Robafen DM Cough 10 mg-100 mg/5 mL oral liquid RxNorm: 649599 Take 10 Milliliter(s) Oral Q4H every four hours as needed 08/21/19 No Stop Date Active cetirizine 10 mg tablet RxNorm: 5417379 Take 1 Tablet(s) Oral QHS every night at bedtime 08/21/19 24 024 Inactive pregabalin 50 mg capsule RxNorm: 986034 Take 2 Capsule(s) Oral TID 08/21/19 24 024 Inactive Belbuca 75 mcg buccal film RxNorm: 8010163 Take 1 Unit(s) Buccal BID 08/21/19 24 024 Inactive docusate sodium 100 mg capsule RxNorm: 3454841 Take 1 Capsule(s) Oral BID 08/21/19 24 024 Inactive omeprazole 40 mg capsule,delayed release RxNorm: 753161 Take 1 Capsule(s) Oral QD 08/21/19 24 024 Inactive alendronate 10 mg tablet RxNorm: 313862 Take 1 Tablet(s) Oral QD 08/21/19 24 024 Inactive amlodipine 10 mg tablet RxNorm: 847094 Take 1 Tablet(s) Oral QD 08/21/19 24 024 Inactive atorvastatin 20 mg tablet RxNorm: 038422 Take 1 Tablet(s) Oral QD 08/21/19 24 07/23/2 024 Inactive pramipexole 0.75 mg tablet RxNorm: 411990 Take 1 Tablet(s) Oral QD 08/21/19 Inactive sertraline 100 mg tablet RxNorm: 357729 Take 1 Tablet(s) Oral QAM every morning 08/21/19 Inactive alendronate 10 mg tablet RxNorm: 795258 Take 1 Tablet(s) Oral QD 08/21/19 Inactive metoprolol tartrate 50 mg tablet RxNorm: 245876 Take 1 Tablet(s) Oral BID 08/21/19 Inactive benzonatate 100 mg capsule RxNorm: 263216 Take 1 Capsule(s) Oral TID as needed 08/21/19 Inactive ibuprofen 800 mg tablet RxNorm: 077723 Take 1 Tablet(s) Oral BID 08/21/19 Inactive Vitamin D3 50 mcg (2,000 unit) tablet RxNorm: 015796 Take 1 Tablet(s) Oral QD 08/21/19 Inactive [...] Planned Activity Notes Codes Status Date Referral: [facility] WPtel: [address] [place], [place] [id number] Referral No Records Received 11/12/2023 Referral: Carolyn Lassiter Endo crinology [facility] WPtel: [address] [place], [place] [phone] [place] Referral No Records Received 10/20/2023 Instructions Comment Date 08.20.[address] [facility] patient vi sit. Pet: Bird BabyAWV: 10.15.2023Labs: (October labs: CMP, CBC, VitD, VitB12, Mg)(April labs: BMP, CBC, lipid panel) 08/16/2024
--- OUTSIDE RECORDS SUMMARY | 2024-11-19 02:16 | XMS_ITS | CCD ---
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 Name Role Phone Jose Alfredo Claudia MARTE Primary Care Provider Yamileth vailable Unavailable Chronic Care Management Unavaila ble Summary Purpose DataExchange Insurance Providers Payer name Policy type / Coverage type Covered republican ID Effective Begin Date Effective End Date [employer] Commercial Insurance [id number] Unkn own Medicaid ID Commercial Insurance [id number] Unk nown Family history Parents, Siblings, Children Diagnosis Age At Onset No Family Disease Entered N/A Social History Social History Element Codes Description Effec tive Dates Marital status Unknown Single 10/15/2023 Living arrangements Unknown Assisted Living 10/[address]: 70209420 Current ever y day smoker 10/15/[address]: 634454145 No Alcohol Consum ption 10/15/2023 Sexually Active? [...] Unknown Yes 10/15/[address]: 80526568 Current ever y day smoker 08/21/[address]: 426513657 No Alcohol Consum ption 08/21/2023 Allergies, Adverse Reactions, Alerts Substance Reaction Codes Entered Date Inactivated Date Status meperidine RxNorm: 508744 08/20/2023 No Inactive D ate Active codeine Unknown 08/20/2023 No Inactive Date Ac tive Demerol RxNorm: 798638 07/23/2023 No Inactive Da te Active Lactose [...] Start Date Stop Date Status Fill Instructions calcitonin (salmon) 200 unit/actuation nasal spray RxNorm: 935866 [place] Nasal Administer one spray into one nostril once daily for 14 days (alternate nostrils daily) (compression fracture) 05/12/20 24 024 Inactive calcitonin (salmon) 200 unit/actuation nasal spray RxNorm: 970837 [place] Nasal Administer one spray into one nostril once daily for 14 days (alternate nostrils daily) (compression fracture) 05/12/20 24 024 Inactive Icy Hot 30 %-10 % topical cream RxNorm: 477053 Topical Apply a thin layer topically to affected area (left side/ribs) BID PRN. (compression fracture, pain) 05/12/20 24 024 Inactive Icy Hot 30 %-10 % topical cream RxNorm: 265114 Topical Apply a thin layer topically to affected area (left side/ribs) BID PRN.?(compressio n fracture, pain) 05/12/20 24 025 Inactive Belbuca 75 mcg buccal film RxNorm: 5041677 Take 1 Unit(s) Buccal BID Take 1 film buccally twice daily for chronic pain. Do not eat/drink/smoke for 30 minutes after taking 04/14/20 24 024 Inactive Belbuca 75 mcg buccal film RxNorm: 1390850 Take 1 Unit(s) Buccal BID Take 1 film buccally twice daily for chronic pain. Do not eat/drink/smoke for 30 minutes after taking 03/10/20 24 024 Inactive pregabalin 50 mg capsule RxNorm: 838020 Take 2 Capsule(s) Oral TID 03/09/20 24 024 Inactive Mucinex 600 mg tablet, extended release RxNorm: 660706 Take 1 Tablet(s) Oral BID as needed for cough/congestion increase hydration with water when taking 03/03/20 24 024 Inactive Mucinex 600 mg tablet, extended release RxNorm: 965142 Take 1 Tablet(s) Oral BID as needed 03/03/20 24 024 Inactive cetirizine 10 mg tablet RxNorm: 9121692 Take 1 Tablet(s) Oral QHS every night at bedtime 01/27/20 24 025 Active 01/27/2024 PROACTIVE REFILL REQUEST FOR NEXT CYCLE PLEASE THANK YOU sertraline 100 mg tablet RxNorm: 546022 Take 1 Tablet(s) Oral QAM every morning 01/27/20 24 025 Active 01/27/2024 PROACTIVE REFILL REQUEST FOR NEXT CYCLE PLEASE THANK YOU docusate sodium 100 mg capsule RxNorm: 3652286 Take 1 Capsule(s) Oral BID 01/27/20 24 025 Active 01/27/2024 PROACTIVE REFILL REQUEST FOR NEXT CYCLE PLEASE THANK YOU ibuprofen 800 mg tablet RxNorm: 521890 Take 1 Tablet(s) Oral BID 01/27/20 24 025 Active 01/27/2024 PROACTIVE REFILL REQUEST FOR NEXT CYCLE PLEASE THANK YOU amlodipine 10 mg tablet RxNorm: 914584 Take 1 Tablet(s) Oral QD 01/27/20 24 025 Active 01/27/2024 PROACTIVE REFILL REQUEST FOR NEXT CYCLE PLEASE THANK YOU omeprazole 40 mg capsule,delayed release RxNorm: 354893 Take 1 Capsule(s) Oral QD BEFORE A MEAL 01/27/20 24 025 Active 01/27/2024 PROACTIVE REFILL REQUEST FOR NEXT CYCLE PLEASE THANK YOU cholecalciferol (vitamin D3) 50 mcg (2,000 unit) tablet RxNorm: 955066 Take 1 Tablet(s) Oral QD 01/27/20 24 025 Active 01/27/2024 PROACTIVE REFILL REQUEST FOR NEXT CYCLE PLEASE THANK YOU ferrous sulfate 325 mg (65 mg iron) tablet,delayed release RxNorm: 634716 Take 1 Tablet(s) Oral QD WITH A MEAL 01/27/20 24 025 Active 01/27/2024 PROACTIVE REFILL REQUEST FOR NEXT CYCLE PLEASE THANK YOU atorvastatin 20 mg tablet RxNorm: 302482 Take 1 Tablet(s) Oral QD 01/27/20 24 025 Active 01/27/2024 PROACTIVE REFILL REQUEST FOR NEXT CYCLE PLEASE THANK YOU pramipexole 0.75 mg tablet RxNorm: 888971 TAKE 1 TABLET BY MOUTH DAILY (2-3 HOURS BEFORE BEDTIME) 01/27/20 24 025 Active 01/27/2024 PROACTIVE REFILL REQUEST FOR NEXT CYCLE PLEASE THANK YOU metoprolol tartrate 50 mg tablet RxNorm: 772897 Take 1 Tablet(s) Oral BID 01/27/20 24 025 Active 01/27/2024 PROACTIVE REFILL REQUEST FOR NEXT CYCLE PLEASE THANK YOU Belbuca 75 mcg buccal film RxNorm: 5077713 Take 1 Unit(s) Buccal BID Take 1 film buccally twice daily for chronic pain. Do not eat/drink/smoke for 30 minutes after taking 01/26/20 24 024 Inactive doxycycline hyclate 100 mg capsule RxNorm: 2960324 Take 1 Capsule(s) Oral BID 01/21/20 24 024 Inactive benzonatate 100 mg capsule RxNorm: 760041 Take 1 Capsule(s) Oral TID as needed 01/21/20 24 024 Inactive prednisone 20 mg tablet RxNorm: 570394 Take 2 Tablet(s) Oral QD 01/21/20 24 024 Inactive doxycycline hyclate 100 mg capsule RxNorm: 1263797 Take 1 Capsule(s) Oral BID 01/14/20 24 024 Inactive doxycycline hyclate 100 mg capsule RxNorm: 0451449 Take 1 Capsule(s) Oral BID 01/14/20 24 024 Inactive prednisone 20 mg tablet RxNorm: 419125 Take 2 Tablet(s) Oral QD 01/14/20 24 024 Inactive prednisone 20 mg tablet RxNorm: 688821 Take 2 Tablet(s) Oral QD 01/14/20 24 Inactive amoxicillin 875 mg-potassium clavulanate 125 mg tablet RxNorm: 395251 Take 1 Tablet(s) Oral BID 12/31/19 24 024 Inactive amoxicillin 875 mg-potassium clavulanate 125 mg tablet RxNorm: 020867 Take 1 Tablet(s) Oral BID 12/31/19 24 024 Inactive Belbuca 75 mcg buccal film RxNorm: 0874659 Take 1 Unit(s) Buccal BID Take 1 film buccally twice daily for chronic pain. Do not eat/drink/smoke for 30 minutes after taking.? 12/22/19 24 024 Inactive Nicoderm CQ 7 mg/24 hr daily transdermal patch RxNorm: 234856 Apply 1 Patch Transdermal QD 2 weeks (after first 8 weeks) then discontinue. 10/01/19 024 Inactive nicotine (polacrilex) 4 mg buccal lozenge RxNorm: 847841 Take 1 Tablet(s) Buccal UD as directed [...] 7 mg/24 hr daily transdermal patch RxNorm: 233680 Apply 1 Patch Transdermal QD 2 weeks (after first 8 weeks) then discontinue. 10/01/19 24 024 Inactive Nicoderm CQ 21 mg/24 hr daily transdermal patch RxNorm: 659682 Apply 1 Patch Transdermal QD 10/01/19 24 024 Inactive Nicoderm CQ 21 mg/24 hr daily transdermal patch RxNorm: 586882 Apply 1 Patch Transdermal QD 10/01/19 24 024 Inactive Nicoderm CQ 14 mg/24 hr daily transdermal patch RxNorm: 370240 Apply 1 Patch Transdermal QD 2 weeks (after first 6 weeks) 10/01/19 24 024 Inactive Nicoderm CQ 14 mg/24 hr daily transdermal patch RxNorm: 985028 Apply 1 Patch Transdermal QD 2 weeks (after first 6 weeks) 10/01/19 24 024 Inactive nicotine (polacrilex) 4 mg buccal lozenge RxNorm: 808766 Take 1 Tablet(s) Buccal UD as directed 4 mg- Take 1 piece?buccally Q1 hr PRN for craving x 6 weeks then every 2 hr PRN x 3 weeks then every 4 hr PRN x 3 week. Encourage >9 pieces/day for initial 6 week. Avoid food/drink 15 min before and after use. (Dx: smoking cessation) 10/01/19 24 024 Inactive prednisone 20 mg tablet RxNorm: 016316 Take 2 Tablet(s) Oral QD Take 2 tablets (total 40 mg) in the AM preferred and with food. 08/25/19 24 024 Inactive prednisone 20 mg tablet RxNorm: 756694 Take 2 Tablet(s) Oral QD Take 2 tablets (total 40 mg) in the AM preferred and with food. 08/25/19 24 024 Inactive Vitamin B-12 1,000 mcg tablet RxNorm: 120594 Take 1 Tablet(s) Oral QD 08/21/19 24 No Stop Date Active Qvar RediHaler 80 mcg/actuation HFA breath activated aerosol RxNorm: 0027625 Inhale 1 Puff(s) Inhalation BID 08/21/19 24 No Stop Date Active loperamide 2 mg tablet RxNorm: 160876 Take 2 Tablet(s) Oral with first loose stool then 1 tab after each additional loose stool. Max 8 tabs in 24 hours 08/21/19 24 No Stop Date Active diclofenac 1 % topical gel RxNorm: 798503 Apply 2 Gram(s) Topical BID as needed 08/21/19 24 No Stop Date Active Tab-A-Myles 400 mcg tablet RxNorm: Take 1 Tablet(s) Oral QD 08/21/19 24 024 Inactive naloxone 4 mg/actuation nasal spray RxNorm: 6286161 Use as directed for accidental overdose 08/21/19 No Stop Date Active ipratropium 0.5 mg-albuterol 3 mg (2.5 mg base)/3 mL nebulization soln RxNorm: 5277233 Inhale 1 Vial Inhalation QID as needed 08/21/19 No Stop Date Active acetaminophen 500 mg tablet RxNorm: 243944 Take 2 Tablet(s) Oral TID and 2 tabs by mouth daily as needed 08/21/19 No Stop Date Active tizanidine 2 mg tablet RxNorm: 797159 Take 2 Tablet(s) Oral QD as needed 08/21/19 No Stop Date Active Tums 200 mg calcium (500 mg) chewable tablet RxNorm: 023621 Take 2-4 Tablet(s) Oral between meals and at bed time as needed 08/21/19 No Stop Date Active Anoro Ellipta 62.5 mcg-25 mcg/actuation powder for inhalation RxNorm: 5413925 Take 1 Puff(s) Inhalation QD 08/21/19 No Stop Date Active albuterol sulfate HFA 90 mcg/actuation aerosol inhaler RxNorm: 2774716 Take 2 Puff(s) Inhalation QID as needed 08/21/19 Inactive tizanidine 4 mg tablet RxNorm: 119212 Take 1 Tablet(s) Oral TID 08/21/19 024 Inactive Antacid Anti-Gas 200 mg-200 mg-20 mg/5 mL oral suspension RxNorm: 888123 Take 5-10 Milliliter(s) Oral QD as needed 08/21/19 No Stop Date Active Miralax 17 gram/dose oral powder RxNorm: 014043 Take 17 Gram(s) Oral QD as needed 08/21/19 No Stop Date Active Milk of Magnesia 400 mg/5 mL oral suspension RxNorm: 623478 Take 15-30 Milliliter(s) Oral QD as needed 08/21/19 24 No Stop Date Active magnesium 400 mg (as magnesium oxide) tablet RxNorm: 264797 Take 1 Tablet(s) Oral QD 08/21/19 24 No Stop Date Active ferrous sulfate 325 mg (65 mg iron) tablet RxNorm: 761679 Take 1 Tablet(s) Oral QD 08/21/19 No Stop Date Active trazodone 100 mg tablet RxNorm: 565166 Take 1 Tablet(s) Oral QHS every night at bedtime as needed 08/21/19 No Stop Date Active Diphen 25 mg tablet RxNorm: 4967577 Take 1-2 Tablet(s) Oral every 6 hours as needed 08/21/19 No Stop Date Active Robafen DM Cough 10 mg-100 mg/5 mL oral liquid RxNorm: 842377 Take 10 Milliliter(s) Oral Q4H every four hours as needed 08/21/19 No Stop Date Active cetirizine 10 mg tablet RxNorm: 0936971 Take 1 Tablet(s) Oral QHS every night at bedtime 08/21/19 024 Inactive pregabalin 50 mg capsule RxNorm: 969945 Take 2 Capsule(s) Oral TID 08/21/19 24 Inactive Belbuca 75 mcg buccal film RxNorm: 3276046 Take 1 Unit(s) Buccal BID 08/21/19 024 Inactive docusate sodium 100 mg capsule RxNorm: 6694614 Take 1 Capsule(s) Oral BID 08/21/19 024 Inactive omeprazole 40 mg capsule,delayed release RxNorm: 659796 Take 1 Capsule(s) Oral QD 08/21/19 024 Inactive alendronate 10 mg tablet RxNorm: 952596 Take 1 Tablet(s) Oral QD 08/21/19 024 Inactive amlodipine 10 mg tablet RxNorm: 032418 Take 1 Tablet(s) Oral QD 08/21/19 024 Inactive atorvastatin 20 mg tablet RxNorm: 694897 Take 1 Tablet(s) Oral QD 08/21/19 024 Inactive pramipexole 0.75 mg tablet RxNorm: 253897 Take 1 Tablet(s) Oral QD 08/21/19 024 Inactive sertraline 100 mg tablet RxNorm: 490295 Take 1 Tablet(s) Oral QAM every morning 08/21/19 024 Inactive alendronate 10 mg tablet RxNorm: 966157 Take 1 Tablet(s) Oral QD 08/21/19 24 024 Inactive metoprolol tartrate 50 mg tablet RxNorm: 067399 Take 1 Tablet(s) Oral BID 02/15 Inactive benzonatate 100 mg capsule RxNorm: 225549 Take 1 Capsule(s) Oral TID as needed 08/21/19 Inactive ibuprofen 800 mg tablet RxNorm: 597883 Take 1 Tablet(s) Oral BID 08/21/19 Inactive Vitamin D3 50 mcg (2,000 unit) tablet RxNorm: 217352 Take 1 Tablet(s) Oral QD 08/21/19 Inactive [...] Planned Activity Notes Codes Status Date Referral: [facility] [address] [phone] [id number] [place] Referral No Records Received 11/12/2023 Referral: Carolyn Lassiter Endo crinology [facility] WPtel: [phone] [place], [place] [id number] Referral No Records Received 10/20/2023 Instructions Comment Date 08.20.2023 New [facility] patient vi sit. Pet: Bird BabyAWV: 10.15.2023Labs: (October labs: CMP, CBC, VitD, VitB12, Mg)(April labs: BMP, CBC, lipid panel) 08/16/2024
--- OUTSIDE RECORDS SUMMARY | 2024-11-19 02:17 | XMS_ITS | CCD ---
Author Organization Unknown Care Team Providers Care Health Practice Manager Name Role Phone Jose Alfredo Claudia MARTE Primary Care Provider Yamileth vailable Unavailable Chronic Care Management Unavaila ble Summary Purpose DataExchange Insurance Providers Payer name Policy type / Coverage type Covered constitution party ID Effective Begin Date Effective End Date [employer] Commercial Insurance [id number] [place] [id number] Unk nown Family history Parents, Siblings, Children Diagnosis Age At Onset No Family Disease Entered N/A Social History Social History Element Codes Description Effec tive Dates Marital status Unknown Single 10/15/2023 Living arrangements Unknown Assisted Living 10/[address]: 84106757 Current ever y day smoker 10/15/[address]: 080867244 No Alcohol Consum ption 10/15/2023 Sexually Active? [...] Unknown Yes 10/15/[address]: 18297917 Current ever y day smoker 08/21/[address]: 280546074 No Alcohol Consum ption 08/21/2023 Allergies, Adverse Reactions, Alerts Substance Reaction Codes Entered Date Inactivated Date Status meperidine RxNorm: 499489 08/20/2023 No Inactive D ate Active codeine Unknown 08/20/2023 No Inactive Date Ac tive Demerol RxNorm: 654549 07/23/2023 No Inactive Da te Active Lactose [...] Instructions Belbuca 75 mcg buccal film RxNorm: 2257061 Take 1 Unit(s) Buccal BID Take 1 film buccally twice daily for chronic pain. Do not eat/drink/smoke for 30 minutes after taking 04/14/20 24 024 Inactive Belbuca 75 mcg buccal film RxNorm: 5758109 Take 1 Unit(s) Buccal BID Take 1 film buccally twice daily for chronic pain. Do not eat/drink/smoke for 30 minutes after taking 03/10/20 24 024 Inactive pregabalin 50 mg capsule RxNorm: 220507 Take 2 Capsule(s) Oral TID 03/09/20 24 024 Inactive Mucinex 600 mg tablet, extended release RxNorm: 995100 Take 1 Tablet(s) Oral BID as needed for cough/congestion increase hydration with water when taking 03/03/20 24 024 Inactive Mucinex 600 mg tablet, extended release RxNorm: 541478 Take 1 Tablet(s) Oral BID as needed 03/03/20 24 024 Inactive cetirizine 10 mg tablet RxNorm: 1118551 Take 1 Tablet(s) Oral QHS every night at bedtime 01/27/20 24 025 Active 01/27/2024 PROACTIVE REFILL REQUEST FOR NEXT CYCLE PLEASE THANK YOU sertraline 100 mg tablet RxNorm: 206278 Take 1 Tablet(s) Oral QAM every morning 01/27/20 24 025 Active 01/27/2024 PROACTIVE REFILL REQUEST FOR NEXT CYCLE PLEASE THANK YOU docusate sodium 100 mg capsule RxNorm: 1480547 Take 1 Capsule(s) Oral BID 01/27/20 24 025 Active 01/27/2024 PROACTIVE REFILL REQUEST FOR NEXT CYCLE PLEASE THANK YOU ibuprofen 800 mg tablet RxNorm: 156148 Take 1 Tablet(s) Oral BID 01/27/20 24 025 Active 01/27/2024 PROACTIVE REFILL REQUEST FOR NEXT CYCLE PLEASE THANK YOU amlodipine 10 mg tablet RxNorm: 227155 Take 1 Tablet(s) Oral QD 01/27/20 24 025 Active 01/27/2024 PROACTIVE REFILL REQUEST FOR NEXT CYCLE PLEASE THANK YOU omeprazole 40 mg capsule,delayed release RxNorm: 089418 Take 1 Capsule(s) Oral QD BEFORE A MEAL 01/27/20 24 025 Active 01/27/2024 PROACTIVE REFILL REQUEST FOR NEXT CYCLE PLEASE THANK YOU cholecalciferol (vitamin D3) 50 mcg (2,000 unit) tablet RxNorm: 822620 Take 1 Tablet(s) Oral QD 01/27/20 24 025 Active 01/27/2024 PROACTIVE REFILL REQUEST FOR NEXT CYCLE PLEASE THANK YOU ferrous sulfate 325 mg (65 mg iron) tablet,delayed release RxNorm: 612314 Take 1 Tablet(s) Oral QD WITH A MEAL 01/27/20 24 Active 01/27/2024 PROACTIVE REFILL REQUEST FOR NEXT CYCLE PLEASE THANK YOU atorvastatin 20 mg tablet RxNorm: 450317 Take 1 Tablet(s) Oral QD 01/27/20 24 025 Active 01/27/2024 PROACTIVE REFILL REQUEST FOR NEXT CYCLE PLEASE THANK YOU pramipexole 0.75 mg tablet RxNorm: 024328 TAKE 1 TABLET BY MOUTH DAILY (2-3 HOURS BEFORE BEDTIME) 01/27/20 24 025 Active 01/27/2024 PROACTIVE REFILL REQUEST FOR NEXT CYCLE PLEASE THANK YOU metoprolol tartrate 50 mg tablet RxNorm: 876776 Take 1 Tablet(s) Oral BID 01/27/20 24 025 Active 01/27/2024 PROACTIVE REFILL REQUEST FOR NEXT CYCLE PLEASE THANK YOU Belbuca 75 mcg buccal film RxNorm: 6328579 Take 1 Unit(s) Buccal BID Take 1 film buccally twice daily for chronic pain. Do not eat/drink/smoke for 30 minutes after taking 01/26/20 24 024 Inactive doxycycline hyclate 100 mg capsule RxNorm: 9510441 Take 1 Capsule(s) Oral BID 01/21/20 24 024 Inactive benzonatate 100 mg capsule RxNorm: 903545 Take 1 Capsule(s) Oral TID as needed 01/21/20 24 Inactive prednisone 20 mg tablet RxNorm: 905509 Take 2 Tablet(s) Oral QD 01/21/20 24 024 Inactive doxycycline hyclate 100 mg capsule RxNorm: 5326545 Take 1 Capsule(s) Oral BID 01/14/20 24 024 Inactive doxycycline hyclate 100 mg capsule RxNorm: 8967050 Take 1 Capsule(s) Oral BID 01/14/20 24 024 Inactive prednisone 20 mg tablet RxNorm: 140781 Take 2 Tablet(s) Oral QD 01/14/20 24 Inactive prednisone 20 mg tablet RxNorm: 870870 Take 2 Tablet(s) Oral QD 01/14/20 24 024 Inactive amoxicillin 875 mg-potassium clavulanate 125 mg tablet RxNorm: 402390 Take 1 Tablet(s) Oral BID 12/31/19 24 024 Inactive amoxicillin 875 mg-potassium clavulanate 125 mg tablet RxNorm: 173508 Take 1 Tablet(s) Oral BID 12/31/19 24 024 Inactive Belbuca 75 mcg buccal film RxNorm: 3250793 Take 1 Unit(s) Buccal BID Take 1 film buccally twice daily for chronic pain. Do not eat/drink/smoke for 30 minutes after taking.? 12/22/19 24 024 Inactive Nicoderm CQ 7 mg/24 hr daily transdermal patch RxNorm: 699760 Apply 1 Patch Transdermal QD 2 weeks (after first 8 weeks) then discontinue. 10/01/19 24 024 Inactive nicotine (polacrilex) 4 mg buccal lozenge RxNorm: 443109 Take 1 Tablet(s) Buccal UD as directed [...] 7 mg/24 hr daily transdermal patch RxNorm: 414504 Apply 1 Patch Transdermal QD 2 weeks (after first 8 weeks) then discontinue. 10/01/19 24 024 Inactive Nicoderm CQ 21 mg/24 hr daily transdermal patch RxNorm: 432881 Apply 1 Patch Transdermal QD 10/01/19 024 Inactive Nicoderm CQ 21 mg/24 hr daily transdermal patch RxNorm: 635477 Apply 1 Patch Transdermal QD 10/01/19 24 024 Inactive Nicoderm CQ 14 mg/24 hr daily transdermal patch RxNorm: 471763 Apply 1 Patch Transdermal QD 2 weeks (after first 6 weeks) 10/01/19 024 Inactive Nicoderm CQ 14 mg/24 hr daily transdermal patch RxNorm: 930687 Apply 1 Patch Transdermal QD 2 weeks (after first 6 weeks) 10/01/19 24 024 Inactive nicotine (polacrilex) 4 mg buccal lozenge RxNorm: 610914 Take 1 Tablet(s) Buccal UD as directed 4 mg- Take 1 piece?buccally Q1 hr PRN for craving x 6 weeks then every 2 hr PRN x 3 weeks then every 4 hr PRN x 3 week. Encourage >9 pieces/day for initial 6 week. Avoid food/drink 15 min before and after use. (Dx: smoking cessation) 10/01/19 24 024 Inactive prednisone 20 mg tablet RxNorm: 105488 Take 2 Tablet(s) Oral QD Take 2 tablets (total 40 mg) in the AM preferred and with food. 08/25/19 24 024 Inactive prednisone 20 mg tablet RxNorm: 838414 Take 2 Tablet(s) Oral QD Take 2 tablets (total 40 mg) in the AM preferred and with food. 08/25/19 24 024 Inactive Vitamin B-12 1,000 mcg tablet RxNorm: 513802 Take 1 Tablet(s) Oral QD 08/21/19 24 No Stop Date Active Qvar RediHaler 80 mcg/actuation HFA breath activated aerosol RxNorm: 0213964 Inhale 1 Puff(s) Inhalation BID 08/21/19 No Stop Date Active loperamide 2 mg tablet RxNorm: 155442 Take 2 Tablet(s) Oral with first loose stool then 1 tab after each additional loose stool. Max 8 tabs in 24 hours 08/21/19 24 No Stop Date Active diclofenac 1 % topical gel RxNorm: 058286 Apply 2 Gram(s) Topical BID as needed 08/21/19 No Stop Date Active Tab-A-Myles 400 mcg tablet RxNorm: Take 1 Tablet(s) Oral QD 08/21/19 Inactive naloxone 4 mg/actuation nasal spray RxNorm: 6064006 Use as directed for accidental overdose 08/21/19 No Stop Date Active ipratropium 0.5 mg-albuterol 3 mg (2.5 mg base)/3 mL nebulization soln RxNorm: 2928158 Inhale 1 Vial Inhalation QID as needed 08/21/19 No Stop Date Active acetaminophen 500 mg tablet RxNorm: 922048 Take 2 Tablet(s) Oral TID and 2 tabs by mouth daily as needed 08/21/19 No Stop Date Active tizanidine 2 mg tablet RxNorm: 726760 Take 2 Tablet(s) Oral QD as needed 08/21/19 No Stop Date Active Tums 200 mg calcium (500 mg) chewable tablet RxNorm: 203142 Take 2-4 Tablet(s) Oral between meals and at bed time as needed 08/21/19 No Stop Date Active Anoro Ellipta 62.5 mcg-25 mcg/actuation powder for inhalation RxNorm: 3786732 Take 1 Puff(s) Inhalation QD 08/21/19 No Stop Date Active albuterol sulfate HFA 90 mcg/actuation aerosol inhaler RxNorm: 7946739 Take 2 Puff(s) Inhalation QID as needed 08/21/19 Inactive tizanidine 4 mg tablet RxNorm: 449323 Take 1 Tablet(s) Oral TID 08/21/19 Inactive Antacid Anti-Gas 200 mg-200 mg-20 mg/5 mL oral suspension RxNorm: 988986 Take 5-10 Milliliter(s) Oral QD as needed 02/15/20 24 No Stop Date Active Miralax 17 gram/dose oral powder RxNorm: 440614 Take 17 Gram(s) Oral QD as needed 08/21/19 24 No Stop Date Active Milk of Magnesia 400 mg/5 mL oral suspension RxNorm: 131963 Take 15-30 Milliliter(s) Oral QD as needed 08/21/19 24 No Stop Date Active magnesium 400 mg (as magnesium oxide) tablet RxNorm: 728609 Take 1 Tablet(s) Oral QD 08/21/19 24 No Stop Date Active ferrous sulfate 325 mg (65 mg iron) tablet RxNorm: 960565 Take 1 Tablet(s) Oral QD 08/21/19 24 No Stop Date Active trazodone 100 mg tablet RxNorm: 656900 Take 1 Tablet(s) Oral QHS every night at bedtime as needed 08/21/19 24 No Stop Date Active Diphen 25 mg tablet RxNorm: 9218044 Take 1-2 Tablet(s) Oral every 6 hours as needed 08/21/19 24 No Stop Date Active Robafen DM Cough 10 mg-100 mg/5 mL oral liquid RxNorm: 399901 Take 10 Milliliter(s) Oral Q4H every four hours as needed 08/21/19 24 No Stop Date Active cetirizine 10 mg tablet RxNorm: 4062719 Take 1 Tablet(s) Oral QHS every night at bedtime 08/21/19 24 024 Inactive pregabalin 50 mg capsule RxNorm: 523237 Take 2 Capsule(s) Oral TID 08/21/19 24 024 Inactive Belbuca 75 mcg buccal film RxNorm: 6550669 Take 1 Unit(s) Buccal BID 08/21/19 24 024 Inactive docusate sodium 100 mg capsule RxNorm: 2849328 Take 1 Capsule(s) Oral BID 08/21/19 24 024 Inactive omeprazole 40 mg capsule,delayed release RxNorm: 024087 Take 1 Capsule(s) Oral QD 08/21/19 24 024 Inactive alendronate 10 mg tablet RxNorm: 353469 Take 1 Tablet(s) Oral QD 08/21/19 24 024 Inactive amlodipine 10 mg tablet RxNorm: 320498 Take 1 Tablet(s) Oral QD 08/21/19 24 Inactive atorvastatin 20 mg tablet RxNorm: 688694 Take 1 Tablet(s) Oral QD 08/21/19 Inactive pramipexole 0.75 mg tablet RxNorm: 518938 Take 1 Tablet(s) Oral QD 08/21/19 Inactive sertraline 100 mg tablet RxNorm: 148814 Take 1 Tablet(s) Oral QAM every morning 08/21/19 Inactive alendronate 10 mg tablet RxNorm: 358259 Take 1 Tablet(s) Oral QD 08/21/19 Inactive metoprolol tartrate 50 mg tablet RxNorm: 436196 Take 1 Tablet(s) Oral BID 08/21/19 Inactive benzonatate 100 mg capsule RxNorm: 777161 Take 1 Capsule(s) Oral TID as needed 08/21/19 Inactive ibuprofen 800 mg tablet RxNorm: 735838 Take 1 Tablet(s) Oral BID 08/21/19 Inactive Vitamin D3 50 mcg (2,000 unit) tablet RxNorm: 951905 Take 1 Tablet(s) Oral QD 08/21/19 Inactive [...] Planned Activity Notes Codes Status Date Referral: [facility] WPtel: [address] [place], [place] [id number] Referral No Records Received 11/12/2023 Referral: Carolyn Lassiter Endo crinology [facility] WPtel: [address] [place], [place] [phone] Referral No Records Received 10/20/2023 Instructions Comment Date 08.20.2023 New BPS patient vi sit. Pet: Bird BabyAWV: 10.15.2023Labs: (October labs: CMP, CBC, VitD, VitB12, Mg)(April labs: BMP, CBC, lipid panel) 08/16/2024
--- OUTSIDE RECORDS SUMMARY | 2024-11-19 02:17 | XMS_ITS | CCD ---
Author Organization Unknown Care Team Providers Care Medicaid Collection Specialist Name Role Phone Jose Alfredo Claudia MARTE Primary Care Provider Yamileth vailable Unavailable Chronic Care Management Unavaila ble Summary Purpose DataExchange Insurance Providers Payer name Policy type / Coverage type Covered libertarian ID Effective Begin Date Effective End Date [employer] Commercial Insurance [id number] Unkn own Medicaid [place] Commercial Insurance [id number] Unk nown Family history Parents, Siblings, Children Diagnosis Age At Onset No Family Disease Entered N/A Social History Social History Element Codes Description Effec tive Dates Marital status Unknown Single 10/15/2023 Living arrangements Unknown Assisted Living 10/[address]: 49479081 Current ever y day smoker 10/15/[address]: 681134949 No Alcohol Consum ption 10/15/2023 Sexually Active? [...] Unknown Yes 10/15/[address]: 24084985 Current ever y day smoker 08/21/[address]: 918560643 No Alcohol Consum ption 08/21/2023 Allergies, Adverse Reactions, Alerts Substance Reaction Codes Entered Date Inactivated Date Status meperidine RxNorm: 139586 08/20/2023 No Inactive D ate Active codeine Unknown 08/20/2023 No Inactive Date Ac tive Demerol RxNorm: 847077 07/23/2023 No Inactive Da te Active Lactose [...] ICD-9: 401.9 06/16/2024 Active Compression fracture ICD-10: [id number] ICD-9: 829.0 05/19/2024 Active Rib pain on [...] Fill Instructions prednisone 20 mg tablet RxNorm: 654535 Take 2 Tablet(s) Oral QD 07/14/19 25 025 Inactive prednisone 20 mg tablet RxNorm: 460799 Take 2 Tablet(s) Oral QD 07/14/19 025 Inactive Belbuca 75 mcg buccal film RxNorm: 0231297 Take 1 Unit(s) Buccal BID for chronic pain. Do not eat/drink/smoke for 30 minutes after taking 06/21/20 24 024 Inactive pregabalin 50 mg capsule RxNorm: 091873 Take 2 Capsule(s) Oral TID 06/08/20 24 025 Inactive pregabalin 50 mg capsule RxNorm: 317206 Take 2 Capsule(s) Oral TID 06/08/20 24 024 Inactive albuterol sulfate HFA 90 mcg/actuation aerosol inhaler RxNorm: 6047767 Take 2 Puff(s) Inhalation QID as needed 05/31/20 24 024 Inactive Tab-A-Myles 400 mcg tablet RxNorm: Take 1 Tablet(s) Oral QD 05/19/20 24 025 Active 05/19/2024 PROACTIVE REFILL REQUEST FOR NEXT CYCLE PLEASE THANK YOU RX has/will before cycle date magnesium oxide 400 mg (241.3 mg magnesium) tablet RxNorm: 646560 Take 1 Tablet(s) Oral QD 05/19/20 24 025 Active 05/19/2024 PROACTIVE REFILL REQUEST FOR NEXT CYCLE PLEASE THANK YOU RX has/will before cycle date tizanidine 4 mg tablet RxNorm: 269887 Take 1 Tablet(s) Oral TID 05/19/20 24 025 Active 05/19/2024 PROACTIVE REFILL REQUEST FOR NEXT CYCLE PLEASE THANK YOU Belbuca 75 mcg buccal film RxNorm: 6568448 Take 1 Unit(s) Buccal BID Take 1 film buccally twice daily for chronic pain. Do not eat/drink/smoke for 30 minutes after taking 05/17/20 24 024 Inactive lidocaine 4 % topical patch RxNorm: 5717433 Topical Apply one patch topically to affected area of body Q12H PRN (apply PM/HS for night and early AM pain). Keep patch on for 12 hours and then off for 12 hours. (compression fracture, pain) 05/14/20 24 025 Inactive lidocaine 4 % topical patch RxNorm: 2536245 Topical Apply one patch topically to affected area of body Q12H PRN (apply PM/HS for night and early AM pain). Keep patch on for 12 hours and then off for 12 hours. 05/14/20 24 024 Inactive Icy Hot 30 %-10 % topical cream RxNorm: 901674 Topical Apply a thin layer topically to affected area (left side/ribs) BID PRN.?(compressio n fracture, pain) 05/12/20 24 025 Inactive calcitonin (salmon) 200 unit/actuation nasal spray RxNorm: 004690 [place] Nasal Administer one spray into one nostril once daily for 14 days (alternate nostrils daily) (compression fracture) 05/12/20 24 024 Inactive calcitonin (salmon) 200 unit/actuation nasal spray RxNorm: 291076 [place] Nasal Administer one spray into one nostril once daily for 14 days (alternate nostrils daily) (compression fracture) 05/12/20 24 024 Inactive Icy Hot 30 %-10 % topical cream RxNorm: 510434 Topical Apply a thin layer topically to affected area (left side/ribs) BID PRN. (compression fracture, pain) 05/12/20 24 024 Inactive Belbuca 75 mcg buccal film RxNorm: 7175361 Take 1 Unit(s) Buccal BID Take 1 film buccally twice daily for chronic pain. Do not eat/drink/smoke for 30 minutes after taking 04/14/20 24 024 Inactive Belbuca 75 mcg buccal film RxNorm: 2374274 Take 1 Unit(s) Buccal BID Take 1 film buccally twice daily for chronic pain. Do not eat/drink/smoke for 30 minutes after taking 03/10/20 24 Inactive pregabalin 50 mg capsule RxNorm: 423637 Take 2 Capsule(s) Oral TID 03/09/20 24 024 Inactive Mucinex 600 mg tablet, extended release RxNorm: 805237 Take 1 Tablet(s) Oral BID as needed for cough/congestion increase hydration with water when taking 03/03/20 24 024 Inactive Mucinex 600 mg tablet, extended release RxNorm: 202971 Take 1 Tablet(s) Oral BID as needed 03/03/20 24 024 Inactive cetirizine 10 mg tablet RxNorm: 3862536 Take 1 Tablet(s) Oral QHS every night at bedtime 01/27/20 24 025 Active 01/27/2024 PROACTIVE REFILL REQUEST FOR NEXT CYCLE PLEASE THANK YOU sertraline 100 mg tablet RxNorm: 324803 Take 1 Tablet(s) Oral QAM every morning 01/27/20 24 025 Active 01/27/2024 PROACTIVE REFILL REQUEST FOR NEXT CYCLE PLEASE THANK YOU docusate sodium 100 mg capsule RxNorm: 7192245 Take 1 Capsule(s) Oral BID 01/27/20 24 025 Active 01/27/2024 PROACTIVE REFILL REQUEST FOR NEXT CYCLE PLEASE THANK YOU ibuprofen 800 mg tablet RxNorm: 933432 Take 1 Tablet(s) Oral BID 01/27/20 24 025 Active 01/27/2024 PROACTIVE REFILL REQUEST FOR NEXT CYCLE PLEASE THANK YOU amlodipine 10 mg tablet RxNorm: 767227 Take 1 Tablet(s) Oral QD 01/27/20 24 025 Active 01/27/2024 PROACTIVE REFILL REQUEST FOR NEXT CYCLE PLEASE THANK YOU omeprazole 40 mg capsule,delayed release RxNorm: 473137 Take 1 Capsule(s) Oral QD BEFORE A MEAL 01/27/20 24 025 Active 01/27/2024 PROACTIVE REFILL REQUEST FOR NEXT CYCLE PLEASE THANK YOU cholecalciferol (vitamin D3) 50 mcg (2,000 unit) tablet RxNorm: 432691 Take 1 Tablet(s) Oral QD 01/27/20 24 025 Active 01/27/2024 PROACTIVE REFILL REQUEST FOR NEXT CYCLE PLEASE THANK YOU ferrous sulfate 325 mg (65 mg iron) tablet,delayed release RxNorm: 548368 Take 1 Tablet(s) Oral QD WITH A MEAL 01/27/20 24 025 Active 01/27/2024 PROACTIVE REFILL REQUEST FOR NEXT CYCLE PLEASE THANK YOU atorvastatin 20 mg tablet RxNorm: 435481 Take 1 Tablet(s) Oral QD 01/27/20 24 025 Active 01/27/2024 PROACTIVE REFILL REQUEST FOR NEXT CYCLE PLEASE THANK YOU pramipexole 0.75 mg tablet RxNorm: 297141 TAKE 1 TABLET BY MOUTH DAILY (2-3 HOURS BEFORE BEDTIME) 01/27/20 24 025 Active 01/27/2024 PROACTIVE REFILL REQUEST FOR NEXT CYCLE PLEASE THANK YOU metoprolol tartrate 50 mg tablet RxNorm: 153762 Take 1 Tablet(s) Oral BID 01/27/20 24 025 Active 01/27/2024 PROACTIVE REFILL REQUEST FOR NEXT CYCLE PLEASE THANK YOU Belbuca 75 mcg buccal film RxNorm: 2960124 Take 1 Unit(s) Buccal BID Take 1 film buccally twice daily for chronic pain. Do not eat/drink/smoke for 30 minutes after taking 01/26/20 24 024 Inactive doxycycline hyclate 100 mg capsule RxNorm: 0269099 Take 1 Capsule(s) Oral BID 01/21/20 24 024 Inactive benzonatate 100 mg capsule RxNorm: 154283 Take 1 Capsule(s) Oral TID as needed 01/21/20 24 Inactive prednisone 20 mg tablet RxNorm: 185233 Take 2 Tablet(s) Oral QD 01/21/20 24 Inactive doxycycline hyclate 100 mg capsule RxNorm: 2160344 Take 1 Capsule(s) Oral BID 01/14/20 24 024 Inactive doxycycline hyclate 100 mg capsule RxNorm: 2419860 Take 1 Capsule(s) Oral BID 01/14/20 24 024 Inactive prednisone 20 mg tablet RxNorm: 360530 Take 2 Tablet(s) Oral QD 01/14/20 24 Inactive prednisone 20 mg tablet RxNorm: 377271 Take 2 Tablet(s) Oral QD 01/14/20 24 024 Inactive amoxicillin 875 mg-potassium clavulanate 125 mg tablet RxNorm: 387778 Take 1 Tablet(s) Oral BID 12/31/19 24 024 Inactive amoxicillin 875 mg-potassium clavulanate 125 mg tablet RxNorm: 668211 Take 1 Tablet(s) Oral BID 12/31/19 24 024 Inactive Belbuca 75 mcg buccal film RxNorm: 0621867 Take 1 Unit(s) Buccal BID Take 1 film buccally twice daily for chronic pain. Do not eat/drink/smoke for 30 minutes after taking.? 12/22/19 24 024 Inactive Nicoderm CQ 7 mg/24 hr daily transdermal patch RxNorm: 698341 Apply 1 Patch Transdermal QD 2 weeks (after first 8 weeks) then discontinue. 10/01/19 24 024 Inactive nicotine (polacrilex) 4 mg buccal lozenge RxNorm: 074794 Take 1 Tablet(s) Buccal UD as directed [...] 7 mg/24 hr daily transdermal patch RxNorm: 148361 Apply 1 Patch Transdermal QD 2 weeks (after first 8 weeks) then discontinue. 10/01/19 24 024 Inactive Nicoderm CQ 21 mg/24 hr daily transdermal patch RxNorm: 767937 Apply 1 Patch Transdermal QD 10/01/19 24 024 Inactive Nicoderm CQ 21 mg/24 hr daily transdermal patch RxNorm: 406416 Apply 1 Patch Transdermal QD 10/01/19 24 024 Inactive Nicoderm CQ 14 mg/24 hr daily transdermal patch RxNorm: 394804 Apply 1 Patch Transdermal QD 2 weeks (after first 6 weeks) 10/01/19 24 024 Inactive Nicoderm CQ 14 mg/24 hr daily transdermal patch RxNorm: 972704 Apply 1 Patch Transdermal QD 2 weeks (after first 6 weeks) 10/01/19 24 024 Inactive nicotine (polacrilex) 4 mg buccal lozenge RxNorm: 590598 Take 1 Tablet(s) Buccal UD as directed 4 mg- Take 1 piece?buccally Q1 hr PRN for craving x 6 weeks then every 2 hr PRN x 3 weeks then every 4 hr PRN x 3 week. Encourage >9 pieces/day for initial 6 week. Avoid food/drink 15 min before and after use. (Dx: smoking cessation) 10/01/19 24 024 Inactive prednisone 20 mg tablet RxNorm: 225121 Take 2 Tablet(s) Oral QD Take 2 tablets (total 40 mg) in the AM preferred and with food. 08/25/19 24 024 Inactive prednisone 20 mg tablet RxNorm: 798716 Take 2 Tablet(s) Oral QD Take 2 tablets (total 40 mg) in the AM preferred and with food. 08/25/19 24 024 Inactive Vitamin B-12 1,000 mcg tablet RxNorm: 525238 Take 1 Tablet(s) Oral QD 08/21/19 No Stop Date Active Qvar RediHaler 80 mcg/actuation HFA breath activated aerosol RxNorm: 4417388 Inhale 1 Puff(s) Inhalation BID 08/21/19 No Stop Date Active loperamide 2 mg tablet RxNorm: 362729 Take 2 Tablet(s) Oral with first loose stool then 1 tab after each additional loose stool. Max 8 tabs in 24 hours 08/21/19 24 No Stop Date Active diclofenac 1 % topical gel RxNorm: 649579 Apply 2 Gram(s) Topical BID as needed 08/21/19 24 No Stop Date Active naloxone 4 mg/actuation nasal spray RxNorm: 6982199 Use as directed for accidental overdose 08/21/19 24 No Stop Date Active ipratropium 0.5 mg-albuterol 3 mg (2.5 mg base)/3 mL nebulization soln RxNorm: 9686453 Inhale 1 Vial Inhalation QID as needed 08/21/19 24 No Stop Date Active acetaminophen 500 mg tablet RxNorm: 303267 Take 2 Tablet(s) Oral TID and 2 tabs by mouth daily as needed 08/21/19 No Stop Date Active tizanidine 2 mg tablet RxNorm: 630061 Take 2 Tablet(s) Oral QD as needed 08/21/19 24 No Stop Date Active Tums 200 mg calcium (500 mg) chewable tablet RxNorm: 590993 Take 2-4 Tablet(s) Oral between meals and at bed time as needed 08/21/19 24 No Stop Date Active Anoro Ellipta 62.5 mcg-25 mcg/actuation powder for inhalation RxNorm: 7142142 Take 1 Puff(s) Inhalation QD 08/21/19 24 No Stop Date Active Antacid Anti-Gas 200 mg-200 mg-20 mg/5 mL oral suspension RxNorm: 186977 Take 5-10 Milliliter(s) Oral QD as needed 08/21/19 24 No Stop Date Active Miralax 17 gram/dose oral powder RxNorm: 315488 Take 17 Gram(s) Oral QD as needed 08/21/19 24 No Stop Date Active Milk of Magnesia 400 mg/5 mL oral suspension RxNorm: 382436 Take 15-30 Milliliter(s) Oral QD as needed 08/21/19 24 No Stop Date Active magnesium 400 mg (as magnesium oxide) tablet RxNorm: 712627 Take 1 Tablet(s) Oral QD 08/21/19 24 No Stop Date Active ferrous sulfate 325 mg (65 mg iron) tablet RxNorm: 042427 Take 1 Tablet(s) Oral QD 08/21/19 24 No Stop Date Active trazodone 100 mg tablet RxNorm: 287152 Take 1 Tablet(s) Oral QHS every night at bedtime as needed 08/21/19 No Stop Date Active Diphen 25 mg tablet RxNorm: 9436728 Take 1-2 Tablet(s) Oral every 6 hours as needed 08/21/19 No Stop Date Active Robafen DM Cough 10 mg-100 mg/5 mL oral liquid RxNorm: 596524 Take 10 Milliliter(s) Oral Q4H every four hours as needed 08/21/19 No Stop Date Active cetirizine 10 mg tablet RxNorm: 0074325 Take 1 Tablet(s) Oral QHS every night at bedtime 08/21/19 24 024 Inactive Tab-A-Myles 400 mcg tablet RxNorm: Take 1 Tablet(s) Oral QD 08/21/19 024 Inactive pregabalin 50 mg capsule RxNorm: 587745 Take 2 Capsule(s) Oral TID 08/21/19 024 Inactive Belbuca 75 mcg buccal film RxNorm: 7231240 Take 1 Unit(s) Buccal BID 08/21/19 24 024 Inactive docusate sodium 100 mg capsule RxNorm: 2844243 Take 1 Capsule(s) Oral BID 08/21/19 024 Inactive omeprazole 40 mg capsule,delayed release RxNorm: 123397 Take 1 Capsule(s) Oral QD 08/21/19 24 024 Inactive albuterol sulfate HFA 90 mcg/actuation aerosol inhaler RxNorm: 9392865 Take 2 Puff(s) Inhalation QID as needed 08/21/19 24 024 Inactive alendronate 10 mg tablet RxNorm: 014894 Take 1 Tablet(s) Oral QD 08/21/19 24 024 Inactive tizanidine 4 mg tablet RxNorm: 881344 Take 1 Tablet(s) Oral TID 08/21/19 24 024 Inactive amlodipine 10 mg tablet RxNorm: 031274 Take 1 Tablet(s) Oral QD 08/21/19 24 024 Inactive atorvastatin 20 mg tablet RxNorm: 987013 Take 1 Tablet(s) Oral QD 08/21/19 Inactive pramipexole 0.75 mg tablet RxNorm: 706477 Take 1 Tablet(s) Oral QD 08/21/19 24 Inactive sertraline 100 mg tablet RxNorm: 574468 Take 1 Tablet(s) Oral QAM every morning 08/21/19 24 Inactive alendronate 10 mg tablet RxNorm: 264234 Take 1 Tablet(s) Oral QD 08/21/19 Inactive metoprolol tartrate 50 mg tablet RxNorm: 914983 Take 1 Tablet(s) Oral BID 08/21/19 Inactive benzonatate 100 mg capsule RxNorm: 737175 Take 1 Capsule(s) Oral TID as needed 08/21/19 Inactive ibuprofen 800 mg tablet RxNorm: 332820 Take 1 Tablet(s) Oral BID 08/21/19 Inactive Vitamin D3 50 mcg (2,000 unit) tablet RxNorm: 930567 Take 1 Tablet(s) Oral QD 08/21/19 Inactive [...] Planned Activity Notes Codes Status Date Referral: [facility] WPtel: [address] [place], [place] [id number] [place] Referral No Records Received 11/12/2023 Referral: Carolyn Lassiter Endo crinology [facility] WPtel: [address] [place], [place] [id number] [place] Referral No Records Received 10/20/2023 Instructions Comment Date 08.20.2023 New BPS patient vi sit. Pet: Bird BabyAWV: 10.15.2023Labs: (October labs: CMP, CBC, VitD, VitB12, Mg)(April labs: BMP, CBC, lipid panel) 08/16/2024
--- OUTSIDE RECORDS SUMMARY | 2024-11-19 02:18 | XMS_ITS | CCD ---
Author Organization Unknown Care Team Providers Care Mft Name Role Phone Jose Alfredo Claudia MARTE Primary Care Provider Yamileth vailable Unavailable Chronic Care Management Unavaila ble Summary Purpose DataExchange Insurance Providers Payer name Policy type / Coverage type Covered libertarian ID Effective Begin Date Effective End Date U[employer] Commercial Insurance [id number] Unkn own Medicaid [place] Commercial Insurance [id number] Unk nown Family history Parents, Siblings, Children Diagnosis Age At Onset No Family Disease Entered N/A Social History Social History Element Codes Description Effec tive Dates Marital status Unknown Single 10/15/2023 Living arrangements Unknown Assisted Living 10/[address]: 33099953 Current ever y day smoker 10/15/[address]: 438918535 No Alcohol Consum ption 10/15/2023 Sexually Active? [...] Unknown Yes 10/15/[address]: 48861022 Current ever y day smoker 08/21/[address]: 450159231 No Alcohol Consum ption 08/21/2023 Allergies, Adverse Reactions, Alerts Substance Reaction Codes Entered Date Inactivated Date Status meperidine RxNorm: 248866 08/20/2023 No Inactive D ate Active codeine Unknown 08/20/2023 No Inactive Date Ac tive Demerol RxNorm: 314834 07/23/2023 No Inactive Da te Active Lactose [...] Start Date Stop Date Status Fill Instructions cetirizine 10 mg tablet RxNorm: 2102027 Take 1 Tablet(s) Oral QHS every night at bedtime 01/27/20 24 025 Active 01/27/2024 PROACTIVE REFILL REQUEST FOR NEXT CYCLE PLEASE THANK YOU sertraline 100 mg tablet RxNorm: 512782 Take 1 Tablet(s) Oral QAM every morning 01/27/20 24 025 Active 01/27/2024 PROACTIVE REFILL REQUEST FOR NEXT CYCLE PLEASE THANK YOU docusate sodium 100 mg capsule RxNorm: 4108270 Take 1 Capsule(s) Oral BID 01/27/20 24 025 Active 01/27/2024 PROACTIVE REFILL REQUEST FOR NEXT CYCLE PLEASE THANK YOU ibuprofen 800 mg tablet RxNorm: 317595 Take 1 Tablet(s) Oral BID 01/27/20 24 025 Active 01/27/2024 PROACTIVE REFILL REQUEST FOR NEXT CYCLE PLEASE THANK YOU amlodipine 10 mg tablet RxNorm: 532046 Take 1 Tablet(s) Oral QD 01/27/20 24 025 Active 01/27/2024 PROACTIVE REFILL REQUEST FOR NEXT CYCLE PLEASE THANK YOU omeprazole 40 mg capsule,delayed release RxNorm: 513315 Take 1 Capsule(s) Oral QD BEFORE A MEAL 01/27/20 24 025 Active 01/27/2024 PROACTIVE REFILL REQUEST FOR NEXT CYCLE PLEASE THANK YOU cholecalciferol (vitamin D3) 50 mcg (2,000 unit) tablet RxNorm: 208884 Take 1 Tablet(s) Oral QD 01/27/20 24 025 Active 01/27/2024 PROACTIVE REFILL REQUEST FOR NEXT CYCLE PLEASE THANK YOU ferrous sulfate 325 mg (65 mg iron) tablet,delayed release RxNorm: 253339 Take 1 Tablet(s) Oral QD WITH A MEAL 01/27/20 24 025 Active 01/27/2024 PROACTIVE REFILL REQUEST FOR NEXT CYCLE PLEASE THANK YOU atorvastatin 20 mg tablet RxNorm: 650174 Take 1 Tablet(s) Oral QD 01/27/20 24 025 Active 01/27/2024 PROACTIVE REFILL REQUEST FOR NEXT CYCLE PLEASE THANK YOU pramipexole 0.75 mg tablet RxNorm: 200857 TAKE 1 TABLET BY MOUTH DAILY (2-3 HOURS BEFORE BEDTIME) 01/27/20 24 025 Active 01/27/2024 PROACTIVE REFILL REQUEST FOR NEXT CYCLE PLEASE THANK YOU metoprolol tartrate 50 mg tablet RxNorm: 006422 Take 1 Tablet(s) Oral BID 01/27/20 24 025 Active 01/27/2024 PROACTIVE REFILL REQUEST FOR NEXT CYCLE PLEASE THANK YOU Belbuca 75 mcg buccal film RxNorm: 5642524 Take 1 Unit(s) Buccal BID Take 1 film buccally twice daily for chronic pain. Do not eat/drink/smoke for 30 minutes after taking 01/26/20 24 024 Inactive doxycycline hyclate 100 mg capsule RxNorm: 7571937 Take 1 Capsule(s) Oral BID 01/21/20 24 024 Inactive prednisone 20 mg tablet RxNorm: 937940 Take 2 Tablet(s) Oral QD 01/21/20 24 024 Inactive benzonatate 100 mg capsule RxNorm: 745879 Take 1 Capsule(s) Oral TID as needed 01/21/20 24 024 Inactive doxycycline hyclate 100 mg capsule RxNorm: 8132699 Take 1 Capsule(s) Oral BID 01/14/20 24 024 Inactive doxycycline hyclate 100 mg capsule RxNorm: 2642513 Take 1 Capsule(s) Oral BID 01/14/20 24 024 Inactive prednisone 20 mg tablet RxNorm: 074011 Take 2 Tablet(s) Oral QD 01/14/20 24 024 Inactive prednisone 20 mg tablet RxNorm: 102719 Take 2 Tablet(s) Oral QD 01/14/20 24 024 Inactive amoxicillin 875 mg-potassium clavulanate 125 mg tablet RxNorm: 696278 Take 1 Tablet(s) Oral BID 12/31/19 24 024 Inactive amoxicillin 875 mg-potassium clavulanate 125 mg tablet RxNorm: 224527 Take 1 Tablet(s) Oral BID 12/31/19 24 Inactive Belbuca 75 mcg buccal film RxNorm: 2848191 Take 1 Unit(s) Buccal BID Take 1 film buccally twice daily for chronic pain. Do not eat/drink/smoke for 30 minutes after taking.? 12/22/19 24 024 Inactive nicotine (polacrilex) 4 mg buccal lozenge RxNorm: 668540 Take 1 Tablet(s) Buccal UD as directed [...] 7 mg/24 hr daily transdermal patch RxNorm: 297796 Apply 1 Patch Transdermal QD 2 weeks (after first 8 weeks) then discontinue. 10/01/19 24 024 Inactive nicotine (polacrilex) 4 mg buccal lozenge RxNorm: 125271 Take 1 Tablet(s) Buccal UD as directed [...] 7 mg/24 hr daily transdermal patch RxNorm: 887534 Apply 1 Patch Transdermal QD 2 weeks (after first 8 weeks) then discontinue. 10/01/19 24 024 Inactive Nicoderm CQ 21 mg/24 hr daily transdermal patch RxNorm: 143135 Apply 1 Patch Transdermal QD 10/01/19 24 024 Inactive Nicoderm CQ 21 mg/24 hr daily transdermal patch RxNorm: 412430 Apply 1 Patch Transdermal QD 10/01/19 24 024 Inactive Nicoderm CQ 14 mg/24 hr daily transdermal patch RxNorm: 295876 Apply 1 Patch Transdermal QD 2 weeks (after first 6 weeks) 10/01/19 24 Inactive Nicoderm CQ 14 mg/24 hr daily transdermal patch RxNorm: 047963 Apply 1 Patch Transdermal QD 2 weeks (after first 6 weeks) 10/01/19 24 Inactive prednisone 20 mg tablet RxNorm: 447458 Take 2 Tablet(s) Oral QD Take 2 tablets (total 40 mg) in the AM preferred and with food. 08/25/19 24 Inactive prednisone 20 mg tablet RxNorm: 296158 Take 2 Tablet(s) Oral QD Take 2 tablets (total 40 mg) in the AM preferred and with food. 08/25/19 Inactive Vitamin B-12 1,000 mcg tablet RxNorm: 141816 Take 1 Tablet(s) Oral QD 08/21/19 No Stop Date Active Qvar RediHaler 80 mcg/actuation HFA breath activated aerosol RxNorm: 2603470 Inhale 1 Puff(s) Inhalation BID 08/21/19 No Stop Date Active loperamide 2 mg tablet RxNorm: 405297 Take 2 Tablet(s) Oral with first loose stool then 1 tab after each additional loose stool. Max 8 tabs in 24 hours 08/21/19 No Stop Date Active cetirizine 10 mg tablet RxNorm: 6588118 Take 1 Tablet(s) Oral QHS every night at bedtime 08/21/19 Inactive diclofenac 1 % topical gel RxNorm: 496974 Apply 2 Gram(s) Topical BID as needed 08/21/19 No Stop Date Active Tab-A-Myles 400 mcg tablet RxNorm: Take 1 Tablet(s) Oral QD 08/21/19 024 Inactive naloxone 4 mg/actuation nasal spray RxNorm: 4661012 Use as directed for accidental overdose 08/21/19 No Stop Date Active pregabalin 50 mg capsule RxNorm: 157226 Take 2 Capsule(s) Oral TID 08/21/19 24 024 Inactive docusate sodium 100 mg capsule RxNorm: 7940918 Take 1 Capsule(s) Oral BID 08/21/19 24 Inactive omeprazole 40 mg capsule,delayed release RxNorm: 786467 Take 1 Capsule(s) Oral QD 08/21/19 24 Inactive ipratropium 0.5 mg-albuterol 3 mg (2.5 mg base)/3 mL nebulization soln RxNorm: 9440048 Inhale 1 Vial Inhalation QID as needed 08/21/19 No Stop Date Active acetaminophen 500 mg tablet RxNorm: 892236 Take 2 Tablet(s) Oral TID and 2 tabs by mouth daily as needed 08/21/19 No Stop Date Active tizanidine 2 mg tablet RxNorm: 412695 Take 2 Tablet(s) Oral QD as needed 08/21/19 No Stop Date Active Tums 200 mg calcium (500 mg) chewable tablet RxNorm: 671989 Take 2-4 Tablet(s) Oral between meals and at bed time as needed 08/21/19 No Stop Date Active Anoro Ellipta 62.5 mcg-25 mcg/actuation powder for inhalation RxNorm: 1513737 Take 1 Puff(s) Inhalation QD 08/21/19 No Stop Date Active albuterol sulfate HFA 90 mcg/actuation aerosol inhaler RxNorm: 5331939 Take 2 Puff(s) Inhalation QID as needed 08/21/19 Inactive tizanidine 4 mg tablet RxNorm: 079044 Take 1 Tablet(s) Oral TID 08/21/19 24 Inactive amlodipine 10 mg tablet RxNorm: 608100 Take 1 Tablet(s) Oral QD 08/21/19 24 Inactive atorvastatin 20 mg tablet RxNorm: 515823 Take 1 Tablet(s) Oral QD 08/21/19 24 Inactive Antacid Anti-Gas 200 mg-200 mg-20 mg/5 mL oral suspension RxNorm: 874897 Take 5-10 Milliliter(s) Oral QD as needed 08/21/19 No Stop Date Active Miralax 17 gram/dose oral powder RxNorm: 553707 Take 17 Gram(s) Oral QD as needed 08/21/19 No Stop Date Active pramipexole 0.75 mg tablet RxNorm: 392573 Take 1 Tablet(s) Oral QD 08/21/19 24 Inactive sertraline 100 mg tablet RxNorm: 195402 Take 1 Tablet(s) Oral QAM every morning 08/21/19 24 Inactive Milk of Magnesia 400 mg/5 mL oral suspension RxNorm: 994771 Take 15-30 Milliliter(s) Oral QD as needed 08/21/19 No Stop Date Active magnesium 400 mg (as magnesium oxide) tablet RxNorm: 725361 Take 1 Tablet(s) Oral QD 08/21/19 24 No Stop Date Active ferrous sulfate 325 mg (65 mg iron) tablet RxNorm: 179345 Take 1 Tablet(s) Oral QD 08/21/19 No Stop Date Active trazodone 100 mg tablet RxNorm: 470379 Take 1 Tablet(s) Oral QHS every night at bedtime as needed 08/21/19 No Stop Date Active metoprolol tartrate 50 mg tablet RxNorm: 223781 Take 1 Tablet(s) Oral BID 08/21/19 24 Inactive Diphen 25 mg tablet RxNorm: 8276179 Take 1-2 Tablet(s) Oral every 6 hours as needed 08/21/19 No Stop Date Active ibuprofen 800 mg tablet RxNorm: 483783 Take 1 Tablet(s) Oral BID 08/21/19 24 Inactive Vitamin D3 50 mcg (2,000 unit) tablet RxNorm: 601148 Take 1 Tablet(s) Oral QD 08/21/19 24 Inactive Robafen DM Cough 10 mg-100 mg/5 mL oral liquid RxNorm: 454205 Take 10 Milliliter(s) Oral Q4H every four hours as needed 08/21/19 No Stop Date Active Belbuca 75 mcg buccal film RxNorm: 2621376 Take 1 Unit(s) Buccal BID 08/21/19 24 024 Inactive alendronate 10 mg tablet RxNorm: 096444 Take 1 Tablet(s) Oral QD 08/21/19 24 024 Inactive alendronate 10 mg tablet RxNorm: 303105 Take 1 Tablet(s) Oral QD 02/15/ 024 Inactive benzonatate 100 mg capsule RxNorm: 040299 Take 1 Capsule(s) Oral TID as needed 08/21/19 24 024 Inactive Medication Administered No [...] Activity Notes Codes Status Date Referral: [facility] WPtel: [address] [place], [place] [id number] Referral No Records Received 11/12/2023 Referral: Carolyn [facility] [place]: [id number] [place] Referral No Records Received 10/20/2023 Instructions Comment Date 08.20.2023 New BPS patient vi sit. Pet: Bird BabyAWV: 10.15.2023Labs: (October labs: CMP, CBC, VitD, VitB12, Mg)(April labs: BMP, CBC, lipid panel) 08/16/2024
--- OUTSIDE RECORDS SUMMARY | 2024-11-19 02:19 | XMS_ITS | CCD ---
Author Organization Unknown Care Team Providers Care Manufacturing Team Leader Name Role Phone Jose Alfredo Claudia MARTE Primary Care Provider Yamileth vailable Unavailable Chronic Care Management Unavaila ble Summary Purpose DataExchange Insurance Providers Payer name Policy type / Coverage type Covered republican ID Effective Begin Date Effective End Date U[employer] Commercial Insurance [id number] Unkn own Medicaid [place] Commercial Insurance [id number] Unk nown Family history Parents, Siblings, Children Diagnosis Age At Onset No Family Disease Entered N/A Social History Social History Element Codes Description Effec tive Dates Marital status Unknown Single 10/15/2023 Living arrangements Unknown Assisted Living 10/[address]: 73669327 Current ever y day smoker 10/15/[address]: 496378939 No Alcohol Consum ption 10/15/2023 Sexually Active? [...] Unknown Yes 10/15/[address]: 24021690 Current ever y day smoker 08/21/[address]: 274213345 No Alcohol Consum ption 08/21/2023 Allergies, Adverse Reactions, Alerts Substance Reaction Codes Entered Date Inactivated Date Status meperidine RxNorm: 542024 08/20/2023 No Inactive D ate Active codeine Unknown 08/20/2023 No Inactive Date Ac tive Demerol RxNorm: 006989 07/23/2023 No Inactive Da te Active Lactose [...] Start Date Stop Date Status Fill Instructions pregabalin 50 mg capsule RxNorm: 598894 Take 2 Capsule(s) Oral TID 03/09/20 24 024 Inactive Mucinex 600 mg tablet, extended release RxNorm: 039506 Take 1 Tablet(s) Oral BID as needed for cough/congestion increase hydration with water when taking 03/03/20 24 024 Inactive Mucinex 600 mg tablet, extended release RxNorm: 382718 Take 1 Tablet(s) Oral BID as needed 03/03/20 24 024 Inactive cetirizine 10 mg tablet RxNorm: 3803281 Take 1 Tablet(s) Oral QHS every night at bedtime 01/27/20 24 025 Active 01/27/2024 PROACTIVE REFILL REQUEST FOR NEXT CYCLE PLEASE THANK YOU sertraline 100 mg tablet RxNorm: 948225 Take 1 Tablet(s) Oral QAM every morning 01/27/20 24 025 Active 01/27/2024 PROACTIVE REFILL REQUEST FOR NEXT CYCLE PLEASE THANK YOU docusate sodium 100 mg capsule RxNorm: 3313963 Take 1 Capsule(s) Oral BID 01/27/20 24 025 Active 01/27/2024 PROACTIVE REFILL REQUEST FOR NEXT CYCLE PLEASE THANK YOU ibuprofen 800 mg tablet RxNorm: 872671 Take 1 Tablet(s) Oral BID 01/27/20 24 025 Active 01/27/2024 PROACTIVE REFILL REQUEST FOR NEXT CYCLE PLEASE THANK YOU amlodipine 10 mg tablet RxNorm: 815294 Take 1 Tablet(s) Oral QD 01/27/20 24 025 Active 01/27/2024 PROACTIVE REFILL REQUEST FOR NEXT CYCLE PLEASE THANK YOU omeprazole 40 mg capsule,delayed release RxNorm: 369548 Take 1 Capsule(s) Oral QD BEFORE A MEAL 01/27/20 24 025 Active 01/27/2024 PROACTIVE REFILL REQUEST FOR NEXT CYCLE PLEASE THANK YOU cholecalciferol (vitamin D3) 50 mcg (2,000 unit) tablet RxNorm: 545456 Take 1 Tablet(s) Oral QD 01/27/20 24 025 Active 01/27/2024 PROACTIVE REFILL REQUEST FOR NEXT CYCLE PLEASE THANK YOU ferrous sulfate 325 mg (65 mg iron) tablet,delayed release RxNorm: 481545 Take 1 Tablet(s) Oral QD WITH A MEAL 01/27/20 24 Active 01/27/2024 PROACTIVE REFILL REQUEST FOR NEXT CYCLE PLEASE THANK YOU atorvastatin 20 mg tablet RxNorm: 401670 Take 1 Tablet(s) Oral QD 01/27/20 24 025 Active 01/27/2024 PROACTIVE REFILL REQUEST FOR NEXT CYCLE PLEASE THANK YOU pramipexole 0.75 mg tablet RxNorm: 294183 TAKE 1 TABLET BY MOUTH DAILY (2-3 HOURS BEFORE BEDTIME) 01/27/20 24 025 Active 01/27/2024 PROACTIVE REFILL REQUEST FOR NEXT CYCLE PLEASE THANK YOU metoprolol tartrate 50 mg tablet RxNorm: 893991 Take 1 Tablet(s) Oral BID 01/27/20 24 025 Active 01/27/2024 PROACTIVE REFILL REQUEST FOR NEXT CYCLE PLEASE THANK YOU Belbuca 75 mcg buccal film RxNorm: 2501663 Take 1 Unit(s) Buccal BID Take 1 film buccally twice daily for chronic pain. Do not eat/drink/smoke for 30 minutes after taking 01/26/20 24 Inactive doxycycline hyclate 100 mg capsule RxNorm: 6727312 Take 1 Capsule(s) Oral BID 01/21/20 24 024 Inactive benzonatate 100 mg capsule RxNorm: 502857 Take 1 Capsule(s) Oral TID as needed 01/21/20 24 Inactive prednisone 20 mg tablet RxNorm: 260118 Take 2 Tablet(s) Oral QD 01/21/20 24 024 Inactive doxycycline hyclate 100 mg capsule RxNorm: 8266802 Take 1 Capsule(s) Oral BID 01/14/20 24 024 Inactive doxycycline hyclate 100 mg capsule RxNorm: 4295174 Take 1 Capsule(s) Oral BID 01/14/20 24 Inactive prednisone 20 mg tablet RxNorm: 589050 Take 2 Tablet(s) Oral QD 01/14/20 24 Inactive prednisone 20 mg tablet RxNorm: 181123 Take 2 Tablet(s) Oral QD 01/14/20 24 024 Inactive amoxicillin 875 mg-potassium clavulanate 125 mg tablet RxNorm: 527131 Take 1 Tablet(s) Oral BID 12/31/19 24 024 Inactive amoxicillin 875 mg-potassium clavulanate 125 mg tablet RxNorm: 037025 Take 1 Tablet(s) Oral BID 12/31/19 24 Inactive Belbuca 75 mcg buccal film RxNorm: 0876524 Take 1 Unit(s) Buccal BID Take 1 film buccally twice daily for chronic pain. Do not eat/drink/smoke for 30 minutes after taking.? 12/22/19 24 024 Inactive Nicoderm CQ 7 mg/24 hr daily transdermal patch RxNorm: 409537 Apply 1 Patch Transdermal QD 2 weeks (after first 8 weeks) then discontinue. 10/01/19 24 024 Inactive nicotine (polacrilex) 4 mg buccal lozenge RxNorm: 454619 Take 1 Tablet(s) Buccal UD as directed [...] 7 mg/24 hr daily transdermal patch RxNorm: 042547 Apply 1 Patch Transdermal QD 2 weeks (after first 8 weeks) then discontinue. 10/01/19 24 024 Inactive Nicoderm CQ 21 mg/24 hr daily transdermal patch RxNorm: 328373 Apply 1 Patch Transdermal QD 10/01/19 24 024 Inactive Nicoderm CQ 21 mg/24 hr daily transdermal patch RxNorm: 849050 Apply 1 Patch Transdermal QD 10/01/19 24 024 Inactive Nicoderm CQ 14 mg/24 hr daily transdermal patch RxNorm: 613475 Apply 1 Patch Transdermal QD 2 weeks (after first 6 weeks) 10/01/19 24 024 Inactive Nicoderm CQ 14 mg/24 hr daily transdermal patch RxNorm: 214159 Apply 1 Patch Transdermal QD 2 weeks (after first 6 weeks) 10/01/19 24 024 Inactive nicotine (polacrilex) 4 mg buccal lozenge RxNorm: 673861 Take 1 Tablet(s) Buccal UD as directed 4 mg- Take 1 piece?buccally Q1 hr PRN for craving x 6 weeks then every 2 hr PRN x 3 weeks then every 4 hr PRN x 3 week. Encourage >9 pieces/day for initial 6 week. Avoid food/drink 15 min before and after use. (Dx: smoking cessation) 10/01/19 24 024 Inactive prednisone 20 mg tablet RxNorm: 173606 Take 2 Tablet(s) Oral QD Take 2 tablets (total 40 mg) in the AM preferred and with food. 08/25/19 24 024 Inactive prednisone 20 mg tablet RxNorm: 142315 Take 2 Tablet(s) Oral QD Take 2 tablets (total 40 mg) in the AM preferred and with food. 08/25/19 24 024 Inactive Vitamin B-12 1,000 mcg tablet RxNorm: 141558 Take 1 Tablet(s) Oral QD 08/21/19 24 No Stop Date Active Qvar RediHaler 80 mcg/actuation HFA breath activated aerosol RxNorm: 9344465 Inhale 1 Puff(s) Inhalation BID 08/21/19 24 No Stop Date Active loperamide 2 mg tablet RxNorm: 335744 Take 2 Tablet(s) Oral with first loose stool then 1 tab after each additional loose stool. Max 8 tabs in 24 hours 08/21/19 24 No Stop Date Active diclofenac 1 % topical gel RxNorm: 781176 Apply 2 Gram(s) Topical BID as needed 08/21/19 No Stop Date Active Tab-A-Myles 400 mcg tablet RxNorm: Take 1 Tablet(s) Oral QD 08/21/19 Inactive naloxone 4 mg/actuation nasal spray RxNorm: 7091059 Use as directed for accidental overdose 08/21/19 No Stop Date Active pregabalin 50 mg capsule RxNorm: 566532 Take 2 Capsule(s) Oral TID 08/21/19 24 Inactive ipratropium 0.5 mg-albuterol 3 mg (2.5 mg base)/3 mL nebulization soln RxNorm: 0177836 Inhale 1 Vial Inhalation QID as needed 08/21/19 No Stop Date Active acetaminophen 500 mg tablet RxNorm: 389495 Take 2 Tablet(s) Oral TID and 2 tabs by mouth daily as needed 08/21/19 No Stop Date Active tizanidine 2 mg tablet RxNorm: 789976 Take 2 Tablet(s) Oral QD as needed 08/21/19 No Stop Date Active Tums 200 mg calcium (500 mg) chewable tablet RxNorm: 566294 Take 2-4 Tablet(s) Oral between meals and at bed time as needed 08/21/19 No Stop Date Active Anoro Ellipta 62.5 mcg-25 mcg/actuation powder for inhalation RxNorm: 3066276 Take 1 Puff(s) Inhalation QD 08/21/19 No Stop Date Active albuterol sulfate HFA 90 mcg/actuation aerosol inhaler RxNorm: 5232261 Take 2 Puff(s) Inhalation QID as needed 08/21/19 24 Inactive tizanidine 4 mg tablet RxNorm: 986017 Take 1 Tablet(s) Oral TID 08/21/19 24 Inactive Antacid Anti-Gas 200 mg-200 mg-20 mg/5 mL oral suspension RxNorm: 372431 Take 5-10 Milliliter(s) Oral QD as needed 08/21/19 No Stop Date Active Miralax 17 gram/dose oral powder RxNorm: 070680 Take 17 Gram(s) Oral QD as needed 08/21/19 24 No Stop Date Active Milk of Magnesia 400 mg/5 mL oral suspension RxNorm: 804031 Take 15-30 Milliliter(s) Oral QD as needed 08/21/19 24 No Stop Date Active magnesium 400 mg (as magnesium oxide) tablet RxNorm: 532966 Take 1 Tablet(s) Oral QD 08/21/19 24 No Stop Date Active ferrous sulfate 325 mg (65 mg iron) tablet RxNorm: 995062 Take 1 Tablet(s) Oral QD 08/21/19 24 No Stop Date Active trazodone 100 mg tablet RxNorm: 055512 Take 1 Tablet(s) Oral QHS every night at bedtime as needed 08/21/19 No Stop Date Active Diphen 25 mg tablet RxNorm: 1997615 Take 1-2 Tablet(s) Oral every 6 hours as needed 08/21/19 No Stop Date Active Robafen DM Cough 10 mg-100 mg/5 mL oral liquid RxNorm: 679817 Take 10 Milliliter(s) Oral Q4H every four hours as needed 08/21/19 No Stop Date Active cetirizine 10 mg tablet RxNorm: 3580351 Take 1 Tablet(s) Oral QHS every night at bedtime 08/21/19 24 024 Inactive Belbuca 75 mcg buccal film RxNorm: 5316517 Take 1 Unit(s) Buccal BID 08/21/19 24 024 Inactive docusate sodium 100 mg capsule RxNorm: 8236201 Take 1 Capsule(s) Oral BID 08/21/19 24 024 Inactive omeprazole 40 mg capsule,delayed release RxNorm: 692679 Take 1 Capsule(s) Oral QD 08/21/19 24 024 Inactive alendronate 10 mg tablet RxNorm: 545705 Take 1 Tablet(s) Oral QD 08/21/19 24 024 Inactive amlodipine 10 mg tablet RxNorm: 493131 Take 1 Tablet(s) Oral QD 08/21/19 24 024 Inactive atorvastatin 20 mg tablet RxNorm: 910612 Take 1 Tablet(s) Oral QD 08/21/19 24 024 Inactive pramipexole 0.75 mg tablet RxNorm: 727310 Take 1 Tablet(s) Oral QD 08/21/19 24 024 Inactive sertraline 100 mg tablet RxNorm: 261530 Take 1 Tablet(s) Oral QAM every morning 08/21/19 24 Inactive alendronate 10 mg tablet RxNorm: 416297 Take 1 Tablet(s) Oral QD 08/21/19 24 Inactive metoprolol tartrate 50 mg tablet RxNorm: 855906 Take 1 Tablet(s) Oral BID 08/21/19 24 Inactive benzonatate 100 mg capsule RxNorm: 411220 Take 1 Capsule(s) Oral TID as needed 08/21/19 Inactive ibuprofen 800 mg tablet RxNorm: 465300 Take 1 Tablet(s) Oral BID 08/21/19 24 Inactive Vitamin D3 50 mcg (2,000 unit) tablet RxNorm: 741569 Take 1 Tablet(s) Oral QD 08/21/19 Inactive [...] Planned Activity Notes Codes Status Date Referral: [facility] WPtel: [address] [place], [place] [id number] Referral No Records Received 11/12/2023 Referral: Carolyn Lassiter Endo crin[facility] WPtel: [address] [place], [place] [id number] Referral No Records Received 10/20/2023 Instructions Comment Date 08.20.2023 New BPS patient vi sit. Pet: Bird BabyAWV: 10.15.2023Labs: (October labs: CMP, CBC, VitD, VitB12, Mg)(April labs: BMP, CBC, lipid panel) 08/16/2024
--- OUTSIDE RECORDS SUMMARY | 2024-11-19 02:19 | XMS_ITS | CCD ---
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 Name Role Phone Jose Alfredo Claudia MARTE Primary Care Provider Yamileth vailable Unavailable Chronic Care Management Unavaila ble Summary Purpose DataExchange Insurance Providers Payer name Policy type / Coverage type Covered alliance party ID Effective Begin Date Effective End Date [employer] Commercial Insurance [id number] Unkn own Medicaid [place] Commercial Insurance [id number] Unk nown Family history Parents, Siblings, Children Diagnosis Age At Onset No Family Disease Entered N/A Social History Social History Element Codes Description Effec tive Dates Marital status Unknown Single 10/15/2023 Living arrangements Unknown Assisted Living 10/[address]: 38214657 Current ever y day smoker 10/15/[address]: 507083399 No Alcohol Consum ption 10/15/2023 Sexually Active? [...] Unknown Yes 10/15/[address]: 69127535 Current ever y day smoker 08/21/[address]: 568242066 No Alcohol Consum ption 08/21/2023 Allergies, Adverse Reactions, Alerts Substance Reaction Codes Entered Date Inactivated Date Status meperidine RxNorm: 401628 08/20/2023 No Inactive D ate Active codeine Unknown 08/20/2023 No Inactive Date Ac tive Demerol RxNorm: 008114 07/23/2023 No Inactive Da te Active Lactose [...] Fill Instructions cetirizine 10 mg tablet RxNorm: 0595686 Take 1 Tablet(s) Oral QHS every night at bedtime 01/27/20 24 025 Active 01/27/2024 PROACTIVE REFILL REQUEST FOR NEXT CYCLE PLEASE THANK YOU sertraline 100 mg tablet RxNorm: 451172 Take 1 Tablet(s) Oral QAM every morning 01/27/20 24 025 Active 01/27/2024 PROACTIVE REFILL REQUEST FOR NEXT CYCLE PLEASE THANK YOU docusate sodium 100 mg capsule RxNorm: 9821283 Take 1 Capsule(s) Oral BID 01/27/20 24 025 Active 01/27/2024 PROACTIVE REFILL REQUEST FOR NEXT CYCLE PLEASE THANK YOU ibuprofen 800 mg tablet RxNorm: 959317 Take 1 Tablet(s) Oral BID 01/27/20 24 025 Active 01/27/2024 PROACTIVE REFILL REQUEST FOR NEXT CYCLE PLEASE THANK YOU amlodipine 10 mg tablet RxNorm: 620924 Take 1 Tablet(s) Oral QD 01/27/20 24 025 Active 01/27/2024 PROACTIVE REFILL REQUEST FOR NEXT CYCLE PLEASE THANK YOU omeprazole 40 mg capsule,delayed release RxNorm: 918939 Take 1 Capsule(s) Oral QD BEFORE A MEAL 01/27/20 24 025 Active 01/27/2024 PROACTIVE REFILL REQUEST FOR NEXT CYCLE PLEASE THANK YOU cholecalciferol (vitamin D3) 50 mcg (2,000 unit) tablet RxNorm: 732806 Take 1 Tablet(s) Oral QD 01/27/20 24 025 Active 01/27/2024 PROACTIVE REFILL REQUEST FOR NEXT CYCLE PLEASE THANK YOU ferrous sulfate 325 mg (65 mg iron) tablet,delayed release RxNorm: 247741 Take 1 Tablet(s) Oral QD WITH A MEAL 01/27/20 24 025 Active 01/27/2024 PROACTIVE REFILL REQUEST FOR NEXT CYCLE PLEASE THANK YOU atorvastatin 20 mg tablet RxNorm: 522231 Take 1 Tablet(s) Oral QD 01/27/20 24 025 Active 01/27/2024 PROACTIVE REFILL REQUEST FOR NEXT CYCLE PLEASE THANK YOU pramipexole 0.75 mg tablet RxNorm: 251359 TAKE 1 TABLET BY MOUTH DAILY (2-3 HOURS BEFORE BEDTIME) 01/27/20 24 025 Active 01/27/2024 PROACTIVE REFILL REQUEST FOR NEXT CYCLE PLEASE THANK YOU metoprolol tartrate 50 mg tablet RxNorm: 204814 Take 1 Tablet(s) Oral BID 01/27/20 24 025 Active 01/27/2024 PROACTIVE REFILL REQUEST FOR NEXT CYCLE PLEASE THANK YOU Belbuca 75 mcg buccal film RxNorm: 6481408 Take 1 Unit(s) Buccal BID Take 1 film buccally twice daily for chronic pain. Do not eat/drink/smoke for 30 minutes after taking 01/26/20 24 024 Inactive doxycycline hyclate 100 mg capsule RxNorm: 3654511 Take 1 Capsule(s) Oral BID 01/21/20 24 024 Inactive prednisone 20 mg tablet RxNorm: 329854 Take 2 Tablet(s) Oral QD 01/21/20 24 024 Inactive benzonatate 100 mg capsule RxNorm: 261291 Take 1 Capsule(s) Oral TID as needed 01/21/20 24 024 Inactive doxycycline hyclate 100 mg capsule RxNorm: 9219164 Take 1 Capsule(s) Oral BID 01/14/20 24 024 Inactive doxycycline hyclate 100 mg capsule RxNorm: 1900861 Take 1 Capsule(s) Oral BID 01/14/20 24 024 Inactive prednisone 20 mg tablet RxNorm: 829231 Take 2 Tablet(s) Oral QD 01/14/20 24 024 Inactive prednisone 20 mg tablet RxNorm: 342984 Take 2 Tablet(s) Oral QD 01/14/20 24 024 Inactive amoxicillin 875 mg-potassium clavulanate 125 mg tablet RxNorm: 325648 Take 1 Tablet(s) Oral BID 12/31/19 24 024 Inactive amoxicillin 875 mg-potassium clavulanate 125 mg tablet RxNorm: 916634 Take 1 Tablet(s) Oral BID 12/31/19 24 Inactive Belbuca 75 mcg buccal film RxNorm: 0973538 Take 1 Unit(s) Buccal BID Take 1 film buccally twice daily for chronic pain. Do not eat/drink/smoke for 30 minutes after taking.? 12/22/19 24 024 Inactive nicotine (polacrilex) 4 mg buccal lozenge RxNorm: 963342 Take 1 Tablet(s) Buccal UD as directed [...] 7 mg/24 hr daily transdermal patch RxNorm: 118670 Apply 1 Patch Transdermal QD 2 weeks (after first 8 weeks) then discontinue. 10/01/19 24 024 Inactive nicotine (polacrilex) 4 mg buccal lozenge RxNorm: 996764 Take 1 Tablet(s) Buccal UD as directed [...] 7 mg/24 hr daily transdermal patch RxNorm: 045476 Apply 1 Patch Transdermal QD 2 weeks (after first 8 weeks) then discontinue. 10/01/19 24 024 Inactive Nicoderm CQ 21 mg/24 hr daily transdermal patch RxNorm: 542264 Apply 1 Patch Transdermal QD 10/01/19 24 024 Inactive Nicoderm CQ 21 mg/24 hr daily transdermal patch RxNorm: 068026 Apply 1 Patch Transdermal QD 10/01/19 24 024 Inactive Nicoderm CQ 14 mg/24 hr daily transdermal patch RxNorm: 678682 Apply 1 Patch Transdermal QD 2 weeks (after first 6 weeks) 10/01/19 24 Inactive Nicoderm CQ 14 mg/24 hr daily transdermal patch RxNorm: 313615 Apply 1 Patch Transdermal QD 2 weeks (after first 6 weeks) 10/01/19 24 Inactive prednisone 20 mg tablet RxNorm: 554105 Take 2 Tablet(s) Oral QD Take 2 tablets (total 40 mg) in the AM preferred and with food. 08/25/19 24 Inactive prednisone 20 mg tablet RxNorm: 975030 Take 2 Tablet(s) Oral QD Take 2 tablets (total 40 mg) in the AM preferred and with food. 08/25/19 Inactive Vitamin B-12 1,000 mcg tablet RxNorm: 937146 Take 1 Tablet(s) Oral QD 08/21/19 No Stop Date Active Qvar RediHaler 80 mcg/actuation HFA breath activated aerosol RxNorm: 6003467 Inhale 1 Puff(s) Inhalation BID 08/21/19 No Stop Date Active loperamide 2 mg tablet RxNorm: 760279 Take 2 Tablet(s) Oral with first loose stool then 1 tab after each additional loose stool. Max 8 tabs in 24 hours 08/21/19 No Stop Date Active cetirizine 10 mg tablet RxNorm: 0707366 Take 1 Tablet(s) Oral QHS every night at bedtime 08/21/19 Inactive diclofenac 1 % topical gel RxNorm: 311696 Apply 2 Gram(s) Topical BID as needed 08/21/19 No Stop Date Active Tab-A-Myles 400 mcg tablet RxNorm: Take 1 Tablet(s) Oral QD 08/21/19 024 Inactive naloxone 4 mg/actuation nasal spray RxNorm: 2305460 Use as directed for accidental overdose 08/21/19 No Stop Date Active pregabalin 50 mg capsule RxNorm: 829163 Take 2 Capsule(s) Oral TID 08/21/19 24 024 Inactive docusate sodium 100 mg capsule RxNorm: 6796212 Take 1 Capsule(s) Oral BID 08/21/19 24 Inactive omeprazole 40 mg capsule,delayed release RxNorm: 061508 Take 1 Capsule(s) Oral QD 08/21/19 24 Inactive ipratropium 0.5 mg-albuterol 3 mg (2.5 mg base)/3 mL nebulization soln RxNorm: 2455530 Inhale 1 Vial Inhalation QID as needed 08/21/19 No Stop Date Active acetaminophen 500 mg tablet RxNorm: 223915 Take 2 Tablet(s) Oral TID and 2 tabs by mouth daily as needed 08/21/19 No Stop Date Active tizanidine 2 mg tablet RxNorm: 678802 Take 2 Tablet(s) Oral QD as needed 08/21/19 No Stop Date Active Tums 200 mg calcium (500 mg) chewable tablet RxNorm: 603419 Take 2-4 Tablet(s) Oral between meals and at bed time as needed 08/21/19 No Stop Date Active Anoro Ellipta 62.5 mcg-25 mcg/actuation powder for inhalation RxNorm: 0540634 Take 1 Puff(s) Inhalation QD 08/21/19 No Stop Date Active albuterol sulfate HFA 90 mcg/actuation aerosol inhaler RxNorm: 9536208 Take 2 Puff(s) Inhalation QID as needed 08/21/19 Inactive tizanidine 4 mg tablet RxNorm: 302313 Take 1 Tablet(s) Oral TID 08/21/19 24 Inactive amlodipine 10 mg tablet RxNorm: 439854 Take 1 Tablet(s) Oral QD 08/21/19 24 Inactive atorvastatin 20 mg tablet RxNorm: 089621 Take 1 Tablet(s) Oral QD 08/21/19 24 Inactive Antacid Anti-Gas 200 mg-200 mg-20 mg/5 mL oral suspension RxNorm: 142949 Take 5-10 Milliliter(s) Oral QD as needed 08/21/19 No Stop Date Active Miralax 17 gram/dose oral powder RxNorm: 170430 Take 17 Gram(s) Oral QD as needed 08/21/19 No Stop Date Active pramipexole 0.75 mg tablet RxNorm: 382397 Take 1 Tablet(s) Oral QD 08/21/19 24 Inactive sertraline 100 mg tablet RxNorm: 265576 Take 1 Tablet(s) Oral QAM every morning 08/21/19 24 Inactive Milk of Magnesia 400 mg/5 mL oral suspension RxNorm: 570982 Take 15-30 Milliliter(s) Oral QD as needed 08/21/19 No Stop Date Active magnesium 400 mg (as magnesium oxide) tablet RxNorm: 727508 Take 1 Tablet(s) Oral QD 08/21/19 24 No Stop Date Active ferrous sulfate 325 mg (65 mg iron) tablet RxNorm: 020943 Take 1 Tablet(s) Oral QD 08/21/19 No Stop Date Active trazodone 100 mg tablet RxNorm: 857321 Take 1 Tablet(s) Oral QHS every night at bedtime as needed 08/21/19 No Stop Date Active metoprolol tartrate 50 mg tablet RxNorm: 100125 Take 1 Tablet(s) Oral BID 08/21/19 24 Inactive Diphen 25 mg tablet RxNorm: 8001476 Take 1-2 Tablet(s) Oral every 6 hours as needed 08/21/19 No Stop Date Active ibuprofen 800 mg tablet RxNorm: 866755 Take 1 Tablet(s) Oral BID 08/21/19 24 Inactive Vitamin D3 50 mcg (2,000 unit) tablet RxNorm: 438376 Take 1 Tablet(s) Oral QD 08/21/19 24 Inactive Robafen DM Cough 10 mg-100 mg/5 mL oral liquid RxNorm: 715660 Take 10 Milliliter(s) Oral Q4H every four hours as needed 08/21/19 No Stop Date Active Belbuca 75 mcg buccal film RxNorm: 9807878 Take 1 Unit(s) Buccal BID 08/21/19 24 024 Inactive alendronate 10 mg tablet RxNorm: 802449 Take 1 Tablet(s) Oral QD 08/21/19 24 024 Inactive alendronate 10 mg tablet RxNorm: 621410 Take 1 Tablet(s) Oral QD 02/15/ 024 Inactive benzonatate 100 mg capsule RxNorm: 419062 Take 1 Capsule(s) Oral TID as needed [...] Planned Activity Notes Codes Status Date Referral: [facility] WPtel: [address] [place], [place] [id number] Referral No Records Received 11/12/2023 Referral: Carolyn [facility]el[facility] [place]: [phone] [id number] [place] Referral No Records Received 10/20/2023 Instructions Comment Date 08.20.2023 New BPS patient vi sit. Pet: Bird BabyAWV: 10.15.2023Labs: (October labs: CMP, CBC, VitD, VitB12, Mg)(April labs: BMP, CBC, lipid panel) 08/16/2024
--- OUTSIDE RECORDS SUMMARY | 2024-11-19 02:20 | XMS_ITS | CCD ---
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 Name Role Phone Jose Alfredo Claudia MARTE Primary Care Provider Yamileth vailable Unavailable Chronic Care Management Unavaila ble Summary Purpose DataExchange Insurance Providers Payer name Policy type / Coverage type Covered republican ID Effective Begin Date Effective End Date U[employer] Commercial Insurance [id number] Unkn own Medicaid [place] Commercial Insurance [id number] Unk nown Family history Parents, Siblings, Children Diagnosis Age At Onset No Family Disease Entered N/A Social History Social History Element Codes Description Effec tive Dates Marital status Unknown Single 10/15/2023 Living arrangements Unknown Assisted Living 10/[address]: 63743513 Current ever y day smoker 10/15/[address]: 882968353 No Alcohol Consum ption 10/15/2023 Sexually Active? [...] Unknown Yes 10/15/[address]: 43808572 Current ever y day smoker 08/21/[address]: 933106219 No Alcohol Consum ption 08/21/2023 Allergies, Adverse Reactions, Alerts Substance Reaction Codes Entered Date Inactivated Date Status meperidine RxNorm: 552585 08/20/2023 No Inactive D ate Active codeine Unknown 08/20/2023 No Inactive Date Ac tive Demerol RxNorm: 776631 07/23/2023 No Inactive Da te Active Lactose [...] Fill Instructions cetirizine 10 mg tablet RxNorm: 9261663 Take 1 Tablet(s) Oral QHS every night at bedtime 01/27/20 24 025 Active 01/27/2024 PROACTIVE REFILL REQUEST FOR NEXT CYCLE PLEASE THANK YOU sertraline 100 mg tablet RxNorm: 836844 Take 1 Tablet(s) Oral QAM every morning 01/27/20 24 025 Active 01/27/2024 PROACTIVE REFILL REQUEST FOR NEXT CYCLE PLEASE THANK YOU docusate sodium 100 mg capsule RxNorm: 3918001 Take 1 Capsule(s) Oral BID 01/27/20 24 025 Active 01/27/2024 PROACTIVE REFILL REQUEST FOR NEXT CYCLE PLEASE THANK YOU ibuprofen 800 mg tablet RxNorm: 249573 Take 1 Tablet(s) Oral BID 01/27/20 24 025 Active 01/27/2024 PROACTIVE REFILL REQUEST FOR NEXT CYCLE PLEASE THANK YOU amlodipine 10 mg tablet RxNorm: 489207 Take 1 Tablet(s) Oral QD 01/27/20 24 025 Active 01/27/2024 PROACTIVE REFILL REQUEST FOR NEXT CYCLE PLEASE THANK YOU omeprazole 40 mg capsule,delayed release RxNorm: 731981 Take 1 Capsule(s) Oral QD BEFORE A MEAL 01/27/20 24 025 Active 01/27/2024 PROACTIVE REFILL REQUEST FOR NEXT CYCLE PLEASE THANK YOU cholecalciferol (vitamin D3) 50 mcg (2,000 unit) tablet RxNorm: 764541 Take 1 Tablet(s) Oral QD 01/27/20 24 025 Active 01/27/2024 PROACTIVE REFILL REQUEST FOR NEXT CYCLE PLEASE THANK YOU ferrous sulfate 325 mg (65 mg iron) tablet,delayed release RxNorm: 599934 Take 1 Tablet(s) Oral QD WITH A MEAL 01/27/20 24 025 Active 01/27/2024 PROACTIVE REFILL REQUEST FOR NEXT CYCLE PLEASE THANK YOU atorvastatin 20 mg tablet RxNorm: 119859 Take 1 Tablet(s) Oral QD 01/27/20 24 025 Active 01/27/2024 PROACTIVE REFILL REQUEST FOR NEXT CYCLE PLEASE THANK YOU pramipexole 0.75 mg tablet RxNorm: 931351 TAKE 1 TABLET BY MOUTH DAILY (2-3 HOURS BEFORE BEDTIME) 01/27/20 24 025 Active 01/27/2024 PROACTIVE REFILL REQUEST FOR NEXT CYCLE PLEASE THANK YOU metoprolol tartrate 50 mg tablet RxNorm: 058262 Take 1 Tablet(s) Oral BID 01/27/20 24 025 Active 01/27/2024 PROACTIVE REFILL REQUEST FOR NEXT CYCLE PLEASE THANK YOU Belbuca 75 mcg buccal film RxNorm: 3309868 Take 1 Unit(s) Buccal BID Take 1 film buccally twice daily for chronic pain. Do not eat/drink/smoke for 30 minutes after taking 01/26/20 24 024 Inactive doxycycline hyclate 100 mg capsule RxNorm: 5066118 Take 1 Capsule(s) Oral BID 01/21/20 24 024 Inactive prednisone 20 mg tablet RxNorm: 537860 Take 2 Tablet(s) Oral QD 01/21/20 24 024 Inactive benzonatate 100 mg capsule RxNorm: 932132 Take 1 Capsule(s) Oral TID as needed 01/21/20 24 024 Inactive doxycycline hyclate 100 mg capsule RxNorm: 6547066 Take 1 Capsule(s) Oral BID 01/14/20 24 024 Inactive doxycycline hyclate 100 mg capsule RxNorm: 7182520 Take 1 Capsule(s) Oral BID 01/14/20 24 024 Inactive prednisone 20 mg tablet RxNorm: 649725 Take 2 Tablet(s) Oral QD 01/14/20 24 024 Inactive prednisone 20 mg tablet RxNorm: 008964 Take 2 Tablet(s) Oral QD 01/14/20 24 024 Inactive amoxicillin 875 mg-potassium clavulanate 125 mg tablet RxNorm: 796626 Take 1 Tablet(s) Oral BID 12/31/19 24 024 Inactive amoxicillin 875 mg-potassium clavulanate 125 mg tablet RxNorm: 575342 Take 1 Tablet(s) Oral BID 12/31/19 24 Inactive Belbuca 75 mcg buccal film RxNorm: 2030866 Take 1 Unit(s) Buccal BID Take 1 film buccally twice daily for chronic pain. Do not eat/drink/smoke for 30 minutes after taking.? 12/22/19 24 024 Inactive nicotine (polacrilex) 4 mg buccal lozenge RxNorm: 554776 Take 1 Tablet(s) Buccal UD as directed [...] 7 mg/24 hr daily transdermal patch RxNorm: 841665 Apply 1 Patch Transdermal QD 2 weeks (after first 8 weeks) then discontinue. 10/01/19 24 024 Inactive nicotine (polacrilex) 4 mg buccal lozenge RxNorm: 121155 Take 1 Tablet(s) Buccal UD as directed [...] 7 mg/24 hr daily transdermal patch RxNorm: 424077 Apply 1 Patch Transdermal QD 2 weeks (after first 8 weeks) then discontinue. 10/01/19 24 024 Inactive Nicoderm CQ 21 mg/24 hr daily transdermal patch RxNorm: 410114 Apply 1 Patch Transdermal QD 10/01/19 24 024 Inactive Nicoderm CQ 21 mg/24 hr daily transdermal patch RxNorm: 761995 Apply 1 Patch Transdermal QD 10/01/19 24 024 Inactive Nicoderm CQ 14 mg/24 hr daily transdermal patch RxNorm: 508315 Apply 1 Patch Transdermal QD 2 weeks (after first 6 weeks) 10/01/19 24 Inactive Nicoderm CQ 14 mg/24 hr daily transdermal patch RxNorm: 203443 Apply 1 Patch Transdermal QD 2 weeks (after first 6 weeks) 10/01/19 24 Inactive prednisone 20 mg tablet RxNorm: 925893 Take 2 Tablet(s) Oral QD Take 2 tablets (total 40 mg) in the AM preferred and with food. 08/25/19 24 Inactive prednisone 20 mg tablet RxNorm: 412838 Take 2 Tablet(s) Oral QD Take 2 tablets (total 40 mg) in the AM preferred and with food. 08/25/19 Inactive Vitamin B-12 1,000 mcg tablet RxNorm: 268949 Take 1 Tablet(s) Oral QD 08/21/19 No Stop Date Active Qvar RediHaler 80 mcg/actuation HFA breath activated aerosol RxNorm: 7269601 Inhale 1 Puff(s) Inhalation BID 08/21/19 No Stop Date Active loperamide 2 mg tablet RxNorm: 478962 Take 2 Tablet(s) Oral with first loose stool then 1 tab after each additional loose stool. Max 8 tabs in 24 hours 08/21/19 No Stop Date Active cetirizine 10 mg tablet RxNorm: 5848731 Take 1 Tablet(s) Oral QHS every night at bedtime 08/21/19 Inactive diclofenac 1 % topical gel RxNorm: 339469 Apply 2 Gram(s) Topical BID as needed 08/21/19 No Stop Date Active Tab-A-Myles 400 mcg tablet RxNorm: Take 1 Tablet(s) Oral QD 08/21/19 024 Inactive naloxone 4 mg/actuation nasal spray RxNorm: 5751657 Use as directed for accidental overdose 08/21/19 No Stop Date Active pregabalin 50 mg capsule RxNorm: 511631 Take 2 Capsule(s) Oral TID 08/21/19 24 024 Inactive docusate sodium 100 mg capsule RxNorm: 3009611 Take 1 Capsule(s) Oral BID 08/21/19 24 Inactive omeprazole 40 mg capsule,delayed release RxNorm: 130437 Take 1 Capsule(s) Oral QD 08/21/19 24 Inactive ipratropium 0.5 mg-albuterol 3 mg (2.5 mg base)/3 mL nebulization soln RxNorm: 2848475 Inhale 1 Vial Inhalation QID as needed 08/21/19 No Stop Date Active acetaminophen 500 mg tablet RxNorm: 822345 Take 2 Tablet(s) Oral TID and 2 tabs by mouth daily as needed 08/21/19 No Stop Date Active tizanidine 2 mg tablet RxNorm: 123544 Take 2 Tablet(s) Oral QD as needed 08/21/19 No Stop Date Active Tums 200 mg calcium (500 mg) chewable tablet RxNorm: 763744 Take 2-4 Tablet(s) Oral between meals and at bed time as needed 08/21/19 No Stop Date Active Anoro Ellipta 62.5 mcg-25 mcg/actuation powder for inhalation RxNorm: 8928127 Take 1 Puff(s) Inhalation QD 08/21/19 No Stop Date Active albuterol sulfate HFA 90 mcg/actuation aerosol inhaler RxNorm: 0730653 Take 2 Puff(s) Inhalation QID as needed 08/21/19 Inactive tizanidine 4 mg tablet RxNorm: 691950 Take 1 Tablet(s) Oral TID 08/21/19 24 Inactive amlodipine 10 mg tablet RxNorm: 027861 Take 1 Tablet(s) Oral QD 08/21/19 24 Inactive atorvastatin 20 mg tablet RxNorm: 930642 Take 1 Tablet(s) Oral QD 08/21/19 24 Inactive Antacid Anti-Gas 200 mg-200 mg-20 mg/5 mL oral suspension RxNorm: 738955 Take 5-10 Milliliter(s) Oral QD as needed 08/21/19 No Stop Date Active Miralax 17 gram/dose oral powder RxNorm: 109787 Take 17 Gram(s) Oral QD as needed 08/21/19 No Stop Date Active pramipexole 0.75 mg tablet RxNorm: 364924 Take 1 Tablet(s) Oral QD 08/21/19 24 Inactive sertraline 100 mg tablet RxNorm: 759739 Take 1 Tablet(s) Oral QAM every morning 08/21/19 24 Inactive Milk of Magnesia 400 mg/5 mL oral suspension RxNorm: 684944 Take 15-30 Milliliter(s) Oral QD as needed 08/21/19 No Stop Date Active magnesium 400 mg (as magnesium oxide) tablet RxNorm: 679633 Take 1 Tablet(s) Oral QD 08/21/19 24 No Stop Date Active ferrous sulfate 325 mg (65 mg iron) tablet RxNorm: 686325 Take 1 Tablet(s) Oral QD 08/21/19 No Stop Date Active trazodone 100 mg tablet RxNorm: 668710 Take 1 Tablet(s) Oral QHS every night at bedtime as needed 08/21/19 No Stop Date Active metoprolol tartrate 50 mg tablet RxNorm: 431110 Take 1 Tablet(s) Oral BID 08/21/19 24 Inactive Diphen 25 mg tablet RxNorm: 7554838 Take 1-2 Tablet(s) Oral every 6 hours as needed 08/21/19 No Stop Date Active ibuprofen 800 mg tablet RxNorm: 695961 Take 1 Tablet(s) Oral BID 08/21/19 24 Inactive Vitamin D3 50 mcg (2,000 unit) tablet RxNorm: 255031 Take 1 Tablet(s) Oral QD 08/21/19 24 Inactive Robafen DM Cough 10 mg-100 mg/5 mL oral liquid RxNorm: 377199 Take 10 Milliliter(s) Oral Q4H every four hours as needed 08/21/19 No Stop Date Active Belbuca 75 mcg buccal film RxNorm: 5632199 Take 1 Unit(s) Buccal BID 08/21/19 24 024 Inactive alendronate 10 mg tablet RxNorm: 151512 Take 1 Tablet(s) Oral QD 08/21/19 24 024 Inactive alendronate 10 mg tablet RxNorm: 381316 Take 1 Tablet(s) Oral QD 02/15/ 024 Inactive benzonatate 100 mg capsule RxNorm: 072506 Take 1 Capsule(s) Oral TID as needed [...] Planned Activity Notes Codes Status Date Referral: [facility] WPtel: [address] [place], [place] [id number] Referral No Records Received 11/12/2023 Referral: [facility]yn [facility] WPtel: [phone] [facility] [id number] [place] Referral No Records Received 10/20/2023 Instructions Comment Date 08.20.2023 New BPS patient vi sit. Pet: Bird BabyAWV: 10.15.2023Labs: (October labs: CMP, CBC, VitD, VitB12, Mg)(April labs: BMP, CBC, lipid panel) 08/16/2024
--- OUTSIDE RECORDS SUMMARY | 2024-11-19 02:21 | XMS_ITS | CCD ---
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 Name Role Phone Jose Alfredo Claudia MARTE Primary Care Provider Yamileth vailable Unavailable Chronic Care Management Unavaila ble Summary Purpose DataExchange Insurance Providers Payer name Policy type / Coverage type Covered constitution party ID Effective Begin Date Effective End Date [employer] Commercial Insurance [id number] Unkn own [place] [id number] Unk nown Family history Parents, Siblings, Children Diagnosis Age At Onset No Family Disease Entered N/A Social History Social History Element Codes Description Effec tive Dates Marital status Unknown Single 10/15/2023 Living arrangements Unknown Assisted Living 10/[address]: 81159331 Current ever y day smoker 10/15/[address]: 211830817 No Alcohol Consum ption 10/15/2023 Sexually Active? [...] Unknown Yes 10/15/[address]: 63543969 Current ever y day smoker 08/21/[address]: 600390232 No Alcohol Consum ption 08/21/2023 Allergies, Adverse Reactions, Alerts Substance Reaction Codes Entered Date Inactivated Date Status meperidine RxNorm: 193671 08/20/2023 No Inactive D ate Active codeine Unknown 08/20/2023 No Inactive Date Ac tive Demerol RxNorm: 500382 07/23/2023 No Inactive Da te Active Lactose [...] Instructions Belbuca 75 mcg buccal film RxNorm: 2811888 Take 1 Unit(s) Buccal BID Take 1 film buccally twice daily for chronic pain. Do not eat/drink/smoke for 30 minutes after taking 03/10/20 24 Inactive pregabalin 50 mg capsule RxNorm: 249515 Take 2 Capsule(s) Oral TID 03/09/20 24 024 Inactive Mucinex 600 mg tablet, extended release RxNorm: 765762 Take 1 Tablet(s) Oral BID as needed for cough/congestion increase hydration with water when taking 03/03/20 24 024 Inactive Mucinex 600 mg tablet, extended release RxNorm: 889987 Take 1 Tablet(s) Oral BID as needed 03/03/20 24 024 Inactive cetirizine 10 mg tablet RxNorm: 0828339 Take 1 Tablet(s) Oral QHS every night at bedtime 01/27/20 24 025 Active 01/27/2024 PROACTIVE REFILL REQUEST FOR NEXT CYCLE PLEASE THANK YOU sertraline 100 mg tablet RxNorm: 326545 Take 1 Tablet(s) Oral QAM every morning 01/27/20 24 025 Active 01/27/2024 PROACTIVE REFILL REQUEST FOR NEXT CYCLE PLEASE THANK YOU docusate sodium 100 mg capsule RxNorm: 4378600 Take 1 Capsule(s) Oral BID 01/27/20 24 025 Active 01/27/2024 PROACTIVE REFILL REQUEST FOR NEXT CYCLE PLEASE THANK YOU ibuprofen 800 mg tablet RxNorm: 478549 Take 1 Tablet(s) Oral BID 01/27/20 24 025 Active 01/27/2024 PROACTIVE REFILL REQUEST FOR NEXT CYCLE PLEASE THANK YOU amlodipine 10 mg tablet RxNorm: 875241 Take 1 Tablet(s) Oral QD 01/27/20 24 025 Active 01/27/2024 PROACTIVE REFILL REQUEST FOR NEXT CYCLE PLEASE THANK YOU omeprazole 40 mg capsule,delayed release RxNorm: 803260 Take 1 Capsule(s) Oral QD BEFORE A MEAL 01/27/20 24 025 Active 01/27/2024 PROACTIVE REFILL REQUEST FOR NEXT CYCLE PLEASE THANK YOU cholecalciferol (vitamin D3) 50 mcg (2,000 unit) tablet RxNorm: 884019 Take 1 Tablet(s) Oral QD 01/27/20 24 025 Active 01/27/2024 PROACTIVE REFILL REQUEST FOR NEXT CYCLE PLEASE THANK YOU ferrous sulfate 325 mg (65 mg iron) tablet,delayed release RxNorm: 877389 Take 1 Tablet(s) Oral QD WITH A MEAL 01/27/20 24 025 Active 01/27/2024 PROACTIVE REFILL REQUEST FOR NEXT CYCLE PLEASE THANK YOU atorvastatin 20 mg tablet RxNorm: 161240 Take 1 Tablet(s) Oral QD 01/27/20 24 025 Active 01/27/2024 PROACTIVE REFILL REQUEST FOR NEXT CYCLE PLEASE THANK YOU pramipexole 0.75 mg tablet RxNorm: 683571 TAKE 1 TABLET BY MOUTH DAILY (2-3 HOURS BEFORE BEDTIME) 01/27/20 24 025 Active 01/27/2024 PROACTIVE REFILL REQUEST FOR NEXT CYCLE PLEASE THANK YOU metoprolol tartrate 50 mg tablet RxNorm: 300387 Take 1 Tablet(s) Oral BID 01/27/20 24 025 Active 01/27/2024 PROACTIVE REFILL REQUEST FOR NEXT CYCLE PLEASE THANK YOU Belbuca 75 mcg buccal film RxNorm: 8213370 Take 1 Unit(s) Buccal BID Take 1 film buccally twice daily for chronic pain. Do not eat/drink/smoke for 30 minutes after taking 01/26/20 24 Inactive doxycycline hyclate 100 mg capsule RxNorm: 6043291 Take 1 Capsule(s) Oral BID 01/21/20 24 024 Inactive benzonatate 100 mg capsule RxNorm: 104235 Take 1 Capsule(s) Oral TID as needed 01/21/20 24 Inactive prednisone 20 mg tablet RxNorm: 091951 Take 2 Tablet(s) Oral QD 01/21/20 24 Inactive doxycycline hyclate 100 mg capsule RxNorm: 4120539 Take 1 Capsule(s) Oral BID 01/14/20 24 024 Inactive doxycycline hyclate 100 mg capsule RxNorm: 4893664 Take 1 Capsule(s) Oral BID 01/14/20 24 024 Inactive prednisone 20 mg tablet RxNorm: 256855 Take 2 Tablet(s) Oral QD 01/14/20 24 Inactive prednisone 20 mg tablet RxNorm: 830304 Take 2 Tablet(s) Oral QD 01/14/20 24 024 Inactive amoxicillin 875 mg-potassium clavulanate 125 mg tablet RxNorm: 525992 Take 1 Tablet(s) Oral BID 12/31/19 24 024 Inactive amoxicillin 875 mg-potassium clavulanate 125 mg tablet RxNorm: 707195 Take 1 Tablet(s) Oral BID 12/31/19 24 024 Inactive Belbuca 75 mcg buccal film RxNorm: 3728163 Take 1 Unit(s) Buccal BID Take 1 film buccally twice daily for chronic pain. Do not eat/drink/smoke for 30 minutes after taking.? 12/22/19 24 024 Inactive Nicoderm CQ 7 mg/24 hr daily transdermal patch RxNorm: 738384 Apply 1 Patch Transdermal QD 2 weeks (after first 8 weeks) then discontinue. 10/01/19 24 024 Inactive nicotine (polacrilex) 4 mg buccal lozenge RxNorm: 502965 Take 1 Tablet(s) Buccal UD as directed [...] 7 mg/24 hr daily transdermal patch RxNorm: 044763 Apply 1 Patch Transdermal QD 2 weeks (after first 8 weeks) then discontinue. 10/01/19 24 024 Inactive Nicoderm CQ 21 mg/24 hr daily transdermal patch RxNorm: 738295 Apply 1 Patch Transdermal QD 10/01/19 24 024 Inactive Nicoderm CQ 21 mg/24 hr daily transdermal patch RxNorm: 457263 Apply 1 Patch Transdermal QD 10/01/19 24 024 Inactive Nicoderm CQ 14 mg/24 hr daily transdermal patch RxNorm: 117316 Apply 1 Patch Transdermal QD 2 weeks (after first 6 weeks) 10/01/19 24 024 Inactive Nicoderm CQ 14 mg/24 hr daily transdermal patch RxNorm: 314167 Apply 1 Patch Transdermal QD 2 weeks (after first 6 weeks) 10/01/19 24 024 Inactive nicotine (polacrilex) 4 mg buccal lozenge RxNorm: 979291 Take 1 Tablet(s) Buccal UD as directed 4 mg- Take 1 piece?buccally Q1 hr PRN for craving x 6 weeks then every 2 hr PRN x 3 weeks then every 4 hr PRN x 3 week. Encourage >9 pieces/day for initial 6 week. Avoid food/drink 15 min before and after use. (Dx: smoking cessation) 10/01/19 24 024 Inactive prednisone 20 mg tablet RxNorm: 859971 Take 2 Tablet(s) Oral QD Take 2 tablets (total 40 mg) in the AM preferred and with food. 08/25/19 24 024 Inactive prednisone 20 mg tablet RxNorm: 565477 Take 2 Tablet(s) Oral QD Take 2 tablets (total 40 mg) in the AM preferred and with food. 08/25/19 24 024 Inactive Vitamin B-12 1,000 mcg tablet RxNorm: 896324 Take 1 Tablet(s) Oral QD 08/21/19 No Stop Date Active Qvar RediHaler 80 mcg/actuation HFA breath activated aerosol RxNorm: 4620487 Inhale 1 Puff(s) Inhalation BID 08/21/19 No Stop Date Active loperamide 2 mg tablet RxNorm: 882577 Take 2 Tablet(s) Oral with first loose stool then 1 tab after each additional loose stool. Max 8 tabs in 24 hours 02/15/20 24 No Stop Date Active diclofenac 1 % topical gel RxNorm: 730118 Apply 2 Gram(s) Topical BID as needed 08/21/19 No Stop Date Active Tab-A-Myles 400 mcg tablet RxNorm: Take 1 Tablet(s) Oral QD 08/21/19 24 Inactive naloxone 4 mg/actuation nasal spray RxNorm: 0093238 Use as directed for accidental overdose 08/21/19 No Stop Date Active ipratropium 0.5 mg-albuterol 3 mg (2.5 mg base)/3 mL nebulization soln RxNorm: 7387461 Inhale 1 Vial Inhalation QID as needed 08/21/19 No Stop Date Active acetaminophen 500 mg tablet RxNorm: 521340 Take 2 Tablet(s) Oral TID and 2 tabs by mouth daily as needed 08/21/19 No Stop Date Active tizanidine 2 mg tablet RxNorm: 156552 Take 2 Tablet(s) Oral QD as needed 08/21/19 No Stop Date Active Tums 200 mg calcium (500 mg) chewable tablet RxNorm: 836174 Take 2-4 Tablet(s) Oral between meals and at bed time as needed 08/21/19 No Stop Date Active Anoro Ellipta 62.5 mcg-25 mcg/actuation powder for inhalation RxNorm: 7138497 Take 1 Puff(s) Inhalation QD 08/21/19 No Stop Date Active albuterol sulfate HFA 90 mcg/actuation aerosol inhaler RxNorm: 5807194 Take 2 Puff(s) Inhalation QID as needed 08/21/19 Inactive tizanidine 4 mg tablet RxNorm: 230450 Take 1 Tablet(s) Oral TID 08/21/19 Inactive Antacid Anti-Gas 200 mg-200 mg-20 mg/5 mL oral suspension RxNorm: 384303 Take 5-10 Milliliter(s) Oral QD as needed 08/21/19 No Stop Date Active Miralax 17 gram/dose oral powder RxNorm: 618610 Take 17 Gram(s) Oral QD as needed 08/21/19 No Stop Date Active Milk of Magnesia 400 mg/5 mL oral suspension RxNorm: 036512 Take 15-30 Milliliter(s) Oral QD as needed 08/21/19 24 No Stop Date Active magnesium 400 mg (as magnesium oxide) tablet RxNorm: 670422 Take 1 Tablet(s) Oral QD 08/21/19 24 No Stop Date Active ferrous sulfate 325 mg (65 mg iron) tablet RxNorm: 978729 Take 1 Tablet(s) Oral QD 08/21/19 24 No Stop Date Active trazodone 100 mg tablet RxNorm: 121208 Take 1 Tablet(s) Oral QHS every night at bedtime as needed 08/21/19 24 No Stop Date Active Diphen 25 mg tablet RxNorm: 8803544 Take 1-2 Tablet(s) Oral every 6 hours as needed 08/21/19 24 No Stop Date Active Robafen DM Cough 10 mg-100 mg/5 mL oral liquid RxNorm: 650425 Take 10 Milliliter(s) Oral Q4H every four hours as needed 08/21/19 No Stop Date Active cetirizine 10 mg tablet RxNorm: 5942378 Take 1 Tablet(s) Oral QHS every night at bedtime 08/21/19 24 024 Inactive pregabalin 50 mg capsule RxNorm: 976259 Take 2 Capsule(s) Oral TID 08/21/19 24 024 Inactive Belbuca 75 mcg buccal film RxNorm: 9559658 Take 1 Unit(s) Buccal BID 08/21/19 24 024 Inactive docusate sodium 100 mg capsule RxNorm: 2237264 Take 1 Capsule(s) Oral BID 08/21/19 24 024 Inactive omeprazole 40 mg capsule,delayed release RxNorm: 401993 Take 1 Capsule(s) Oral QD 08/21/19 24 024 Inactive alendronate 10 mg tablet RxNorm: 066769 Take 1 Tablet(s) Oral QD 08/21/19 24 024 Inactive amlodipine 10 mg tablet RxNorm: 386976 Take 1 Tablet(s) Oral QD 08/21/19 24 024 Inactive atorvastatin 20 mg tablet RxNorm: 479982 Take 1 Tablet(s) Oral QD 08/21/19 24 024 Inactive pramipexole 0.75 mg tablet RxNorm: 330672 Take 1 Tablet(s) Oral QD 08/21/19 24 Inactive sertraline 100 mg tablet RxNorm: 761173 Take 1 Tablet(s) Oral QAM every morning 08/21/19 Inactive alendronate 10 mg tablet RxNorm: 971061 Take 1 Tablet(s) Oral QD 08/21/19 Inactive metoprolol tartrate 50 mg tablet RxNorm: 364152 Take 1 Tablet(s) Oral BID 08/21/19 Inactive benzonatate 100 mg capsule RxNorm: 048558 Take 1 Capsule(s) Oral TID as needed 08/21/19 Inactive ibuprofen 800 mg tablet RxNorm: 015368 Take 1 Tablet(s) Oral BID 08/21/19 Inactive Vitamin D3 50 mcg (2,000 unit) tablet RxNorm: 851077 Take 1 Tablet(s) Oral QD 08/21/19 Inactive [...] Planned Activity Notes Codes Status Date Referral: [facility] WPtel: [address] [place], [place] [id number] Referral No Records Received 11/12/2023 Referral: Carolyn Lassiter Endo crinology [facility] WPtel: [address] [place], [place] [id number] Referral No Records Received 10/20/2023 Instructions Comment Date 08.20.2023 New [facility] patient vi sit. Pet: Bird BabyAWV: 10.15.2023Labs: (October labs: CMP, CBC, VitD, VitB12, Mg)(April labs: BMP, CBC, lipid panel) 08/16/2024
--- OUTSIDE RECORDS SUMMARY | 2024-11-19 02:22 | XMS_ITS | CCD ---
Author Organization Unknown Care Team Providers Care Director It Project Name Role Phone Jose Alfredo Claudia MARTE Primary Care Provider Yamileth vailable Unavailable Chronic Care Management Unavaila ble Summary Purpose DataExchange Insurance Providers Payer name Policy type / Coverage type Covered libertarian ID Effective Begin Date Effective End Date [employer] Commercial Insurance [id number] Unkn own Medicaid [place] Commercial Insurance [id number] Unk nown Family history Parents, Siblings, Children Diagnosis Age At Onset No Family Disease Entered N/A Social History Social History Element Codes Description Effec tive Dates Marital status Unknown Single 10/15/2023 Living arrangements Unknown Assisted Living 10/[address]: 93051733 Current ever y day smoker 10/15/[address]: 960675552 No Alcohol Consum ption 10/15/2023 Sexually Active? [...] Unknown Yes 10/15/[address]: 03613249 Current ever y day smoker 08/21/[address]: 223864000 No Alcohol Consum ption 08/21/2023 Allergies, Adverse Reactions, Alerts Substance Reaction Codes Entered Date Inactivated Date Status meperidine RxNorm: 094782 08/20/2023 No Inactive D ate Active codeine Unknown 08/20/2023 No Inactive Date Ac tive Demerol RxNorm: 209562 07/23/2023 No Inactive Da te Active Lactose Unknown 08/20/2023 No Inactive Date Ac tive Other: Unknown 07/23/2023 No Inactive Date Ac tive Tetanus-Diphtheria Toxoids Td Unknown 08/20/2023 No Inactive Date Active Problems Condition Codes Effective Dates Condition St atus Chronic low back pain with sciatica ICD- 10: M54.40 ICD-9: 724.2 05/19/2024 Active Compression fracture ICD-10: SXQ6086 ICD-9: 829.0 05/19/2024 Active Rib pain on [...] Start Date Stop Date Status Fill Instructions albuterol sulfate HFA 90 mcg/actuation aerosol inhaler RxNorm: 9159745 Take 2 Puff(s) Inhalation QID as needed 05/31/20 24 024 Inactive Tab-A-Myles 400 mcg tablet RxNorm: Take 1 Tablet(s) Oral QD 05/19/20 24 025 Active 05/19/2024 PROACTIVE REFILL REQUEST FOR NEXT CYCLE PLEASE THANK YOU RX has/will before cycle date magnesium oxide 400 mg (241.3 mg magnesium) tablet RxNorm: 889053 Take 1 Tablet(s) Oral QD 05/19/20 24 025 Active 05/19/2024 PROACTIVE REFILL REQUEST FOR NEXT CYCLE PLEASE THANK YOU RX has/will before cycle date tizanidine 4 mg tablet RxNorm: 440239 Take 1 Tablet(s) Oral TID 05/19/20 24 025 Active 05/19/2024 PROACTIVE REFILL REQUEST FOR NEXT CYCLE PLEASE THANK YOU Belbuca 75 mcg buccal film RxNorm: 4852323 Take 1 Unit(s) Buccal BID Take 1 film buccally twice daily for chronic pain. Do not eat/drink/smoke for 30 minutes after taking 05/17/20 24 024 Inactive lidocaine 4 % topical patch RxNorm: 6977466 Topical Apply one patch topically to affected area of body Q12H PRN (apply PM/HS for night and early AM pain). Keep patch on for 12 hours and then off for 12 hours. (compression fracture, pain) 05/14/20 24 025 Inactive lidocaine 4 % topical patch RxNorm: 5419681 Topical Apply one patch topically to affected area of body Q12H PRN (apply PM/HS for night and early AM pain). Keep patch on for 12 hours and then off for 12 hours. 05/14/20 24 024 Inactive Icy Hot 30 %-10 % topical cream RxNorm: 701771 Topical Apply a thin layer topically to affected area (left side/ribs) BID PRN.?(compressio n fracture, pain) 05/12/20 24 025 Inactive calcitonin (salmon) 200 unit/actuation nasal spray RxNorm: 901591 [place] Nasal Administer one spray into one nostril once daily for 14 days (alternate nostrils daily) (compression fracture) 05/12/20 24 024 Inactive calcitonin (salmon) 200 unit/actuation nasal spray RxNorm: 217488 [place] Nasal Administer one spray into one nostril once daily for 14 days (alternate nostrils daily) (compression fracture) 05/12/20 24 024 Inactive Icy Hot 30 %-10 % topical cream RxNorm: 417708 Topical Apply a thin layer topically to affected area (left side/ribs) BID PRN. (compression fracture, pain) 05/12/20 24 024 Inactive Belbuca 75 mcg buccal film RxNorm: 1008183 Take 1 Unit(s) Buccal BID Take 1 film buccally twice daily for chronic pain. Do not eat/drink/smoke for 30 minutes after taking 04/14/20 24 024 Inactive Belbuca 75 mcg buccal film RxNorm: 4219218 Take 1 Unit(s) Buccal BID Take 1 film buccally twice daily for chronic pain. Do not eat/drink/smoke for 30 minutes after taking 03/10/20 24 024 Inactive pregabalin 50 mg capsule RxNorm: 619441 Take 2 Capsule(s) Oral TID 03/09/20 24 12/01/2 024 Inactive Mucinex 600 mg tablet, extended release RxNorm: 335750 Take 1 Tablet(s) Oral BID as needed for cough/congestion increase hydration with water when taking 03/03/20 24 Inactive Mucinex 600 mg tablet, extended release RxNorm: 291951 Take 1 Tablet(s) Oral BID as needed 03/03/20 24 Inactive cetirizine 10 mg tablet RxNorm: 5532112 Take 1 Tablet(s) Oral QHS every night at bedtime 01/27/20 24 025 Active 01/27/2024 PROACTIVE REFILL REQUEST FOR NEXT CYCLE PLEASE THANK YOU sertraline 100 mg tablet RxNorm: 054987 Take 1 Tablet(s) Oral QAM every morning 01/27/20 24 025 Active 01/27/2024 PROACTIVE REFILL REQUEST FOR NEXT CYCLE PLEASE THANK YOU docusate sodium 100 mg capsule RxNorm: 4540375 Take 1 Capsule(s) Oral BID 01/27/20 24 025 Active 01/27/2024 PROACTIVE REFILL REQUEST FOR NEXT CYCLE PLEASE THANK YOU ibuprofen 800 mg tablet RxNorm: 879814 Take 1 Tablet(s) Oral BID 01/27/20 24 025 Active 01/27/2024 PROACTIVE REFILL REQUEST FOR NEXT CYCLE PLEASE THANK YOU amlodipine 10 mg tablet RxNorm: 901924 Take 1 Tablet(s) Oral QD 01/27/20 24 025 Active 01/27/2024 PROACTIVE REFILL REQUEST FOR NEXT CYCLE PLEASE THANK YOU omeprazole 40 mg capsule,delayed release RxNorm: 981415 Take 1 Capsule(s) Oral QD BEFORE A MEAL 01/27/20 24 025 Active 01/27/2024 PROACTIVE REFILL REQUEST FOR NEXT CYCLE PLEASE THANK YOU cholecalciferol (vitamin D3) 50 mcg (2,000 unit) tablet RxNorm: 914535 Take 1 Tablet(s) Oral QD 01/27/20 24 025 Active 01/27/2024 PROACTIVE REFILL REQUEST FOR NEXT CYCLE PLEASE THANK YOU ferrous sulfate 325 mg (65 mg iron) tablet,delayed release RxNorm: 305033 Take 1 Tablet(s) Oral QD WITH A MEAL 01/27/20 24 025 Active 01/27/2024 PROACTIVE REFILL REQUEST FOR NEXT CYCLE PLEASE THANK YOU atorvastatin 20 mg tablet RxNorm: 567686 Take 1 Tablet(s) Oral QD 01/27/20 24 025 Active 01/27/2024 PROACTIVE REFILL REQUEST FOR NEXT CYCLE PLEASE THANK YOU pramipexole 0.75 mg tablet RxNorm: 507236 TAKE 1 TABLET BY MOUTH DAILY (2-3 HOURS BEFORE BEDTIME) 01/27/20 24 025 Active 01/27/2024 PROACTIVE REFILL REQUEST FOR NEXT CYCLE PLEASE THANK YOU metoprolol tartrate 50 mg tablet RxNorm: 015379 Take 1 Tablet(s) Oral BID 01/27/20 24 025 Active 01/27/2024 PROACTIVE REFILL REQUEST FOR NEXT CYCLE PLEASE THANK YOU Belbuca 75 mcg buccal film RxNorm: 5138871 Take 1 Unit(s) Buccal BID Take 1 film buccally twice daily for chronic pain. Do not eat/drink/smoke for 30 minutes after taking 01/26/20 24 024 Inactive doxycycline hyclate 100 mg capsule RxNorm: 8217437 Take 1 Capsule(s) Oral BID 01/21/20 24 024 Inactive benzonatate 100 mg capsule RxNorm: 392234 Take 1 Capsule(s) Oral TID as needed 01/21/20 24 024 Inactive prednisone 20 mg tablet RxNorm: 869859 Take 2 Tablet(s) Oral QD 01/21/20 24 024 Inactive doxycycline hyclate 100 mg capsule RxNorm: 6190213 Take 1 Capsule(s) Oral BID 01/14/20 24 024 Inactive doxycycline hyclate 100 mg capsule RxNorm: 5382939 Take 1 Capsule(s) Oral BID 01/14/20 24 024 Inactive prednisone 20 mg tablet RxNorm: 944969 Take 2 Tablet(s) Oral QD 01/14/20 24 024 Inactive prednisone 20 mg tablet RxNorm: 525493 Take 2 Tablet(s) Oral QD 01/14/20 24 024 Inactive amoxicillin 875 mg-potassium clavulanate 125 mg tablet RxNorm: 146158 Take 1 Tablet(s) Oral BID 12/31/19 24 024 Inactive amoxicillin 875 mg-potassium clavulanate 125 mg tablet RxNorm: 261222 Take 1 Tablet(s) Oral BID 12/31/19 24 Inactive Belbuca 75 mcg buccal film RxNorm: 0974195 Take 1 Unit(s) Buccal BID Take 1 film buccally twice daily for chronic pain. Do not eat/drink/smoke for 30 minutes after taking.? 12/22/19 24 024 Inactive Nicoderm CQ 7 mg/24 hr daily transdermal patch RxNorm: 347580 Apply 1 Patch Transdermal QD 2 weeks (after first 8 weeks) then discontinue. 10/01/19 024 Inactive nicotine (polacrilex) 4 mg buccal lozenge RxNorm: 998522 Take 1 Tablet(s) Buccal UD as directed [...] 7 mg/24 hr daily transdermal patch RxNorm: 960153 Apply 1 Patch Transdermal QD 2 weeks (after first 8 weeks) then discontinue. 10/01/19 024 Inactive Nicoderm CQ 21 mg/24 hr daily transdermal patch RxNorm: 801408 Apply 1 Patch Transdermal QD 10/01/19 24 024 Inactive Nicoderm CQ 21 mg/24 hr daily transdermal patch RxNorm: 446184 Apply 1 Patch Transdermal QD 10/01/19 24 024 Inactive Nicoderm CQ 14 mg/24 hr daily transdermal patch RxNorm: 571989 Apply 1 Patch Transdermal QD 2 weeks (after first 6 weeks) 10/01/19 24 024 Inactive Nicoderm CQ 14 mg/24 hr daily transdermal patch RxNorm: 395365 Apply 1 Patch Transdermal QD 2 weeks (after first 6 weeks) 10/01/19 24 024 Inactive nicotine (polacrilex) 4 mg buccal lozenge RxNorm: 668866 Take 1 Tablet(s) Buccal UD as directed 4 mg- Take 1 piece?buccally Q1 hr PRN for craving x 6 weeks then every 2 hr PRN x 3 weeks then every 4 hr PRN x 3 week. Encourage >9 pieces/day for initial 6 week. Avoid food/drink 15 min before and after use. (Dx: smoking cessation) 10/01/19 24 Inactive prednisone 20 mg tablet RxNorm: 439351 Take 2 Tablet(s) Oral QD Take 2 tablets (total 40 mg) in the AM preferred and with food. 08/25/19 24 024 Inactive prednisone 20 mg tablet RxNorm: 719442 Take 2 Tablet(s) Oral QD Take 2 tablets (total 40 mg) in the AM preferred and with food. 08/25/19 24 024 Inactive Vitamin B-12 1,000 mcg tablet RxNorm: 603807 Take 1 Tablet(s) Oral QD 08/21/19 24 No Stop Date Active Qvar RediHaler 80 mcg/actuation HFA breath activated aerosol RxNorm: 4693375 Inhale 1 Puff(s) Inhalation BID 08/21/19 24 No Stop Date Active loperamide 2 mg tablet RxNorm: 437107 Take 2 Tablet(s) Oral with first loose stool then 1 tab after each additional loose stool. Max 8 tabs in 24 hours 08/21/19 24 No Stop Date Active diclofenac 1 % topical gel RxNorm: 137733 Apply 2 Gram(s) Topical BID as needed 08/21/19 24 No Stop Date Active naloxone 4 mg/actuation nasal spray RxNorm: 0696570 Use as directed for accidental overdose 08/21/19 24 No Stop Date Active ipratropium 0.5 mg-albuterol 3 mg (2.5 mg base)/3 mL nebulization soln RxNorm: 9289276 Inhale 1 Vial Inhalation QID as needed 08/21/19 24 No Stop Date Active acetaminophen 500 mg tablet RxNorm: 802463 Take 2 Tablet(s) Oral TID and 2 tabs by mouth daily as needed 08/21/19 24 No Stop Date Active tizanidine 2 mg tablet RxNorm: 583044 Take 2 Tablet(s) Oral QD as needed 08/21/19 24 No Stop Date Active Tums 200 mg calcium (500 mg) chewable tablet RxNorm: 514649 Take 2-4 Tablet(s) Oral between meals and at bed time as needed 08/21/19 24 No Stop Date Active Anoro Ellipta 62.5 mcg-25 mcg/actuation powder for inhalation RxNorm: 4467231 Take 1 Puff(s) Inhalation QD 08/21/19 24 No Stop Date Active albuterol sulfate HFA 90 mcg/actuation aerosol inhaler RxNorm: 8230753 Take 2 Puff(s) Inhalation QID as needed 08/21/19 24 024 Inactive Antacid Anti-Gas 200 mg-200 mg-20 mg/5 mL oral suspension RxNorm: 158743 Take 5-10 Milliliter(s) Oral QD as needed 08/21/19 24 No Stop Date Active Miralax 17 gram/dose oral powder RxNorm: 095688 Take 17 Gram(s) Oral QD as needed 08/21/19 24 No Stop Date Active Milk of Magnesia 400 mg/5 mL oral suspension RxNorm: 365320 Take 15-30 Milliliter(s) Oral QD as needed 08/21/19 24 No Stop Date Active magnesium 400 mg (as magnesium oxide) tablet RxNorm: 729185 Take 1 Tablet(s) Oral QD 08/21/19 24 No Stop Date Active ferrous sulfate 325 mg (65 mg iron) tablet RxNorm: 041639 Take 1 Tablet(s) Oral QD 08/21/19 24 No Stop Date Active trazodone 100 mg tablet RxNorm: 728597 Take 1 Tablet(s) Oral QHS every night at bedtime as needed 08/21/19 24 No Stop Date Active Diphen 25 mg tablet RxNorm: 5757087 Take 1-2 Tablet(s) Oral every 6 hours as needed 08/21/19 24 No Stop Date Active Robafen DM Cough 10 mg-100 mg/5 mL oral liquid RxNorm: 838074 Take 10 Milliliter(s) Oral Q4H every four hours as needed 08/21/19 24 No Stop Date Active cetirizine 10 mg tablet RxNorm: 2305628 Take 1 Tablet(s) Oral QHS every night at bedtime 08/21/19 24 024 Inactive Tab-A-Myles 400 mcg tablet RxNorm: Take 1 Tablet(s) Oral QD 08/21/19 024 Inactive pregabalin 50 mg capsule RxNorm: 664436 Take 2 Capsule(s) Oral TID 08/21/19 024 Inactive Belbuca 75 mcg buccal film RxNorm: 5899554 Take 1 Unit(s) Buccal BID 08/21/19 024 Inactive docusate sodium 100 mg capsule RxNorm: 6658775 Take 1 Capsule(s) Oral BID 08/21/19 024 Inactive omeprazole 40 mg capsule,delayed release RxNorm: 266138 Take 1 Capsule(s) Oral QD 08/21/19 Inactive alendronate 10 mg tablet RxNorm: 570016 Take 1 Tablet(s) Oral QD 08/21/19 024 Inactive tizanidine 4 mg tablet RxNorm: 138046 Take 1 Tablet(s) Oral TID 08/21/19 024 Inactive amlodipine 10 mg tablet RxNorm: 784207 Take 1 Tablet(s) Oral QD 08/21/19 024 Inactive atorvastatin 20 mg tablet RxNorm: 875511 Take 1 Tablet(s) Oral QD 08/21/19 024 Inactive pramipexole 0.75 mg tablet RxNorm: 740328 Take 1 Tablet(s) Oral QD 08/21/19 024 Inactive sertraline 100 mg tablet RxNorm: 453307 Take 1 Tablet(s) Oral QAM every morning 08/21/19 024 Inactive alendronate 10 mg tablet RxNorm: 188601 Take 1 Tablet(s) Oral QD 08/21/19 024 Inactive metoprolol tartrate 50 mg tablet RxNorm: 435321 Take 1 Tablet(s) Oral BID 08/21/19 024 Inactive benzonatate 100 mg capsule RxNorm: 712789 Take 1 Capsule(s) Oral TID as needed 08/21/19 024 Inactive ibuprofen 800 mg tablet RxNorm: 674394 Take 1 Tablet(s) Oral BID 08/21/19 24 024 Inactive Vitamin D3 50 mcg (2,000 unit) tablet RxNorm: 937987 Take 1 Tablet(s) Oral QD 08/21/19 24 [...] Planned Activity Notes Codes Status Date Referral: [facility] WPtel: [address] [place], [place] [id number] [place] Referral No Records Received 11/12/2023 Referral: Carolyn Lassiter Endo crinology [facility] WPtel: [address] [place], [place] [id number] [place] Referral No Records Received 10/20/2023 Instructions Comment Date 08.20.2023 New BPS patient vi sit. Pet: Bird BabyAWV: 10.15.2023Labs: (October labs: CMP, CBC, VitD, VitB12, Mg)(April labs: BMP, CBC, lipid panel) 08/16/2024
--- OUTSIDE RECORDS SUMMARY | 2024-11-19 02:23 | XMS_ITS | CCD ---
Author Organization Unknown Care Team Providers Care Biomaterials Engineer Name Role Phone Jose Alfredo Claudia MARTE Primary Care Provider Yamileth vailable Unavailable Chronic Care Management Unavaila ble Summary Purpose DataExchange Insurance Providers Payer name Policy type / Coverage type Covered green party ID Effective Begin Date Effective End Date Ucare Commercial Insurance [id number] Unkn own Medicaid [place] Commercial Insurance [id number] Unk nown Family history Parents, Siblings, Children Diagnosis Age At Onset No Family Disease Entered N/A Social History Social History Element Codes Description Effec tive Dates Marital status Unknown Single 10/15/2023 Living arrangements Unknown Assisted Living 10/[address]: 06708193 Current ever y day smoker 10/15/[address]: 736753613 No Alcohol Consum ption 10/15/2023 Sexually Active? [...] Unknown Yes 10/15/[address]: 53167370 Current ever y day smoker 08/21/[address]: 804788522 No Alcohol Consum ption 08/21/2023 Allergies, Adverse Reactions, Alerts Substance Reaction Codes Entered Date Inactivated Date Status meperidine RxNorm: 111062 08/20/2023 No Inactive D ate Active codeine Unknown 08/20/2023 No Inactive Date Ac tive Demerol RxNorm: 008050 07/23/2023 No Inactive Da te Active Lactose Unknown 08/20/2023 No Inactive Date Ac tive Other: Unknown 07/23/2023 No Inactive Date Ac tive Tetanus-Diphtheria Toxoids Td Unknown 08/20/2023 No Inactive Date Active Problems Condition Codes Effective Dates Condition St atus Chronic low back pain with sciatica ICD- 10: M54.40 ICD-9: 724.2 05/19/2024 Active Compression fracture ICD-10: [id number] ICD-9: 829.0 05/19/2024 Active Rib pain on [...] Fill Instructions pregabalin 50 mg capsule RxNorm: 174987 Take 2 Capsule(s) Oral TID 06/08/20 24 024 Inactive pregabalin 50 mg capsule RxNorm: 843791 Take 2 Capsule(s) Oral TID 06/08/20 24 025 Inactive albuterol sulfate HFA 90 mcg/actuation aerosol inhaler RxNorm: 1669241 Take 2 Puff(s) Inhalation QID as needed 05/31/20 24 024 Inactive Tab-A-Myles 400 mcg tablet RxNorm: Take 1 Tablet(s) Oral QD 05/19/20 24 025 Active 05/19/2024 PROACTIVE REFILL REQUEST FOR NEXT CYCLE PLEASE THANK YOU RX has/will before cycle date magnesium oxide 400 mg (241.3 mg magnesium) tablet RxNorm: 667355 Take 1 Tablet(s) Oral QD 05/19/20 24 025 Active 05/19/2024 PROACTIVE REFILL REQUEST FOR NEXT CYCLE PLEASE THANK YOU RX has/will before cycle date tizanidine 4 mg tablet RxNorm: 724150 Take 1 Tablet(s) Oral TID 05/19/20 24 025 Active 05/19/2024 PROACTIVE REFILL REQUEST FOR NEXT CYCLE PLEASE THANK YOU Belbuca 75 mcg buccal film RxNorm: 4194965 Take 1 Unit(s) Buccal BID Take 1 film buccally twice daily for chronic pain. Do not eat/drink/smoke for 30 minutes after taking 05/17/20 24 024 Inactive lidocaine 4 % topical patch RxNorm: 6395972 Topical Apply one patch topically to affected area of body Q12H PRN (apply PM/HS for night and early AM pain). Keep patch on for 12 hours and then off for 12 hours. (compression fracture, pain) 05/14/20 24 025 Inactive lidocaine 4 % topical patch RxNorm: 4134906 Topical Apply one patch topically to affected area of body Q12H PRN (apply PM/HS for night and early AM pain). Keep patch on for 12 hours and then off for 12 hours. 05/14/20 24 Inactive Icy Hot 30 %-10 % topical cream RxNorm: 846883 Topical Apply a thin layer topically to affected area (left side/ribs) BID PRN.?(compressio n fracture, pain) 05/12/20 24 025 Inactive calcitonin (salmon) 200 unit/actuation nasal spray RxNorm: 560541 [facility] Nasal Administer one spray into one nostril once daily for 14 days (alternate nostrils daily) (compression fracture) 05/12/20 24 024 Inactive calcitonin (salmon) 200 unit/actuation nasal spray RxNorm: 371762 [facility] Nasal Administer one spray into one nostril once daily for 14 days (alternate nostrils daily) (compression fracture) 05/12/20 24 024 Inactive Icy Hot 30 %-10 % topical cream RxNorm: 138875 Topical Apply a thin layer topically to affected area (left side/ribs) BID PRN. (compression fracture, pain) 05/12/20 24 024 Inactive Belbuca 75 mcg buccal film RxNorm: 9014067 Take 1 Unit(s) Buccal BID Take 1 film buccally twice daily for chronic pain. Do not eat/drink/smoke for 30 minutes after taking 04/14/20 24 024 Inactive Belbuca 75 mcg buccal film RxNorm: 6106909 Take 1 Unit(s) Buccal BID Take 1 film buccally twice daily for chronic pain. Do not eat/drink/smoke for 30 minutes after taking 03/10/20 24 024 Inactive pregabalin 50 mg capsule RxNorm: 382375 Take 2 Capsule(s) Oral TID 03/09/20 24 024 Inactive Mucinex 600 mg tablet, extended release RxNorm: 613674 Take 1 Tablet(s) Oral BID as needed for cough/congestion increase hydration with water when taking 03/03/20 24 024 Inactive Mucinex 600 mg tablet, extended release RxNorm: 372440 Take 1 Tablet(s) Oral BID as needed 03/03/20 24 024 Inactive cetirizine 10 mg tablet RxNorm: 2084309 Take 1 Tablet(s) Oral QHS every night at bedtime 01/27/20 24 025 Active 01/27/2024 PROACTIVE REFILL REQUEST FOR NEXT CYCLE PLEASE THANK YOU sertraline 100 mg tablet RxNorm: 012128 Take 1 Tablet(s) Oral QAM every morning 01/27/20 24 025 Active 01/27/2024 PROACTIVE REFILL REQUEST FOR NEXT CYCLE PLEASE THANK YOU docusate sodium 100 mg capsule RxNorm: 4174465 Take 1 Capsule(s) Oral BID 01/27/20 24 025 Active 01/27/2024 PROACTIVE REFILL REQUEST FOR NEXT CYCLE PLEASE THANK YOU ibuprofen 800 mg tablet RxNorm: 170169 Take 1 Tablet(s) Oral BID 01/27/20 24 025 Active 01/27/2024 PROACTIVE REFILL REQUEST FOR NEXT CYCLE PLEASE THANK YOU amlodipine 10 mg tablet RxNorm: 385326 Take 1 Tablet(s) Oral QD 01/27/20 24 025 Active 01/27/2024 PROACTIVE REFILL REQUEST FOR NEXT CYCLE PLEASE THANK YOU omeprazole 40 mg capsule,delayed release RxNorm: 418943 Take 1 Capsule(s) Oral QD BEFORE A MEAL 01/27/20 24 025 Active 01/27/2024 PROACTIVE REFILL REQUEST FOR NEXT CYCLE PLEASE THANK YOU cholecalciferol (vitamin D3) 50 mcg (2,000 unit) tablet RxNorm: 644876 Take 1 Tablet(s) Oral QD 01/27/20 24 025 Active 01/27/2024 PROACTIVE REFILL REQUEST FOR NEXT CYCLE PLEASE THANK YOU ferrous sulfate 325 mg (65 mg iron) tablet,delayed release RxNorm: 594304 Take 1 Tablet(s) Oral QD WITH A MEAL 01/27/20 24 Active 01/27/2024 PROACTIVE REFILL REQUEST FOR NEXT CYCLE PLEASE THANK YOU atorvastatin 20 mg tablet RxNorm: 201879 Take 1 Tablet(s) Oral QD 01/27/20 24 025 Active 01/27/2024 PROACTIVE REFILL REQUEST FOR NEXT CYCLE PLEASE THANK YOU pramipexole 0.75 mg tablet RxNorm: 469419 TAKE 1 TABLET BY MOUTH DAILY (2-3 HOURS BEFORE BEDTIME) 01/27/20 24 Active 01/27/2024 PROACTIVE REFILL REQUEST FOR NEXT CYCLE PLEASE THANK YOU metoprolol tartrate 50 mg tablet RxNorm: 541814 Take 1 Tablet(s) Oral BID 01/27/20 24 Active 01/27/2024 PROACTIVE REFILL REQUEST FOR NEXT CYCLE PLEASE THANK YOU Belbuca 75 mcg buccal film RxNorm: 7467644 Take 1 Unit(s) Buccal BID Take 1 film buccally twice daily for chronic pain. Do not eat/drink/smoke for 30 minutes after taking 01/26/20 24 Inactive doxycycline hyclate 100 mg capsule RxNorm: 7654499 Take 1 Capsule(s) Oral BID 01/21/20 24 Inactive benzonatate 100 mg capsule RxNorm: 935010 Take 1 Capsule(s) Oral TID as needed 01/21/20 24 Inactive prednisone 20 mg tablet RxNorm: 926789 Take 2 Tablet(s) Oral QD 01/21/20 24 Inactive doxycycline hyclate 100 mg capsule RxNorm: 0797017 Take 1 Capsule(s) Oral BID 01/14/20 24 024 Inactive doxycycline hyclate 100 mg capsule RxNorm: 3651282 Take 1 Capsule(s) Oral BID 01/14/20 24 024 Inactive prednisone 20 mg tablet RxNorm: 577861 Take 2 Tablet(s) Oral QD 01/14/20 24 024 Inactive prednisone 20 mg tablet RxNorm: 802406 Take 2 Tablet(s) Oral QD 01/14/20 24 024 Inactive amoxicillin 875 mg-potassium clavulanate 125 mg tablet RxNorm: 576150 Take 1 Tablet(s) Oral BID 12/31/19 24 024 Inactive amoxicillin 875 mg-potassium clavulanate 125 mg tablet RxNorm: 759594 Take 1 Tablet(s) Oral BID 12/31/19 24 024 Inactive Belbuca 75 mcg buccal film RxNorm: 8895311 Take 1 Unit(s) Buccal BID Take 1 film buccally twice daily for chronic pain. Do not eat/drink/smoke for 30 minutes after taking.? 12/22/19 24 024 Inactive Nicoderm CQ 7 mg/24 hr daily transdermal patch RxNorm: 260682 Apply 1 Patch Transdermal QD 2 weeks (after first 8 weeks) then discontinue. 10/01/19 024 Inactive nicotine (polacrilex) 4 mg buccal lozenge RxNorm: 038945 Take 1 Tablet(s) Buccal UD as directed 4 mg- Take 1 piece buccally Q1 hr PRN for craving x 6 weeks then every 2 hr PRN x 3 weeks then every 4 hr PRN x 3 week. Encourage >9 pieces/day for initial 6 week. Avoid food/drink 15 min before and after use. (Dx: smoking cessation) 10/01/19 024 Inactive Nicoderm CQ 7 mg/24 hr daily transdermal patch RxNorm: 869340 Apply 1 Patch Transdermal QD 2 weeks (after first 8 weeks) then discontinue. 10/01/19 024 Inactive Nicoderm CQ 21 mg/24 hr daily transdermal patch RxNorm: 107623 Apply 1 Patch Transdermal QD 10/01/19 24 024 Inactive Nicoderm CQ 21 mg/24 hr daily transdermal patch RxNorm: 585850 Apply 1 Patch Transdermal QD 10/01/19 24 024 Inactive Nicoderm CQ 14 mg/24 hr daily transdermal patch RxNorm: 681176 Apply 1 Patch Transdermal QD 2 weeks (after first 6 weeks) 10/01/19 24 024 Inactive Nicoderm CQ 14 mg/24 hr daily transdermal patch RxNorm: 012906 Apply 1 Patch Transdermal QD 2 weeks (after first 6 weeks) 10/01/19 24 024 Inactive nicotine (polacrilex) 4 mg buccal lozenge RxNorm: 397696 Take 1 Tablet(s) Buccal UD as directed 4 mg- Take 1 piece?buccally Q1 hr PRN for craving x 6 weeks then every 2 hr PRN x 3 weeks then every 4 hr PRN x 3 week. Encourage >9 pieces/day for initial 6 week. Avoid food/drink 15 min before and after use. (Dx: smoking cessation) 10/01/19 24 024 Inactive prednisone 20 mg tablet RxNorm: 603082 Take 2 Tablet(s) Oral QD Take 2 tablets (total 40 mg) in the AM preferred and with food. 08/25/19 24 024 Inactive prednisone 20 mg tablet RxNorm: 909542 Take 2 Tablet(s) Oral QD Take 2 tablets (total 40 mg) in the AM preferred and with food. 08/25/19 24 024 Inactive Vitamin B-12 1,000 mcg tablet RxNorm: 056613 Take 1 Tablet(s) Oral QD 08/21/19 24 No Stop Date Active Qvar RediHaler 80 mcg/actuation HFA breath activated aerosol RxNorm: 7017125 Inhale 1 Puff(s) Inhalation BID 08/21/19 24 No Stop Date Active loperamide 2 mg tablet RxNorm: 162794 Take 2 Tablet(s) Oral with first loose stool then 1 tab after each additional loose stool. Max 8 tabs in 24 hours 08/21/19 24 No Stop Date Active diclofenac 1 % topical gel RxNorm: 672843 Apply 2 Gram(s) Topical BID as needed 08/21/19 24 No Stop Date Active naloxone 4 mg/actuation nasal spray RxNorm: 2313378 Use as directed for accidental overdose 08/21/19 24 No Stop Date Active ipratropium 0.5 mg-albuterol 3 mg (2.5 mg base)/3 mL nebulization soln RxNorm: 2362114 Inhale 1 Vial Inhalation QID as needed 08/21/19 24 No Stop Date Active acetaminophen 500 mg tablet RxNorm: 157089 Take 2 Tablet(s) Oral TID and 2 tabs by mouth daily as needed 08/21/19 24 No Stop Date Active tizanidine 2 mg tablet RxNorm: 040465 Take 2 Tablet(s) Oral QD as needed 08/21/19 24 No Stop Date Active Tums 200 mg calcium (500 mg) chewable tablet RxNorm: 856888 Take 2-4 Tablet(s) Oral between meals and at bed time as needed 08/21/19 24 No Stop Date Active Anoro Ellipta 62.5 mcg-25 mcg/actuation powder for inhalation RxNorm: 2173675 Take 1 Puff(s) Inhalation QD 08/21/19 24 No Stop Date Active Antacid Anti-Gas 200 mg-200 mg-20 mg/5 mL oral suspension RxNorm: 118188 Take 5-10 Milliliter(s) Oral QD as needed 08/21/19 24 No Stop Date Active Miralax 17 gram/dose oral powder RxNorm: 467486 Take 17 Gram(s) Oral QD as needed 08/21/19 24 No Stop Date Active Milk of Magnesia 400 mg/5 mL oral suspension RxNorm: 558432 Take 15-30 Milliliter(s) Oral QD as needed 08/21/19 24 No Stop Date Active magnesium 400 mg (as magnesium oxide) tablet RxNorm: 848058 Take 1 Tablet(s) Oral QD 08/21/19 24 No Stop Date Active ferrous sulfate 325 mg (65 mg iron) tablet RxNorm: 453716 Take 1 Tablet(s) Oral QD 08/21/19 24 No Stop Date Active trazodone 100 mg tablet RxNorm: 646438 Take 1 Tablet(s) Oral QHS every night at bedtime as needed 08/21/19 24 No Stop Date Active Diphen 25 mg tablet RxNorm: 0867777 Take 1-2 Tablet(s) Oral every 6 hours as needed 08/21/19 24 No Stop Date Active Robafen DM Cough 10 mg-100 mg/5 mL oral liquid RxNorm: 369164 Take 10 Milliliter(s) Oral Q4H every four hours as needed 08/21/19 24 No Stop Date Active cetirizine 10 mg tablet RxNorm: 2931786 Take 1 Tablet(s) Oral QHS every night at bedtime 08/21/19 Inactive Tab-A-Myles 400 mcg tablet RxNorm: Take 1 Tablet(s) Oral QD 08/21/19 Inactive pregabalin 50 mg capsule RxNorm: 917586 Take 2 Capsule(s) Oral TID 08/21/19 024 Inactive Belbuca 75 mcg buccal film RxNorm: 8567140 Take 1 Unit(s) Buccal BID 08/21/19 024 Inactive docusate sodium 100 mg capsule RxNorm: 0649855 Take 1 Capsule(s) Oral BID 08/21/19 024 Inactive omeprazole 40 mg capsule,delayed release RxNorm: 603468 Take 1 Capsule(s) Oral QD 08/21/19 Inactive albuterol sulfate HFA 90 mcg/actuation aerosol inhaler RxNorm: 3285197 Take 2 Puff(s) Inhalation QID as needed 08/21/19 Inactive alendronate 10 mg tablet RxNorm: 463555 Take 1 Tablet(s) Oral QD 08/21/19 024 Inactive tizanidine 4 mg tablet RxNorm: 953810 Take 1 Tablet(s) Oral TID 08/21/19 024 Inactive amlodipine 10 mg tablet RxNorm: 607722 Take 1 Tablet(s) Oral QD 08/21/19 024 Inactive atorvastatin 20 mg tablet RxNorm: 961036 Take 1 Tablet(s) Oral QD 08/21/19 24 024 Inactive pramipexole 0.75 mg tablet RxNorm: 174085 Take 1 Tablet(s) Oral QD 08/21/19 024 Inactive sertraline 100 mg tablet RxNorm: 763937 Take 1 Tablet(s) Oral QAM every morning 08/21/19 024 Inactive alendronate 10 mg tablet RxNorm: 971180 Take 1 Tablet(s) Oral QD 08/21/19 24 024 Inactive metoprolol tartrate 50 mg tablet RxNorm: 685263 Take 1 Tablet(s) Oral BID 08/21/19 24 Inactive benzonatate 100 mg capsule RxNorm: 991458 Take 1 Capsule(s) Oral TID as needed 08/21/19 24 Inactive ibuprofen 800 mg tablet RxNorm: 941420 Take 1 Tablet(s) Oral BID 08/21/19 24 Inactive Vitamin D3 50 mcg (2,000 unit) tablet RxNorm: 961789 Take 1 Tablet(s) Oral QD 08/21/19 Inactive [...] Planned Activity Notes Codes Status Date Referral: [facility] [address] [id number] Referral No Records Received 11/12/2023 Referral: Carolyn Lassiter Endo crinology [facility] WPtel: [address] [place], [place] [id number] Referral No Records Received 10/20/2023 Instructions Comment Date 08.20.2023 New BPS patient vi sit. Pet: Bird BabyAWV: 10.15.2023Labs: (October labs: CMP, CBC, VitD, VitB12, Mg)(April labs: BMP, CBC, lipid panel) 08/16/2024
--- OUTSIDE RECORDS SUMMARY | 2024-11-19 02:24 | XMS_ITS | CCD ---
Author Organization Unknown Care Team Providers Care Special Delivery Worker Name Role Phone Jose Alfredo Claudia MARTE Primary Care Provider Yamileth vailable Unavailable Chronic Care Management Unavaila ble Summary Purpose DataExchange Insurance Providers Payer name Policy type / Coverage type Covered constitution party ID Effective Begin Date Effective End Date U[employer] Commercial Insurance [id number] Unkn own Medicaid [place] Commercial Insurance [id number] Unk nown Family history Parents, Siblings, Children Diagnosis Age At Onset No Family Disease Entered N/A Social History Social History Element Codes Description Effec tive Dates Marital status Unknown Single 10/15/2023 Living arrangements Unknown Assisted Living 10/[address]: 45214681 Current ever y day smoker 10/15/[address]: 156474104 No Alcohol Consum ption 10/15/2023 Sexually Active? [...] Unknown Yes 10/15/[address]: 89430755 Current ever y day smoker 08/21/[address]: 071792673 No Alcohol Consum ption 08/21/2023 Allergies, Adverse Reactions, Alerts Substance Reaction Codes Entered Date Inactivated Date Status meperidine RxNorm: 433820 08/20/2023 No Inactive D ate Active codeine Unknown 08/20/2023 No Inactive Date Ac tive Demerol RxNorm: 700482 07/23/2023 No Inactive Da te Active Lactose [...] Instructions Belbuca 75 mcg buccal film RxNorm: 7975078 Take 1 Unit(s) Buccal BID Take 1 film buccally twice daily for chronic pain. Do not eat/drink/smoke for 30 minutes after taking 4 02/24/20 24 Inactive doxycycline hyclate 100 mg capsule RxNorm: 2407729 Take 1 Capsule(s) Oral BID 4 01/27/20 24 Inactive prednisone 20 mg tablet RxNorm: 703385 Take 2 Tablet(s) Oral QD 4 01/27/20 24 Inactive benzonatate 100 mg capsule RxNorm: 830210 Take 1 Capsule(s) Oral TID as needed 4 01/21/20 24 Inactive doxycycline hyclate 100 mg capsule RxNorm: 4250550 Take 1 Capsule(s) Oral BID 4 01/14/20 24 Inactive doxycycline hyclate 100 mg capsule RxNorm: 1404371 Take 1 Capsule(s) Oral BID 4 01/20/20 24 Inactive prednisone 20 mg tablet RxNorm: 428011 Take 2 Tablet(s) Oral QD 4 01/14/20 24 Inactive prednisone 20 mg tablet RxNorm: 222224 Take 2 Tablet(s) Oral QD 4 01/18/20 24 Inactive amoxicillin 875 mg-potassium clavulanate 125 mg tablet RxNorm: 436783 Take 1 Tablet(s) Oral BID 4 12/31/19 24 Inactive amoxicillin 875 mg-potassium clavulanate 125 mg tablet RxNorm: 905509 Take 1 Tablet(s) Oral BID 4 01/04/20 24 Inactive Belbuca 75 mcg buccal film RxNorm: 5639093 Take 1 Unit(s) Buccal BID Take 1 film buccally twice daily for chronic pain. Do not eat/drink/smoke for 30 minutes after taking.? 4 01/20/20 24 Inactive nicotine (polacrilex) 4 mg buccal lozenge RxNorm: 358107 Take 1 Tablet(s) Buccal UD as directed [...] 7 mg/24 hr daily transdermal patch RxNorm: 559279 Apply 1 Patch Transdermal QD 2 weeks (after first 8 weeks) then discontinue. 4 10/14/19 24 Inactive nicotine (polacrilex) 4 mg buccal lozenge RxNorm: 562062 Take 1 Tablet(s) Buccal UD as directed [...] 7 mg/24 hr daily transdermal patch RxNorm: 862676 Apply 1 Patch Transdermal QD 2 weeks (after first 8 weeks) then discontinue. 4 10/01/19 24 Inactive Nicoderm CQ 21 mg/24 hr daily transdermal patch RxNorm: 852260 Apply 1 Patch Transdermal QD 4 11/11/19 24 Inactive Nicoderm CQ 21 mg/24 hr daily transdermal patch RxNorm: 075404 Apply 1 Patch Transdermal QD 4 10/01/19 24 Inactive Nicoderm CQ 14 mg/24 hr daily transdermal patch RxNorm: 173380 Apply 1 Patch Transdermal QD 2 weeks (after first 6 weeks) 4 10/01/19 24 Inactive Nicoderm CQ 14 mg/24 hr daily transdermal patch RxNorm: 314422 Apply 1 Patch Transdermal QD 2 weeks (after first 6 weeks) 4 10/14/19 24 Inactive prednisone 20 mg tablet RxNorm: 487135 Take 2 Tablet(s) Oral QD Take 2 tablets (total 40 mg) in the AM preferred and with food. 4 08/25/19 24 Inactive prednisone 20 mg tablet RxNorm: 265350 Take 2 Tablet(s) Oral QD Take 2 tablets (total 40 mg) in the AM preferred and with food. 4 08/29/19 24 Inactive Vitamin B-12 1,000 mcg tablet RxNorm: 287142 Take 1 Tablet(s) Oral QD 4 No Stop Date Active Qvar RediHaler 80 mcg/actuation HFA breath activated aerosol RxNorm: 8251723 Inhale 1 Puff(s) Inhalation BID 4 No Stop Date Active loperamide 2 mg tablet RxNorm: 794371 Take 2 Tablet(s) Oral with first loose stool then 1 tab after each additional loose stool. Max 8 tabs in 24 hours 4 No Stop Date Active cetirizine 10 mg tablet RxNorm: 6497172 Take 1 Tablet(s) Oral QHS every night at bedtime 4 01/27/20 24 Inactive diclofenac 1 % topical gel RxNorm: 867058 Apply 2 Gram(s) Topical BID as needed 4 No Stop Date Active Tab-A-Myles 400 mcg tablet RxNorm: Take 1 Tablet(s) Oral QD 4 05/19/20 24 Inactive naloxone 4 mg/actuation nasal spray RxNorm: 4263928 Use as directed for accidental overdose 4 No Stop Date Active pregabalin 50 mg capsule RxNorm: 861806 Take 2 Capsule(s) Oral TID 4 03/09/20 24 Inactive docusate sodium 100 mg capsule RxNorm: 9834834 Take 1 Capsule(s) Oral BID 4 01/27/20 24 Inactive omeprazole 40 mg capsule,delayed release RxNorm: 399374 Take 1 Capsule(s) Oral QD 4 01/27/20 24 Inactive ipratropium 0.5 mg-albuterol 3 mg (2.5 mg base)/3 mL nebulization soln RxNorm: 6190196 Inhale 1 Vial Inhalation QID as needed 4 No Stop Date Active acetaminophen 500 mg tablet RxNorm: 598992 Take 2 Tablet(s) Oral TID and 2 tabs by mouth daily as needed 4 No Stop Date Active tizanidine 2 mg tablet RxNorm: 473793 Take 2 Tablet(s) Oral QD as needed 4 No Stop Date Active Tums 200 mg calcium (500 mg) chewable tablet RxNorm: 452765 Take 2-4 Tablet(s) Oral between meals and at bed time as needed 4 No Stop Date Active Anoro Ellipta 62.5 mcg-25 mcg/actuation powder for inhalation RxNorm: 6096610 Take 1 Puff(s) Inhalation QD 4 No Stop Date Active albuterol sulfate HFA 90 mcg/actuation aerosol inhaler RxNorm: 9417198 Take 2 Puff(s) Inhalation QID as needed 4 05/31/20 24 Inactive tizanidine 4 mg tablet RxNorm: 095619 Take 1 Tablet(s) Oral TID 4 05/19/20 24 Inactive amlodipine 10 mg tablet RxNorm: 743387 Take 1 Tablet(s) Oral QD 4 01/27/20 24 Inactive atorvastatin 20 mg tablet RxNorm: 627885 Take 1 Tablet(s) Oral QD 4 01/27/20 24 Inactive Antacid Anti-Gas 200 mg-200 mg-20 mg/5 mL oral suspension RxNorm: 807732 Take 5-10 Milliliter(s) Oral QD as needed 4 No Stop Date Active Miralax 17 gram/dose oral powder RxNorm: 421717 Take 17 Gram(s) Oral QD as needed 4 No Stop Date Active pramipexole 0.75 mg tablet RxNorm: 114452 Take 1 Tablet(s) Oral QD 4 01/27/20 24 Inactive sertraline 100 mg tablet RxNorm: 305469 Take 1 Tablet(s) Oral QAM every morning 4 01/27/20 24 Inactive Milk of Magnesia 400 mg/5 mL oral suspension RxNorm: 234855 Take 15-30 Milliliter(s) Oral QD as needed 4 No Stop Date Active magnesium 400 mg (as magnesium oxide) tablet RxNorm: 881687 Take 1 Tablet(s) Oral QD 4 No Stop Date Active ferrous sulfate 325 mg (65 mg iron) tablet RxNorm: 891857 Take 1 Tablet(s) Oral QD 4 No Stop Date Active trazodone 100 mg tablet RxNorm: 082176 Take 1 Tablet(s) Oral QHS every night at bedtime as needed 4 No Stop Date Active metoprolol tartrate 50 mg tablet RxNorm: 933760 Take 1 Tablet(s) Oral BID 4 01/27/20 24 Inactive Diphen 25 mg tablet RxNorm: 9400831 Take 1-2 Tablet(s) Oral every 6 hours as needed 4 No Stop Date Active ibuprofen 800 mg tablet RxNorm: 342458 Take 1 Tablet(s) Oral BID 4 01/27/20 24 Inactive Vitamin D3 50 mcg (2,000 unit) tablet RxNorm: 897512 Take 1 Tablet(s) Oral QD 4 01/27/20 24 Inactive Robafen DM Cough 10 mg-100 mg/5 mL oral liquid RxNorm: 564266 Take 10 Milliliter(s) Oral Q4H every four hours as needed 4 No Stop Date Active Belbuca 75 mcg buccal film RxNorm: 3956526 Take 1 Unit(s) Buccal BID 4 12/22/19 24 Inactive alendronate 10 mg tablet RxNorm: 473468 Take 1 Tablet(s) Oral QD 4 09/30/19 24 Inactive alendronate 10 mg tablet RxNorm: 776031 Take 1 Tablet(s) Oral QD 4 08/22/19 24 Inactive benzonatate 100 mg capsule RxNorm: 969641 Take 1 Capsule(s) Oral TID as needed 4 01/21/20 24 Inactive Medication Administered No Medication Administered [...] Planned Activity Notes Codes Status Date Referral: [facility] WPtel: [address] [place], [place] [id number] Referral No Records Received 11/12/2023 Referral: Carolyn Lassiter Endo crinology [facility] WPtel: [address] [place], [place] [id number] Referral No Records Received 10/20/2023 Instructions Comment Date 08.20.2023 New BPS patient vi sit. Pet: Bird BabyAWV: 10.15.2023Labs: (October labs: CMP, CBC, VitD, VitB12, Mg)(April labs: BMP, CBC, lipid panel) 08/16/2024
[2024-11-19 02:31] VITALS: BP 175/87; PULSE 78; RESP 20; TEMP 36.7; O2SAT 94
== END 2024-11-19 02:32 | disposition home or self-care (01) ==
PROVIDERS: Emergency Provider Internal Medicine; PCP Student in an Organized Health Care Education/Training Program
DX: S40.012A Contusion of left shoulder, initial encounter (principal); J44.9 Chronic obstructive pulmonary disease, unspecified; F17.210 Nicotine dependence, cigarettes, uncomplicated; W01.0XXA Fall on same level from slipping, tripping and stumbling without subsequent striking against object, initial encounter; Z99.81 Dependence on supplemental oxygen
CPT/HCPCS: 73000; 94761; 99283